=== PATIENT | female | born 1965 | race Caucasian/White ===

== ENCOUNTER 2019-09-14 16:59 | Emergency (ER) | payer OTHER, SELFPAY ==
--- NOTE | ~2019-09-14 | XR_ITS ---
EXAMINATION: XR chest 2V DATE: 09/14/2019 17:50 INDICATION: Cough, congestion and fever TECHNIQUE: PA and lateral views of the chest are obtained. COMPARISON: 03/08/2019 FINDINGS: Chronic interstitial opacities persist without significant change. No acute airspace opacit y is identified. There is no pleural effusion or pneumothorax. The cardiomediastinal silhouette is no rmal. There is moderate thoracic spondylosis. IMPRESSION: 1. Findings suggestive of chronic interstitial lung disease without acute cardiopulmonary abnormality . Reviewed, dictated and finalized at location A. TERY VAULT INSTALLER IMPRESSION: 1. Findings suggestive of chronic interstitial lung disease without acute cardi opulmonary abnormality.
[2019-09-14 17:15] VITALS: BP 99/63; PULSE 73; RESP 24; TEMP 36.3; O2SAT 100
[2019-09-14 17:21] VITALS: PULSE 73; RESP 24; O2SAT 100
--- NOTE | 2019-09-14 17:37 | ED.GENADULT ---
HPI - General Adult General Chief complaint: Upper Respiratory Infection Stated complaint: fever/cough/chills/difficulty breathing Time Seen by Provider: 09/14/19 17:37 Source: patient Mode of arrival: ambulatory Limitations: no limitations History of Present Illness HPI narrative: 54-year-old female patient presents to the [facility] with complaints of cold symptoms for the past 3 days. Patient denies getting a flu shot this year. Patient states she does have a history of asthma and COPD and is an active smoker. Patient states that she has had a cough recently, wheezing and feels very short of breath. Patient states she has been using her at home albuterol inhaler every 4-6 hours. Patient states she just overall is not feeling well continues to run fevers body aches and pains. Related Data Home Medications Medication Instructions Recorded Confirmed albuterol sulfate 09/14/19 atorvastatin 09/14/19 duloxetine mg PO 09/14/19 ibuprofen 09/14/19 insulin glargine [Basaglar KwikPen unit SUBCUT 09/14/19 U-100 Insulin] insulin lispro [Admelog SoloStar unit SUBCUT 09/14/19 U-100 Insulin] lisinopril-hydrochlorothiazide tablet 09/14/19 metoprolol tartrate 09/14/19 omeprazole 09/14/19 sitagliptin-metformin [Janumet XR] tablet PO 09/14/19 topiramate 09/14/19 Allergies Allergy/AdvReac Type Severity Reaction Status Date / Time Shrimp Allergy Mild Hives / Uncoded 09/14/19 17:11 Red Face Honey Bee Allergy Unknown ANAPHYLACTIC Uncoded 09/14/19 17:11 SHOCK Review of Systems Review of Systems: Narrative: CONSTITUTIONAL: Positive fever, chills, body aches and sweats. EYES: Denies visual changes, redness, or discharge. ENT: Denies rhinorrhea, congestion, sore throat, or otalgia. CARDIOVASCULAR: Denies chest pain, palpitations, or edema. RESPIRATORY: Positive cough with dyspnea. GASTROINTESTINAL: Denies abdominal pain, nausea, vomiting, or diarrhea. GENITOURINARY: Denies dysuria or hematuria. SKIN: Denies rash or itching. MUSCULOSKELETAL: Denies back pain, joint pain, or myalgia. NEUROLOGIC: Denies headache, numbness, or weakness. PSYCHIATRIC: Denies anxiety or depression. [facility] Past Medical History Medical History (Updated 09/14/19 @ 18:35 by SHIRA Reed) Asthma Cholecystitis COPD (chronic obstructive pulmonary disease) Diabetes GERD (gastroesophageal reflux disease) Hypercholesteremia Hypertension Pneumonia Sleep apnea Social History Social History (Updated 09/14/19 @ 18:07 by SHIRA Reed) Smoking packs per day: 1 Smoking cigarettes per day: 20.0 Comments At the time of my signature I agree with nursing past medical history, surgical, social, and family history. There is no relevant family history pertinent to the presenting complaint. Exam Narrative: Exam Narrative: GENERAL: ill-appearing, well-nourished, and in no acute distress. HEAD: Normocephalic, atraumatic. EYES: PERRLA and EOMI. ENT: Nares with erythema and edema noted bilaterally, no rhinorrhea or epistaxis. Mucous membranes moist. Posterior pharynx no erythema, tonsil enlargement, exudates or lesions present. Bilateral TMs are clear with no erythema or foreign bodies in the canal. NECK: Supple. No lymphadenopathy CHEST: Patient is very tight with inspiration and expiratory wheezing noted to bilateral upper and lower lobes. Patient is talking in broken sentences and does have some labored breathing noted. No tripoding noted. HEART: Regular rate and rhythm. No murmur heard. Normal peripheral pulses. ABDOMEN: Soft, nontender, nondistended, normal active bowel sounds. EXTREMITIES: Normal range of motion. No edema. SKIN: Warm, dry, no rash. NEURO: No focal deficits. Alert and oriented x3. Course Reevaluation(s) Reevaluation #1: Reevaluated patient after DuoNeb was completed. Patient states that she is feeling much better and feels like she is breathing a little bit easier and feels much more open. No
[2019-09-14] MEDS: ALBUTEROL SULFATE NEB 2.5 MG/3 ML INH INHALATION (17:48)
[2019-09-14] MEDS: IPRATROPIUM BR 0.02% INH SOLN 0.5 MG/2.5 ML VIAL INHALATION (17:48)
== END 2019-09-14 18:40 | disposition home or self-care (01) ==
PROVIDERS: Emergency Provider Nurse Practitioner Family
DX: J10.1 Influenza due to other identified influenza virus with other respiratory manifestations (principal); J45.41 Moderate persistent asthma with (acute) exacerbation; J44.9 Chronic obstructive pulmonary disease, unspecified; E11.9 Type 2 diabetes mellitus without complications; K21.9 Gastro-esophageal reflux disease without esophagitis; E78.00 Pure hypercholesterolemia, unspecified; I10 Essential (primary) hypertension; G47.30 Sleep apnea, unspecified; M19.90 Unspecified osteoarthritis, unspecified site; M79.7 Fibromyalgia
CPT/HCPCS: 71046; 87804; 94640; 99213; G0463

== ENCOUNTER 2020-04-12 08:22 | Outpatient (CLI) | payer OTHER, SELFPAY ==
--- NOTE | ~2020-04-12 | MM_ITS ---
EXAMINATION: MM screening santos BI w kathy HISTORY: Screening TECHNIQUE: Craniocaudal and mediolateral oblique 3-D tomosynthesis images were obtained and synthetic 2-D images were generated. CAD analysis was submitted and interpreted. COMPARISON: No prior mammogram is available for comparison at this institution. BREAST PARENCHYMAL COMPOSITION: There are scattered areas of fibroglandular density. FINDINGS: There is no evidence of suspicious mass, calcification, or architectural distortion to sugg est malignancy in either breast. There has been no suspicious interval change. IMPRESSION: 1. No mammographic evidence of malignancy. 2. Recommend routine screening mammography in one year. BI-RADS Category 1: Negative Reviewed, dictated and finalized at location A.
== END 2020-04-12 08:23 | disposition home or self-care (01) ==
DX: Z12.31 Encounter for screening mammogram for malignant neoplasm of breast (principal)
CPT/HCPCS: 77063; 77067

== ENCOUNTER 2020-06-12 07:34 | Outpatient (CLI) | payer OTHER, SELFPAY ==
--- NOTE | 2020-07-17 19:20 | WPDHOMESLEEP ---
Sleep Study - Home Unattended Date of Study: 06/12/20 Interpreting Physician: Devika Ibrahim MD Home Sleep Study Type: Apnea Link Air Height: 1.65 m Weight: 129.274 kg Body Mass Index: 47.4 Neck Circumference (inches): 16 Means: 9 Reason for Sleep Study Poor quality sleep, falling asleep in the day while talking to people Sleep History Nena Fuentes is a 55 year-old female with insomnia and excessive daytime sleepiness. She says that she gets fewer than 3 hours of sleep per night. These problems have been going on for at least 3 years. She is taking trazodone to assist with sleep onset. She has loud snoring, restless sleep, daytime fatigue, nightmares, and she says she can fall asleep any time during the day. She has fibromyalgia and multiple other medical comorbidities that make her sleep poor quality. She had an Means Sleepiness Scale score of 19 when she was in our pulmonary office for her initial visit. On her sleep questionnaire, it was 9. She reports difficulty falling asleep at night and has difficulty staying awake during the day. She constantly snores loudly. She does not awaken at night with heartburn, belching or coughing. She occasionally awakens from sleep feeling short of breath and occasionally has trouble sleeping with a cold. She occasionally wakes up gasping for breath during the night. She occasionally has breathing problems at night observed by others. She frequently sweats excessively at night. She does not notice her heart pounding or beating irregularly at night. She constantly falls asleep during the day, involuntarily, occasionally while driving. She does not fall asleep during physical effort. She rarely has loss of muscle tone with strong emotion. She does not have daytime difficulties due to excessive sleepiness. 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 She occasionally has vivid dreamlike scenes upon awakening or falling asleep. She does not feel afraid to go to sleep. she rarely has nightmares. She occasionally remembers her dreams, occasionally has racing thoughts, feelings of sadness depression and anxiety. She occasionally has muscular tension. She frequently notices parts of her body jerking. She constantly kicks at night, has crawling and aching feelings in her legs and leg pain at night. She does not have morning jaw pain. She does not grind her teeth at night. She constantly is bothered by pain during the day. She occasionally has awakened by pain at night. She frequently wakes up feeling stiff in the morning constantly has sore achy muscles in the morning and wakes up with pain in the neck and spine. She has fatigue, memory problems, bowel disturbances and headaches. normal bedtime is after midnight taking 30-40 minutes to fall asleep, typically waking 3 or 4 times at night to go to the bathroom and watch TV. She stays awake for 30 minutes to an hour when she wakes up. She wakes in the morning at 5:00 a.m.. Weekend schedule is the same. She estimates that she gets somewhere between 4 and 6 hours of sleep each night. She gets up out of bed immediately when she wakes up. She does not generally take naps. A short nap is not refreshing. She is usually drowsy in the morning for 1 hour or longer. She feels better in the afternoon compared to the morning. Habits: She smokes tobacco 1 pack per day. She does not drink caffeine, alcohol and does not use recreational drugs. [facility] Past Medical History Medical History (Updated 07/17/20 @ 19:52 by Devika Ibrahim MD) Asthma Cholecystitis COPD (chronic obstructive pulmonary disease) Cough productive of purulent sputum Depression Diabetes Fibromyalgia GERD (gastroesophageal reflux disease) Headache Hypercholesteremia Hypersomnolence Hypertension Myalgia Pneumonia Recurrent respiratory infection Shortness of Breath Sleep apnea Tobacco abuse Surgical History Surgical History History of cholecystectomy
[2020-07-17 19:23] VITALS: BMI 47.4
== END 2020-06-12 07:35 | disposition home or self-care (01) ==
LOC: ANHCSM 07:34
PROVIDERS: Visit Provider Internal Medicine Critical Care Medicine
DX: G47.10 Hypersomnia, unspecified (principal); G47.33 Obstructive sleep apnea (adult) (pediatric)
CPT/HCPCS: 95806

== ENCOUNTER 2020-06-13 13:38 | Outpatient (CLI) | payer OTHER, SELFPAY ==
--- NOTE | ~2020-06-13 | CT_ITS ---
EXAMINATION:CT lung screening DATE: 06/13/2020 15:11 INDICATION: Personal history of tobacco dependence. Current smoker with 30 pack year history. TECHNIQUE: Computed tomography (CT) of the chest was performed without intravenous contrast. Automate d exposure control and iterative reconstruction technique were employed. The dose-length product (DLP ) was 409.44 mGy-cm. COMPARISON: Chest 2 views 03/08/2019 FINDINGS: There is mild emphysema. The lungs demonstrate widespread reticular opacities with a periph eral predominance. There are widespread groundglass opacities. These findings spare the lung bases. T hese findings likely represent chronic interstitial lung disease such as chronic hypersensitivity pne umonitis. No pleural effusion. The heart size is normal. There are coronary artery calcifications. No pericardial effusion. There is diffuse hepatic steatosis. There is mild thoracic spondylosis. IMPRESSION: 1. Lung-RADS category 2: Benign appearance or behavior. Continue annual screening with noncontrast lo w-dose chest CT in 12 months. Reviewed, dictated and finalized at location B. NEL MARKETING MANAGER IMPRESSION: 1. Lung-RADS category 2: Benign appearance or behavior. Continue annual screeni ng with noncontrast low-dose chest CT in 12 months.
[2020-06-17 10:55] LABS: Immunoglobulin E 75 kU/L (<=114)
[2020-06-18 20:11] LABS: Immunoglobulin G, Serum 738 mg/dL (600-1640); Immunoglobulin G1 440 mg/dL (382-929); Immunoglobulin G2 182 mg/dL (241-700); Immunoglobulin G3 51 mg/dL (22-178); Immunoglobulin G4 25.1 mg/dL (4.0-86.0)
== END 2020-06-13 13:39 | disposition home or self-care (01) ==
LOC: ANHIMG 13:40
PROVIDERS: Visit Provider Internal Medicine Critical Care Medicine
DX: J98.8 Other specified respiratory disorders (principal); Z12.2 Encounter for screening for malignant neoplasm of respiratory organs; Z87.891 Personal history of nicotine dependence; J44.9 Chronic obstructive pulmonary disease, unspecified; R05 Cough
CPT/HCPCS: 36415; 82784; 82785; 82787; 86606; 94060; 94618; 94726; 94729; G0297

== ENCOUNTER 2020-06-13 13:43 | Outpatient (CLI) | payer OTHER, SELFPAY ==
--- NOTE | 2020-06-17 15:49 | WPDSIXMINUTE ---
Six Minute Walk Six Minute Walk: DOS: 06/13/2020 REQUESTING: Dr Ibrahim REASON FOR TESTING: shortness of breath SIX MINUTE WALK This test was conducted per ATS guidelines. Initial saturation was 95% and pulse was 83. The patient walked for 6 minutes without stopping to rest. The pulse ranged from 83 to 102. Saturation varied from 90% to 95%. Distances walked was 900 feet/274 meters. At hte end of the study, heart rate was 96, pulse was 93%. IMPRESSION: No desaturation with exertion. Distance walked is adequate for age.
--- NOTE | 2020-06-17 15:58 | WPDPFTINT ---
PFT Interpretation PFT Interpretation: DOS: 06/13/2020 REQUESTING: Dr. Ibrahim REASON FOR TESTING: shortness of breath PULMONARY FUNCTION TESTS Results are not reliable and reproducible. The patient had difficulty with full exhalation due to persistent coughing which improved after bronchodilator administration. Spirometry: FEV1 74%, normal. FVC is 68%, mildly decreased. FEV1% is 82, normal. [id number]% is mildly decreased at 63%. There is a non-statistically significant in flows after bronchodilator administration. Lung volumes: TLC 79%, mild restriction. RV is normal 97%. RV/TLC is increased 45% consistent with air trapping. Increased airway resistance 160%. Diffusion: DLCO 63% mildly decreased. Flow volume loop: Overall small dimensions consistent with restriction, and mild scooping of the expiratory limb. IMPRESSION: Mild restriction, mild obstruction evidenced by increased air trapping. Increased airway resistance. Mild decrease in diffusion. Lack of response to bronchodilator should not preclude use if clinically indicated. Devika Ibrahim MD
== END 2020-06-13 13:44 | disposition home or self-care (01) ==
LOC: ANHPFT 13:43
PROVIDERS: Visit Provider Internal Medicine Critical Care Medicine
DX: R06.02 Shortness of breath (principal)
CPT/HCPCS: 94060; 94618; 94726; 94729

== ENCOUNTER 2020-06-19 17:00 | Emergency (ER) | payer OTHER, SELFPAY ==
--- NOTE | ~2020-06-19 | XR_ITS ---
EXAMINATION: XR foot LT min 3V DATE: 06/19/2020 17:22 INDICATION: Left foot abrasion post fall TECHNIQUE: Dorsoplantar, two oblique and lateral views of the left foot were obtained. COMPARISON: None. FINDINGS: Alignment is normal. No fracture. Polyarticular osteoarthritis, moderate severity at the second and t hird tarsal metatarsal joints and mild at the remaining tarsal metatarsal and many of the metatarsoph alangeal and interphalangeal joints. There is flattening of the head of the second metatarsal consist ent with likely chronic osteonecrosis/Freiberg's infraction. Large plantar calcaneal spur. Small enth esopathic ossicles at the distal Achilles tendon. Bunion at the medial head of the first metatarsal. Soft tissue swelling overlying the lateral head of the fifth metatarsal which could represent an kt tional bunionette deformity. No radiopaque foreign bodies. IMPRESSION: 1. Scattered degenerative skeletal changes in the left foot as detailed above. No acute osseous abnor mality or radiopaque foreign bodies. 2. Chronic osteonecrosis/Freiberg's infraction with flattening of the head of the second metatarsal. Reviewed, dictated and finalized at location . THESIA TECHNICIAN IMPRESSION: 1. Scattered degenerative skeletal changes in the left foot as detailed above. No acute osseous abnormality or radiopaque foreign bodies. 2. Chronic osteonecrosis/Freiberg's infraction with flattening of the head of t he second metatarsal.
--- NOTE | ~2020-06-19 | XR_ITS ---
EXAMINATION: XR knee LT 3V, XR tibia fibula LT 2V DATE: 06/19/2020 17:22 INDICATION: Left knee and proximal lower leg pain post fall TECHNIQUE: 1. Anteroposterior, 2 oblique and crosstable lateral views of the left knee were obtained. 2. AP and lateral views of the left lower leg were obtained. COMPARISON: None. FINDINGS: Alignment is normal. No fracture. Small marginal osteophytes at the lateral and patellofemoral jayesh rtments of the left knee consistent with at least mild osteoarthritis. No left knee joint effusion/la yering lipohemarthrosis. Soft tissues are unremarkable. Left ankle joint space appears normal with no joint effusion. Soft tissue swelling with subcutaneous edema anterior to the patellar tendon and pro ximal left lower leg which given history of trauma likely represents a contusion. IMPRESSION: 1. No left knee joint effusion or acute osseous abnormality. Reviewed, dictated and finalized at [facility]. SPECIALIST IMPRESSION: 1. No left knee joint effusion or acute osseous abnormality.
[2020-06-19 17:24] VITALS: BP 115/78
[2020-06-19 17:28] VITALS: BP 111/62; BP 115/78; PULSE 64; PULSE 73; RESP 16; RESP 20; TEMP 36.2; TEMP 36.8; O2SAT 100; O2SAT 99
--- NOTE | 2020-06-19 17:30 | ED.LOWEXIN ---
HPI - Extremity Injury (Lower) General Chief Complaint: Extremity Injury, Lower Stated Complaint: L KNEE INJURY Time Seen by Provider: 06/19/20 17:20 Source: patient and RN notes reviewed Mode of arrival: ambulatory Limitations: no limitations History of Present Illness HPI Narrative: 55-year-old female who presents to [facility] care with complaints of injury to her left knee and to the dorsal aspect of her left toes from a fall while walking her dog about 2.5 hours ago. Patient states pain to her left knee anterior aspect with abrasion of skin noted to anterior aspect of her left knee. Patient is able to bend knee but states increase pain with movement and weight bearing to left leg. Patient also states some pain to the dorsal aspect of her left 2nd,3rd and 4th toes with abrasions noted. Patient also has noted swelling to the proximal lower leg below her knee with some light ecchymosis noted. Patient has adequate pulses to her left foot with foot pink and warm to touch, brisk capillary refill to toes. Patient denies any other injury, denies hitting head or any LOC. MD complaint: knee injury and other (proximal lower leg) Injury: Left: knee (And proximal lower leg) Place: street/outdoors Exacerbating factors: movement Context: fall Related Data Home Medications Medication Instructions Recorded Confirmed albuterol sulfate 09/14/19 atorvastatin 09/14/19 duloxetine mg PO 09/14/19 ibuprofen 09/14/19 insulin glargine [Basaglar KwikPen unit SUBCUT 09/14/19 U-100 Insulin] insulin lispro [Admelog SoloStar unit SUBCUT 09/14/19 U-100 Insulin] lisinopril-hydrochlorothiazide tablet 09/14/19 metoprolol tartrate 09/14/19 sitagliptin-metformin [Janumet XR] tablet PO 09/14/19 topiramate 09/14/19 Allergies Allergy/AdvReac Type Severity Reaction Status Date / Time Shrimp Allergy Mild Hives / Uncoded 04/19/20 10:08 Red Face Honey Bee Allergy Unknown ANAPHYLACTIC Uncoded 04/19/20 10:08 SHOCK Review of Systems Review of Systems: Narrative: CONSTITUTIONAL: Denies fever, chills, or sweats. EYES: Denies visual changes, redness, or discharge. ENT: Denies rhinorrhea, congestion, sore throat, or otalgia. CARDIOVASCULAR: Denies chest pain, palpitations, or edema. RESPIRATORY: Positive history of cough or dyspnea.History of asthma and tobacco abuse GASTROINTESTINAL: Denies abdominal pain, nausea, vomiting, or diarrhea. GENITOURINARY: Denies dysuria or hematuria. SKIN: Denies rash or itching.Abrasions to left knee and 2.3.4th toes left foot MUSCULOSKELETAL:Chronic back pain, joint pain, or myalgia, pain to left knee anterior region with swelling noted to area below knee with mild ecchymosis and dorsal aspect of 2,3,4, left toes NEUROLOGIC: Denies headache, numbness, or weakness. PSYCHIATRIC:Positive history of anxiety or depression. All systems reviewed & are unremarkable except as noted in HPI and below PMFSH Past Medical History Medical History (Updated 06/21/20 @ 20:44 by Donna Chapman NP) Asthma Cholecystitis COPD (chronic obstructive pulmonary disease) Cough productive of purulent sputum Diabetes GERD (gastroesophageal reflux disease) Headache Hypercholesteremia Hypersomnolence Hypertension Myalgia Pneumonia Recurrent respiratory infection Shortness of Breath Sleep apnea Tobacco abuse Surgical History Surgical History (Updated 04/18/20 @ 14:05 by Sofia Bell CMA) History of cholecystectomy History of hysterectomy History of tonsillectomy Family History Family History (Updated 04/18/20 @ 14:06 by Sofia Bell CMA) Sibling Hypertension Grandparent Hypertension Diabetes mellitus Malignant neoplasm of prostate Skin cancer Social History Social History (Updated 06/21/20 @ 20:36 by Donna Chapman NP) Smoking packs per day: 1 Smoking cigarettes per day: 20.0 Smoking status: Current every day smoker Alcohol intake: never Substance use: never [facility]
== END 2020-06-19 17:52 | disposition home or self-care (01) ==
PROVIDERS: Emergency Provider Registered Nurse
DX: S80.02XA Contusion of left knee, initial encounter (principal); W19.XXXA Unspecified fall, initial encounter; S80.212A Abrasion, left knee, initial encounter; S90.415A Abrasion, left lesser toe(s), initial encounter; M79.89 Other specified soft tissue disorders; F17.210 Nicotine dependence, cigarettes, uncomplicated; J44.9 Chronic obstructive pulmonary disease, unspecified; E11.9 Type 2 diabetes mellitus without complications; K21.9 Gastro-esophageal reflux disease without esophagitis; E78.00 Pure hypercholesterolemia, unspecified; I10 Essential (primary) hypertension; G47.30 Sleep apnea, unspecified; Z79.4 Long term (current) use of insulin
CPT/HCPCS: 73562; 73590; 73630; 99214; G0463

== ENCOUNTER 2020-11-08 16:41 | Emergency (ER) | payer OTHER, SELFPAY ==
--- NOTE | 2020-11-08 16:46 | ED.GENADULT ---
HPI - General Adult General Chief complaint: Dental/Oral Stated complaint: facial swelling Time Seen by Provider: 11/08/20 16:56 Source: patient and RN notes reviewed Mode of arrival: ambulatory Limitations: no limitations History of Present Illness HPI narrative: 55-year-old female presents with complaints of diffused dental pain for the past year. Nena reports increasing right upper dental pain and right jaw swelling over the past 24 hours. Routine medications (Gabapentin) and Tylenol (last at noon today) without relief. History of Periodontal disease and Gingivitis. Denies any drainage. No fever. No neck swelling. No limitation with speaking or swallowing. Has history of dental caries. Last seen a dentist 3 weeks ago for treatment. No dental trauma. No oral lesions. Exacerbating factors consist of chewing, eating, and drinking cold items. No relieving factors. No dentures or bridges. Tolerating liquids well. The patient reports she have not been diagnosed with COVID-19. The patient reports she is not waiting for the results of a COVID-19 lab test. The patient reports she do not have chills, weakness, or fatigue. The patient reports she do not have a new or worsening cough or shortness of breath. Denies chest pain. The patient reports she do not have any rhinorrhea, congestion, sore throat, loss of taste or smell, nausea, vomiting, abdominal pain, and diarrhea. Denies recent traveling. Denies concerns for COVID-19 or exposures been home with limited outdoor exposure except for essential household needs and return home. At this time, patient is not suspected of having COVID-19. Some parts of this dictation were generated by voice recognition software and may contain typographical and/or grammatical inaccuracies. Related Data Home Medications Medication Instructions Recorded Confirmed atorvastatin 40 mg PO DAILY 09/14/19 11/08/20 ibuprofen 800 mg PO TID 09/14/19 11/08/20 insulin lispro [Admelog SoloStar 20 unit SUBCUT KVO 09/14/19 11/08/20 U-100 Insulin] lisinopril-hydrochlorothiazide 20 tablet PO DAILY 09/14/19 11/08/20 metoprolol tartrate 25 mg PO BID 09/14/19 11/08/20 sitagliptin-metformin [Janumet XR] 100 tablet PO DAILY 09/14/19 11/08/20 topiramate 25 mg PO HS 09/14/19 11/08/20 gabapentin 300 mg capsule 300 mg PO DAILY 08/27/20 11/08/20 insulin glargine 100 unit/mL 90 unit SUBCUT DAILY ml 08/27/20 11/08/20 subcutaneous solution ipratropium 20 mcg-albuterol 100 1 puff INHALATION ONCE g 08/27/20 11/08/20 mcg/actuation mist for inhalation dulaglutide [Trulicity] 0.75 mg SUBCUT WEEKLY 11/08/20 11/08/20 duloxetine [Cymbalta] 60 mg PO BID 11/08/20 11/08/20 tiotropium bromide [Spiriva with 18 mcg INHALATION DAILY 11/08/20 11/08/20 HandiHaler] Allergies Allergy/AdvReac Type Severity Reaction Status Date / Time cephalexin [From Keflex] AdvReac Nausea Verified 11/08/20 16:53 Shrimp Allergy Mild Hives / Uncoded 11/08/20 16:52 Red Face Honey Bee Allergy Unknown ANAPHYLACTIC Uncoded 11/08/20 16:52 SHOCK Review of Systems Review of Systems: Narrative: CONSTITUTIONAL: Denies fever, chills, sweats. EYES: Denies visual changes, redness, discharge. ENT: Denies rhinorrhea, congestion, sore throat, otalgia. Complains of diffused dental pain, RT upper dental pain the worse. CARDIOVASCULAR: Denies chest pain, palpitations, edema. RESPIRATORY: Denies dyspnea, wheezing, cough. GASTROINTESTINAL: Denies abdominal pain, nausea, vomiting, diarrhea. SKIN: Denies rash or itching. MUSCULOSKELETAL: Denies acute back pain, joint pain, or myalgia. NEUROLOGIC: Denies numbness or focal weakness. PSYCHIATRIC: Denies anxiety or depression. All systems reviewed & are unremarkable except as noted in HPI and below. [facility] Past Medical History Medical History Asthma Cholecystitis COPD (chronic obstructive pulmonary disease) Cough productive of purul
[2020-11-08 16:56] VITALS: BP 129/56; PULSE 93; RESP 16; TEMP 36.6; O2SAT 97
[2020-11-08 17:12] VITALS: BP 129/56; PULSE 93; RESP 16; TEMP 36.6; O2SAT 97
== END 2020-11-08 17:19 | disposition home or self-care (01) ==
PROVIDERS: Emergency Provider Nurse Practitioner Family; PCP Family Medicine
DX: K04.7 Periapical abscess without sinus (principal); F17.210 Nicotine dependence, cigarettes, uncomplicated; J44.9 Chronic obstructive pulmonary disease, unspecified; E11.9 Type 2 diabetes mellitus without complications; M79.7 Fibromyalgia; K21.9 Gastro-esophageal reflux disease without esophagitis; E78.00 Pure hypercholesterolemia, unspecified; I10 Essential (primary) hypertension; G47.30 Sleep apnea, unspecified; F32.9 Major depressive disorder, single episode, unspecified; Z79.4 Long term (current) use of insulin
CPT/HCPCS: 99213; G0463

== ENCOUNTER 2020-11-20 11:31 | Emergency (ER) | payer OTHER, SELFPAY ==
--- NOTE | ~2020-11-20 | XR_ITS ---
EXAMINATION: XR knee LT min 4V DATE: 11/20/2020 11:48 INDICATION: Left knee pain. TECHNIQUE: 4 views of left knee were obtained. COMPARISON: Left knee radiographs 06/19/2020 FINDINGS: There is lateral subluxation of patella. No fracture. There is moderate osteoarthritis of m edial and patellofemoral compartments and mild osteoarthritis of lateral compartment. No knee joint e ffusion. IMPRESSION: 1. Moderate left knee osteoarthritis. Reviewed, dictated and finalized at location B.
[2020-11-20 11:37] VITALS: BP 130/62; PULSE 99; RESP 16; TEMP 36.5; O2SAT 99
--- NOTE | 2020-11-20 11:52 | ED.LOWEXIN ---
HPI - Extremity Injury (Lower) General Chief Complaint: Extremity Injury, Lower Stated Complaint: L KNEE PAIN Source: patient Mode of arrival: ambulatory Limitations: no limitations History of Present Illness HPI Narrative: Patient is a 55 year old female who presents complaining of left knee pain x 4-5 days. She denies known injury. Denies redness or swelling. She denies a history of knee problems or gout. Patient has a complex medical history with diagnoses including COPD, diabetes and fibromyalgia. She reports she takes ibuprofen 800 mg daily, along with Tylenol with little relief. . Related Data Home Medications Medication Instructions Recorded Confirmed atorvastatin 40 mg PO DAILY 09/14/19 11/08/20 ibuprofen 800 mg PO TID 09/14/19 11/08/20 insulin lispro [Admelog SoloStar 20 unit SUBCUT KVO 09/14/19 11/08/20 U-100 Insulin] lisinopril-hydrochlorothiazide 20 tablet PO DAILY 09/14/19 11/08/20 metoprolol tartrate 25 mg PO BID 09/14/19 11/08/20 sitagliptin-metformin [Janumet XR] 100 tablet PO DAILY 09/14/19 11/08/20 topiramate 25 mg PO HS 09/14/19 11/08/20 gabapentin 300 mg capsule 300 mg PO DAILY 08/27/20 11/08/20 insulin glargine 100 unit/mL 90 unit SUBCUT DAILY ml 08/27/20 11/08/20 subcutaneous solution ipratropium 20 mcg-albuterol 100 1 puff INHALATION ONCE g 08/27/20 11/08/20 mcg/actuation mist for inhalation dulaglutide [Trulicity] 0.75 mg SUBCUT WEEKLY 11/08/20 11/08/20 duloxetine [Cymbalta] 60 mg PO BID 11/08/20 11/08/20 tiotropium bromide [Spiriva with 18 mcg INHALATION DAILY 11/08/20 11/08/20 HandiHaler] Allergies Allergy/AdvReac Type Severity Reaction Status Date / Time cephalexin [From Keflex] AdvReac Nausea Verified 11/12/20 09:18 Shrimp Allergy Mild Hives / Uncoded 11/12/20 09:18 Red Face Honey Bee Allergy Unknown ANAPHYLACTIC Uncoded 11/12/20 09:18 SHOCK Review of Systems Review of Systems: Narrative: CONSTITUTIONAL: Denies fever, chills, or sweats. EYES: Denies visual changes, redness, or discharge. ENT: Denies rhinorrhea, congestion, sore throat, or otalgia. CARDIOVASCULAR: Denies chest pain, palpitations, or edema. RESPIRATORY: Denies cough or dyspnea. GASTROINTESTINAL: Denies abdominal pain, nausea, vomiting, or diarrhea. GENITOURINARY: Denies dysuria or hematuria. SKIN: Denies rash or itching. MUSCULOSKELETAL: Left knee pain NEUROLOGIC: Denies headache, numbness, dizziness, or weakness. PSYCHIATRIC: Denies anxiety or depression. [facility] Past Medical History Medical History Asthma Cholecystitis COPD (chronic obstructive pulmonary disease) Cough productive of purulent sputum Depression Diabetes Fibromyalgia GERD (gastroesophageal reflux disease) Headache Hypercholesteremia Hypersomnolence Hypertension Myalgia Pneumonia Recurrent respiratory infection Shortness of Breath Sleep apnea Tobacco abuse Surgical History Surgical History History of cholecystectomy History of hysterectomy History of tonsillectomy Family History Family History Sibling Hypertension Grandparent Hypertension Diabetes mellitus Malignant neoplasm of prostate Skin cancer Social History Social History Smoking packs per day: 1 Smoking cigarettes per day: 20.0 Smoking status: Current every day smoker Alcohol intake: never Substance use: never Gender identity (if verbalized by the patient): Female Comments At the time of signature, I have reviewed and agree with nursing past medical, surgical, social, and family history unless otherwise noted. Please see nursing chart for further information. There is no relevant family history pertinent to the presenting complaint. Exam Narrative: Exam Narrative: GENERAL: Well-appearing, well-nourished, and in no acute
== END 2020-11-20 12:20 | disposition home or self-care (01) ==
PROVIDERS: Emergency Provider Nurse Practitioner; PCP Family Medicine
DX: M25.562 Pain in left knee (principal); F17.210 Nicotine dependence, cigarettes, uncomplicated; J44.9 Chronic obstructive pulmonary disease, unspecified; E11.9 Type 2 diabetes mellitus without complications; M79.7 Fibromyalgia; K21.9 Gastro-esophageal reflux disease without esophagitis; E78.00 Pure hypercholesterolemia, unspecified; I10 Essential (primary) hypertension; G47.30 Sleep apnea, unspecified; F32.9 Major depressive disorder, single episode, unspecified
CPT/HCPCS: 73564; 99213; G0463

== ENCOUNTER 2021-02-09 13:11 | Observation (INO) | payer OTHER, SELFPAY ==
[2021-02-09] VITALS (11 sets, daily range): BP systolic 97–137; BP diastolic 44–73; PULSE 76–108; RESP 18–33; TEMP 36.1–36.8; O2SAT 93–100; BMI 45.8
--- NOTE | ~2021-02-09 | CT_ITS ---
EXAMINATION: CT abdomen pelvis w con DATE: 02/09/2021 17:16 INDICATION: Nausea, vomiting and generalized weakness TECHNIQUE: Computed tomography (CT) of the abdomen and pelvis was performed with 100 cc Omnipaque 350 intravenous contrast. The dose-length product was 1556.85 mGy-cm. Automated exposure control and ite rative reconstruction technique were employed. COMPARISON: No prior studies for comparison. . FINDINGS: There are patchy groundglass opacities of the lower lungs. There is dependent atelectasis. Heart size is normal. No significant pleural or pericardial effusion. Status post cholecystectomy. Fa tty infiltration of the liver. The spleen, pancreas, adrenal glands and kidneys are unremarkable. Non obstructive bowel gas pattern. No evidence for appendicitis or diverticulitis. No free air or free fl uid. Uterus is surgically absent. IMPRESSION: 1. Patchy groundglass opacities with interlobular septal thickening in the right lower lobe, which ma y relate to edema or pneumonia. 2: Hepatic steatosis. Reviewed, dictated and finalized at location A. IMPRESSION: 1. Patchy groundglass opacities with interlobular septal thickening in the righ t lower lobe, which may relate to edema or pneumonia. 2: Hepatic steatosis.
--- NOTE | ~2021-02-09 | CT_ITS ---
EXAMINATION: CT BRAIN W/O DATE: 02/09/2021 17:12 INDICATION: Nausea, vomiting. Weakness. TECHNIQUE: Computed tomography (CT) of the head was performed without intravenous contrast. The dose- length product was 605.33 mGy-cm. Automated exposure control and iterative reconstruction technique w ere employed. COMPARISON: CT dated 05/03/2006. FINDINGS: Normal brain parenchymal volume for age. Normal harris-white differentiation. No acute intrac ranial hemorrhage, infarction, mass or mass effect. No ventriculomegaly or midline shift. Midline sagittal images demonstrate a normal corpus callosum, c raniovertebral junction and sella turcica. Basilar cisterns are patent. Paranasal sinuses and mastoids are pneumatized. No depressed skull fractures. IMPRESSION: 1. No acute intracranial abnormality. Reviewed, dictated and finalized at location A.
--- NOTE | ~2021-02-09 | XR_ITS ---
XR chest 1V portable 02/09/2021 16:21 Indication: Cough, nausea, vomiting and diarrhea. COPD. Procedure: AP portable chest Comparison: 09/14/2019 Findings: Diffuse bilateral interstitial infiltrates. Cardiomegaly. No pleural effusion. Elevated rig ht diaphragm. No pneumothorax. No acute osseous abnormality. Impression: 1: Diffuse bilateral interstitial infiltrates which may represent edema or pneumonia. Reviewed, dictated and finalized at location A. Impression: 1: Diffuse bilateral interstitial infiltrates which may represent edema or pneu monia.
--- NOTE | ~2021-02-09 | XR_ITS ---
EXAMINATION: XR chest 1V portable DATE: 02/11/2021 12:06 INDICATION: Shortness of breath TECHNIQUE: frontal view of the chest was obtained. COMPARISON: Chest radiograph dated 02/09/2021 FINDINGS: Again seen is a diffuse increased interstitial pattern throughout both lungs consistent with mild pul monary edema. No pleural effusion or pneumothorax. Cardiomegaly. Calcific tendinitis of the right inf raspinatus tendon. IMPRESSION: 1. Persistent diffuse increased interstitial pattern most likely congestive heart failure related mil d pulmonary edema with differential including less likely pneumonia. 2. Cardiomegaly. Reviewed, dictated and finalized at location A. IMPRESSION: 1. Persistent diffuse increased interstitial pattern most likely congestive hea rt failure related mild pulmonary edema with differential including less likely pneumonia. 2. Cardiomegaly.
[2021-02-09 13:44] LABS: Basophils Absolute Auto 0.1 K/mm3 (0.0-0.1); Basophils Percent Auto 0.4 % (0.2-1.2); Eosinophils Percent Auto 0.1 % (0-4.4); Hematocrit 40.7 % (37.0-47.0); Hemoglobin 14.1 g/dL (12.0-15.0); Immature Granulocyte Absolute 0.17 K/mm3 (0.00-0.031); Immature Granulocyte Percent A 0.9 % (0-0.5); Lymphocytes Absolute Auto 1.55 K/mm3 (0.9-3.2); Lymphocytes Percent Auto 7.8 % (18.3-44.2); Mean Corpuscular HGB Conc 34.6 g/dl (32-36); Mean Corpuscular Volume 98.1 fl (80-100); Mean Platelet Volume 10.1 fl (7.4-10.4); Monocytes Absolute Auto 1.1 K/mm3 (0.1-0.6); Monocytes Percent Auto 5.5 % (2.6-8.5); Neutrophils Absolute Auto 16.9 K/mm3 (1.3-6.7); Neutrophils Percent Auto 85.3 % (45.5-73.1); Platelet Count Result 179 k/mm3 (150-375); Red Blood Count 4.15 M/mm3 (4.2-5.4); Red Cell Distribution Width 13.2 % (11.5-14.5); White Blood Count 19.8 K/mm3 (4.5-10.0)
[2021-02-09 13:56] LABS: Alanine Aminotransferase 24 U/L (4-35); Albumin Level 4.3 g/dL (3.5-5.1); Alkaline Phosphatase 88 U/L (38-126); Anion Gap 12 mmol/L (8-16); Aspartate Amino Transferase 29 U/L (14-36); Bilirubin,Total 2.6 mg/dL (0.2-1.3); Blood Urea Nitrogen 26 mg/dL (7-17); Calcium 9.6 mg/dL (8.4-10.2); Carbon Dioxide 23 mmol/L (22-30); Chloride 92 mmol/L (98-107); Estimated CRCL calculation 97 ml/min; Estimated Glomerular Filt Rate > 60; Glucose 434 mg/dL (65-105); Lipase 43 U/L (23-300); Potassium 4.5 mmol/L (3.4-5.0); Sodium 127 mmol/L (137-145)
[2021-02-09 13:57] LABS: Add Urine Microscopic? YES; Appearance Urine Cloudy (Clear); Bacteria Urine Trace /hpf; Bilirubin Urine Negative (Negative); Blood Urine Negative (Negative); Color Urine Yellow (Yellow); Glucose Urine UA 3+ mg/dL (Negative); Ketones Urine Negative (Negative); Leukocyte Esterase Ur 2+ LEU/UL (Negative); Mucus Urine Rare /lpf; Nitrate Urine Negative (Negative); Protein Urine Negative (Negative); RBC Urine 0-2 /hpf (0-2); Specific Grav Ur 1.023 (1.001-1.035); Squamous Epithelial Cell Urine Rare /hpf (Few); WBC Urine >75 /hpf
[2021-02-09 14:53] LABS: Glucose Point of Care 420 mg/dl (65-105)
--- NOTE | 2021-02-09 16:09 | ECG_ITS ---
Measurements Intervals [place] Rate: 96 P: 25 OH: 147 QRS: -4 QRSD: 84 T: 20 QT: 330 QTc: 418 Interpretive Statements SINUS RHYTHM DELAYED PRECORDIAL R/S TRANSITION CONSIDER INFERIOR INFARCT, AGE INDETERMINATE BASELINE ARTIFACT- I, II, III, AVL, AVF ABNORMAL ECG Electronically Signed On 02-09-2021 18:31:42 CDT by Juan Akhtar D.O.
--- NOTE | 2021-02-09 16:23 | ED.GENADULT ---
HPI - General Adult General Chief complaint: Nausea/Vomiting/Diarrhea Stated complaint: vomiting Time Seen by Provider: 02/09/21 15:28 Source: patient, family and RN notes reviewed Mode of arrival: ambulatory Limitations: no limitations History of Present Illness HPI narrative: This is a 56 year old morbidly obese female with history hypertension, DM, fibromyalgia, neuropathy who presents for evaluation of weakness, nausea, vomiting and dizziness. Patient states she started taking Meloxicam on Wednesday. She developed nausea, dizziness, vomiting on Wednesday. She denies abdominal pain but she does reports diarrhea. She describes her dizziness as vertigo. She also reports a diffuse headache. She reports cough but denies chest pain and shortness of breath. Her daughter states patient has history of UTIs and she was last diagnosed approximately 1 month ago. Related Data Home Medications Medication Instructions Recorded Confirmed atorvastatin 40 mg PO HS 09/14/19 02/09/21 insulin lispro [Admelog SoloStar 20 unit SUBCUT TIDWM 09/14/19 02/09/21 U-100 Insulin] lisinopril-hydrochlorothiazide 20 tablet PO DAILY 09/14/19 02/09/21 sitagliptin-metformin [Janumet XR] 100 tablet PO DAILY 09/14/19 02/09/21 gabapentin 300 mg capsule 600 mg PO BID 08/27/20 02/09/21 duloxetine [Cymbalta] 60 mg PO BID 11/08/20 02/09/21 tiotropium bromide [Spiriva with 18 mcg INHALATION DAILY 11/08/20 02/09/21 HandiHaler] budesonide-formoterol [Symbicort] 1 inh INHALATION BID 02/09/21 02/09/21 insulin glargine [Basaglar KwikPen 90 unit SUBCUT HS 02/09/21 02/09/21 U-100 Insulin] topiramate 25 mg PO HS 02/09/21 02/09/21 zolpidem 5 mg PO DAILY 02/09/21 02/09/21 Allergies Allergy/AdvReac Type Severity Reaction Status Date / Time bee venom protein (honey bee) Allergy Severe Anaphylactic Verified 02/09/21 15:46 Shock shellfish derived Allergy Severe Hives/RED Verified 02/09/21 15:46 FACE shrimp Allergy Severe Hives/RED Verified 02/09/21 15:46 FACE cephalexin [From Keflex] AdvReac Nausea Verified 02/09/21 15:37 Review of Systems Review of Systems: All systems reviewed & are unremarkable except as noted in HPI and below Constitutional: Constitutional: Denies chills, Reports fatigue, Denies fever(s) and Reports weakness Eyes: Eyes: Denies change in vision ENT: Denies nasal congestion and Denies sore throat Cardiovascular: Cardiovascular: Denies chest pain Respiratory: Respiratory: Reports cough and Denies dyspnea Gastrointestinal: Gastrointestinal: Denies abdominal pain, Reports diarrhea, Reports nausea and Reports vomiting Genitourinary: Genitourinary: Reports nocturia and Reports dysuria Neurologic: Reports dizziness, Reports headache(s), Denies focal weakness, Reports numbness (chronic) and Reports weakness (generalized) [facility] Past Medical History Medical History (Updated 02/10/21 @ 00:17 by Makenzie Devries MD) Anxiety Arthritis Asthma Chronic headaches Chronic obstructive pulmonary disease Depression Fibromyalgia Gastroesophageal reflux disease Hypercholesteremia Hypertension Insulin dependent type 2 diabetes mellitus Obstructive sleep apnea on CPAP Stress incontinence Tobacco abuse Surgical History Surgical History (Updated 02/09/21 @ 22:51 by Marlen Contreras PA-C) History of cholecystectomy History of hysterectomy History of tonsillectomy Status post excision of Chen's neuroma Family History Family History Sibling Hypertension Grandparent Hypertension Diabetes mellitus Malignant neoplasm of prostate Skin cancer Other Arthritis Depression Heart disease Neuropathy Social History Social History (Updated 02/09/21 @ 22:52 by Marlen Contreras PA-C) Smoking packs per day: 1 Smoking cigarettes per day: 20.0 Years smoked: 20 Smoking pack-years: 20.00 Smoking status: Former smoker Tobacco type: cigar
[2021-02-09] MEDS: ONDANSETRON INJ 4 MG/2 ML VIAL IV PUSH (16:25)
[2021-02-09] MEDS: SODIUM CHLORIDE 0.9% IV 1,000 ML 999 ML IV CONT ×3 (16:38→19:47)
[2021-02-09 16:49] LABS: Alveolar/Arterial O2 Gradient 32.5 mmHg; Base Excess ABG 0.5 mEq/l (+/-2.0); Carboxyhemoglobin 1.8 % THb (0-2.0); Device ROOM AIR; Fractional Inspired Oxygen 21 %; HCO3 ABG 23.7 mEq/l (22.0-26.0); Methemoglobin ABG 0.2 %THb (0-1.5); Oxygen Content ABG 18.9 %vol (16.0-22.0); Oxygen Saturation ABG 96.1 % (95.0-100.0); Oxyhemoglobin 93.3 % THb (90.0-100.0); PCO2 ABG 33.9 mmHg (35.0-45.0); PO2 ABG 76.6 mmHg (80.0-100.0); PO2 FiO2 Ratio Arterial Blood 3.65 %; Reduced Hemoglobin 4.7 %THb (0-5.0); Site Drawn RIGHT BRACHIAL; Total Hemoglobin 14.4 g/dL (12.0-18.0); pH ABG 7.462 (7.350-7.450)
[2021-02-09] MEDS: PANTOPRAZOLE SODIUM IV 40 MG VIAL IV PUSH (17:37)
[2021-02-09 17:54] LABS: Lactic Acid Reflex 2.2 mmol/L (0.7-2.1); Magnesium 1.5 mg/dL (1.6-2.3)
[2021-02-09 18:07] LABS: NT Pro B Type Natriuretic Pept 65 pg/mL (5-100); Troponin I < 0.012 ng/mL (0.000-0.034)
[2021-02-09 18:51] LABS: Glucose Point of Care 331 mg/dl (65-105)
[2021-02-09] MEDS: INSULIN HUMAN REGULAR (*BKC) 100 UNITS/ML 6 UNITS SUB-Q (19:13)
--- NOTE | 2021-02-09 20:12 | ADMGEN ---
This patient, Nena Fuentes, was admitted to 3 [facility] Surg Room 319-01. Patient/family oriented to hospital policies and general routines including ID bracelet, bed and alarms, visiting hours, pain management, procedures, bathroom and other care routines, personal items, smoking policy, room service/diet, and visiting hours. Information on how to activate the Rapid Response Team has been discussed. Patient/Family are encouraged to report perceived risks to care and to ask questions if they do not understand what they are told or what they should do.
[2021-02-09 20:43] LABS: Reflex Lactic Acid Yes or No Add Lactic
--- NOTE | 2021-02-09 21:15 | PM.IMHP ---
H&P: HPI History of Present Illness Date/Time: 02/09/21 21:15 Chief Complaint: Nausea, vomiting, diarrhea. Narrative: This is a 56-year-old female with insulin-dependent diabetes, hypertension, hyperlipidemia, GERD, COPD, and fibromyalgia who presented to the emergency department per today via private vehicle from home for evaluation of nausea, vomiting, and diarrhea. She has been having issues with pain in her knees due to arthritis and she was prescribed meloxicam though that seems to have been irritating her stomach. Since Wednesday she has had quite a bit of nausea and indigestion and reports 2 to 3 episodes of emesis a day. She has also had about 4 to 6 nonbloody, loose stools a day. Due to ongoing nausea she has had very poor oral intake and she has lost about 10 lb since Wednesday. Additionally she reports subjective fever, sweats, body aches, and more recently she has developed a dry cough. On arrival to the emergency department her random glucose was 434 and she admits to not taking her insulin this week due to the fact that she has not been eating. She was vaccinated for COVID earlier this year. She denies sick contacts and exposure to those positive for COVID-19. She has not had significant sinus congestion, rhinorrhea, otalgia, or odynophagia. No significant change in occasional dyspnea on exertion. No hematemesis, melena, or hematochezia. Review of Systems Review of Systems: Narrative: Twelve systems were reviewed with pertinent positives and negatives as per HPI. She has frequent headaches and that is unchanged. No blurry vision, polydipsia, or polyuria. She has been feeling quite weak and a bit dizzy with position changes but denies syncope or near-syncope. No dysuria, urgency, hesitancy, or frequency. Suffers from stress urinary incontinence, however. No history of coronary artery disease or congestive heart failure. Denies orthopnea and PND. Occasional lower extremity edema which improves by morning. Except as documented, all other systems were reviewed and are negative. [facility] Past Medical History Medical History (Updated 02/09/21 @ 22:56 by Marlen Contreras PA-C) Anxiety Arthritis Asthma Chronic headaches Chronic obstructive pulmonary disease Depression Fibromyalgia Gastroesophageal reflux disease Hypercholesteremia Hypertension Insulin dependent type 2 diabetes mellitus Obstructive sleep apnea on CPAP Stress incontinence Tobacco abuse Surgical History Surgical History (Updated 02/09/21 @ 22:51 by Marlen Contreras PA-C) History of cholecystectomy History of hysterectomy History of tonsillectomy Status post excision of Chen's neuroma Family History Family History Sibling Hypertension Grandparent Hypertension Diabetes mellitus Malignant neoplasm of prostate Skin cancer Other Arthritis Depression Heart disease Neuropathy Social History Social History (Updated 02/09/21 @ 22:52 by Marlen Contreras PA-C) Smoking packs per day: 1 Smoking cigarettes per day: 20.0 Years smoked: 20 Smoking pack-years: 20.00 Tobacco type: cigarettes Smoking end date: 09/02/20 Alcohol intake: never Substance use: never Substance use type: does not use Additional living arrangements comments: Resides in [place]. Additional occupation/education comments: Unemployed. Meds Home Medications and Allergies Home Medications Medication Instructions Recorded Confirmed Type atorvastatin 40 mg PO DAILY 09/14/19 12/03/20 History insulin lispro [Admelog SoloStar 20 unit SUBCUT KVO 09/14/19 12/03/20 History U-100 Insulin] lisinopril-hydrochlorothiazide 20 tablet PO DAILY 09/14/19 12/03/20 History sitagliptin-metformin [Janumet XR] 100 tablet PO DAILY 09/14/19 12/03/20 History albuterol sulfate 2.5 mg INHALATION Q6H PRN #180 ml 07/24/20 12/03/20 Rx gabapentin 300 mg capsule 300 mg PO DAILY 08/27/20 12/03/20 History inhalat
[2021-02-09 22:16] LABS: Lactic Acid 2.6 mmol/L (0.7-2.1)
[2021-02-09] MEDS: SODIUM CHLORIDE 0.9% IV 1,000 ML 125 ML IV CONT (23:03)
[2021-02-09] MEDS: FAMOTIDINE 20 MG/2 ML VIAL IV PUSH (23:04)
[2021-02-09 23:57] LABS: Hemoglobin A1C 8.1 % (<5.7)
[2021-02-10] VITALS (7 sets, daily range): BP systolic 95–124; BP diastolic 32–56; PULSE 72–98; RESP 16–18; TEMP 35.8–36.5; O2SAT 96–99
[2021-02-10 00:26] LABS: Thyroid Stimulating Hormone Reflex 0.421 uIU/mL (0.465-4.68)
[2021-02-10] MEDS: MAGNESIUM SULF 2 GM/WATER 50ML 2 GM/50 ML BAG IVPB (00:39)
[2021-02-10 01:50] LABS: Free T4 Free Thyroxine Reflex 1.16 ng/dL (0.78-2.19)
[2021-02-10] MEDS: GABAPENTIN 300 MG CAPSULE 600 MG PO ×2 (05:58→17:52)
[2021-02-10] MEDS: DULoxetine HCL 60 MG CAPSULE.DR PO ×2 (05:59→17:52)
[2021-02-10 06:56] LABS: Basophils Percent Auto 0.3 % (0.2-1.2); Eosinophils Percent Auto 0.1 % (0-4.4); Hematocrit 35.8 % (37.0-47.0); Hemoglobin 12.4 g/dL (12.0-15.0); Immature Granulocyte Absolute 0.15 K/mm3 (0.00-0.031); Lymphocytes Absolute Auto 1.71 K/mm3 (0.9-3.2); Lymphocytes Percent Auto 11.9 % (18.3-44.2); Mean Corpuscular HGB Conc 34.6 g/dl (32-36); Mean Corpuscular Hemoglobin 34.2 pg (26-34); Mean Corpuscular Volume 98.6 fl (80-100); Mean Platelet Volume 10.1 fl (7.4-10.4); Monocytes Absolute Auto 0.9 K/mm3 (0.1-0.6); Monocytes Percent Auto 6.5 % (2.6-8.5); Neutrophils Absolute Auto 11.6 K/mm3 (1.3-6.7); Neutrophils Percent Auto 80.2 % (45.5-73.1); Platelet Count Result 184 k/mm3 (150-375); Red Blood Count 3.63 M/mm3 (4.2-5.4); Red Cell Distribution Width 13.2 % (11.5-14.5); White Blood Count 14.4 K/mm3 (4.5-10.0)
[2021-02-10 07:01] LABS: Lactic Acid Reflex 1.4 mmol/L (0.7-2.1)
[2021-02-10 07:27] LABS: Alanine Aminotransferase 25 U/L (4-35); Albumin Level 3.8 g/dL (3.5-5.1); Alkaline Phosphatase 77 U/L (38-126); Anion Gap 13 mmol/L (8-16); Aspartate Amino Transferase 30 U/L (14-36); Bilirubin,Total 1.9 mg/dL (0.2-1.3); Blood Urea Nitrogen 16 mg/dL (7-17); Calcium 8.6 mg/dL (8.4-10.2); Carbon Dioxide 21 mmol/L (22-30); Chloride 96 mmol/L (98-107); Estimated CRCL calculation 113 ml/min; Estimated Glomerular Filt Rate > 60; Glucose 330 mg/dL (65-105); Lactate Dehydrogenase 669 U/L (313-618); Magnesium 1.9 mg/dL (1.6-2.3); Sodium 130 mmol/L (137-145)
[2021-02-10 07:38] LABS: CRP 17.5 mg/dL (<1.0)
[2021-02-10] MEDS: ENOXAPARIN 40 MG/0.4 ML SYRINGE SUB-Q (07:46)
[2021-02-10] MEDS: FAMOTIDINE 20 MG/2 ML VIAL IV PUSH ×2 (07:47→20:18)
[2021-02-10] MEDS: lisinopriL 20 MG TABLET PO (07:48)
[2021-02-10 08:15] LABS: Glucose Point of Care 340 mg/dl (65-105)
[2021-02-10] MEDS: ALBUTEROL SULFATE (*SP) AEROSOL 1 PUFF 4 PUFF INHALATION (08:47)
[2021-02-10] MEDS: INSULIN ASPART (*BKC) 100 UNITS/ML SUB-Q ×3 (09:49→18:21)
[2021-02-10] MEDS: INSULIN ASPART (*BKC) 100 UNITS/ML 20 UNITS SUB-Q ×2 (09:50→12:02)
[2021-02-10] MEDS: HYDROcodone/acetaminophen (*CRX) 5-325 MG TABLET 1 TAB PO ×2 (10:57→22:46)
[2021-02-10] MEDS: ALBUTEROL SULFATE (*SP) INHALER 4 PUFF INHALATION ×2 (10:58→20:06)
[2021-02-10] MEDS: BUDESONIDE/FORMOTEROL (*SP) 160-4.5 MCG 6 GM INH 1 PUFF INHALATION ×2 (10:59→20:06)
[2021-02-10 12:02] LABS: Glucose Point of Care 364 mg/dl (65-105)
--- NOTE | 2021-02-10 13:04 | P.PNIM_ITS ---
Progress Note: A&P Assessment and Plan (1) Sepsis: Code(s): A41.9 - Sepsis, unspecified organism Status: Acute Assessment and Plan: * tachycardia 100s, leukocytosis 19.8, and elevated lactic acid level upon adm ission * Ceftriaxone 1gm and Azithromycin 500mg IV daily * 3L of fluids * NS 125ml/hr * Trend labs and vital signs * Complaints of sweats and chills * Labs in the am * Blood and urine cultures pending * C.Diff due to the frequent antibiotic usage * Legionella pending (2) Pneumonia: Code(s): J18.9 - Pneumonia, unspecified organism Status: Acute Assessment and Plan: * CXR shows Diffuse bilateral interstitial infiltrates which may represent edema or pneumonia. * ABD/PEL CT Patchy ground glass opacities with interlobular septal thickening in the right lower lobe, which may relate to edema or pneumonia. * COVID pending * Blood cultures pending * Rocephin 1gm and azithromycin 500mg IV Daily * Deescalate antibiotics when cultures are resulted * Obtain sputum cultures. (3) Abnormal urinalysis: Code(s): R82.90 - Unspecified abnormal findings in urine Status: Acute Assessment and Plan: * UA cloudy with leukocyte esterase 2+, WBC >75, * Rocephin 1gm IV daily * Urine cultures pending (4) Hypomagnesemia: Code(s): E83.42 - Hypomagnesemia Status: Acute Assessment and Plan: * Mg 1.9 today * labs in the am * Trend labs * Replace as needed (5) Insulin dependent type 2 diabetes mellitus: Code(s): E11.9 - Type 2 diabetes mellitus without complications; Z79.4 - residential (current) use of insulin Status: Acute Assessment and Plan: * Takes Lantus 90 units, 20units aspart with meals to continue * Will increase the before meal aspart * Patient is also on Victoza 1.2mg at home * Hold Janumet for now * AC/HS * Trend glucose * Labs in the am * Glucose today is 330 (6) Hypertension: Code(s): I10 - Essential (primary) hypertension Status: Chronic Assessment and Plan: * BP 111/45 * Continue home lisinopril 20mg PO daily * Trend blood pressure * Adjust medication as needed. (7) Chronic obstructive pulmonary disease: Code(s): J44.9 - Chronic obstructive pulmonary disease, unspecified Status: Acute Assessment and Plan: * Chronic * Continue home Spiriva 1 cap inhal daily and symbicort 160-4.5 1 puff Q12hr * Albuterol 4 puff Q6hr * Monitor cough and sputum production * On azithromycin 500mg IV daily for prophylactic * Sputum culture pending (8) Obstructive sleep apnea on CPAP: Code(s): G47.33 - Obstructive sleep apnea (adult) (pediatric); Z99.89 - Dependence on other enabling machines and devices Status: Acute Assessment and Plan: * CPAP at night Time Spent With Patient Time with patient: 25 - 35 minutes Subjective Date/time seen: 02/10/21 09:00 Interval history: This is a 56-year-old female with insulin-dependent diabetes, hypertension, hyperlipidemia, GERD, COPD, and fibromyalgia who presented to the emergency department for evaluation of nausea, vomiting, and diarrhea. Patient stated that she has just feels weak and achy all over. She also denies any can urination issues. She is still nauseated and Zofran has been helping her. She does have poor intake for ab
--- NOTE | 2021-02-10 13:04 | PM.IMPN ---
Progress Note: A&P Assessment and Plan (1) Sepsis: Code(s): A41.9 - Sepsis, unspecified organism Status: Acute Assessment and Plan: tachycardia 100s, leukocytosis 19.8, and elevated lactic acid level upon admission Ceftriaxone 1gm and Azithromycin 500mg IV daily 3L of fluids NS 125ml/hr Trend labs and vital signs Complaints of sweats and chills Labs in the am Blood and urine cultures pending C.Diff due to the frequent antibiotic usage Legionella pending (2) Pneumonia: Code(s): J18.9 - Pneumonia, unspecified organism Status: Acute Assessment and Plan: CXR shows Diffuse bilateral interstitial infiltrates which may represent edema or pneumonia. ABD/PEL CT Patchy ground glass opacities with interlobular septal thickening in the right lower lobe, which may relate to edema or pneumonia. COVID pending Blood cultures pending Rocephin 1gm and azithromycin 500mg IV Daily Deescalate antibiotics when cultures are resulted Obtain sputum cultures. (3) Abnormal urinalysis: Code(s): R82.90 - Unspecified abnormal findings in urine Status: Acute Assessment and Plan: UA cloudy with leukocyte esterase 2+, WBC >75, Rocephin 1gm IV daily Urine cultures pending (4) Hypomagnesemia: Code(s): E83.42 - Hypomagnesemia Status: Acute Assessment and Plan: Mg 1.9 today labs in the am Trend labs Replace as needed (5) Insulin dependent type 2 diabetes mellitus: Code(s): E11.9 - Type 2 diabetes mellitus without complications; Z79.4 - care home (current) use of insulin Status: Acute Assessment and Plan: Takes Lantus 90 units, 20units aspart with meals to continue Will increase the before meal aspart Patient is also on Victoza 1.2mg at home Hold Janumet for now AC/HS Trend glucose Labs in the am Glucose today is 330 (6) Hypertension: Code(s): I10 - Essential (primary) hypertension Status: Chronic Assessment and Plan: BP 111/45 Continue home lisinopril 20mg PO daily Trend blood pressure Adjust medication as needed. (7) Chronic obstructive pulmonary disease: Code(s): J44.9 - Chronic obstructive pulmonary disease, unspecified Status: Acute Assessment and Plan: Chronic Continue home Spiriva 1 cap inhal daily and symbicort 160-4.5 1 puff Q12hr Albuterol 4 puff Q6hr Monitor cough and sputum production On azithromycin 500mg IV daily for prophylactic Sputum culture pending (8) Obstructive sleep apnea on CPAP: Code(s): G47.33 - Obstructive sleep apnea (adult) (pediatric); Z99.89 - Dependence on other enabling machines and devices Status: Acute Assessment and Plan: CPAP at night Time Spent With Patient Time with patient: 25 - 35 minutes Subjective Date/time seen: 02/10/21 09:00 Interval history: This is a 56-year-old female with insulin-dependent diabetes, hypertension, hyperlipidemia, GERD, COPD, and fibromyalgia who presented to the emergency department for evaluation of nausea, vomiting, and diarrhea. Patient stated that she has just feels weak and achy all over. She also denies any can urination issues. She is still nauseated and Zofran has been helping her. She does have poor intake for about 4-5 days not been eating or drinking anything. She does have diarrhea still which she said she has already had 2 episodes today she is also having sweats and chills and she said she is dizzy when she gets up however she does know she is taking so. Patient is also concerned about her blood sugars which was 340 this morning but has not taken any of her insulin since she has been sick for the past 5 days. Patient also stated that she was treated for UTI about a month ago and she gets them regularly and is treated on them so she has on and off antibiotics all the time. Review of Syst
[2021-02-10] MEDS: FUROSEMIDE INJ 40 MG/4 ML VIAL IV PUSH (14:17)
[2021-02-10] MEDS: SODIUM CHLORIDE 0.9% IV 1,000 ML 125 ML IV CONT ×2 (14:18→22:47)
[2021-02-10 16:50] LABS: SARS-CoV-2 RNA PCR Negative
[2021-02-10] MEDS: ACETAMINOPHEN 325 MG TABLET 650 MG PO (17:51)
[2021-02-10 18:08] LABS: Glucose Point of Care 329 mg/dl (65-105)
[2021-02-10] MEDS: INSULIN ASPART (*BKC) 100 UNITS/ML 25 UNITS SUB-Q (18:22)
[2021-02-10] MEDS: INSULIN GLARGINE (*BKC) 100 UNITS/ML 90 UNITS SUB-Q (20:13)
[2021-02-10] MEDS: ATORVASTATIN 40 MG TABLET PO (20:18)
[2021-02-10] MEDS: TOPIRAMATE 25 MG TABLET PO (20:19)
[2021-02-10 21:41] LABS: Glucose Point of Care 373 mg/dl (65-105)
[2021-02-11] MEDS: ALBUTEROL SULFATE (*SP) INHALER 4 PUFF INHALATION ×2 (02:12→09:15)
[2021-02-11 02:15] VITALS: PULSE 69; RESP 16
[2021-02-11 06:00] VITALS: BP 126/55; PULSE 66; RESP 18; TEMP 35.9; O2SAT 97
[2021-02-11] MEDS: SODIUM CHLORIDE 0.9% IV 1,000 ML 125 ML IV CONT (06:47)
[2021-02-11 07:08] LABS: Basophils Percent Auto 0.3 % (0.2-1.2); Eosinophils Absolute Auto 0.1 K/mm3 (0-0.3); Eosinophils Percent Auto 0.9 % (0-4.4); Hematocrit 31.3 % (37.0-47.0); Hemoglobin 10.4 g/dL (12.0-15.0); Immature Granulocyte Percent A 1.1 % (0-0.5); Lymphocytes Absolute Auto 1.94 K/mm3 (0.9-3.2); Lymphocytes Percent Auto 21.5 % (18.3-44.2); Mean Corpuscular HGB Conc 33.2 g/dl (32-36); Mean Corpuscular Hemoglobin 33.9 pg (26-34); Mean Platelet Volume 10.2 fl (7.4-10.4); Monocytes Absolute Auto 0.9 K/mm3 (0.1-0.6); Monocytes Percent Auto 9.5 % (2.6-8.5); Neutrophils Percent Auto 66.7 % (45.5-73.1); Platelet Count Result 159 k/mm3 (150-375); Red Blood Count 3.07 M/mm3 (4.2-5.4); Red Cell Distribution Width 13.4 % (11.5-14.5)
[2021-02-11 07:52] LABS: Glucose Point of Care 281 mg/dl (65-105)
[2021-02-11 08:08] LABS: Alanine Aminotransferase 42 U/L (4-35); Albumin Level 3.1 g/dL (3.5-5.1); Alkaline Phosphatase 61 U/L (38-126); Anion Gap 7 mmol/L (8-16); Aspartate Amino Transferase 42 U/L (14-36); Bilirubin,Total 1.1 mg/dL (0.2-1.3); Blood Urea Nitrogen 15 mg/dL (7-17); Calcium 8.2 mg/dL (8.4-10.2); Carbon Dioxide 25 mmol/L (22-30); Chloride 103 mmol/L (98-107); Estimated CRCL calculation 113 ml/min; Estimated Glomerular Filt Rate > 60; Glucose 281 mg/dL (65-105); Magnesium 1.8 mg/dL (1.6-2.3); Potassium 3.7 mmol/L (3.4-5.0); Sodium 135 mmol/L (137-145)
[2021-02-11] MEDS: GABAPENTIN 300 MG CAPSULE 600 MG PO (09:07)
[2021-02-11] MEDS: DULoxetine HCL 60 MG CAPSULE.DR PO (09:07)
[2021-02-11] MEDS: MELOXICAM 7.5 MG TABLET 15 MG PO (09:07)
[2021-02-11] MEDS: lisinopriL 20 MG TABLET PO (09:07)
[2021-02-11] MEDS: HYDROcodone/acetaminophen (*CRX) 5-325 MG TABLET 1 TAB PO (09:08)
[2021-02-11] MEDS: ENOXAPARIN 40 MG/0.4 ML SYRINGE SUB-Q (09:08)
[2021-02-11] MEDS: FAMOTIDINE 20 MG/2 ML VIAL IV PUSH (09:08)
[2021-02-11 09:12] VITALS: O2SAT 97
[2021-02-11] MEDS: BUDESONIDE/FORMOTEROL (*SP) 160-4.5 MCG 6 GM INH 1 PUFF INHALATION (09:15)
[2021-02-11 09:17] VITALS: PULSE 62; RESP 16
[2021-02-11] MEDS: INSULIN ASPART (*BKC) 100 UNITS/ML SUB-Q ×2 (09:17→13:04)
[2021-02-11] MEDS: INSULIN ASPART (*BKC) 100 UNITS/ML 25 UNITS SUB-Q ×2 (09:18→13:05)
--- NOTE | 2021-02-11 10:35 | P.DS_ITS ---
DS: Admitting Diagnosis Admitting Diagnosis Admitting Diagnosis: PNA and UTI DS: Discharge Diagnosis Discharge Diagnosis (1) Sepsis: Code(s): A41.9 - Sepsis, unspecified organism Status: Acute Assessment and Plan: * tachycardia 100s, leukocytosis 19.8, and elevated lactic acid level upon admission * Ceftriaxone 1gm and Azithromycin 500mg IV daily * 3L of fluids * NS 125ml/hr * Trend labs and vital signs * Complaints of sweats and chills * Labs in the am * Blood and urine cultures pending * C.Diff due to the frequent antibiotic usage * Legionella pending * Augmentin 875 b.i.d. for 5 days (2) Pneumonia: Code(s): J18.9 - Pneumonia, unspecified organism Status: Acute Assessment and Plan: * CXR shows Diffuse bilateral interstitial infiltrates which may represent edema or pneumonia. * ABD/PEL CT Patchy ground glass opacities with interlobular septal thickening in the right lower lobe, which may relate to edema or pneumonia. * COVID pending * Blood cultures pending * Rocephin 1gm and azithromycin 500mg IV Daily * Deescalate antibiotics when cultures are resulted * Obtain sputum cultures. * will send patient home on Augmentin 875 b.i.d. 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 (7) Chronic obstructive pulmonary disease: Code(s): J44.9 - Chronic obstructive pulmonary disease, unspecified Status: Acute Assessment and Plan: * Chronic * Continue home Spiriva 1 cap inhal daily and symbicort 160-4.5 1 puff Q12hr * Albuterol 4 puff Q6hr * Monitor cough and sputum production * On azithromycin 500mg IV daily for prophylactic * Sputum culture pending (8) Obstructive sleep apnea on CPAP: Code(s): G47.33 - Obstructive sleep apnea (adult) (pediatric); Z99.89 - Dependence on other enabling machines and devices Status: Acute Assessment and Plan: * CPAP at night DS: Summary Hospital Course Hospital Course: This is a 56-year-old female with insulin-dependent diabetes, hypertension, hyperlipidemia, GERD, COPD, and fibromyalgia who presented to the emergency department for evaluation of nausea, vomiting, and diarrhea. upon admission patient did have a high white blood cell count at 19.8 with a
--- NOTE | 2021-02-11 10:35 | PM.DS ---
DS: Admitting Diagnosis Admitting Diagnosis Admitting Diagnosis: PNA and UTI DS: Discharge Diagnosis Discharge Diagnosis (1) Sepsis: Code(s): A41.9 - Sepsis, unspecified organism Status: Acute Assessment and Plan: tachycardia 100s, leukocytosis 19.8, and elevated lactic acid level upon admission Ceftriaxone 1gm and Azithromycin 500mg IV daily 3L of fluids NS 125ml/hr Trend labs and vital signs Complaints of sweats and chills Labs in the am Blood and urine cultures pending C.Diff due to the frequent antibiotic usage Legionella pending Augmentin 875 b.i.d. for 5 days (2) Pneumonia: Code(s): J18.9 - Pneumonia, unspecified organism Status: Acute Assessment and Plan: CXR shows Diffuse bilateral interstitial infiltrates which may represent edema or pneumonia. ABD/PEL CT Patchy ground glass opacities with interlobular septal thickening in the right lower lobe, which may relate to edema or pneumonia. COVID pending Blood cultures pending Rocephin 1gm and azithromycin 500mg IV Daily Deescalate antibiotics when cultures are resulted Obtain sputum cultures. will send patient home on Augmentin 875 b.i.d. 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 (7) Chronic obstructive pulmonary disease: Code(s): J44.9 - Chronic obstructive pulmonary disease, unspecified Status: Acute Assessment and Plan: Chronic Continue home Spiriva 1 cap inhal daily and symbicort 160-4.5 1 puff Q12hr Albuterol 4 puff Q6hr Monitor cough and sputum production On azithromycin 500mg IV daily for prophylactic Sputum culture pending (8) Obstructive sleep apnea on CPAP: Code(s): G47.33 - Obstructive sleep apnea (adult) (pediatric); Z99.89 - Dependence on other enabling machines and devices Status: Acute Assessment and Plan: CPAP at night DS: Summary Hospital Course Hospital Course: This is a 56-year-old female with insulin-dependent diabetes, hypertension, hyperlipidemia, GERD, COPD, and fibromyalgia who presented to the emergency department for evaluation of nausea, vomiting, and diarrhea. upon admission patient did have a high white blood cell count at 19.8 with an elevated lactate and a fast heart rate. She was treated for sepsis with 3 L of fluids and continuous fluids at 125 mils an hour. Lactate is now normal. Patient does have normal vital signs as well with heart rate in the 60s and blood pressure in the 120s systolically. Patient was treated with IV ceftriaxone and IV azithromycin for UTI and pneumonia. Today patient states she feels so much better and she is ready to go home. Blood sugars have also been an issue since admission which she states that she is normally in the 300s she also stated that she has gotten to cortisone shot in her knee which al
[2021-02-11 12:42] LABS: Glucose Point of Care 316 mg/dl (65-105)
[2021-02-11 14:00] VITALS: BP 115/47; PULSE 74; RESP 16; TEMP 36.5; O2SAT 97
--- NOTE | 2021-02-11 14:46 | PC.NURSE ---
Pt has been discharged. Pt's IV was removed, and discharge paperwork was reviewed. Pt and her friend both exhibited good understanding of discharge instructions. Pt ambulated to the elevator.
[2021-02-14 00:18] LABS: Pneumococcal Antigen Urine Not Detected (Not Detected)
[2021-02-18 08:54] LABS: Legionella pneumophila Ag Ur Not Detected (Not Detected)
== END 2021-02-11 14:25 | disposition home or self-care (01) ==
LOC: ANHED 18:22 → ANH3MEDSUR 02-10 00:17
PROVIDERS: Emergency Medicine; Nurse Practitioner; Physician Assistant; Admitting Provider Family Medicine; Emergency Provider General Practice; PCP Family Medicine; Visit Provider Internal Medicine
DX: A41.9 Sepsis, unspecified organism (principal); J18.9 Pneumonia, unspecified organism; R82.90 Unspecified abnormal findings in urine; E83.42 Hypomagnesemia; R11.2 Nausea with vomiting, unspecified; R19.7 Diarrhea, unspecified; R06.09 Other forms of dyspnea; E11.65 Type 2 diabetes mellitus with hyperglycemia; E86.0 Dehydration; I10 Essential (primary) hypertension; E11.40 Type 2 diabetes mellitus with diabetic neuropathy, unspecified; M79.7 Fibromyalgia; J44.9 Chronic obstructive pulmonary disease, unspecified; E78.00 Pure hypercholesterolemia, unspecified; K21.9 Gastro-esophageal reflux disease without esophagitis; G47.33 Obstructive sleep apnea (adult) (pediatric); F41.8 Other specified anxiety disorders; Z87.891 Personal history of nicotine dependence; Z79.4 Long term (current) use of insulin; Z79.84 Long term (current) use of oral hypoglycemic drugs; E66.01 Morbid (severe) obesity due to excess calories; Z68.42 Body mass index [BMI] 45.0-49.9, adult; Z99.89 Dependence on other enabling machines and devices; Z20.822 Contact with and (suspected) exposure to COVID-19
CPT/HCPCS: 36415; 36600; 70450; 71045; 74177; 80053; 81001; 82375; 82728; 82805; 82948; 83036; 83050; 83605; 83615; 83690; 83735; 83880; 84439; 84443; 84480; 84484; 85025; 86140; 87040; 87077; 87086; 87088; 87186; 87449; 87899; 93005; 94640; 96361; 96365; 96367; 96372; 96374; 96375; 96376; 99285; A9270; C9113; C9803; G0378; G0379; J0131; J0456; J0696; J1650; J1815; J1940; J2405; J3475; J7030; J7060; Q9967; U0003; U0005

== ENCOUNTER → 2021-05-15 09:58 | Outpatient (CLI) | payer MEDICAID, SELFPAY ==
--- NOTE | ~2021-05-15 | MR_ITS ---
EXAMINATION: MR brain/brain stem wo con DATE: 05/15/2021 10:52 INDICATION: Unspecified abnormalities of gait and mobility. TECHNIQUE: Magnetic resonance imaging (MRI) of the brain and brainstem was performed without intraven ous contrast. Sequences included sagittal and axial T1-weighted FSE, axial diffusion-weighted FS EPI, axial T2*-weighted GRE, axial T2-weighted FLAIR Propeller, and axial T2-weighted Propeller. Apparent diffusion coefficient (ADC) maps were created. COMPARISON: Brain MRI 05/25/2018, head CT 02/09/2021 FINDINGS: There are scattered areas of nonspecific increased T2-weighted signal intensity in the cere bral white matter, which is within normal limits for the patient's age. There is no intracranial hemo rrhage, acute infarction, or abnormal intracranial mass lesion. The ventricles are normal in size. Th ere are small bilateral mastoid effusions. The paranasal sinuses are clear. The orbits are normal. IMPRESSION: 1. Normal aging brain. Reviewed, dictated and finalized at location A. IMPRESSION: 1. Normal aging brain.
== END ==
PROVIDERS: PCP Family Medicine; Visit Provider Family Medicine
DX: R26.9 Unspecified abnormalities of gait and mobility (principal)
CPT/HCPCS: 70551

== ENCOUNTER 2021-06-03 16:08 | Outpatient (CLI) | payer MEDICAID, SELFPAY ==
--- NOTE | ~2021-06-03 | XR_ITS ---
XR lumbar spine 2-3V DATE: 06/03/2021 16:30 INDICATION: Low back pain TECHNIQUE: AP, lateral, coned lateral lumbosacral views COMPARISON: None FINDINGS: There is slight lumbar dextroscoliosis. There is severe degenerative disc disease at L1-2. There is mild to moderate degenerative disc diseas e of the remainder of the lumbar spine. No fracture or bone destruction or spondylolisthesis. The included lower thoracic and lumbar pedicles are intact. The sacroiliac joints are normal. Extensive abdominal aortic calcification, without apparent aneurysm. Status post cholecystectomy. IMPRESSION: Slight lumbar dextroscoliosis Multilevel degenerative disc disease, most prominent at L1-2 Reviewed, dictated and finalized at location A.
== END 2021-06-03 16:09 | disposition home or self-care (01) ==
LOC: ANHIMG 16:12
PROVIDERS: PCP Family Medicine; Visit Provider Family Medicine
DX: M51.36 Other intervertebral disc degeneration, lumbar region (principal)
CPT/HCPCS: 72100

== ENCOUNTER 2021-06-04 15:30 | Emergency (ER) | payer MEDICAID, SELFPAY ==
[2021-06-04 15:46] VITALS: BP 94/46; PULSE 92; RESP 16; TEMP 36.3; O2SAT 100
--- NOTE | 2021-06-04 16:21 | ED.BACK ---
HPI - Back Pain/Injury General Chief Complaint: Back Pain/Injury Stated Complaint: back pain Time Seen by Provider: 06/04/21 16:14 Source: patient and RN notes reviewed Mode of arrival: ambulatory Limitations: no limitations History of Present Illness HPI Narrative: Patient presents today complaining of a 3-week history of low back pain, right greater than left. In this time she has been to see her PCP twice, and has been put on prednisone, Toradol, tramadol, and Flexeril. She has finished the steroids, which she states did not help in any way. She is currently still taking the Flexeril and tramadol, which she states is not currently helping. She had an x-ray yesterday. Reports her symptoms are worsening and that her doctor is out of the office today. She is complaining currently of urinary symptoms since yesterday to include frequency, dark-colored urine, difficulty initiating urine stream. Denies hematuria. She currently rates her pain 10/10. [facility] to [facility] requesting stronger pain medication. MD elicited complaint: back pain Related Data Home Medications Medication Instructions Recorded Confirmed Janumet XR 100 tablet PO DAILY 09/14/19 04/14/21 atorvastatin 40 mg PO HS 09/14/19 04/14/21 insulin lispro [Admelog SoloStar 20 unit SUBCUT TIDWM 09/14/19 04/14/21 U-100 Insulin] lisinopril-hydrochlorothiazide 20 tablet PO DAILY 09/14/19 04/14/21 gabapentin 300 mg capsule 600 mg PO BID 08/27/20 04/14/21 Spiriva with HandiHaler 18 mcg INHALATION DAILY 11/08/20 04/14/21 duloxetine [Cymbalta] 60 mg PO BID 11/08/20 04/14/21 Basaglar KwikPen U-100 Insulin 90 unit SUBCUT HS 02/09/21 04/14/21 budesonide-formoterol [Symbicort] 1 inh INHALATION BID 02/09/21 04/14/21 topiramate 25 mg PO HS 02/09/21 04/14/21 zolpidem 5 mg PO DAILY 02/09/21 04/14/21 ibuprofen 06/04/21 prednisone 06/04/21 tramadol mg 06/04/21 Allergies Allergy/AdvReac Type Severity Reaction Status Date / Time bee venom protein (honey bee) Allergy Severe Anaphylactic Verified 04/28/21 14:44 Shock shellfish derived Allergy Severe Hives/RED Verified 04/28/21 14:44 FACE shrimp Allergy Severe Hives/RED Verified 04/28/21 14:44 FACE cephalexin [From Keflex] AdvReac Nausea Verified 04/28/21 14:44 Review of Systems Review of Systems: CONSTITUTIONAL: Denies body aches, fever, chills, or sweats. EYES: Denies visual changes, redness, or discharge. ENT: Denies rhinorrhea, congestion, sore throat, or otalgia. CARDIOVASCULAR: Denies chest pain, palpitations, or edema. RESPIRATORY: Denies cough or dyspnea. GASTROINTESTINAL: Denies abdominal pain, nausea, vomiting, or diarrhea. GENITOURINARY: + Urinary frequency, dark-colored urine, difficulty initiating urine stream SKIN: Denies rash, itching, or wounds. MUSCULOSKELETAL: Denies joint pain, or myalgia.+ Back pain NEUROLOGIC: Denies headache, numbness, tingling, or weakness. PSYCH: Denies depression or anxiety. [facility] Past Medical History Medical History Anxiety Arthritis Asthma Chronic headaches Chronic obstructive pulmonary disease Depression Fibromyalgia Gastroesophageal reflux disease Hypercholesteremia Hypertension Insulin dependent type 2 diabetes mellitus Obstructive sleep apnea on CPAP Stress incontinence Tobacco abuse Surgical History Surgical History History of cholecystectomy History of hysterectomy History of tonsillectomy Status post excision of Chen's neuroma Family History Family History Sibling Hypertension Grandparent Hypertension Diabetes mellitus Malignant neoplasm of prostate Skin cancer Other Arthritis Depression Heart disease Neuropathy Social History Social History Smoking packs per day: 1 Smokin
== END 2021-06-04 16:58 | disposition home or self-care (01) ==
PROVIDERS: Emergency Provider Nurse Practitioner; PCP Family Medicine
DX: N10 Acute pyelonephritis (principal); F17.219 Nicotine dependence, cigarettes, with unspecified nicotine-induced disorders; M19.90 Unspecified osteoarthritis, unspecified site; J44.9 Chronic obstructive pulmonary disease, unspecified; M79.7 Fibromyalgia; K21.9 Gastro-esophageal reflux disease without esophagitis; E78.00 Pure hypercholesterolemia, unspecified; I10 Essential (primary) hypertension; E11.9 Type 2 diabetes mellitus without complications; G47.33 Obstructive sleep apnea (adult) (pediatric)
CPT/HCPCS: 81003; 87077; 87086; 87088; 87186; 99213; G0463

== ENCOUNTER → 2021-06-12 17:54 | Outpatient (CLI) | payer MEDICAID, SELFPAY ==
--- NOTE | ~2021-06-12 | MM_ITS ---
EXAMINATION: MM screening santos BI w kathy HISTORY: Screening mammogram TECHNIQUE: Craniocaudal and mediolateral oblique 3-D tomosynthesis images were obtained and synthetic 2-D images were generated. Bilateral rotated lateral cc views. ..CAD analysis was submitted and inte rpreted. COMPARISON: No prior mammogram is available for comparison at this institution. BREAST PARENCHYMAL COMPOSITION: The breasts are almost entirely fatty. FINDINGS: There are scattered bilateral benign calcifications. There is no evidence of suspicious mas s, calcification, or architectural distortion to suggest malignancy in either breast. There has been no suspicious interval change. IMPRESSION: 1. No mammographic evidence of malignancy. 2. Recommend routine screening mammography in one year. BI-RADS Category 1: Negative Reviewed, dictated and finalized at location A. ER MACHINE
== END ==
PROVIDERS: PCP Family Medicine; Visit Provider Family Medicine
DX: Z12.31 Encounter for screening mammogram for malignant neoplasm of breast (principal)
CPT/HCPCS: 77063; 77067

== ENCOUNTER 2021-06-27 19:19 | Inpatient (IN) | payer MEDICARE, MEDICAID, SELFPAY ==
[2021-06-27] VITALS (20 sets, daily range): BP systolic 95–149; BP diastolic 52–73; PULSE 99–119; RESP 17–36; TEMP 36.3; O2SAT 81–99
--- NOTE | ~2021-06-27 | XR_ITS ---
EXAMINATION: XR abdomen NG/feed tube insert INDICATION: Nasogastric tube placement TECHNIQUE: Portable AP KUB-NG at 1441 hours COMPARISON: None available FINDINGS: The nasogastric tube is in the stomach. There are airspace opacities of the visualized lung bases. IMPRESSION: 1. The nasogastric tube in the stomach. Reviewed, dictated and finalized at location A. ENT GRINDER
--- NOTE | ~2021-06-27 | XR_ITS ---
EXAMINATION: XR chest 1V portable DATE: 07/11/2021 06:11 INDICATION: Respiratory failure. TECHNIQUE: A single frontal view of the chest was obtained. COMPARISON: Chest single view 07/10/2021 FINDINGS: The lung volumes are small. There are interstitial and airspace opacities throughout the jagdish ngs bilaterally. No pleural effusion or pneumothorax. The heart size is normal. A tracheostomy tube i s noted. There is right hilar lymphadenopathy. A right upper extremity peripherally inserted central venous catheter (PICC) is seen with tip in the proximal right atrium. IMPRESSION: 1. Stable diffuse lung disease, consistent with pulmonary edema versus pneumonia versus acute respira tory distress syndrome (ARDS). 2. Right hilar lymphadenopathy, consistent with metastatic disease. Reviewed, dictated and finalized at location A. R GUILLOTINE OPERATOR IMPRESSION: 1. Stable diffuse lung disease, consistent with pulmonary edema versus pneumoni a versus acute respiratory distress syndrome (ARDS). 2. Right hilar lymphadenopathy, consistent with metastatic disease.
--- NOTE | ~2021-06-27 | XR_ITS ---
EXAMINATION: XR chest 1V portable INDICATION: Respiratory failure TECHNIQUE: Portable AP chest at zero 512 COMPARISON: 07/11/2021 FINDINGS: A tracheostomy is in expected position. The nasogastric tube is followed as far as the stom ach. Its tip is beyond the inferior margin of the radiograph. A right upper extremity PICC ends with its tip in the proximal right atrium. Diffuse interstitial and airspace opacities persist without sig nificant change. There is no pleural effusion or pneumothorax. The heart size is normal. Right hilar lymphadenopathy is unchanged. IMPRESSION: 1. Stable diffuse lung disease, consistent with pneumonia and/or pulmonary edema and/or acute respira tory distress syndrome (ARDS). 2. Right hilar lymphadenopathy, consistent with metastatic disease. Reviewed, dictated and finalized at location A. ERPRINT CLERK IMPRESSION: 1. Stable diffuse lung disease, consistent with pneumonia and/or pulmonary valerie a and/or acute respiratory distress syndrome (ARDS). 2. Right hilar lymphadenopathy, consistent with metastatic disease.
--- NOTE | ~2021-06-27 | XR_ITS ---
EXAMINATION: XR chest 1V portable DATE: 07/09/2021 05:45 INDICATION: Respiratory failure. TECHNIQUE: A single frontal view of the chest was obtained. COMPARISON: Chest single view 07/08/2021, chest CT 07/05/2021 FINDINGS: There are airspace and interstitial opacities throughout the lungs bilaterally. No pleural effusion or pneumothorax. The heart size is normal. There is right hilar lymphadenopathy. The endotra cheal tube tip is 3.0 cm above the say. The nasogastric tube tip is beyond the inferior margin of the radiograph, but at least to the stomach. A right upper extremity peripherally inserted central ve nous catheter (PICC) is seen with tip in the right atrium. IMPRESSION: 1. Stable diffuse lung disease, consistent with pulmonary edema versus pneumonia versus acute respira tory distress syndrome (ARDS). 2. Right hilar lymphadenopathy, consistent with metastatic disease. Reviewed, dictated and finalized at location A. MULE WORKER IMPRESSION: 1. Stable diffuse lung disease, consistent with pulmonary edema versus pneumoni a versus acute respiratory distress syndrome (ARDS). 2. Right hilar lymphadenopathy, consistent with metastatic disease.
--- NOTE | ~2021-06-27 | CT_ITS ---
EXAMINATION: CT abdomen pelvis wo con DATE: 07/17/2021 14:48 INDICATION: Fever. Cirrhosis of the liver. TECHNIQUE: Computed tomography (CT) of the abdomen and pelvis was performed without intravenous contr ast. Automated exposure control and iterative reconstruction technique were employed. The dose-length product was 1642.48 mGy-cm. COMPARISON: CT abdomen and pelvis 07/14/2021 FINDINGS: The visualized portions of the lung bases demonstrate widespread airspace and groundglass o pacities and septal thickening. There is peripheral honeycombing in lingula. There is a 3.2 x 2.7 cm mass in right lung lower lobe. There is right hilar and mediastinal lymphadenopathy. There are trace pleural effusions. Cardiomegaly is noted. There are coronary artery calcifications. No pericardial ef fusion. There is chronic surface nodularity of the liver, consistent with cirrhosis. Sensitivity for metastatic disease in the liver is decreased by lack of intravenous contrast. There is splenomegaly m easuring 16.2 cm. There are changes of cholecystectomy. The pancreas and adrenal glands are normal. T here is a 3 mm stone in right kidney. There is a 4 mm stone in left kidney. There is a gastrostomy tu be in expected position. A suitable distends the rectum. The appendix is not visualized. There is mil d periportal lymphadenopathy. There is no free intraperitoneal fluid. Again seen are widespread lytic lesions of bone, consistent with metastatic disease. Again seen is a pathologic fracture of right 10 th rib. IMPRESSION: 1. Mass in right lung lower lobe, right hilar and mediastinal lymphadenopathy, and lytic lesions of b one, consistent with primary bronchogenic carcinoma and metastatic disease. Biopsy results are pendin g. 2. Severe diffuse lung disease with worsening from 07/14/2021, consistent with pneumonia versus pulmo nary edema superimposed on emphysema and chronic interstitial lung disease. 3. Cirrhosis of the liver with portal venous hypertension. 4. Mild periportal lymphadenopathy, which may be reactive or less likely metastatic disease. Reviewed, dictated and finalized at location A. ER AND CASHIER IMPRESSION: 1. Mass in right lung lower lobe, right hilar and mediastinal lymphadenopathy, and lytic lesions of bone, consistent with primary bronchogenic carcinoma and m etastatic disease. Biopsy results are pending. 2. Severe diffuse lung disease with worsening from 07/14/2021, consistent with pneumonia versus pulmonary edema superimposed on emphysema and chronic intersti tial lung disease. 3. Cirrhosis of the liver with portal venous hypertension. 4. Mild periportal lymphadenopathy, which may be reactive or less likely metast atic disease.
--- NOTE | ~2021-06-27 | XR_ITS ---
EXAMINATION: XR chest 1V portable DATE: 07/07/2021 05:32 INDICATION: Respiratory failure. TECHNIQUE: A single frontal view of the chest was obtained. COMPARISON: Chest single view 07/06/2021, chest CT 07/05/2021 FINDINGS: There are airspace and interstitial opacities throughout the lungs bilaterally. No pleural effusion or pneumothorax. The heart size is normal. There is right hilar lymphadenopathy. The endotra cheal tube tip is 3.7 cm above the say. The nasogastric tube tip is beyond the inferior margin of the radiograph, but at least to the stomach. A right upper extremity peripherally inserted central ve nous catheter (PICC) is seen with tip in the right atrium. IMPRESSION: 1. Stable diffuse lung disease, consistent with pulmonary edema versus pneumonia superimposed on emph ysema and chronic interstitial lung disease. 2. Right hilar lymphadenopathy, consistent with metastatic disease. Reviewed, dictated and finalized at location A. NE ADVERTISING ANALYST IMPRESSION: 1. Stable diffuse lung disease, consistent with pulmonary edema versus pneumoni a superimposed on emphysema and chronic interstitial lung disease. 2. Right hilar lymphadenopathy, consistent with metastatic disease.
--- NOTE | ~2021-06-27 | XR_ITS ---
EXAMINATION: XR chest 1V portable DATE: 06/30/2021 05:43 INDICATION: PICC line placement TECHNIQUE: frontal view of the chest was obtained. COMPARISON: Chest radiograph dated 06/21/2021 FINDINGS: Endotracheal tube tip 4.3 cm above the say. Nasogastric tube extends below the left hemidiaphragm with distal tip collimated off the study. Right upper extremity peripherally inserted central venous catheter (PICC) tip at the caudal superior vena cava. There is been interval decrease in the diffuse bilateral interstitial and airspace opacities consiste nt with improving pulmonary edema and/or pneumonia. No pleural effusion or pneumothorax. The cardiome diastinal silhouette is within normal and symmetric on it for slight rightward rotation of the patien t. IMPRESSION: 1. Interval decrease in diffuse bilateral lung disease consistent with improving pulmonary edema and/ or pneumonia. Reviewed, dictated and finalized at location A. ICIST SOLID STATE IMPRESSION: 1. Interval decrease in diffuse bilateral lung disease consistent with improvin g pulmonary edema and/or pneumonia.
--- NOTE | ~2021-06-27 | XR_ITS ---
EXAMINATION: XR chest 1V portable DATE: 07/02/2021 06:23 INDICATION: Bilateral pulmonary infiltrates. Acute respiratory failure. TECHNIQUE: frontal view of the chest was obtained. COMPARISON: Chest radiograph dated 07/01/2021 FINDINGS: Endotracheal tube tip 4.0 cm above the say. Nasogastric tube extends below the left hemidiaphragm with distal tip collimated off the study. Right upper extremity peripherally inserted central venous catheter (PICC) tip at the high right atrium. No significant change in bilateral diffuse indistinct interstitial opacities and scattered mild groun dglass opacities throughout both lungs. No pleural effusion or pneumothorax. The cardiomediastinal si lhouette is normal. IMPRESSION: 1. No significant change in diffuse bilateral lung disease consistent with pulmonary edema and/or pne umonia. Reviewed, dictated and finalized at location A. ICAL DIETICIAN IMPRESSION: 1. No significant change in diffuse bilateral lung disease consistent with pulm onary edema and/or pneumonia.
--- NOTE | ~2021-06-27 | CT_ITS ---
EXAMINATION: CTA chest PE protocol DATE: 06/27/2021 20:56 COMPARATIVE SOCIOLOGY PROFESSOR INDICATION: Shortness of breath. Elevated d-dimer. TECHNIQUE: Computed tomographic angiography (CTA) of the chest was performed with 100 mL Omnipaque-35 0 intravenous contrast. The dose-length product was 811.45 mGy-cm. Maximum intensity projection 3D-re constructions of the aorta and other arteries were constructed by the technologist on a separate work station. COMPARISON: CT dated 06/13/2020. FINDINGS: There is extensive bilateral airspace consolidation, consistent with pneumonia. There is a right lower lobe mass measuring 3.4 x 2.1 cm, image 42. There is mediastinal and right hilar lymphade nopathy. No large central pulmonary embolism. Evaluation of peripheral pulmonary arteries limited due to extensive airspace disease and motion artifact. No significant pleural or pericardial effusion. N o pneumothorax. The upper abdomen is unremarkable. IMPRESSION: 1. No large central pulmonary embolism. Evaluation of peripheral pulmonary arteries limited due to ex tensive airspace disease and motion artifact. 2: Extensive bilateral airspace disease, consistent with pneumonia. 3: 3.4 cm right lower lobe pleural-based mass with air bronchograms. This may represent focal massli ke airspace consolidation secondary to underlying pneumonia, although malignancy is not excluded. 4: Prominent mediastinal and right hilar lymphadenopathy which may be reactive, although metastatic d isease and lymphoma are not excluded. Reviewed, dictated and finalized at location A. ARATIVE SOCIOLOGY PROFESSOR IMPRESSION: 1. No large central pulmonary embolism. Evaluation of peripheral pulmonary edie ervin limited due to extensive airspace disease and motion artifact. 2: Extensive bilateral airspace disease, consistent with pneumonia. 3: 3.4 cm right lower lobe pleural-based mass with air bronchograms. This may represent focal masslike airspace consolidation secondary to underlying pneumon ia, although malignancy is not excluded. 4: Prominent mediastinal and right hilar lymphadenopathy which may be reactive, although metastatic disease and lymphoma are not excluded.
--- NOTE | ~2021-06-27 | US_ITS ---
EXAMINATION: US venous doppler LE EXAM DATE: 07/14/2021 08:45 INDICATION: Fevers. TECHNIQUE: Multiple grayscale, color flow and Doppler images of the lower extremity deep venous syste ms bilaterally were obtained and reviewed. Comparison is made to prior examination from 07/05/2021. FINDINGS: Right side: The right common femoral, femoral and profunda veins demonstrate normal color flow, respi ratory variation, augmentation and compressibility. Compressibility, color flow confirmed within the right popliteal, posterior tibial, peroneal, and greater saphenous veins. Left side: The left common femoral, femoral and profunda veins demonstrate normal color flow, respira tory variation, augmentation and compressibility. Compressibility, color flow confirmed within the l eft popliteal, posterior tibial, peroneal, and greater saphenous veins. IMPRESSION: 1. No lower extremity deep venous thrombosis bilaterally. Reviewed, dictated and finalized at location B. FORCE ADVISOR
--- NOTE | ~2021-06-27 | XR_ITS ---
EXAMINATION: XR chest 1V portable DATE: 07/03/2021 05:55 INDICATION: Acute respiratory failure. Bilateral pulmonary infiltrates. TECHNIQUE: frontal view of the chest was obtained. COMPARISON: Chest radiograph dated 07/02/[address] dated 06/27/2021 FINDINGS: Endotracheal tube tip 3.8 cm above the say. Nasogastric tube extends below the left hemidiaphragm with distal tip collimated off the study. Bilateral diffuse increased interstitial pattern with scattered groundglass opacities without signifi cant interval change attending for differences in patient positioning. No pleural effusion or pneumot horax. Heart size is normal. Right hilar lymphadenopathy. IMPRESSION: 1. No significant change in diffuse bilateral lung disease consistent with pulmonary edema and/or pne umonia. 2. Right hilar lymphadenopathy which could be reactive or metastatic. Reviewed, dictated and finalized at location A. UREMENT TECHNICIAN IMPRESSION: 1. No significant change in diffuse bilateral lung disease consistent with pulm onary edema and/or pneumonia. 2. Right hilar lymphadenopathy which could be reactive or metastatic.
--- NOTE | ~2021-06-27 | CT_ITS ---
EXAMINATION: CT chest abdomen pelvis wo con DATE: 07/05/2021 12:32 INDICATION: Fever. TECHNIQUE: Computed tomography (CT) of the chest, abdomen, and pelvis was performed without intraveno us contrast. Automated exposure control and iterative reconstruction technique were employed. The dos e-length product was 1946.75 mGy-cm. COMPARISON: Chest CT 06/27/2021, 06/13/2020 FINDINGS: CHEST CT: There is mild emphysema. There are airspace opacities, groundglass opacities, and septal thickening t hroughout the lungs bilaterally. There is a 3.2 x 1.8 cm mass in superior segment right lower lobe. N o pleural effusion. The endotracheal tube tip is 4.0 cm above the say. The nasogastric tube tip is in the stomach. There is right hilar and mediastinal lymphadenopathy. For example, a right paratrach eal node measures 2.6 x 1.8 cm. The heart size is normal. There are coronary artery calcifications. N o pericardial effusion. There are lytic lesions in the right T2 posterior elements, T5 and T9 vertebr al bodies, and right T12 posterior elements. ABDOMEN/PELVIS CT: The liver demonstrates surface nodularity, consistent with cirrhosis. There are changes of cholecyste ctomy. There is mild splenomegaly. The pancreas, adrenal glands, and kidneys are normal. A stool ball distends the rectum. The appendix is normal. The small bowel is normal in caliber. There is mild per iportal lymphadenopathy. There is no free intraperitoneal fluid. There are lytic lesions in L1, L2, L 3, L4, and S1 vertebral bodies. IMPRESSION: 1. Diffuse lung disease, consistent with pulmonary edema versus pneumonia superimposed on emphysema a nd chronic interstitial lung disease. 2. Right lung mass, right hilar and mediastinal lymphadenopathy, and lytic lesions of bone, consisten t with primary bronchogenic carcinoma and metastatic disease. 3. Cirrhosis of liver with portal venous hypertension. 4. Mild periportal lymphadenopathy, which may be reactive or less likely metastatic disease. Reviewed, dictated and finalized at location A. CASHIER FOOD PREP IMPRESSION: 1. Diffuse lung disease, consistent with pulmonary edema versus pneumonia super imposed on emphysema and chronic interstitial lung disease. 2. Right lung mass, right hilar and mediastinal lymphadenopathy, and lytic lesi ons of bone, consistent with primary bronchogenic carcinoma and metastatic dise ase. 3. Cirrhosis of liver with portal venous hypertension. 4. Mild periportal lymphadenopathy, which may be reactive or less likely metast atic disease.
--- NOTE | ~2021-06-27 | XR_ITS ---
EXAMINATION: XR chest PICC line INDICATION: PICC insertion TECHNIQUE: Portable AP chest at 0938 hours COMPARISON: 0522 hours FINDINGS: A right upper extremity PICC ends with its tip in the proximal right atrium. Diffuse inters titial and airspace opacities persist without significant change. The heart size is normal. There is no pleural effusion or pneumothorax. Right hilar mediastinal lymphadenopathy is noted. A tracheostomy is in expected position. IMPRESSION: 1. Right upper extremity PICC in the proximal right atrium. 2. Diffuse lung disease, consistent with pneumonia versus acute respiratory distress syndrome. 3. Right hilar lymphadenopathy, consistent with metastatic disease. Reviewed, dictated and finalized at location A. RANCE LICENSING SUPERVISOR IMPRESSION: 1. Right upper extremity PICC in the proximal right atrium. 2. Diffuse lung disease, consistent with pneumonia versus acute respiratory dis tress syndrome. 3. Right hilar lymphadenopathy, consistent with metastatic disease.
--- NOTE | ~2021-06-27 | XR_ITS ---
EXAMINATION: XR chest 1V portable DATE: 07/05/2021 07:27 INDICATION: Respiratory failure TECHNIQUE: frontal view of the chest was obtained. COMPARISON: Chest radiograph dated 07/04/[address] dated 06/27/2021 FINDINGS: Endotracheal tube tip 3.0 cm above the say. Right upper extremity peripherally inserted central ve nous catheter (PICC) tip at the caudal superior vena cava. No significant interval change in bilateral diffuse increased initial pattern with scattered groundgl ass opacities. No pleural effusion or pneumothorax. Heart size is normal. Right hilar lymphadenopathy . IMPRESSION: 1. No significant change in diffuse bilateral lung disease consistent with pulmonary edema and/or pne umonia. 2. Right hilar lymphadenopathy which could be reactive, metastatic or lymphoma. Reviewed, dictated and finalized at location A. RATORY SAMPLE CARRIER IMPRESSION: 1. No significant change in diffuse bilateral lung disease consistent with pulm onary edema and/or pneumonia. 2. Right hilar lymphadenopathy which could be reactive, metastatic or lymphoma.
--- NOTE | ~2021-06-27 | XR_ITS ---
EXAMINATION: XR chest 1V portable DATE: 07/08/2021 06:03 INDICATION: Respiratory failure. TECHNIQUE: A single frontal view of the chest was obtained. COMPARISON: Chest single view 07/07/2021, chest CT 07/05/2021 FINDINGS: There are airspace and interstitial opacities throughout the lungs bilaterally. No pleural effusion or pneumothorax. The heart size is normal. There is right hilar lymphadenopathy. The endotra cheal tube tip is 5.0 cm above the say. A right upper extremity peripherally inserted central veno us catheter (PICC) is seen with tip at the superior cavoatrial junction. The nasogastric tube tip is in the stomach. IMPRESSION: 1. Stable diffuse lung disease, consistent with pulmonary edema versus pneumonia versus acute respira tory distress syndrome (ARDS). 2. Right hilar lymphadenopathy, consistent with metastatic disease. Reviewed, dictated and finalized at location A. RESS ENGINEER IMPRESSION: 1. Stable diffuse lung disease, consistent with pulmonary edema versus pneumoni a versus acute respiratory distress syndrome (ARDS). 2. Right hilar lymphadenopathy, consistent with metastatic disease.
--- NOTE | ~2021-06-27 | XR_ITS ---
EXAMINATION: XR chest 1V portable INDICATION: Respiratory failure TECHNIQUE: Portable AP chest at 0514 hours COMPARISON: 07/12/2021 FINDINGS: A tracheostomy is in expected position. The nasogastric tube is followed as far as the stom ach. Its tip is beyond the inferior margin of the radiograph. A right upper extremity PICC ends with its tip in the superior vena cava. There are diffuse interstitial and airspace opacities throughout a ll lung zones with slight worsening in the right lung base. Right hilar lymphadenopathy is unchanged. The heart size is normal. IMPRESSION: 1. Diffuse lung disease with interval worsening in the right lower lung zone, consistent with pneumon ia and/or pulmonary edema. 2. Stable right hilar lymphadenopathy, consistent with metastatic disease. Reviewed, dictated and finalized at location A. DRILLING SUPERVISOR IMPRESSION: 1. Diffuse lung disease with interval worsening in the right lower lung zone, c onsistent with pneumonia and/or pulmonary edema. 2. Stable right hilar lymphadenopathy, consistent with metastatic disease.
--- NOTE | ~2021-06-27 | CT_ITS ---
EXAMINATION: CT BRAIN W/O DATE: 06/29/2021 19:42 INDICATION: And a subchorionic TECHNIQUE: Computed tomography (CT) of the head was performed without intravenous contrast. The dose- length product was 681.00 mGy-cm. Automated exposure control and iterative reconstruction technique w ere employed. COMPARISON: MRI dated 05/15/2021 FINDINGS: Normal brain parenchymal volume for age. Normal harris-white differentiation. No acute intrac ranial hemorrhage, infarction, mass or mass effect. No ventriculomegaly or midline shift. Midline sagittal images demonstrate a normal corpus callosum, c raniovertebral junction and sella turcica. Basilar cisterns are patent. There is mild mucosal thickening of the ethmoid sinuses. Small mastoid effusions. No depressed skull fractures. There is intracranial atherosclerosis. IMPRESSION: 1. No acute intracranial abnormality. Reviewed, dictated and finalized at location A. ERIZER TENDER
--- NOTE | ~2021-06-27 | XR_ITS ---
EXAMINATION: XR chest 1V portable DATE: 07/04/2021 06:24 INDICATION: Respiratory failure TECHNIQUE: frontal view of the chest was obtained. COMPARISON: Chest radiograph dated 07/03/2021 FINDINGS: Endotracheal tube tip 3.4 cm above the say. Nasogastric tube extends below the left hemidiaphragm with distal tip collimated off the study. Right upper extremity peripherally inserted central venous catheter (PICC) tip at the superior cavoatrial junction. Bilateral diffuse increased interstitial pattern with scattered groundglass opacities without signifi cant interval change attending for differences in patient positioning. No pleural effusion or pneumot horax. Heart size is normal. Right hilar lymphadenopathy. IMPRESSION: 1. No significant change in diffuse bilateral lung disease consistent with pulmonary edema and/or pne umonia. 2. Right hilar lymphadenopathy which could be reactive or metastatic. Reviewed, dictated and finalized at location A. SPORTATION MAINTENANCE OPERATOR IMPRESSION: 1. No significant change in diffuse bilateral lung disease consistent with pulm onary edema and/or pneumonia. 2. Right hilar lymphadenopathy which could be reactive or metastatic.
--- NOTE | ~2021-06-27 | US_ITS ---
EXAMINATION: US venous doppler [facility] DATE: 07/05/2021 16:15 INDICATION: Lower limb edema. TECHNIQUE: Grayscale ultrasound images without and with compression and Doppler ultrasound images of the bilateral lower extremity veins were obtained. COMPARISON: Ultrasound 03/26/2009 FINDINGS: The visualized portions of right common femoral vein, profunda (deep) femoral vein, femoral vein, pop liteal vein, peroneal veins, posterior tibial veins, and greater saphenous vein outflow are patent. The visualized portions of left common femoral vein, profunda femoral vein, femoral vein, popliteal v ein, peroneal veins, posterior tibial veins, and greater saphenous vein outflow are patent. IMPRESSION: 1. No deep venous thrombosis. Reviewed, dictated and finalized at location A. ING ENGINEER
--- NOTE | ~2021-06-27 | XR_ITS ---
EXAMINATION: XR chest 1V portable INDICATION: Increasing oxygen requirements TECHNIQUE: Portable AP chest at 0826 hours COMPARISON: 06/27/2021 FINDINGS: Diffuse opacities persist throughout all lung zones without significant change. There is no pleural effusion or pneumothorax. The cardiomediastinal silhouette is normal. IMPRESSION: 1. Diffuse lung disease, consistent with pneumonia and/or pulmonary edema. Reviewed, dictated and finalized at location A. TIVE LEAD
--- NOTE | ~2021-06-27 | XR_ITS ---
EXAMINATION: XR chest 1V portable DATE: 07/20/2021 06:02 INDICATION: Respiratory failure. TECHNIQUE: A single frontal view of the chest was obtained. COMPARISON: Chest single view at 07/18/2021 FINDINGS: There are airspace opacities and coarse interstitial opacities throughout the lungs bilater ally. No pleural effusion or pneumothorax. The heart size is normal. Right hilar lymphadenopathy is n oted. There is a tracheostomy tube in expected position. A right upper extremity peripherally inserte d central venous catheter (PICC) is seen with tip in the superior vena cava. IMPRESSION: 1. Stable diffuse lung disease, consistent with pulmonary edema versus pneumonia versus acute respira tory distress syndrome (ARDS). 2. Right hilar lymphadenopathy, consistent with metastatic disease. Reviewed, dictated and finalized at location A. OR MAID IMPRESSION: 1. Stable diffuse lung disease, consistent with pulmonary edema versus pneumoni a versus acute respiratory distress syndrome (ARDS). 2. Right hilar lymphadenopathy, consistent with metastatic disease.
--- NOTE | ~2021-06-27 | XR_ITS ---
EXAMINATION: XR chest 1V portable INDICATION: Acute respiratory failure TECHNIQUE: Portable AP chest at 0509 hours COMPARISON: 06/28/2021 FINDINGS: Diffuse opacities persist throughout all lung zones without significant change. There is no pleural effusion or pneumothorax. The cardiomediastinal silhouette is normal. IMPRESSION: 1. Stable diffuse lung disease, consistent with pneumonia and/or pulmonary edema. Reviewed, dictated and finalized at location A. TYING OPERATOR IMPRESSION: 1. Stable diffuse lung disease, consistent with pneumonia and/or pulmonary valerie a.
--- NOTE | ~2021-06-27 | XR_ITS ---
EXAMINATION: XR chest 1V portable DATE: 07/15/2021 06:51 INDICATION: Respiratory failure TECHNIQUE: Tracheostomy tube at the thoracic inlet. COMPARISON: Chest radiograph dated 07/14/2021 FINDINGS: Tracheostomy tube remains in expected position at the thoracic inlet. Right upper extremity periphera lly inserted central venous catheter (PICC) tip at the caudal superior vena cava. Small lung volumes. Diffuse interstitial and airspace opacities throughout both lungs. No pleural eff usion or pneumothorax. Cardiomegaly. Masslike opacity right hilum corresponding to hilar lymphadenopa thy on prior CT. IMPRESSION: 1. No significant change in diffuse bilateral lung disease which could represent pneumonia, pulmonary edema or combination of the 2. 2. Masslike opacity at the right hilum corresponding to lymphadenopathy on prior CT which is suspicio us for metastatic disease. Reviewed, dictated and finalized at location A. ECTIONAL COUNSELOR/CASE MANAGER IMPRESSION: 1. No significant change in diffuse bilateral lung disease which could represen t pneumonia, pulmonary edema or combination of the 2. 2. Masslike opacity at the right hilum corresponding to lymphadenopathy on prio r CT which is suspicious for metastatic disease.
--- NOTE | ~2021-06-27 | XR_ITS ---
EXAMINATION: XR chest 1V portable INDICATION: PICC insertion TECHNIQUE: Portable AP chest at 1240 hours COMPARISON: 0912 hours FINDINGS: The endotracheal tube ends approximately 4.1 cm above the say. The nasogastric tube is f ollowed as far as the stomach. Its tip is beyond the inferior margin of the radiograph. A right upper extremity PICC has been inserted which ends with its at least 2 cm in the right atrium. The diffuse airspace opacities persist without significant change. There is no pleural effusion or pneumothorax. The cardiomediastinal silhouette is stable. IMPRESSION: 1. Right upper extremity PICC ending with its tip at least 2 cm in the right atrium. Otherwise no sig nificant change. Reviewed, dictated and finalized at location A. MOTIVE GLASS SPECIALIST IMPRESSION: 1. Right upper extremity PICC ending with its tip at least 2 cm in the right at rium. Otherwise no significant change.
--- NOTE | ~2021-06-27 | XR_ITS ---
EXAMINATION: XR chest 1V portable DATE: 07/23/2021 06:30 INDICATION: Respiratory failure. TECHNIQUE: A single frontal view of the chest was obtained. COMPARISON: Chest single view 07/22/2021 FINDINGS: The patient is rotated to her right. There are airspace and interstitial opacities througho ut the lungs bilaterally. No pleural effusion or pneumothorax. The heart size is normal. There is a t racheostomy tube in expected position. Right hilar lymphadenopathy is noted. IMPRESSION: 1. Diffuse lung disease with worsening on the right, consistent with pneumonia versus pulmonary edema versus acute respiratory distress syndrome (ARDS). 2. Right hilar lymphadenopathy, consistent with metastatic disease. Reviewed, dictated and finalized at location A. OR DATA QUALITY ANALYST
--- NOTE | ~2021-06-27 | CT_ITS ---
EXAMINATION: CT chest abdomen pelvis wo con EXAM DATE: 07/14/2021 09:49 INDICATION: fevers, r/o infection, abscess, pneumonia. TECHNIQUE: Spiral CT of the chest, abdomen and pelvis was performed without contrast. Axial, larsen l and sagittal images chest, abdomen and pelvis were reviewed. Coronal maximum intensity pixel image s of chest reviewed. The dose-length product (DLP) for this examination was 1858.24 mGy-cm. The exp osure was tailored according to patient size (auto mA exposure control), and iterative reconstruction (ASIR) was used as additional dose reduction technique. Comparison is made to prior examination from 07/05/2021. FINDINGS: Scattered osteolytic disease unchanged. CHEST: Tracheostomy, nasogastric tubes in position. There is diffuse irregular septal thickening and regions of groundglass airspace disease. The groundglass component has demonstrated some improvemen t. Nonspecific Interstitial Pneumonitis (NSIP) pattern interstitial lung disease with many possible underlying etiologies including subacute COVID pneumonia, collagen vascular disease, medications/drug s, hypersensitivity pneumonitis, idiopathic etiologies. Some component of edema also possible given t he cardiomegaly. Masslike right lower lobe superior segmental pleural-based density measuring up to a bout 4 cm. There is precarinal lymphadenopathy with a lymph node measuring 2.6 x 1.9 cm. There may al so be right hilar lymphadenopathy. Tracheobronchial tree is patent. ABDOMEN PELVIS: Lobular liver contour with regions of heterogeneity, consistent with cirrhosis, with regenerating nodules. Difficult to exclude liver metastases. Mild periportal lymphadenopathy. There are cholecystectomy clips. There is no nephrolithiasis or hydronephrosis. The uterus is not identi fied and has likely been surgically resected. The bladder is unremarkable. There is no retroperiton eal or pelvic lymphadenopathy. There is moderate scattered arteriosclerotic disease. There are no findings to suggest appendicitis. The stomach and small bowel are unremarkable. There is colonic fluid, correlate for diarrhea. No free intraperitoneal gas. IMPRESSION: 1. Right lower lobe masslike density, mediastinal and probably right hilar lymphadenopathy. 2. Emphysema and diffuse groundglass opacities, intralobular septal thickening. Nonspecific but coul d be subacute COVID pneumonia. Some other considerations above. 3. Cirrhosis. Mild periportal lymphadenopathy. 4. Colonic fluid. No abdominal abscess. 5. Scattered osteolytic disease. Reviewed, dictated and finalized at location B. CH OPERATORS SUPERVISOR IMPRESSION: 1. Right lower lobe masslike density, mediastinal and probably right hilar lym phadenopathy. 2. Emphysema and diffuse groundglass opacities, intralobular septal thickening . Nonspecific but could be subacute COVID pneumonia. Some other considerations above. 3. Cirrhosis. Mild periportal lymphadenopathy. 4. Colonic fluid. No abdominal abscess. 5. Scattered osteolytic disease.
--- NOTE | ~2021-06-27 | XR_ITS ---
EXAMINATION: XR chest 1V portable INDICATION: Respiratory failure TECHNIQUE: Portable AP chest at 0521 hours COMPARISON: 07/15/2021 FINDINGS: A tracheostomy is in expected position. A right upper extremity PICC ends with its tip at t he superior cavoatrial junction. Patchy diffuse interstitial and airspace opacities persist without s ignificant change. There is no pleural effusion or pneumothorax. Cardiomegaly is noted. There is unch anged right hilar lymphadenopathy. IMPRESSION: 1. Stable diffuse lung disease, consistent with pneumonia and/or pulmonary edema Reviewed, dictated and finalized at location A. UTIVE PASTRY CHEF IMPRESSION: 1. Stable diffuse lung disease, consistent with pneumonia and/or pulmonary valerie a
--- NOTE | ~2021-06-27 | XR_ITS ---
EXAMINATION: XR chest 1V portable INDICATION: Respiratory failure TECHNIQUE: Portable AP chest at 0522 hours COMPARISON: 07/17/2021 FINDINGS: A tracheostomy is in expected position. A right upper extremity PICC ends with its tip at t he superior cavoatrial junction. Diffuse interstitial and airspace opacities persist throughout all l esperanza zones with slight worsening. There is no pleural effusion or pneumothorax. Cardiomegaly is noted. Right hilar lymphadenopathy is unchanged. IMPRESSION: 1. Diffuse lung disease with interval worsening, consistent with pneumonia and/or pulmonary pulmonary edema. Reviewed, dictated and finalized at location A. EL MED SURG RN IMPRESSION: 1. Diffuse lung disease with interval worsening, consistent with pneumonia and/ or pulmonary pulmonary edema.
--- NOTE | ~2021-06-27 | XR_ITS ---
XR chest 1V portable 06/27/2021 19:50 Indication: Shortness of breath. Hypertension. Procedure: AP portable chest Comparison: Comparison to multiple prior studies sequentially, with oldest reviewed study dated 01/2019. Findings: Extensive bilateral airspace disease. Cardiomegaly. No pleural effusion or pneumothorax. Impression: 1: Extensive bilateral airspace disease which may represent pneumonia and/or edema. Reviewed, dictated and finalized at location A. UREMENT AGENT Impression: 1: Extensive bilateral airspace disease which may represent pneumonia and/or ed franco.
--- NOTE | ~2021-06-27 | XR_ITS ---
EXAMINATION: XR chest 1V portable DATE: 07/01/2021 05:37 INDICATION: Acute respiratory failure with bilateral pulmonary infiltrates. TECHNIQUE: frontal view of the chest was obtained. COMPARISON: Chest radiograph dated 06/30/2021 FINDINGS: Endotracheal tube tip 5.3 cm above the say. Nasogastric tube extends to the stomach with distal ti p extending beyond the inferior margin of the [id number]. Right upper extremity peripherally inser nidia central venous catheter (PICC) tip near the superior cavoatrial junction. Diffuse indistinct interstitial opacities and scattered mild groundglass opacities about both lungs. No pleural effusion or pneumothorax. The cardiomediastinal silhouette is normal. IMPRESSION: 1. No significant change in diffuse bilateral lung disease consistent with pulmonary edema and/or pne umonia. Reviewed, dictated and finalized at location A. R SAW MECHANIC IMPRESSION: 1. No significant change in diffuse bilateral lung disease consistent with pulm onary edema and/or pneumonia.
--- NOTE | ~2021-06-27 | XR_ITS ---
EXAMINATION: XR chest 1V portable INDICATION: Respiratory failure TECHNIQUE: Portable AP chest at 0519 hours COMPARISON: 07/16/2021 FINDINGS: A right upper extremity PICC ends with its tip at the superior cavoatrial junction. A trach eostomy is unchanged in position. Diffuse opacities persist throughout all lung zones with slight wor sening in the right lung base. Cardiomegaly is noted. There is no pleural effusion or pneumothorax. R ight hilar lymphadenopathy is unchanged. IMPRESSION: 1. Diffuse lung disease with slight worsening in the right lung base, consistent with pneumonia/or pu lmonary edema. Reviewed, dictated and finalized at location A. LITIES OFFICER IMPRESSION: 1. Diffuse lung disease with slight worsening in the right lung base, consisten t with pneumonia/or pulmonary edema.
--- NOTE | ~2021-06-27 | XR_ITS ---
EXAMINATION: XR chest 1V portable DATE: 07/10/2021 06:03 INDICATION: Respiratory failure. TECHNIQUE: A single frontal view of the chest was obtained. COMPARISON: Chest single view 07/09/2021 FINDINGS: The patient is rotated to her right. There are coarse interstitial opacities and airspace o pacities throughout the lungs bilaterally. No pleural effusion or pneumothorax. The heart size is nor mal. There is right hilar lymphadenopathy. The endotracheal tube tip is 3.6 cm above the say. The nasogastric tube tip is beyond the inferior margin of the radiograph, but at least to the stomach. IMPRESSION: 1. Stable diffuse lung disease, consistent with pulmonary edema versus pneumonia versus acute respira tory distress syndrome (ARDS). 2. Right hilar lymphadenopathy, consistent with metastatic disease. Reviewed, dictated and finalized at location A. LE MOLDER HAND IMPRESSION: 1. Stable diffuse lung disease, consistent with pulmonary edema versus pneumoni a versus acute respiratory distress syndrome (ARDS). 2. Right hilar lymphadenopathy, consistent with metastatic disease.
--- NOTE | ~2021-06-27 | XR_ITS ---
EXAMINATION: XR chest 1V portable DATE: 07/21/2021 06:03 INDICATION: Respiratory failure. TECHNIQUE: A single frontal view of the chest was obtained. COMPARISON: Chest single view 07/20/2021 FINDINGS: There are airspace and interstitial opacities throughout the lungs bilaterally. No pleural effusion or pneumothorax. The heart size is normal. There is right hilar lymphadenopathy. There is a tracheostomy tube in expected position. A right upper extremity peripherally inserted central venous catheter (PICC) is seen with tip at the superior cavoatrial junction. IMPRESSION: 1. Stable diffuse lung disease, consistent with pneumonia versus pulmonary edema versus acute respira tory distress syndrome (ARDS). 2. Right hilar lymphadenopathy, consistent with metastatic disease. Reviewed, dictated and finalized at location A. ELLA REPAIRER IMPRESSION: 1. Stable diffuse lung disease, consistent with pneumonia versus pulmonary valerie a versus acute respiratory distress syndrome (ARDS). 2. Right hilar lymphadenopathy, consistent with metastatic disease.
--- NOTE | ~2021-06-27 | XR_ITS ---
EXAMINATION: XR chest 1V portable DATE: 07/24/2021 05:29 INDICATION: Respiratory failure. TECHNIQUE: A single frontal view of the chest was obtained. COMPARISON: Chest single view 07/23/2021 FINDINGS: There are airspace and interstitial opacities throughout the lungs bilaterally. No pleural effusion or pneumothorax. The heart size is normal. There is right hilar lymphadenopathy. Pneumomedia stinum is noted. There is a tracheostomy tube in expected position. There is soft tissue gas in the n emir and right chest wall. IMPRESSION: 1. Pneumomediastinum. 2. Stable diffuse lung disease, consistent with pneumonia versus pulmonary edema versus acute respira tory distress syndrome (ARDS). 3. Right hilar lymphadenopathy, consistent with metastatic disease. Reviewed, dictated and finalized at location A. Y AND CAULKING SUPERVISOR IMPRESSION: 1. Pneumomediastinum. 2. Stable diffuse lung disease, consistent with pneumonia versus pulmonary valerie a versus acute respiratory distress syndrome (ARDS). 3. Right hilar lymphadenopathy, consistent with metastatic disease.
--- NOTE | ~2021-06-27 | XR_ITS ---
EXAMINATION: XR chest 1V portable DATE: 07/22/2021 05:58 INDICATION: Respiratory failure. TECHNIQUE: A single frontal view of the chest was obtained. COMPARISON: Chest single view 07/21/2021 FINDINGS: There are airspace and interstitial opacities throughout the lungs bilaterally. No pleural effusion or pneumothorax. The heart size is normal. There is right hilar lymphadenopathy. There is a tracheostomy tube in expected position. IMPRESSION: 1. Diffuse lung disease with mild improvement, consistent with pneumonia versus pulmonary edema versu s acute respiratory distress syndrome (ARDS). 2. Right hilar lymphadenopathy, consistent with metastatic disease. Reviewed, dictated and finalized at location A. EY PARTY CHIEF IMPRESSION: 1. Diffuse lung disease with mild improvement, consistent with pneumonia versus pulmonary edema versus acute respiratory distress syndrome (ARDS). 2. Right hilar lymphadenopathy, consistent with metastatic disease.
--- NOTE | ~2021-06-27 | XR_ITS ---
EXAMINATION: XR chest 1V portable DATE: 07/14/2021 06:35 INDICATION: Respiratory failure TECHNIQUE: frontal view of the chest was obtained. COMPARISON: Chest radiograph dated 07/13/2021 FINDINGS: Tracheostomy tube at the thoracic inlet. Nasogastric tube extends below the left hemidiaphragm with distal tip collimated off the study. Right upper extremity peripherally inserted central venous cat heter (PICC) tip at the superior cavoatrial junction. Diffuse indistinct interstitial pattern throughout both lungs with relatively improvement in more pat irma airspace opacities in the bilateral lower lung zones. No pleural effusion or pneumothorax. Heart size is within normal limits for AP technique. Masslike opacity at the right hilum which corresponds to lymphadenopathy suspicious for metastatic disease on prior CT. IMPRESSION: 1. Diffuse bilateral lung disease with improvement at the lower lung zones which could represent pulm onary edema, pneumonia or combination of the two. Reviewed, dictated and finalized at location A. L CUT OFF SAW OPERATOR IMPRESSION: 1. Diffuse bilateral lung disease with improvement at the lower lung zones whic h could represent pulmonary edema, pneumonia or combination of the two.
--- NOTE | ~2021-06-27 | XR_ITS ---
EXAMINATION: XR chest 1V portable DATE: 07/06/2021 06:11 INDICATION: Respiratory failure. Mechanical ventilation. TECHNIQUE: frontal view of the chest was obtained. COMPARISON: Chest radiograph and CT dated 07/05/2021 FINDINGS: Persistent diffuse bilateral groundglass and reticular opacities which could represent pulmonary valerie a or pneumonia. No pleural effusion or pneumothorax. Heart size is normal accounting for AP technique . Again seen is enlargement of the right hilum which is superimposed over the previous noted right jagdish ng mass suspicious for lung cancer and metastatic right hilar lymphadenopathy. IMPRESSION: 1. No significant change in diffuse bilateral lung disease consistent with pulmonary edema versus pne umonia. 2. Emphysema better appreciated on prior CT. 3. Right lower lobe mass superimposed over right hilar lymphadenopathy concerning for primary broncho genic carcinoma with hilar metastatic lymphadenopathy. Reviewed, dictated and finalized at location A. ER SIFTER MACHINE IMPRESSION: 1. No significant change in diffuse bilateral lung disease consistent with pulm onary edema versus pneumonia. 2. Emphysema better appreciated on prior CT. 3. Right lower lobe mass superimposed over right hilar lymphadenopathy concerni ng for primary bronchogenic carcinoma with hilar metastatic lymphadenopathy.
--- NOTE | ~2021-06-27 | CT_ITS ---
EXAMINATION: CT biopsy bone superficial DATE: 07/15/2021 13:10 INDICATION: Mass of right ilium. TECHNIQUE: The skin overlying the right ilium was prepped and draped in usual sterile fashion. Anest hetic was administered with 1% lidocaine subcutaneously. A 16 gauge outer needle was advanced under CT guidance to the lytic lesion in right ilium. An 18 gauge core biopsy needle was then used to obtai n multiple core biopsy specimens. The mA was adjusted according to patient size. Iterative reconstruc tion technique was employed. The dose-length product was 200.55 mGy-cm. The needle was removed and th e entry site was cleaned and dressed. There were no immediate complications. FINDINGS: CT images demonstrate the needle in a 2 cm lytic lesion in right ilium. IMPRESSION: 1. CT-guided core needle biopsy of a lytic lesion in right ilium. Reviewed, dictated and finalized at location A. NAE SECRETARY
--- NOTE | ~2021-06-27 | XR_ITS ---
EXAMINATION: XR chest 1V portable INDICATION: Respiratory failure TECHNIQUE: Portable AP chest at 0912 hours COMPARISON: 0509 hours FINDINGS: An endotracheal tube has been inserted which ends 4.5 cm above the say. A nasogastric tu be has been inserted which is followed as far as the stomach. Its tip is beyond the inferior margin o f the radiograph. Diffuse opacities persist throughout all lung zones without significant change. The re is no pleural effusion or pneumothorax. The cardiomediastinal silhouette is stable. IMPRESSION: 1. Endotracheal and nasogastric tubes inserted in adequate position. 2. Stable diffuse lung disease, consistent with pneumonia and/or pulmonary edema. Reviewed, dictated and finalized at location A. ING RESIDENT IMPRESSION: 1. Endotracheal and nasogastric tubes inserted in adequate position. 2. Stable diffuse lung disease, consistent with pneumonia and/or pulmonary valerie a.
--- NOTE | 2021-06-27 19:38 | ECG_ITS ---
Measurements Intervals [place] Rate: 105 P: 18 DC: 176 QRS: 8 QRSD: 80 T: 127 QT: 282 QTc: 373 Interpretive Statements SINUS TACHYCARDIA LOW QRS VOLTAGE IN PRECORDIAL LEADS CANNOT RULE OUT SEPTAL INFARCT, AGE INDETERMINATE INFERIOR ST ELEVATION MYOCARDIAL INFARCT- ACUTE BASELINE ARTIFACT- I, II, III, AVR, AVL, V1-V2 ABNORMAL ECG Electronically Signed On 06-28-2021 7:13:46 PAPER RECLAIMING MACHINE OPERATOR by Juan Akhtar D.O.
--- NOTE | 2021-06-27 19:42 | ED.SOB ---
HPI - SOB/Dyspnea General Chief Complaint: Shortness of Breath/Dyspnea Stated Complaint: diff breathing x 24 hours Time Seen by Provider: 06/27/21 19:29 Source: patient Mode of arrival: ambulatory Limitations: no limitations History of Present Illness HPI Narrative: This is a 56 year old female with history of fibromylgia, COPD, asthma and hypertension who presents via EMS for evaluation of shortness of breath. She has been having shortness of breath for 2 days but it worsened yesterday. She is having worsening productive cough with clear to yellow phlegm. She has been using her albuterol inhaler at home with some improvement, but she states she forgot to try her nebulizer. She called 911 because she was having difficulty walking to bathroom due to her chronic pain and shortness of breath. She reports dizziness, shortness of breath and chest pain describe as feeling like I couldn't breath. She denies chest pain currently. She denies fever, chills, sore throat, runny nose, nausea, vomiting, diarrhea or leg swelling. EMS gave patient solumedrul IV and neb treatment. She reports she feels better. NURsing reports patient was 78% on room air. Related Data Home Medications Medication Instructions Recorded Confirmed Janumet XR 1 tablet PO DAILY 09/14/19 06/28/21 atorvastatin 40 mg PO HS 09/14/19 06/28/21 lisinopril-hydrochlorothiazide 1 tablet PO DAILY 09/14/19 06/28/21 gabapentin 300 mg capsule 600 mg PO TID 08/27/20 06/28/21 duloxetine [Cymbalta] 60 mg PO BID 11/08/20 06/28/21 Basaglar KwikPen U-100 Insulin 90 unit SUBCUT HS 02/09/21 06/28/21 budesonide-formoterol [Symbicort] 1 inh INHALATION BID 02/09/21 06/28/21 topiramate 25 mg PO HS 02/09/21 06/28/21 ibuprofen 800 mg PO Q8H 06/04/21 06/28/21 tramadol 50 mg PO Q8H PRN 06/04/21 06/28/21 insulin aspart U-100 [Novolog 20 unit SUBCUT TID 06/28/21 06/28/21 U-100 Insulin aspart] Allergies Allergy/AdvReac Type Severity Reaction Status Date / Time bee venom protein (honey bee) Allergy Severe Anaphylactic Verified 04/28/21 14:44 Shock shellfish derived Allergy Severe Hives/RED Verified 04/28/21 14:44 FACE shrimp Allergy Severe Hives/RED Verified 04/28/21 14:44 FACE cephalexin [From Keflex] AdvReac Nausea Verified 06/27/21 19:33 Review of Systems Review of Systems: All systems reviewed & are unremarkable except as noted in HPI and below PMFSH Past Medical History Medical History Anxiety Arthritis Asthma Chronic headaches Chronic obstructive pulmonary disease Depression Fibromyalgia Gastroesophageal reflux disease Hypercholesteremia Hypertension Insulin dependent type 2 diabetes mellitus Obstructive sleep apnea on CPAP Stress incontinence Tobacco abuse Surgical History Surgical History History of cholecystectomy History of hysterectomy History of tonsillectomy Status post excision of Chen's neuroma Family History Family History Sibling Hypertension Grandparent Hypertension Diabetes mellitus Malignant neoplasm of prostate Skin cancer Other Arthritis Depression Heart disease Neuropathy Social History Social History Smoking packs per day: 2.5 Smoking cigarettes per day: 50.0 Years smoked: 20 Smoking pack-years: 50.00 Smoking status: Former smoker Tobacco type: cigarettes Smoking end date: 09/03/20 Alcohol intake: current Drinks per week: 1 Substance use: never Substance use type: does not use Additional living arrangements comments: Resides in [place]. Additional occupation/education comments: Unemployed. Gender identity (if verbalized by the patient): Female Spiritual
[2021-06-27] MEDS: ALBUTEROL SULFATE NEB 2.5 MG/0.5 ML INH 5 MG INHALATION (19:50)
[2021-06-27] MEDS: IPRATROPIUM BR 0.02% INH SOLN 0.5 MG/2.5 ML VIAL INHALATION (19:50)
[2021-06-27 20:03] LABS: Basophils Percent Auto 0.4 % (0.2-1.2); Eosinophils Absolute Auto 0.1 K/mm3 (0-0.3); Eosinophils Percent Auto 1.1 % (0-4.4); Hematocrit 29.9 % (37.0-47.0); Hemoglobin 9.6 g/dL (12.0-15.0); Immature Granulocyte Absolute 0.08 K/mm3 (0.00-0.031); Immature Granulocyte Percent A 0.7 % (0-0.5); Lymphocytes Absolute Auto 1.39 K/mm3 (0.9-3.2); Lymphocytes Percent Auto 12.3 % (18.3-44.2); Mean Corpuscular HGB Conc 32.1 g/dl (32-36); Mean Corpuscular Hemoglobin 33.9 pg (26-34); Mean Corpuscular Volume 105.7 fl (80-100); Mean Platelet Volume 9.3 fl (7.4-10.4); Monocytes Absolute Auto 0.7 K/mm3 (0.1-0.6); Monocytes Percent Auto 5.8 % (2.6-8.5); Neutrophils Percent Auto 79.7 % (45.5-73.1); Nucleated Red Blood Cells Perc 0.3 % (0.0-0.2); Platelet Count Result 200 k/mm3 (150-375); Red Blood Count 2.83 M/mm3 (4.2-5.4); Red Cell Distribution Width 16.2 % (11.5-14.5); White Blood Count 11.3 K/mm3 (4.5-10.0)
[2021-06-27 20:09] LABS: Alveolar/Arterial O2 Gradient 153.9 mmHg; Base Excess ABG -2.5 mEq/l (+/-2.0); Fractional Inspired Oxygen 36 %; Oxygen Content ABG 12.9 %vol (16.0-22.0); Oxygen Saturation ABG 91.1 % (95.0-100.0); PCO2 ABG 36.8 mmHg (35.0-45.0); PO2 ABG 60.1 mmHg (80.0-100.0); PO2 FiO2 Ratio Arterial Blood 1.67 %; Total Hemoglobin 10.5 g/dL (12.0-18.0); pH ABG 7.394 (7.350-7.450)
[2021-06-27 20:13] LABS: Alanine Aminotransferase 13 U/L (4-35); Albumin Level 3.4 g/dL (3.5-5.1); Alkaline Phosphatase 109 U/L (38-126); Anion Gap 9 mmol/L (8-16); Aspartate Amino Transferase 54 U/L (14-36); Bilirubin,Total 1.9 mg/dL (0.2-1.3); Blood Urea Nitrogen 19 mg/dL (7-17); Calcium 10.1 mg/dL (8.4-10.2); Carbon Dioxide 24 mmol/L (22-30); Chloride 102 mmol/L (98-107); Estimated CRCL calculation 80 ml/min; Estimated Glomerular Filt Rate > 60; Glucose 123 mg/dL (65-110); INR 1.3; Magnesium 1.5 mg/dL (1.6-2.3); Partial Thromboplastin Time 34.9 SECONDS (22.3-36.8); Potassium 3.6 mmol/L (3.4-5.0); Prothrombin Time 15.8 Seconds (11.1-14.7); Sodium 135 mmol/L (137-145)
[2021-06-27 20:16] LABS: D Dimer 2.69 ug/mL (<0.48)
[2021-06-27 20:28] LABS: NT Pro B Type Natriuretic Pept 1270 pg/mL (5-100)
--- NOTE | 2021-06-27 21:12 | ECG_ITS ---
Measurements Intervals [place] Rate: 116 P: 5 NM: 175 QRS: 9 QRSD: 93 T: 139 QT: 247 QTc: 343 Interpretive Statements SINUS TACHYCARDIA INFERIOR ST ELEVATION MYOCARDIAL INFARCT- ACUTE BASELINE ARTIFACT- I, II, III, AVR, AVL, AVF, V1-V2 ABNORMAL ECG Electronically Signed On 06-28-2021 7:08:42 MARKETING DEVELOPMENT SPECIALIST by Juan Akhtar D.O.
[2021-06-27 21:43] LABS: Modified Allen's Test Pass; Oxyhemoglobin 87.2 % THb (90.0-100.0); Site Drawn RIGHT RADIAL
[2021-06-27 21:44] LABS: Device NASAL CANNULA
--- NOTE | 2021-06-27 22:04 | PM.CNCAR ---
Assessment and Plan Additional Plan INF wall ID, bilateral pneumonia concerning for COVID but Hx of COVID Vaccine. Plan LHC, Heparin, ASA, Statin, TTE History of Present Illness History of Present Illness Consult date/time: 06/27/21 22:04 Consult reason: shortness of breath Reason For Visit: diff breathing x 24 hours Narrative: Patient presented with acute onset SOB for 3 days and has been getting worse today, SOB is present at rest and worse with mild activity. SOB is associated with cough but no fevers. No chest pain. She had no exposure to COVID cases or recent travels. Review of Systems Review of Systems: All systems reviewed & are unremarkable except as noted in HPI and below PMFSH Past Medical History Medical History Anxiety Arthritis Asthma Chronic headaches Chronic obstructive pulmonary disease Depression Fibromyalgia Gastroesophageal reflux disease Hypercholesteremia Hypertension Insulin dependent type 2 diabetes mellitus Obstructive sleep apnea on CPAP Stress incontinence Tobacco abuse Surgical History Surgical History History of cholecystectomy History of hysterectomy History of tonsillectomy Status post excision of Chen's neuroma Family History Family History Sibling Hypertension Grandparent Hypertension Diabetes mellitus Malignant neoplasm of prostate Skin cancer Other Arthritis Depression Heart disease Neuropathy Social History Social History Smoking packs per day: 1 Smoking cigarettes per day: 20.0 Years smoked: 20 Smoking pack-years: 20.00 Tobacco type: cigarettes Smoking end date: 09/10/20 Alcohol intake: never Substance use: never Substance use type: does not use Additional living arrangements comments: Resides in [place]. Additional occupation/education comments: Unemployed. Gender identity (if verbalized by the patient): Female Spiritual care concerns: No Meds Home Medications and Allergies Home Medications Medication Instructions Recorded Confirmed Type Janumet XR 100 tablet PO DAILY 09/14/19 04/14/21 History atorvastatin 40 mg PO HS 09/14/19 04/14/21 History insulin lispro [Admelog SoloStar 20 unit SUBCUT TIDWM 09/14/19 04/14/21 History U-100 Insulin] lisinopril-hydrochlorothiazide 20 tablet PO DAILY 09/14/19 04/14/21 History albuterol sulfate 2.5 mg INHALATION Q6H PRN #180 ml 07/24/20 04/14/21 Rx gabapentin 300 mg capsule 600 mg PO BID 08/27/20 04/14/21 History inhalational spacing device #1 ea 09/06/20 04/14/21 Rx duloxetine [Cymbalta] 60 mg PO BID 11/08/20 04/14/21 History Basaglar SriramPen U-100 Insulin 90 unit SUBCUT HS 02/09/21 04/14/21 History budesonide-formoterol [Symbicort] 1 inh INHALATION BID 02/09/21 04/14/21 History topiramate 25 mg PO HS 02/09/21 04/14/21 History albuterol sulfate 90 mcg/actuation 1 - 2 inh INHALATION Q4-6H PRN 03/20/21 04/14/21 Rx aerosol inhaler #8.5 g ibuprofen 800 mg PO TID 06/04/21 History tramadol 50 mg PO Q8-12H PRN 06/04/21 History tiotropium bromide 18 mcg capsule See Rx Instructions .ROUTE 06/17/21 Rx with inhalation device .COMPLEX #30 capsule Allergies Allergy/AdvReac Type Severity Reaction Status Date / Time bee venom protein (honey bee) Allergy Severe Anaphylactic Verified 04/28/21 14:44 Shock shellfish derived Allergy Severe Hives/RED Verified 04/28/21 14:44 FACE shrimp Allergy Severe Hives/RED Verified 04/28/21 14:44 FACE cephalexin [From Keflex] AdvReac Nausea Verified 06/27/21 19:33 Vital Signs Vital Signs - 24 hr 06/27/21 19:25 06/27/21 19:26 06/27/21 19:30 Temperature 36.3 C L Pulse Rate 104 H 99 99 Respiratory Rate 22 H 28 H 26 H Blood Pressure 149/73 H Pulse Oximetry 86 L 95 94 06/27/21 19:45
[2021-06-27 22:07] LABS: EDCOVIDSCREEN Negative (Negative)
--- NOTE | 2021-06-27 22:08 | WPDCARDPROC ---
Cardiac Cath Procedure Note Date of procedure:: 06/27/21 Performing physician:: Lamont Moreno MD Assessment and Plan Additional Plan PROCEDURE: 1. LHC and Coronary angiogram 2. PCi to proximal RCA with one DESIRE Orsiro 3.5 * 13 and mid RCA with one DESIRE Orsiro 3.5 * 15 (culprit lesion of STEMI) 3. Coronary IVUS INDICATION: INF wall STEMI HISTORY: 56 Yrs old female presented with acute SOB and EKG showed new ST elevation inf wall SEDATION: Moderate sedation with Fentanyl 50 mcg ACCESS SITE: Consent obtained and time out done Rt Radial access obtained with Seildinger technique HEMODYNAMICS: Aortic pressure: 100/70 No gradient across AV CORONARY ANGIOGRAM: Left main: no obstructive disease and gives LAD and LCX LAD: tortuous calcified vessel gives small and intermediate size diagonals with no obstructive disease LCX: continues as OM branch and calcfied vessel with no obstructive disease RCA: Dominant proximal RCA 70% calcified lesion, mid RCA 99% occlusion likely culprit lesion of STEMI with CARLOS 1 flow distally PCI Lesion # 1: proximal RCA 70% calcified lesion, CARLOS 3 flow, class C, not previously treated Guide catheter: AL 0.75 guide and guideliner used for support Guide wire: Runthrough, OPTICAL ADVISOR 150, OPTICAL ADVISOR 200, Whisper wire crossed to distal RCA (crossing was very difficult) Anticoagulation: heparin for target ACT > 250 sec Antiplatelet therapy: ASA and Ticagrelor Crossing lesion was very difficult, and crossing distal tortuous RCA was more difficult. Vessels were calcified. Balloon angioplasty was done 1.5, then 2.0 then 3.0 then 3.5 NC balloon then stent was done with Orsiro 3.5 * 13 mm DESIRE, Post dilated with 3.5 NC balloon at 24 RADHA Post intervention: 0% residual lesion and CARLOS 3 flow IVUS done and revealed full stent expansion and apposition Lesion # 2: mid RCA 99% lesion culprit for STEMI, not previously treated, CARLOS 1 flow, class C Guide catheter: AL 0.75 guide and guideliner used for support Guide wire: Runthrough, OPTICAL ADVISOR 150, OPTICAL ADVISOR 200, Whisper wire crossed to distal RCA (crossing was very difficult) IVUS confirmed wire position Anticoagulation: heparin for target ACT > 250 sec Antiplatelet therapy: ASA and Ticagrelor Crossing lesion was very difficult, and crossing distal tortuous RCA was more difficult. Vessels were calcified. Balloon angioplasty was done 1.5, then 2.0 then 3.0 then 3.5 NC balloon then stent was done with Orsiro 3.5 * 15 mm DESIRE, Post dilated with 3.5 NC balloon at 24 RADHA Post intervention: 0% residual lesion and CARLOS 3 flow COMPLICATION: None Sheath removed and TR band applied CONCLUSION: Successful PCI to proximal and mid RCA with DESIRE Orsrio 3.5 * 13 (proximal) and 3.5 * 15 mid RCA RECOMMENDATION: DAPT Admit to ICU for management of resp failure
[2021-06-27 22:41] LABS: Activated Clotting Time 191 SEC (74-137)
[2021-06-27 22:58] LABS: Activated Clotting Time 213 SEC (74-137)
[2021-06-27 23:57] LABS: Activated Clotting Time 213 SEC (74-137)
[2021-06-28] VITALS (39 sets, daily range): BP systolic 79–132; BP diastolic 50–75; PULSE 29–103; RESP 21–99; TEMP 36.2–37.3; O2SAT 87–99; BMI 46.3
--- NOTE | 2021-06-28 | ECHO_ITS ---
Patient Info Name: Nnea Fuentes Age: 56 years : 1965 Gender: Female Ht: 64 in Wt: 234 lbs BSA: 2.24 m2 HR: 94 bpm BP: 101 / 75 mmHg Technical Quality: Poor, Other Exam Date: 06/28/2021 7:19 AM Exam Location: [facility] Patient Status: Inpatient Admit Date: 06/27/2021 Staff Ordering Physician: Lamont Moreno MD Medication Administration Professional: GABE Attending Provider: Lamont Moreno MD Exam Type: CA echo dop color flow w con Study Info Indications - stem Complete two-dimensional, color flow and Doppler transthoracic echocardiogram is performed with contrast to opacify the left ventricle and to improve the deliniation of the left ventricle endocardial borders. Contrast/Agitated Saline Contrast/Ag. Saline: Definity Amount: 4.00 ml Reason for Poor Study: patient body habitus Summary 1. Left ventricular systolic function is normal, estimated at 65-70%. 2. There is no increased left ventricular wall thickness. 3. Left ventricular septal wall motion is normal. 4. The left ventricular diastolic function is normal. 5. Right ventricular chamber dimension is normal. 6. Right ventricular systolic function is normal. Left Ventricle Left ventricular chamber dimension is normal. Left ventricular systolic function is normal, estimated at 65-70%. There is no increased left ventricular wall thickness. Left ventricular septal wall motion is normal. The left ventricular diastolic function is normal. Right Ventricle Right ventricular chamber dimension is normal. Right ventricular systolic function is normal. Left Atria Left atrial chamber dimension is normal. Right Atria Right atrial chamber dimension is normal. Aortic Valve The aortic valve is trileaflet. There is no aortic valve sclerosis. There is no aortic valve stenosis. There is no aortic valve regurgitation. Pulmonic Valve Pulmonary valve is not well visualized. There is no pulmonic valve stenosis. There is no pulmonic regurgitation. Mitral Valve The mitral valve has normal leaflets. There is no mitral valve stenosis. There is no mitral valve regurgitation. Tricuspid Valve The tricuspid valve leaflets are normal. There is no significant tricuspid valve stenosis. There is mild tricuspid valve regurgitation. Pericardium/Pleural The pericardium appears normal. There is no pericardial effusion. Inferior Vena Cava Inferior vena cava is not well visualized. Left Ventricular Outflow Tract Name Value Normal LVOT 2D LVOT Diameter 2.26 cm LVOT Doppler LVOT Peak Gradient 6 mmHg LVOT Mean Gradient 3 mmHg LVOT VTI 20.94 cm LVOT VTI/AV VTI Ratio 0.58 LVOT Stroke Volume 83.68 ml LVOT CO 6.23 l/min LVOT CI 2.78 L/min/m2 Pulmonic Valve Name Value Normal ---------
--- NOTE | 2021-06-28 00:25 | ADMGEN ---
This patient, Nena Fuentes, was admitted to Intensive Care Unit-7. Patient/family oriented to hospital policies and general routines including ID bracelet, bed and alarms, visiting hours, pain management, procedures, bathroom and other care routines, personal items, smoking policy, room service/diet, and visiting hours. Information on how to activate the Rapid Response Team has been discussed. Patient/Family are encouraged to report perceived risks to care and to ask questions if they do not understand what they are told or what they should do.
--- NOTE | 2021-06-28 00:33 | ECG_ITS ---
Measurements Intervals [place] Rate: 101 P: 38 CA: 170 QRS: 9 QRSD: 85 T: 128 QT: 296 QTc: 384 Interpretive Statements SINUS TACHYCARDIA DELAYED PRECORDIAL R/S TRANSITION INFERIOR ST ELEVATION MYOCARDIAL INFARCT- PROBABLY RECENT WITH RECIPROCAL ST-T WAVE ABNORMALITY IN HIGH LATERAL LEADS ABNORMAL ECG Electronically Signed On 07-01-2021 12:21:51 [employer] ENGINEER by Juan Akhtar D.O.
[2021-06-28] MEDS: SODIUM CHLORIDE 0.9% IV 1,000 ML 125 ML IV CONT (03:09)
[2021-06-28] MEDS: ACETAMINOPHEN 500 MG TABLET PO ×2 (06:14→20:21)
--- NOTE | 2021-06-28 06:26 | PC.NURSE ---
pt switched to airvo due to intolerance of any type of mask. Currently 50L 66% with O2 sat 93%.
[2021-06-28 07:28] LABS: Glucose Point of Care 235 mg/dl (65-105)
--- NOTE | 2021-06-28 08:27 | PC.NURSE ---
Dr Moralez aware of elevated troponins post cath.
[2021-06-28 08:52] LABS: Basophils Percent Auto 0.1 % (0.2-1.2); Hematocrit 25.2 % (37.0-47.0); Hemoglobin 8.2 g/dL (12.0-15.0); Immature Granulocyte Absolute 0.06 K/mm3 (0.00-0.031); Immature Granulocyte Percent A 0.7 % (0-0.5); Lymphocytes Absolute Auto 0.82 K/mm3 (0.9-3.2); Lymphocytes Percent Auto 9.3 % (18.3-44.2); Mean Corpuscular HGB Conc 32.5 g/dl (32-36); Mean Corpuscular Hemoglobin 34.2 pg (26-34); Mean Platelet Volume 9.7 fl (7.4-10.4); Monocytes Absolute Auto 0.3 K/mm3 (0.1-0.6); Monocytes Percent Auto 2.8 % (2.6-8.5); Neutrophils Absolute Auto 7.6 K/mm3 (1.3-6.7); Neutrophils Percent Auto 87.1 % (45.5-73.1); Nucleated Red Blood Cells Perc 0.2 % (0.0-0.2); Platelet Count Result 171 k/mm3 (150-375); White Blood Count 8.8 K/mm3 (4.5-10.0)
[2021-06-28 09:02] LABS: Lactate Dehydrogenase 1924 U/L (313-618); Magnesium 1.5 mg/dL (1.6-2.3)
[2021-06-28 09:04] LABS: D Dimer 2.63 ug/mL (<0.48)
[2021-06-28 09:21] LABS: Alanine Aminotransferase 12 U/L (4-35); Albumin Level 2.9 g/dL (3.5-5.1); Alkaline Phosphatase 90 U/L (38-126); Anion Gap 10 mmol/L (8-16); Aspartate Amino Transferase 53 U/L (14-36); Bilirubin,Total 1.4 mg/dL (0.2-1.3); Blood Urea Nitrogen 18 mg/dL (7-17); CRP 17.2 mg/dL (<1.0); Carbon Dioxide 21 mmol/L (22-30); Chloride 105 mmol/L (98-107); Estimated CRCL calculation 131 ml/min; Estimated Glomerular Filt Rate > 60; Glucose 240 mg/dL (65-110); Hemoglobin A1C 5.5 % (<5.7); Potassium 3.3 mmol/L (3.4-5.0); Sodium 136 mmol/L (137-145)
[2021-06-28] MEDS: IPRATROPIUM BR 0.02% INH SOLN 0.5 MG/2.5 ML VIAL INHALATION ×3 (09:54→20:28)
[2021-06-28] MEDS: FLUTICASONE/SALMETEROL 115-21 MCG INHALER 1 PUFF 2 PUFF INHALATION ×2 (09:54→20:28)
[2021-06-28 10:09] LABS: Alveolar/Arterial O2 Gradient 363.5 mmHg; Base Excess ABG -3.7 mEq/l (+/-2.0); Device HIGH FLOW THERAPY; Fractional Inspired Oxygen 65 %; HCO3 ABG 19.4 mEq/l (22.0-26.0); Modified Allen's Test Pass; Oxygen Content ABG 13.7 %vol (16.0-22.0); Oxygen Saturation ABG 94.7 % (95.0-100.0); Oxyhemoglobin 91.5 % THb (90.0-100.0); PCO2 ABG 28.8 mmHg (35.0-45.0); PO2 ABG 68.6 mmHg (80.0-100.0); PO2 FiO2 Ratio Arterial Blood 1.06 %; Site Drawn LEFT RADIAL; Total Hemoglobin 10.6 g/dL (12.0-18.0); pH ABG 7.447 (7.350-7.450)
[2021-06-28] MEDS: GABAPENTIN 300 MG CAPSULE 600 MG PO ×3 (10:09→18:11)
[2021-06-28] MEDS: ENOXAPARIN 40 MG/0.4 ML SYRINGE SUB-Q (10:09)
[2021-06-28] MEDS: DULoxetine HCL 60 MG CAPSULE.DR PO ×2 (10:10→18:12)
[2021-06-28] MEDS: INSULIN GLARGINE (*BKC) 100 UNITS/ML 30 UNITS SUB-Q (10:17)
[2021-06-28] MEDS: INSULIN ASPART (*BKC) 100 UNITS/ML SUB-Q ×2 (10:21→13:20)
[2021-06-28] MEDS: ASPIRIN 81 MG ENTERIC TABLET PO (11:13)
[2021-06-28] MEDS: ATORVASTATIN 40 MG TABLET 80 MG PO (11:14)
[2021-06-28] MEDS: TICAGRELOR 90 MG TABLET PO ×2 (11:14→20:22)
[2021-06-28] MEDS: POTASSIUM CHLORIDE 20 MEQ TABLET 40 MEQ PO (11:14)
--- NOTE | 2021-06-28 11:30 | WPDCNINT ---
Assessment and Plan Assessment and plan (1) ST elevation (STEMI) myocardial infarction: Code(s): I21.3 - ST elevation (STEMI) myocardial infarction of unspecified site Status: Acute Assessment and Plan: Patient presented the ED with shortness of breath along with chest pain, EKG showed acute inferior ST-elevation [place] status post PTCA/PCI with DESIRE x1 to proximal RCA and DESIRE x1 to mid RCA (likely culprit lesion of STEMI) -cardiology following the patient closely, continue aspirin, Brilinta, atorvastatin, (2) Acute respiratory failure with hypoxia: Code(s): J96.01 - Acute respiratory failure with hypoxia Status: Acute Assessment and Plan: Patient with acute respiratory failure likely related to pneumonia, possible COVID-19 05/27: Chest x-ray in the ER showed extensive bilateral airspace disease which may represent pneumonia and/or edema. 05/27: CTA chest PE protocol did not show any large central pulmonary embolism evaluation of peripheral pulmonary arteries is limited due to extensive airspace disease and motion artifact. Extensive bilateral airspace disease consistent with pneumonia. 3.4 cm right lower lobe pleural-based mass with air bronchograms. This may represent focal masslike airspace consolidation secondary to underlying pneumonia, although malignancy is not excluded. Prominent mediastinal and right hilar lymphadenopathy which may be reactive, although metastatic disease and lymphoma are not excluded -patient currently on high-flow therapy, 66% FiO2 and 50 L flow rate with adequate O2 sats -SARs CoV 2 rapid antigen was negative -SARS-CoV-2 PCR has been obtained and pending -started on vancomycin and Levaquin on 06/28/2021 (3) Suspected 2019 novel coronavirus infection: Code(s): Z20.822 - Contact with and (suspected) exposure to COVID-19 Status: Acute Assessment and Plan: Given worsening of shortness of breadth 3 days, CT a and chest x-ray reviewed as above. Patient has been vaccinated with Pfizer x2 doses -LDH, D-dimer and ferritin all elevated -CRP 17.6 -SARS-CoV-2 PCR swab has been obtained and pending -if COVID positive will start dexamethasone, Remdesivir and baricitinib or tocilizumab -continue droplet, airborne, contact isolation/precautions (4) Pneumonia: Code(s): J18.9 - Pneumonia, unspecified organism Status: Acute Assessment and Plan: As above (5) UTI (urinary tract infection): Code(s): N39.0 - Urinary tract infection, site not specified Status: Acute Assessment and Plan: Urine infection reveals possible UTI, will obtain urine culture will continue Levaquin (6) Hypertension: Code(s): I10 - Essential (primary) hypertension Status: Chronic Assessment and Plan: Cardiology following the patient (7) Obstructive sleep apnea on CPAP: Code(s): G47.33 - Obstructive sleep apnea (adult) (pediatric); Z99.89 - Dependence on other enabling machines and devices Status: Acute Assessment and Plan: Patient is refusing to wear the BiPAP as she gets very anxious (8) Insulin dependent type 2 diabetes mellitus: Code(s): E11.9 - Type 2 diabetes mellitus without complications; Z79.4 - detention (current) use of insulin Status: Acute Assessment and Plan: Started patient on sliding scale insulin Accu-Cheks, -will add Lantus as she takes Basaglar at home -hemoglobin A1c is 5.5 this admission on 06/28 (9) COPD (chronic obstructive pulmonary disease): Code(s): J44.9 - Chronic obstructive pulmonary disease, unspecified Status: Acute Assessment and Plan: Started patient on bronchodilators (10) Tobacco abuse: Code(s): Z72.0 - Tobacco use Status: Acute Assessment and Plan: Patient she stated she quit smoking September,. (11) DVT prophylaxis: Code(s): Z29.9 - Encounter for prophylactic measures, unspecified Status: Acute Assessment and
[2021-06-28 11:59] LABS: Add Urine Microscopic? YES; Appearance Urine Cloudy (Clear); Bacteria Urine Trace /hpf; Bilirubin Urine Negative (Negative); Color Urine Amber (Yellow); Glucose Urine UA Negative (Negative); Ketones Urine 1+ mg/dL (Negative); Leukocyte Esterase Ur 3+ LEU/UL (Negative); Mucus Urine Few /lpf; Nitrate Urine Positive (Negative); Protein Urine 1+ mg/dL (Negative); RBC Urine 51-75 /hpf (0-2); Squamous Epithelial Cell Urine Many /hpf (Few); WBC Clumps Urine Present /HPF; WBC Urine >75 /hpf
[2021-06-28 12:01] LABS: Blood Urine Negative (Negative)
[2021-06-28 12:02] LABS: Glucose Point of Care 235 mg/dl (65-105)
--- NOTE | 2021-06-28 12:46 | PM.PNCARD ---
Progress Note: A&P Additional Plan STEMI inf wall, s.p PCI to proximal and mid RCA with 2 DESIRE, Acute resp failure likely COVID pneumonia, Plan Cont DAPT, statin, TTE Subjective Date/time seen: 06/28/21 12:46 Interval history: no acute events Cont to feel SOB and O2 mask Review of Systems Review of Systems: All systems reviewed & are unremarkable except as noted in HPI and below Exam Const: General: comfortable and no acute distress Other: Able to lie flat HENMT: General nose exam: Normal nares present and no epistaxis Mouth: Yes moist mucous membranes Eyes: Sclera: sclerae normal Pupils: Equal, round and reactive pupils present Neck: Neck: supple and no JVD Carotids: no bruits Resp: Auscultation: crackles and lung sounds not diminished Other: No chest wall tenderness Cardio: Rate: regular rate Rhythm: regular rhythm Heart sounds: no gallops, no murmurs and no rubs GI: GI Palp: Yes Soft to palpation and No Tenderness to palpation present (GI) Auscultation: normal bowel sounds Skin: General skin exam: normal color, rashes and/or lesions noted and no erythema Other: Warm Neuro: Cranial nerves: Yes Equal, round and reactive pupils present Speech: normal speech Other: No obvious focal deficit or facial asymmetry Extrem: General: no edema Other: Normal capillary refills Intact distal pulses. Objective Data Vital Signs Vital Signs: Vital Signs - 24 hr 06/27/21 19:25 06/27/21 19:26 06/27/21 19:30 Temperature 36.3 C L Pulse Rate 104 H 99 99 Respiratory Rate 22 H 28 H 26 H Blood Pressure 149/73 H Pulse Oximetry 86 L 95 94 06/27/21 19:45 06/27/21 20:00 06/27/21 20:15 Temperature Pulse Rate 101 H 101 H 101 H Respiratory Rate 22 H 28 H 30 H Blood Pressure Pulse Oximetry 94 06/27/21 20:27 06/27/21 20:30 06/27/21 20:31 Temperature Pulse Rate 104 H 103 H 105 H Respiratory Rate 21 H 31 H 17 Blood Pressure 95/54 L 104/52 L Pulse Oximetry 95 95 95 06/27/21 20:32 06/27/21 20:53 06/27/21 21:00 Temperature Pulse Rate 104 H 119 H 112 H Respiratory Rate 20 25 H 31 H Blood Pressure Pulse Oximetry 96 81 L 93 06/27/21 21:15 06/27/21 21:19 06/27/21 21:20 Temperature Pulse Rate 105 H 105 H 105 H Respiratory Rate 33 H 22 H 29 H Blood Pressure 114/60 114/60 Pulse Oximetry 93 99 95 06/27/21 21:30 06/27/21 21:37 06/27/21 21:45 Temperature Pulse Rate 109 H 108 H 107 H Respiratory Rate 26 H 30 H 21 H Blood Pressure 110/57 L Pulse Oximetry 93 95 06/27/21 21:46 06/27/21 21:47 06/28/21 00:32 Temperature Pulse Rate 107 H 105 H 101 H Respiratory Rate 36 H 24 H 27 H Blood Pressure 110/54 L 107/53 L Pulse Oximetry 96 95 93 06/28/21 00:47 06/28/21 01:02 06/28/21 01:20 Temperature Pulse Rate 102 H 102 H 103 H Respiratory Rate 23 H 23 H 28 H Blood Pressure 129/74 112/58 L Pulse Oximetry 94 94 94 06/28/21 01:30 06/28/21 01:44 06/28/21 01:50 Temperature Pulse Rate 100 100 100 Respiratory Rate 29 H 29 H 25 H Blood Pressure 108/57 L 112/55 L 112/55 L Pulse Oximetry 95 94 94 06/28/21 01:54 06/28/21 02:00 06/28/21 02:04 Temperature Pulse Rate 99 99 29 L Respiratory Rate 99 H 25 H 95 H Blood Pressure 113/65 113/65 Pulse Oximetry 94 95 95 06/28/21 02:17 06/28/21 02:20 06/28/21 02:30 Temperature Pulse Rate 99 99 97 Respiratory Rate 29 H 30 H 28 H Blood Pressure 109/53 L 109/53 L 110/50 L Pulse Oximetry 95 95 95 06/28/21 02:45 06/28/21 03:10 06/28/21 03:15 Temperature Pulse Rate 97 97 97 Respiratory Rate 27 H 27 H 31 H Blood Pressure 111/52 L 107/56 L Pulse Oximetry 95 99 98 06/28/21 03:20 06/28/21 03:30 06/28/21 03:45 Temperature Pulse Rate 98 94 Respiratory Rate 29 H 32 H Blood Pressure 107/56 L 97/75 L Pulse Oximetry 98 94 94 06/28/21 04:00 06/28/21 04:45 06/28/21 05:00 Temperature 36.2 C L Pulse Rate 95 94 94 Respiratory Rate 28 H 35 H Blood Pressure 101/75 Pulse Oximetry 95
[2021-06-28] MEDS: MAGNESIUM SULF 2 GM/WATER 50ML 2 GM/50 ML BAG IVPB (13:24)
[2021-06-28 13:46] LABS: Glucose Point of Care 244 mg/dl (65-105)
--- NOTE | 2021-06-28 15:56 | PCRCNOTE ---
Window of time for administration has passed. See next scheduled administration.
[2021-06-28 18:23] LABS: Glucose Point of Care 91 mg/dl (65-105)
[2021-06-28 19:57] LABS: SARS-CoV-2 RNA PCR Negative
[2021-06-28] MEDS: TOPIRAMATE 25 MG TABLET PO (20:22)
[2021-06-29] VITALS (23 sets, daily range): BP systolic 78–132; BP diastolic 49–106; PULSE 85–119; RESP 22–40; TEMP 36.2–37.5; O2SAT 90–100
[2021-06-29 00:19] LABS: Glucose Point of Care 143 mg/dl (65-105)
[2021-06-29] MEDS: IPRATROPIUM BR 0.02% INH SOLN 0.5 MG/2.5 ML VIAL INHALATION ×2 (02:51→21:00)
[2021-06-29] MEDS: LORazepam INJ (*CRX) 2 MG/ML VIAL 0.5 MG IV PUSH ×2 (06:50→09:27)
[2021-06-29] MEDS: FENTANYL 2,500MCG/NS250ML(*CRX 2,500 MCG/250 ML BAG 10 MCG IV CONT (08:35)
[2021-06-29] MEDS: MIDAZOLAM 100MG/NS 100ML(*CRX) 100 MG/100 ML BAG IV CONT (08:35)
[2021-06-29] MEDS: FUROSEMIDE INJ 40 MG/4 ML VIAL 60 MG IV PUSH (09:26)
[2021-06-29 09:35] LABS: Hematocrit 34.1 % (37.0-47.0); Mean Corpuscular HGB Conc 32.3 g/dl (32-36); Mean Corpuscular Hemoglobin 34.8 pg (26-34); Mean Corpuscular Volume 107.9 fl (80-100); Mean Platelet Volume 9.4 fl (7.4-10.4); Platelet Count Result 267 k/mm3 (150-375); Red Blood Count 3.16 M/mm3 (4.2-5.4); Red Cell Distribution Width 16.9 % (11.5-14.5); White Blood Count 19.8 K/mm3 (4.5-10.0)
[2021-06-29 10:40] LABS: Alanine Aminotransferase 18 U/L (4-35); Albumin Level 3.8 g/dL (3.5-5.1); Alkaline Phosphatase 167 U/L (38-126); Anion Gap 6 mmol/L (8-16); Aspartate Amino Transferase 75 U/L (14-36); Bilirubin,Total 1.5 mg/dL (0.2-1.3); Blood Urea Nitrogen 17 mg/dL (7-17); Calcium 10.2 mg/dL (8.4-10.2); Carbon Dioxide 33 mmol/L (22-30); Chloride 102 mmol/L (98-107); Estimated CRCL calculation 109 ml/min; Estimated Glomerular Filt Rate > 60; Glucose 252 mg/dL (65-110); Lipase 155 U/L (23-300); Magnesium 1.5 mg/dL (1.6-2.3); Phosphorus 4.3 mg/dL (2.5-4.5); Potassium 4.3 mmol/L (3.4-5.0); Sodium 141 mmol/L (137-145)
[2021-06-29 11:14] LABS: Glucose Point of Care 149 mg/dl (65-105)
--- NOTE | 2021-06-29 11:26 | PM.PNCARD ---
Progress Note: A&P Additional Plan STEMI inf wall, s.p PCI to proximal and mid RCA with 2 DESIRE, Acute resp failure likely COVID pneumonia, Plan Cont DAPT, statin, TTE Subjective Date/time seen: 06/29/21 11:26 Interval history: acute resp failure and intubated yesterday Tele: SR Review of Systems Review of Systems: ROS unobtainable: Yes unobtainable due to endotracheal tube Exam Const: General: comfortable and no acute distress Other: Able to lie flat HENMT: General nose exam: Normal nares present and no epistaxis Mouth: Yes moist mucous membranes Eyes: Sclera: sclerae normal Pupils: Equal, round and reactive pupils present Neck: Neck: supple and no JVD Carotids: no bruits Resp: Auscultation: crackles and lung sounds not diminished Other: No chest wall tenderness Cardio: Rate: regular rate Rhythm: regular rhythm Heart sounds: no gallops, no murmurs and no rubs GI: Auscultation: normal bowel sounds Skin: General skin exam: normal color, rashes and/or lesions noted and no erythema Other: Warm Neuro: Cranial nerves: Yes Equal, round and reactive pupils present Speech: normal speech Other: No obvious focal deficit or facial asymmetry Extrem: General: no edema Other: Normal capillary refills Intact distal pulses. Objective Data Vital Signs Vital Signs: Vital Signs - 24 hr 06/28/21 12:00 06/28/21 14:00 06/28/21 16:00 Temperature 36.8 C 37.1 C 36.9 C Pulse Rate 94 82 79 Respiratory Rate 32 H 25 H 28 H Blood Pressure 130/66 119/54 L 115/62 Pulse Oximetry 93 91 91 06/28/21 18:00 06/28/21 20:00 06/28/21 20:29 Temperature 37.1 C 37.3 C Pulse Rate 82 82 82 Respiratory Rate 26 H 28 H 22 H Blood Pressure 119/58 L 124/67 Pulse Oximetry 91 93 06/28/21 20:33 06/28/21 20:38 06/28/21 22:00 Temperature 37.3 C Pulse Rate 80 80 85 Respiratory Rate 21 H 30 H Blood Pressure 126/65 Pulse Oximetry 93 93 06/29/21 00:00 06/29/21 02:00 06/29/21 02:51 Temperature 37.3 C 37.2 C Pulse Rate 88 89 89 Respiratory Rate 32 H 34 H 30 H Blood Pressure 124/63 128/63 Pulse Oximetry 93 90 06/29/21 02:54 06/29/21 02:56 06/29/21 04:00 Temperature 37.2 C Pulse Rate 89 89 91 Respiratory Rate 30 H 33 H Blood Pressure 124/60 Pulse Oximetry 92 92 06/29/21 06:00 06/29/21 09:00 06/29/21 11:13 Temperature 37.4 C Pulse Rate 93 107 H 112 H Respiratory Rate 29 H Blood Pressure 119/65 Pulse Oximetry 93 99 98 Intake/Output Intake/Output: Intake & Output 06/26/21 06/27/21 06/28/21 06/29/21 23:59 23:59 23:59 23:59 Intake Total 1290 500 Output Total 1800 850 Balance -510 -350 Meds/Results Medications: Active Medications Generic Name Dose Route Start Last Admin Trade Name Freq PRN Reason Stop Dose Admin Acetaminophen 500 mg 06/28/21 05:43 06/28/21 20:21 Acetaminophen 500 Mg Tablet PO 500 mg Q6H PRN Administration Pain Aspirin 81 mg 06/28/21 09:00 06/28/21 11:13 Aspirin 81 Mg Enteric Tablet PO 81 mg QAM LYNDON Administration Atorvastatin Calcium 80 mg 06/28/21 09:00 06/28/21 11:14 Atorvastatin 40 Mg Tablet PO 80 mg DAILY LYNDON Administration Dextrose 12.5 gm 06/28/21 08:12 Dextrose 50% 25 Gm/50 Ml Syringe IV PUSH PRN PRN Hypoglycemia Protocol Duloxetine HCl 60 mg 06/28/21 09:00 06/28/21 18:12 Duloxetine Hcl 60 Mg Capsule.Dr PO 60 mg BID LYNDON Administration Enoxaparin Sodium 40 mg 06/28/21 09:00 06/28/21 10:09 Enoxaparin 40 Mg/0.4 Ml Syringe SUB-Q 40 mg DAILY LYNDON Administration Gabapentin 600 mg 06/28/21 09:00 06/28/21 18:11 Gabapentin 300 Mg Capsule PO 600 mg TID LYNDON Administration Glucagon 1 mg 06/28/21 08:12 Glucagon For Inj 1 Mg Vial IM PRN PRN Hypoglycemia Protocol Glucose 15 gm 06/28/21 08:12 Glucose Oral Gel 15 Gm Of Glucse In 37.5 Gm Tube PO PRN PRN Hypoglycemia Protocol Levofloxacin/Dextrose 750 mg in 150 mls @ 100
[2021-06-29 11:33] LABS: Alveolar/Arterial O2 Gradient 484.2 mmHg; Base Excess ABG -4.4 mEq/l (+/-2.0); HCO3 ABG 27.6 mEq/l (22.0-26.0); Oxygen Content ABG 17.5 %vol (16.0-22.0); Oxygen Saturation ABG 97.3 % (95.0-100.0); PCO2 ABG 94.7 mmHg (35.0-45.0); PO2 ABG 134.1 mmHg (80.0-100.0); PO2 FiO2 Ratio Arterial Blood 1.34 %; Total Hemoglobin 12.8 g/dL (12.0-18.0); pH ABG 7.083 (7.350-7.450)
[2021-06-29 11:34] LABS: Arterial Blood Gas PEEP 10 cmH2O; Arterial Blood Gas Tidal Volume 330 ml; Arterial Blood Gas Vent Mode CMV; Arterial Blood Gas Ventilator rate 26 /MIN; Device VENTILATOR; Modified Allen's Test Pass; Site Drawn LEFT RADIAL
--- NOTE | 2021-06-29 11:49 | WPDINTPN ---
Progress Note: A&P Assessment and Plan (1) ST elevation (STEMI) myocardial infarction: Code(s): I21.3 - ST elevation (STEMI) myocardial infarction of unspecified site Status: Acute Assessment and Plan: Patient presented the ED with shortness of breath along with chest pain, EKG showed acute inferior ST-elevation [place] status post PTCA/PCI with DESIRE x1 to proximal RCA and DESIRE x1 to mid RCA (likely culprit lesion of STEMI) -cardiology following the patient closely, continue aspirin, Brilinta, atorvastatin, (2) Acute respiratory failure with hypoxia: Code(s): J96.01 - Acute respiratory failure with hypoxia Status: Acute Assessment and Plan: Patient with acute respiratory failure likely related to pneumonia, possible COVID-19, EVALI (pt vapes) also could be related to interstitial lung 05/27: Chest x-ray in the ER showed extensive bilateral airspace disease which may represent pneumonia and/or edema. 05/27: CTA chest PE protocol did not show any large central pulmonary embolism evaluation of peripheral pulmonary arteries is limited due to extensive airspace disease and motion artifact. Extensive bilateral airspace disease consistent with pneumonia. 3.4 cm right lower lobe pleural-based mass with air bronchograms. This may represent focal masslike airspace consolidation secondary to underlying pneumonia, although malignancy is not excluded. Prominent mediastinal and right hilar lymphadenopathy which may be reactive, although metastatic disease and lymphoma are not excluded -patient currently on high-flow therapy, 66% FiO2 and 50 L flow rate with adequate O2 sats -SARs CoV 2 rapid antigen was negative -06/28 SARS-CoV-2 PCR negative -started on vancomycin and Levaquin on 06/28/2021 -Flagyl added 1128 per pulmonology recommendations -will give a dose of Solu-Medrol 125 mg IV x1 06/29: Patient was using accessory muscles of respiration, was confused, pulling at home mask and high-flow nasal cannula. Discussed with sister and decided to intubate the patient as she was in severe respiratory distress and tachypnic -patient was intubated on 06/29/2021, intubation was uneventful -currently on CMV mode of ventilation, peep of 10, 70% FiO2 -chest x-ray and ABGs reviewed, ventilator adjusted -appreciate pulmonary evaluation recommendation Sedated with fentanyl and Versed infusion (3) Suspected 2019 novel coronavirus infection: Code(s): Z20.822 - Contact with and (suspected) exposure to COVID-19 Status: Acute Assessment and Plan: Given worsening of shortness of breadth 3 days, CT a and chest x-ray reviewed as above. Patient has been vaccinated with Pfizer x2 doses -LDH, D-dimer and ferritin all elevated -CRP 17.6 -06/28; SARS-CoV-2 PCR swab is negative, patient has been re-swabbed -if COVID positive will start dexamethasone, Remdesivir and baricitinib or tocilizumab -continue droplet, airborne, contact isolation/precautions (4) Pneumonia: Code(s): J18.9 - Pneumonia, unspecified organism Status: Acute Assessment and Plan: As above (5) UTI (urinary tract infection): Code(s): N39.0 - Urinary tract infection, site not specified Status: Acute Assessment and Plan: Urine infection reveals possible UTI, urine cultures pending, continue Levaquin (6) Hypertension: Code(s): I10 - Essential (primary) hypertension Status: Chronic Assessment and Plan: Hold all antihypertensive (7) Obstructive sleep apnea on CPAP: Code(s): G47.33 - Obstructive sleep apnea (adult) (pediatric); Z99.89 - Dependence on other enabling machines and devices Status: Acute Assessment and Plan: Patient is refusing to wear the BiPAP as she gets very anxious (8) Insulin dependent type 2 diabetes mellitus: Code(s): E11.9 - Type 2 diabetes mellitus without complications; Z79.4 - information technology coordinator (current) use of insulin Status: Acute Assessment and Plan: St
--- NOTE | 2021-06-29 12:15 | PM.CNPUL ---
Assessment and Plan Assessment and plan (1) Acute respiratory failure with hypoxia: Code(s): J96.01 - Acute respiratory failure with hypoxia Status: Acute Assessment and Plan: 56-year-old morbidly obese female with evidence of mild interstitial lung disease on chest imaging studies over the last year, history of vaping, hematuria, chronic back pain on analgetics and muscle relaxants, with acute hypoxemic respiratory failure related to bilateral lung infiltrates, and negative tests for COVID 19 and other lung infections. The differential diagnosis is broad and includes- in addition to possible community-acquired pneumonia related to viruses or other atypical organisms- EVALI, exacerbation of underlying interstitial lung disease. Less likely is hypersensitivity pneumonitis as patient has no history of exposure to organic agents. plan is as follows. Patient has received Solu-Medrol 125 mg x 1. She has been on antibiotics for broad coverage. Workup for infectious causes and possible underlying autoimmune disease is pending. We will screen for HIV. We will consider bronchoscopy with BAL in am. Case was discussed with the Lap Welder, Dr. De La Torre. (2) Pneumonia: Qualifiers: Laterality: bilateral Lung location: unspecified part of lung Pneumonia type: due to unspecified organism Qualified Code(s): J18.9 - Pneumonia, unspecified organism Code(s): J18.9 - Pneumonia, unspecified organism Status: Acute (3) Abnormal urinalysis: Code(s): R82.90 - Unspecified abnormal findings in urine Status: Acute Assessment and Plan: patient has hematuria. Will repeat the urinalysis (4) Interstitial lung disease: Code(s): J84.9 - Interstitial pulmonary disease, unspecified Status: Acute Assessment and Plan: Review previous chest imaging studies including chest CT done a year ago and also abdominal CT done within the last year showed some subpleural reticulation and mild ground-glass opacities specially in the lower lobes. History of Present Illness History of Present Illness Consult date: 06/29/21 Chief complaint: STEMI Narrative: This 56-year-old female presented with a few day history of cough, progressively increasing shortness of breath of few days duration, and chronic low back pain. This report is based on information obtained from patient's medical records, and after talking to her sister. Patient has had history of low back pain for several weeks for which she was seen in the emergency room approximately 3 weeks ago and was prescribed antibiotic for possible urinary tract infection. For the last 3-4 weeks, she has been on analgesics and muscle relaxants for back pain. Her respiratory medical history is significant for possible COPD/asthma. Review of her previous chest imaging studies over the last year have shown reticular opacities predominantly subpleurally and widespread ground-glass opacities noted on a chest CT done in June of 2020. Two days ago the patient started to have cough productive of clear to yellow phlegm and shortness of breath; she had no fever chills hemoptysis or chest pain. The shortness of breath progressively increased and the patient presented to the emergency room where she was found to have hypoxemia, bilateral lung infiltrates diffusely and EKG changes consistent with STEMI. The patient underwent PCI to proximal and mid RCA with 2 DESIRE. Because of increasing hypoxemia and shortness of breath, the patient was transferred to the intensive care unit where she is currently intubated, fully sedated on mechanical ventilation. Patient is receiving antibiotics for possible community-acquired pneumonia. COVID PCR testing negative. Echocardiogram showed normal EF and no evidence of LVH. Review of Systems Review of Systems: ROS unobtainable: Yes unobtainable due to endotracheal tube, unobtainable due to medical condition, unobtainable due to mental status
[2021-06-29] MEDS: ENOXAPARIN 40 MG/0.4 ML SYRINGE SUB-Q (12:33)
[2021-06-29] MEDS: MAGNESIUM SULF 2 GM/WATER 50ML 2 GM/50 ML BAG IVPB (12:35)
[2021-06-29] MEDS: ATORVASTATIN 40 MG TABLET 80 MG PO (12:55)
[2021-06-29] MEDS: ASPIRIN 81 MG ENTERIC TABLET PO (12:55)
[2021-06-29] MEDS: MINERAL OIL/WHITE PETROLATUM OINTMENT 1 APPLIC EACH EYE ×2 (12:56→21:08)
[2021-06-29] MEDS: TICAGRELOR 90 MG TABLET PO ×2 (12:56→20:44)
[2021-06-29] MEDS: metroNIDAZOLE 500 MG/ISO 100ML 500 MG/100 ML BAG 100 MG IVPB ×3 (13:37→23:03)
--- NOTE | 2021-06-29 13:49 | WPDPROCEDUR ---
Procedures Intubation Intubation Date: 06/29/21 Intubation Time: 08:55 A pre-procedural Time-Out was completed immediately before starting the procedure and confirmed: Patient Identification, Site, Procedure, Patient Position and the Availability of Requisite Equipment: Yes Sedative: etomidate Paralytic: rocuronium Laryngoscope: fiber optic video scope Assist device used: fiber optic device ET tube size: 7.5 Tube secured depth (cm): 24 Tube secured location: lips Tube placement confirmation: visualized tube passing through cords, equal breath sounds bilaterally, no breath sounds over epigastrium and confirmation by capnometry Patient tolerated procedure: well Intubation complications: none
[2021-06-29] MEDS: INSULIN ASPART (*BKC) 100 UNITS/ML SUB-Q ×2 (14:25→18:00)
[2021-06-29] MEDS: CENTRAL LINE FLUSH 10 ML IV PUSH ×2 (17:15→21:09)
[2021-06-29] MEDS: methylPREDNISolone SOD SUCC 125 MG VIAL IV PUSH (17:59)
[2021-06-29 18:17] LABS: Add Urine Microscopic? YES; Appearance Urine Cloudy (Clear); Bacteria Urine Trace /hpf; Bilirubin Urine Negative (Negative); Blood Urine Negative (Negative); Color Urine Yellow (Yellow); Glucose Urine UA 1+ mg/dL (Negative); Ketones Urine Negative (Negative); Leukocyte Esterase Ur Negative LEU/UL (NEGATIVE); Mucus Urine Rare /lpf; Nitrate Urine Negative (Negative); Protein Urine Negative (Negative); RBC Urine 0-2 /hpf (0-2); Specific Grav Ur 1.015 (1.001-1.035); Squamous Epithelial Cell Urine Rare /hpf (Few); WBC Urine 0-3 /hpf (0-3)
[2021-06-29 18:22] LABS: Influenza Control Positive
[2021-06-29] MEDS: SODIUM CHLORIDE 0.9% IV 1,000 ML 999 ML IV CONT (18:49)
[2021-06-29] MEDS: ROCURONIUM BROMIDE 50 MG/5 ML VIAL (18:52)
[2021-06-29 19:33] LABS: Glucose Point of Care 266 mg/dl (65-105)
[2021-06-29 19:33] LABS: Glucose Point of Care 278 mg/dl (65-105)
[2021-06-29] MEDS: NOREPINEPHRINE 8 MG/D5W 250 ML 8 MG/250 ML BAG 9.38 MG IV CONT (20:00)
[2021-06-29 21:00] LABS: Alveolar/Arterial O2 Gradient 348.6 mmHg; Base Excess ABG -1.7 mEq/l (+/-2.0); Fractional Inspired Oxygen 70 %; HCO3 ABG 25.6 mEq/l (22.0-26.0); Methemoglobin ABG 0.4 %THb (0-1.5); Oxygen Content ABG 15.4 %vol (16.0-22.0); Oxygen Saturation ABG 95.9 % (95.0-100.0); Oxyhemoglobin 95.1 % THb (90.0-100.0); PCO2 ABG 55.3 mmHg (35.0-45.0); PO2 ABG 91.1 mmHg (80.0-100.0); Reduced Hemoglobin 4.5 %THb (0-5.0); Total Hemoglobin 11.4 g/dL (12.0-18.0); pH ABG 7.283 (7.350-7.450)
[2021-06-29] MEDS: CISATRACURIUM BESYLATE 200 MG in DEXTROSE 5% 80 ML 10.34 ML IV CONT (21:00)
[2021-06-29] MEDS: LEVALBUTEROL NEB 1.25 MG/3 ML 0.63 MG INHALATION (21:00)
[2021-06-29 21:01] LABS: Arterial Blood Gas PEEP 10 cmH2O; Arterial Blood Gas Tidal Volume 380 ml; Arterial Blood Gas Vent Mode CMV; Arterial Blood Gas Ventilator rate 28 /MIN; Device VENTILATOR; Modified Allen's Test Pass; Site Drawn LEFT RADIAL
[2021-06-29 23:59] LABS: Vancomycin Trough 16.8 ug/mL (10.0-20.0)
[2021-06-30] VITALS (39 sets, daily range): BP systolic 102–163; BP diastolic 42–79; PULSE 76–102; RESP 16–30; TEMP 36.9–37.5; O2SAT 91–100; BMI 44.1
[2021-06-30 01:46] LABS: Glucose Point of Care 252 mg/dl (65-105)
[2021-06-30] MEDS: FENTANYL 2,500MCG/NS250ML(*CRX 2,500 MCG/250 ML BAG 20 MCG IV CONT ×2 (02:48→11:12)
[2021-06-30] MEDS: LEVALBUTEROL NEB 1.25 MG/3 ML 0.63 MG INHALATION ×4 (03:25→22:04)
[2021-06-30] MEDS: IPRATROPIUM BR 0.02% INH SOLN 0.5 MG/2.5 ML VIAL INHALATION ×4 (03:25→22:05)
[2021-06-30 04:47] LABS: Alveolar/Arterial O2 Gradient 213.6 mmHg; Base Excess ABG -3.6 mEq/l (+/-2.0); Carboxyhemoglobin 0.1 % THb (0-2.0); Fractional Inspired Oxygen 50 %; HCO3 ABG 23.4 mEq/l (22.0-26.0); Methemoglobin ABG 0.4 %THb (0-1.5); Oxygen Content ABG 15.9 %vol (16.0-22.0); Oxygen Saturation ABG 95.2 % (95.0-100.0); Oxyhemoglobin 94.8 % THb (90.0-100.0); PO2 ABG 85.5 mmHg (80.0-100.0); PO2 FiO2 Ratio Arterial Blood 1.71 %; Reduced Hemoglobin 4.7 %THb (0-5.0); Total Hemoglobin 11.9 g/dL (12.0-18.0)
[2021-06-30 04:48] LABS: Device VENTILATOR; Modified Allen's Test Unable to perform; Site Drawn RIGHT RADIAL
[2021-06-30 04:49] LABS: Arterial Blood Gas PEEP 10 cmH2O; Arterial Blood Gas Tidal Volume 380 ml; Arterial Blood Gas Vent Mode CMV; Arterial Blood Gas Ventilator rate 28 /MIN
[2021-06-30] MEDS: metroNIDAZOLE 500 MG/ISO 100ML 500 MG/100 ML BAG 100 MG IVPB ×4 (05:01→23:46)
[2021-06-30] MEDS: CENTRAL LINE FLUSH 10 ML IV PUSH ×3 (05:02→21:54)
[2021-06-30 05:15] LABS: Hematocrit 30.8 % (37.0-47.0); Hemoglobin 9.7 g/dL (12.0-15.0); Mean Corpuscular HGB Conc 31.5 g/dl (32-36); Mean Corpuscular Hemoglobin 34.2 pg (26-34); Mean Corpuscular Volume 108.5 fl (80-100); Mean Platelet Volume 9.4 fl (7.4-10.4); Platelet Count Result 285 k/mm3 (150-375); Red Blood Count 2.84 M/mm3 (4.2-5.4); Red Cell Distribution Width 16.7 % (11.5-14.5); White Blood Count 15.9 K/mm3 (4.5-10.0)
[2021-06-30 05:23] LABS: Alanine Aminotransferase 17 U/L (4-35); Albumin Level 3.4 g/dL (3.5-5.1); Alkaline Phosphatase 126 U/L (38-126); Anion Gap 9 mmol/L (8-16); Aspartate Amino Transferase 46 U/L (14-36); Bilirubin,Total 1.5 mg/dL (0.2-1.3); Blood Urea Nitrogen 24 mg/dL (7-17); Calcium 9.5 mg/dL (8.4-10.2); Carbon Dioxide 25 mmol/L (22-30); Chloride 98 mmol/L (98-107); Estimated CRCL calculation 130 ml/min; Estimated Glomerular Filt Rate > 60; Glucose 378 mg/dL (65-110); Lipase 70 U/L (23-300); Magnesium 1.9 mg/dL (1.6-2.3); Phosphorus 3.4 mg/dL (2.5-4.5); Potassium 4.8 mmol/L (3.4-5.0); Sodium 132 mmol/L (137-145)
[2021-06-30] MEDS: MINERAL OIL/WHITE PETROLATUM OINTMENT 1 APPLIC EACH EYE ×2 (08:45→21:54)
[2021-06-30] MEDS: MIDAZOLAM 100MG/NS 100ML(*CRX) 100 MG/100 ML BAG IV CONT (08:45)
[2021-06-30 09:22] LABS: Alveolar/Arterial O2 Gradient 211.5 mmHg; Base Excess ABG -2.2 mEq/l (+/-2.0); HCO3 ABG 22.8 mEq/l (22.0-26.0); Oxygen Content ABG 14.2 %vol (16.0-22.0); Oxygen Saturation ABG 97.4 % (95.0-100.0); PCO2 ABG 39.9 mmHg (35.0-45.0); PO2 ABG 100.1 mmHg (80.0-100.0); Total Hemoglobin 10.4 g/dL (12.0-18.0); pH ABG 7.374 (7.350-7.450)
[2021-06-30 09:23] LABS: Device VENTILATOR; Modified Allen's Test Pass; Oxyhemoglobin 96.4 % THb (90.0-100.0); Site Drawn LEFT RADIAL
[2021-06-30] MEDS: SODIUM CHLORIDE 0.9% IV 500 ML BAG 60 ML IRRIGATION (09:58)
--- NOTE | 2021-06-30 10:02 | PM.PNPUL ---
Progress Note: A&P Assessment and Plan (1) Acute respiratory failure with hypoxia: Code(s): J96.01 - Acute respiratory failure with hypoxia Status: Acute Assessment and Plan: respiratory status essentially unchanged over the last 24 hours. The patient remains on sedatives muscle relaxants and on mechanical ventilation. Hemodynamically stable. No significant respiratory secretions. Bronchoscopy done earlier today showed essentially normal bronchial tree with no evidence of erythematous changes, diffuse mucosal edema, or increased amount of bronchial secretions. A small submucosal nodular lesion was found right at the RML orifice, causing mild narrowing of the RML bronchus. The superior segment of the right lower lobe appeared edematous with thickened bronchial mucosa also causing narrowing of the segment. No biopsies were taken from the right middle lobe nodular lesion or the superior segment of the right lower lobe thickened mucosa. Lavage was obtained from the right middle lobe using 50 mL of normal saline. lavage was sent for cell count, respiratory cultures, PCP smear, cytology and other viral tests. Patient was given an additional dose of Solu-Medrol 125 mg earlier today. Chest x-ray showed slight clearing of the bilateral infiltrates especially in the right lower lobe. No worsening of respiratory status noted over the last 24 hours. The normal appearance of the bronchial tree with lack of erythematous changes or increased bronchial bronchial secretions may suggest that the respiratory failure is related to vaping, or viral infection and less likely to a bacterial infection. plan is as follows: continue with current antibiotic regimen. if respiratory cultures are negative we will consider continuing with IV Solu-Medrol 60 mg daily for possible vaping-induced lung disease. Regarding the right lower lobe nodular density seen on initial CT and in conjunction with the bronchoscopic findings of a nodular lesion in the right mid lobe and also the right hilar mediastinal lymphadenopathy, the patient will need repeat bronchoscopy with biopsies of the right mid lobe nodular lesion to exclude lung cancer. Potential lung cancer with mets to bones may explain the chronic back pain for which she has been on analgesics and muscle relaxant. (2) Interstitial lung disease: Code(s): J84.9 - Interstitial pulmonary disease, unspecified Status: Acute Assessment and Plan: Patient will need follow-up also for interstitial lung disease detected by chest imaging studies over the last year. (3) Pneumonia: Qualifiers: Laterality: bilateral Lung location: unspecified part of lung Pneumonia type: due to unspecified organism Qualified Code(s): J18.9 - Pneumonia, unspecified organism Code(s): J18.9 - Pneumonia, unspecified organism Status: Acute (4) Chronic obstructive pulmonary disease: Qualifiers: COPD type: unspecified COPD Qualified Code(s): J44.9 - Chronic obstructive pulmonary disease, unspecified Code(s): J44.9 - Chronic obstructive pulmonary disease, unspecified Status: Acute Assessment and Plan: Patient carries a diagnosis of COPD. She will need follow-up on outpatient basis with pulmonary function testing. (5) History of tobacco abuse: Code(s): Z87.891 - Personal history of nicotine dependence Status: Acute (6) Lung nodule: Code(s): R91.1 - Solitary pulmonary nodule Status: Acute (7) Hilar lymphadenopathy: Code(s): R59.0 - Localized enlarged lymph nodes Status: Acute (8) Current every day vaping: Code(s): Z72.89 - Other problems related to lifestyle Status: Acute Assessment and Plan: Per patient's sister the patient has been vaping at least once per hour over the last few weeks. substances used for vaping not known. Subjective Date/time seen: 06/30/21 10:02 Patient remains sedated,
[2021-06-30 10:23] LABS: Arterial Blood Gas PEEP 10 cmH2O; Arterial Blood Gas Tidal Volume 380 ml; Arterial Blood Gas Vent Mode CMV; Arterial Blood Gas Ventilator rate 30 /MIN
[2021-06-30] MEDS: INSULIN GLARGINE (*BKC) 100 UNITS/ML 35 UNITS SUB-Q (11:04)
[2021-06-30] MEDS: methylPREDNISolone SOD SUCC 125 MG VIAL IV PUSH (11:05)
[2021-06-30] MEDS: DULoxetine HCL 60 MG CAPSULE.DR PO ×2 (11:06→17:48)
[2021-06-30] MEDS: GABAPENTIN 300 MG CAPSULE 600 MG PO ×2 (11:06→17:57)
[2021-06-30] MEDS: ASPIRIN 81 MG ENTERIC TABLET PO (11:06)
[2021-06-30] MEDS: ATORVASTATIN 40 MG TABLET 80 MG PO (11:07)
[2021-06-30] MEDS: ENOXAPARIN 40 MG/0.4 ML SYRINGE SUB-Q (11:07)
[2021-06-30] MEDS: TICAGRELOR 90 MG TABLET PO ×2 (11:08→21:54)
[2021-06-30] MEDS: INSULIN ASPART (*BKC) 100 UNITS/ML SUB-Q ×3 (11:12→23:47)
[2021-06-30 12:27] LABS: Appearance Bronchial Fluid Cloudy; Color Bronchial Fluid Colorless; Eosinophils Bronchial Fluid 0 %; Lymphocytes Bronchial Fluid 6 %; Macrophages Bronchial Fluid 3; Monocytes Bronchial Fluid 3 %; Neutrophils Bronchial Fluid 89 %; Other Cells Bronchial Fluid 0 %; Source Bronchial Fluid Bronchial Lavage
[2021-06-30 12:31] LABS: Glucose Point of Care 367 mg/dl (65-105)
[2021-06-30 12:31] LABS: Glucose Point of Care 352 mg/dl (65-105)
--- NOTE | 2021-06-30 13:01 | PC.NURSE ---
0845: Pt on Nimbex gtt and in restraints upon arrival into room. Restraints removed d/t patient on paralytic with no twitches noted on TOF at this time. RN will keep pt on drip for bronchoscopy. 11:00: Nimbex gtt placed on hold d/t no twitches on TOF. Pt placed back in restraints, and new order obtained.
--- NOTE | 2021-06-30 13:30 | PM.PNCARD ---
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 From that respect she seems to be doing quite well. Unfortunately she is also now ventilator dependent because of what is suspected to be vaping lung injury. COVID was a concern but COVID appears to be negative. She is receiving her dual anti-platelet therapy as well as her statin from her NG tube. We will follow her with you at this point there are no additional cardiac recommendations/suggestions Adam Weiss MD [facility] Subjective Date/time seen: Date of service: 06/30/21 13:30 Interval history: Follow-up visit in this 56-year-old lady with: Acute inferior ST segment elevation TN status post successful but difficult and challenging PCI of the right coronary artery because of diffuse disease, calcification and tortuosity in the target vessel. Ultimately good angiographic results with 2 drug-eluting stents. Postprocedure troponin levels only showed a modest troponin rise and echocardiogram demonstrates good left ventricular systolic function. Unfortunately she also appears to have likely vaping related lung injury and is now intubated on mechanical ventilator support. Appears to be COVID negative Exam Const: Other: Obese white female intubated sedated on mechanical ventilator support HENMT: Mouth: Yes moist mucous membranes Eyes: Sclera: sclerae normal Neck: Neck: supple Other: Unable to assess for JVD given her body habitus Resp: Other: Breath sounds remarkably clear Cardio: Rate: regular rate Rhythm: regular rhythm Other: PMI not palpable no murmur no gallop GI: GI Palp: Yes Soft to palpation Auscultation: normal bowel sounds Skin: General skin exam: normal color Neuro: Cognition (Neuro): normal cognition Extrem: General: normal to inspection Objective Data Vital Signs Vital Signs: Vital Signs - 24 hr 06/29/21 13:49 06/29/21 14:00 06/29/21 14:43 Temperature 37.1 C Pulse Rate 119 H 112 H 109 H Respiratory Rate 30 H 22 H Blood Pressure 107/57 L Pulse Oximetry 99 100 06/29/21 16:00 06/29/21 18:00 06/29/21 20:00 Temperature 36.2 C L 36.6 C 36.8 C Pulse Rate 103 H 103 H 96 Respiratory Rate 28 H 28 H 24 H Blood Pressure 101/55 L 78/54 L 111/55 L Pulse Oximetry 95 92 96 06/29/21 21:00 06/29/21 21:10 06/29/21 22:00 Temperature 37.1 C Pulse Rate 96 101 H 100 Respiratory Rate 28 H 28 H 28 H Blood Pressure 110/56 L 109/49 L Pulse Oximetry 99 99 06/29/21 23:30 06/30/21 00:00 06/30/21 02:00 Temperature 37.0 C 37.0 C Pulse Rate 95 89 91 Respiratory Rate 28 H 28 H Blood Pressure 102/42 L 120/47 L Pulse Oximetry 99 98 99 06/30/21 02:48 06/30/21 03:26 06/30/21 03:28 Temperature Pulse Rate 91 92 92 Respiratory Rate 28 H 28 H Blood Pressure Pulse Oximetry 98 06/30/21 03:35 06/30/21 04:00 06/30/21 04:22 Temperature 37.1 C Pulse Rate 91 94 95 Respiratory Rate 28 H 28 H Blood Pressure 118/50 L Pulse Oximetry 96 97 06/30/21 06:00 06/30/21 06:23 06/30/21 08:00 Temperature 37.1 C 37.1 C Pulse Rate 94 88 Respiratory Rate 28 H 28 H Blood Pressure 125/56 L 127/57 L 144/66 H Pulse Oximetry 97 98 06/30/21 08:40 06/30/21 08:45 06/30/21 09:29 Temperature 37.1 C Pulse Rate 86 84 88 Respiratory Rate 30 H 30 H 22 H Blood Pressure 128/59 L 127/65 Pulse Oximetry 97 100 06/30/21 09:34 06/30/21 09:39 06/30/21 09:44 Temperature Pulse Rate 91 101 H 102 H Respiratory Rate 27 H 30 H 22 H Blood Pressure 163/79 H 163/70 H 136/62 Pulse Oximetry 99 100 99 06/30/21 09:49 06/30/21 10:00 06/30/21 11:03 Temperature 37.1 C Pulse Rate 91 94 86 Respiratory Rate 30 H 30 H 30 H Blood Pressure 123/60 122/62 129/65 Pulse Oximetry 98 99 06/30/21 11:12 06/30/21 11:15 06/30/21 11:40 Temperature Pulse Rate 83 83 84 Re
[2021-06-30 13:38] LABS: Fractional Inspired Oxygen 50 %
--- NOTE | 2021-06-30 13:39 | WPDINTPN ---
Progress Note: A&P Assessment and Plan (1) ST elevation (STEMI) myocardial infarction: Code(s): I21.3 - ST elevation (STEMI) myocardial infarction of unspecified site Status: Acute Assessment and Plan: Patient presented the ED with shortness of breath along with chest pain, EKG showed acute inferior ST-elevation SD status post PTCA/PCI with DESIRE x1 to proximal RCA and DESIRE x1 to mid RCA (likely culprit lesion of STEMI) -cardiology following the patient closely, continue aspirin, Brilinta, atorvastatin, (2) Acute respiratory failure with hypoxia: Code(s): J96.01 - Acute respiratory failure with hypoxia Status: Acute Assessment and Plan: Patient with acute respiratory failure likely related to pneumonia, possible COVID-19, EVALI (pt vapes) also could be related to interstitial lung -patient was on high-flow therapy, using accessory muscles of respiration, was finally intubated on 06/29/2021 -SARs CoV 2 rapid antigen was negative -06/28 SARS-CoV-2 PCR negative -started on vancomycin and Levaquin on 06/28/2021 -Flagyl added 06/29 per pulmonology recommendations -patient was given a dose of Solu-Medrol 125 mg IV x1 on 06/29 and 06/30. Will start Solu-Medrol 60 mg daily starting 07/01 per pulmonary recommendations for possible EVALI or ILD exacerbation. 06/29: Patient was using accessory muscles of respiration, was confused, pulling at home mask and high-flow nasal cannula. Discussed with sister and decided to intubate the patient as she was in severe respiratory distress and tachypnic -patient was intubated on 06/29/2021, intubation was uneventful -currently on CMV mode of ventilation, peep of 10, 50% FiO2 -chest x-ray and ABGs reviewed, ventilator adjusted -appreciate pulmonary evaluation recommendation Sedated with fentanyl and Versed infusion 05/27: CTA chest PE protocol did not show any large central pulmonary embolism evaluation of peripheral pulmonary arteries is limited due to extensive airspace disease and motion artifact. Extensive bilateral airspace disease consistent with pneumonia. 3.4 cm right lower lobe pleural-based mass with air bronchograms. This may represent focal masslike airspace consolidation secondary to underlying pneumonia, although malignancy is not excluded. Prominent mediastinal and right hilar lymphadenopathy which may be reactive, although metastatic disease and lymphoma are not excluded (3) Suspected 2019 novel coronavirus infection: Code(s): Z20.822 - Contact with and (suspected) exposure to COVID-19 Status: Acute Assessment and Plan: Given worsening of shortness of breadth 3 days, CT a and chest x-ray reviewed as above. Patient has been vaccinated with Pfizer x2 doses -LDH, D-dimer and ferritin all elevated -CRP 17.6 -06/28; SARS-CoV-2 PCR swab is negative, 06/29 patient has been re-swabbed which is pending -if COVID positive will start dexamethasone, Remdesivir and baricitinib or tocilizumab -continue droplet, airborne, contact isolation/precautions (4) Pneumonia: Qualifiers: Laterality: bilateral Lung location: unspecified part of lung Pneumonia type: due to unspecified organism Qualified Code(s): J18.9 - Pneumonia, unspecified organism Code(s): J18.9 - Pneumonia, unspecified organism Status: Acute Assessment and Plan: Patient had a bronchoscopy earlier today which showed essentially normal bronchial tree with no evidence of erythematous changes, diffuse mucosal edema, or increased amount of bronchial secretions. A small submucosal nodular lesion was found right at the RML orifice, causing mild narrowing of the RML bronchus. The superior segment of the right lower lobe appeared edematous with thickened bronchial mucosa also causing narrowing of the segment. -pulmonary is following -continue antibiotics as above (5) UTI (urinary tract infection): Code(s): N39.0 - Urinary tract infection, site not specified Statu
[2021-06-30 13:41] LABS: Fractional Inspired Oxygen 100 %
[2021-06-30 18:14] LABS: Glucose Point of Care 278 mg/dl (65-105)
[2021-06-30 20:04] LABS: SARS-CoV-2 RNA PCR Negative
[2021-06-30] MEDS: TOPIRAMATE 25 MG TABLET PO (21:54)
[2021-06-30 23:46] LABS: Glucose Point of Care 312 mg/dl (65-105)
[2021-07-01] VITALS (33 sets, daily range): BP systolic 98–120; BP diastolic 51–63; PULSE 71–99; RESP 15–32; TEMP 36.9–37.4; O2SAT 92–100
[2021-07-01] MEDS: FENTANYL 2,500MCG/NS250ML(*CRX 2,500 MCG/250 ML BAG 17.5 MCG IV CONT (00:08)
[2021-07-01] MEDS: LEVALBUTEROL NEB 1.25 MG/3 ML 0.63 MG INHALATION ×4 (02:33→22:44)
[2021-07-01] MEDS: IPRATROPIUM BR 0.02% INH SOLN 0.5 MG/2.5 ML VIAL INHALATION ×4 (02:34→21:44)
[2021-07-01 05:09] LABS: Hematocrit 26.3 % (37.0-47.0); Hemoglobin 8.5 g/dL (12.0-15.0); Mean Corpuscular HGB Conc 32.3 g/dl (32-36); Mean Corpuscular Hemoglobin 34.3 pg (26-34); Mean Platelet Volume 9.4 fl (7.4-10.4); Platelet Count Result 226 k/mm3 (150-375); Red Blood Count 2.48 M/mm3 (4.2-5.4); Red Cell Distribution Width 15.9 % (11.5-14.5); White Blood Count 12.2 K/mm3 (4.5-10.0)
[2021-07-01 05:17] LABS: Alveolar/Arterial O2 Gradient 220.2 mmHg; Base Excess ABG 1.7 mEq/l (+/-2.0); Carboxyhemoglobin 0.2 % THb (0-2.0); Fractional Inspired Oxygen 50 %; HCO3 ABG 26.5 mEq/l (22.0-26.0); Methemoglobin ABG 0.3 %THb (0-1.5); Modified Allen's Test Pass; Oxygen Content ABG 12.9 %vol (16.0-22.0); Oxygen Saturation ABG 96.8 % (95.0-100.0); Oxyhemoglobin 95.3 % THb (90.0-100.0); PCO2 ABG 42.4 mmHg (35.0-45.0); PO2 ABG 88.6 mmHg (80.0-100.0); PO2 FiO2 Ratio Arterial Blood 1.77 %; Reduced Hemoglobin 4.2 %THb (0-5.0); Site Drawn LEFT RADIAL; Total Hemoglobin 9.5 g/dL (12.0-18.0); pH ABG 7.413 (7.350-7.450)
[2021-07-01 05:18] LABS: Device VENTILATOR
[2021-07-01 05:19] LABS: Arterial Blood Gas PEEP 10 cmH2O; Arterial Blood Gas Tidal Volume 380 ml; Arterial Blood Gas Vent Mode CMV; Arterial Blood Gas Ventilator rate 30 /MIN
[2021-07-01 05:20] LABS: Alanine Aminotransferase 15 U/L (4-35); Albumin Level 3.1 g/dL (3.5-5.1); Alkaline Phosphatase 110 U/L (38-126); Anion Gap 6 mmol/L (8-16); Aspartate Amino Transferase 34 U/L (14-36); Bilirubin,Total 0.7 mg/dL (0.2-1.3); Blood Urea Nitrogen 33 mg/dL (7-17); Calcium 9.8 mg/dL (8.4-10.2); Carbon Dioxide 28 mmol/L (22-30); Chloride 101 mmol/L (98-107); Estimated CRCL calculation 110 ml/min; Estimated Glomerular Filt Rate > 60; Glucose 335 mg/dL (65-110); Lipase 124 U/L (23-300); Magnesium 2.2 mg/dL (1.6-2.3); Potassium 4.2 mmol/L (3.4-5.0); Sodium 135 mmol/L (137-145)
[2021-07-01] MEDS: metroNIDAZOLE 500 MG/ISO 100ML 500 MG/100 ML BAG 100 MG IVPB ×3 (06:02→17:00)
[2021-07-01] MEDS: CENTRAL LINE FLUSH 10 ML IV PUSH ×3 (06:03→20:59)
[2021-07-01] MEDS: INSULIN ASPART (*BKC) 100 UNITS/ML SUB-Q ×5 (06:06→20:54)
[2021-07-01] MEDS: ATORVASTATIN 40 MG TABLET 80 MG PO (09:38)
[2021-07-01] MEDS: ASPIRIN 81 MG ENTERIC TABLET PO (09:38)
[2021-07-01] MEDS: TICAGRELOR 90 MG TABLET PO ×2 (09:38→20:53)
[2021-07-01] MEDS: DULoxetine HCL 60 MG CAPSULE.DR PO (09:38)
[2021-07-01] MEDS: MINERAL OIL/WHITE PETROLATUM OINTMENT 1 APPLIC EACH EYE ×2 (09:39→20:54)
[2021-07-01] MEDS: methylPREDNISolone SOD SUCC 125 MG VIAL 60 MG IV PUSH (09:39)
[2021-07-01] MEDS: ENOXAPARIN 40 MG/0.4 ML SYRINGE SUB-Q (09:39)
--- NOTE | 2021-07-01 09:39 | PM.PNPUL ---
Progress Note: A&P Assessment and Plan (1) Acute respiratory failure with hypoxia: Code(s): J96.01 - Acute respiratory failure with hypoxia Status: Acute Assessment and Plan: respiratory status essentially unchanged over the last 24 hours. The patient remains on sedatives muscle relaxants and on mechanical ventilation. Hemodynamically stable. No significant respiratory secretions. Bronchoscopy done earlier today showed essentially normal bronchial tree with no evidence of erythematous changes, diffuse mucosal edema, or increased amount of bronchial secretions. A small submucosal nodular lesion was found right at the RML orifice, causing mild narrowing of the RML bronchus. The superior segment of the right lower lobe appeared edematous with thickened bronchial mucosa also causing narrowing of the segment. No biopsies were taken from the right middle lobe nodular lesion or the superior segment of the right lower lobe thickened mucosa. BAL Gram stain showed no organisms. BAL cell type mostly neutrophilic around 90%, very low number of lymphocytes and absent eosinophils. although not specific, BAL cell type is compatible with EVALI. Plan: I would discontinue vancomycin at this point, continue with levofloxacin and Flagyl. continue with Solu-Medrol 60 mg IV daily. Consider diuretic for positive I/Os. (2) Interstitial lung disease: Code(s): J84.9 - Interstitial pulmonary disease, unspecified Status: Acute Assessment and Plan: Patient will need follow-up also for interstitial lung disease detected by chest imaging studies over the last year. (3) Pneumonia: Qualifiers: Laterality: bilateral Lung location: unspecified part of lung Pneumonia type: due to unspecified organism Qualified Code(s): J18.9 - Pneumonia, unspecified organism Code(s): J18.9 - Pneumonia, unspecified organism Status: Acute (4) Chronic obstructive pulmonary disease: Qualifiers: COPD type: unspecified COPD Qualified Code(s): J44.9 - Chronic obstructive pulmonary disease, unspecified Code(s): J44.9 - Chronic obstructive pulmonary disease, unspecified Status: Acute Assessment and Plan: Patient carries a diagnosis of COPD. She will need follow-up on outpatient basis with pulmonary function testing. (5) History of tobacco abuse: Code(s): Z87.891 - Personal history of nicotine dependence Status: Acute (6) Lung nodule: Code(s): R91.1 - Solitary pulmonary nodule Status: Acute Assessment and Plan: Following improvement of respiratory failure, the patient will need repeat bronchoscopy to biopsy the right middle lobe nodular lesion and also the superior segment of the right lower lobe thickened mucosa. (7) Hilar lymphadenopathy: Code(s): R59.0 - Localized enlarged lymph nodes Status: Acute (8) Current every day vaping: Code(s): Z72.89 - Other problems related to lifestyle Status: Acute Assessment and Plan: Per patient's sister the patient has been vaping at least once per hour over the last few weeks. substances used for vaping not known. Subjective Date/time seen: 07/01/21 09:39 respiratory status stable over the last 24 hours. The patient remaining on FiO2 of 50%, hemodynamically stable and afebrile while on 3 antibiotics. BAL Gram stain no organisms seen. BAL cell type mostly neutrophilic. Review of Systems Review of Systems: ROS unobtainable: Yes unobtainable due to endotracheal tube, unobtainable due to medical condition, unobtainable due to mental status and other ( Review of systems is unobtainable as patient is intubated sedated on MV) Exam Narrative: GENERAL APPEARANCE: Well developed, well nourished, Morbidly obese, female intubated sedated on mechanical ventilation. SKIN: Inspection of the skin reveals no rashes, ulcerations or petechiae. HEENT: Sclerae anicteric and conjuncti
[2021-07-01] MEDS: INSULIN GLARGINE (*BKC) 100 UNITS/ML 50 UNITS SUB-Q (09:44)
[2021-07-01] MEDS: MIDAZOLAM HCL (*CRX) 2 MG/2 ML VIAL 4 MG IV PUSH (09:44)
[2021-07-01] MEDS: SODIUM PHOSPHATE 20 MM in DEXTROSE 5% IN WATER 250 ML 50 MM IVPB (09:52)
[2021-07-01] MEDS: FUROSEMIDE INJ 40 MG/4 ML VIAL IV PUSH (09:55)
[2021-07-01 10:04] LABS: Glucose Point of Care 241 mg/dl (65-105)
[2021-07-01] MEDS: MIDAZOLAM 100MG/NS 100ML(*CRX) 100 MG/100 ML BAG IV CONT (10:53)
[2021-07-01 12:03] LABS: Glucose Point of Care 265 mg/dl (65-105)
--- NOTE | 2021-07-01 12:06 | PCNFU ---
Nutrition Follow-Up Complete: Inadequate Oral Intake as related to mechanical ventilation as evidenced by NPO. goal: Meet estimated nutritional needs Patient is progressing towards goal. We will continue current goal. Pt current nutrition is Glucerna 1.2 at 40 ml/hr, goal rate at 60 ml/hr over 22 hours. Last recorded weight is 116.7 kg, no new weight to report. Bowel Motility:No BM reported. Labs Reviewed:PO4 2.0, BUN 33, Cr 0.6,Glu 335, Alb 3.1,hgb 8.5,Hct 26.3 Meds Noted: Levaquin, Levophed, Vancomycin, Fentanyl, Versed, Solu Medrol, Atrovent, Lantus, NovoLog, Lovenox, Lipitor. Skin: WNL Additional Notes: Patient remains on mechanical vent. Tolerating tube feedings of Glucerna 1.2 at 40 ml/hr, goal rate 60 ml/hr which will provide 1584 kcals/79 gm protein/1063 ml fluid. Free water flush 30 ml q 4 hours. Agree with diet orders. Will monitor daily in ICU rounds, reassessing every Wednesday and Wednesday.
--- NOTE | 2021-07-01 12:09 | WPDINTPN ---
Progress Note: A&P Assessment and Plan (1) Acute respiratory failure with hypoxia: Code(s): J96.01 - Acute respiratory failure with hypoxia Status: Acute Assessment and Plan: Patient with acute respiratory failure likely related to pneumonia, possible COVID-19, EVALI (pt vapes) also could be related to interstitial lung -patient was on high-flow therapy, using accessory muscles of respiration, was finally intubated on 06/29/2021 -06/28 SARS-CoV-2 PCR negative -started on vancomycin and Levaquin on 06/28/2021. Will hold vancomycin as cultures have been negative. Continue -Flagyl added 06/29 per pulmonology recommendations -patient was given a dose of Solu-Medrol 125 mg IV x1 on 06/29 and 06/30. Will start Solu-Medrol 60 mg daily starting 07/01 per pulmonary recommendations for possible EVALI or ILD exacerbation. -currently on CMV mode of ventilation, peep of 10, 50% FiO2. Decrease PEEP to 8 -chest x-ray reviewed -advance ET tube by 2 cm - ABGs reviewed -decrease PEEP to 8 -appreciate pulmonary evaluation recommendation - Sedated with fentanyl and Versed infusion -Lasix 40 mg IV today 05/27: CTA chest PE protocol did not show any large central pulmonary embolism evaluation of peripheral pulmonary arteries is limited due to extensive airspace disease and motion artifact. Extensive bilateral airspace disease consistent with pneumonia. 3.4 cm right lower lobe pleural-based mass with air bronchograms. This may represent focal masslike airspace consolidation secondary to underlying pneumonia, although malignancy is not excluded. Prominent mediastinal and right hilar lymphadenopathy which may be reactive, although metastatic disease and lymphoma are not excluded (2) Pneumonia: Qualifiers: Laterality: bilateral Lung location: unspecified part of lung Pneumonia type: due to unspecified organism Qualified Code(s): J18.9 - Pneumonia, unspecified organism Code(s): J18.9 - Pneumonia, unspecified organism Status: Acute Assessment and Plan: Patient had a bronchoscopy earlier today which showed essentially normal bronchial tree with no evidence of erythematous changes, diffuse mucosal edema, or increased amount of bronchial secretions. A small submucosal nodular lesion was found right at the RML orifice, causing mild narrowing of the RML bronchus. The superior segment of the right lower lobe appeared edematous with thickened bronchial mucosa also causing narrowing of the segment. -pulmonary is following -continue antibiotics as above (3) ST elevation (STEMI) myocardial infarction: Code(s): I21.3 - ST elevation (STEMI) myocardial infarction of unspecified site Status: Acute Assessment and Plan: Patient presented the ED with shortness of breath along with chest pain, EKG showed acute inferior ST-elevation [place] status post PTCA/PCI with DESIRE x1 to proximal RCA and DESIRE x1 to mid RCA (likely culprit lesion of STEMI) -cardiology following the patient closely, continue aspirin, Brilinta, atorvastatin, (4) Suspected 2019 novel coronavirus infection: Code(s): Z20.822 - Contact with and (suspected) exposure to COVID-19 Status: Acute Assessment and Plan: Given worsening of shortness of breadth 3 days, CT a and chest x-ray reviewed as above. Patient has been vaccinated with Pfizer x2 doses -LDH, D-dimer and ferritin all elevated -CRP 17.6 -06/28 SARS-CoV-2 PCR swab is negative, 06/29 repeat PCR also negative (5) UTI (urinary tract infection): Code(s): N39.0 - Urinary tract infection, site not specified Status: Acute Assessment and Plan: Urine infection reveals possible UTI, urine cultures negative Patient on Levaquin (6) Hypertension: Code(s): I10 - Essential (primary) hypertension Status: Chronic Assessment and Plan: Hold all antihypertensive (7) Obstructive sleep apnea on CPAP: Code(s): G47.33 - Obstructive sleep apnea (adult)
[2021-07-01 16:03] LABS: Glucose Point of Care 304 mg/dl (65-105)
--- NOTE | 2021-07-01 19:52 | PM.PNCARD ---
Progress Note: A&P Assessment and Plan (1) ST elevation (STEMI) myocardial infarction: Code(s): I21.3 - ST elevation (STEMI) myocardial infarction of unspecified site Status: Acute Assessment and Plan: Acute inferior STEMI on June 27 treated with 2 RCA stents, good LV function. Hemodynamically stable. Continue guideline directed therapy with aspirin, Brilinta, atorvastatin. When blood pressure is last soft, add beta-loyd and JHON-inhibitor. 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 Trial of 1 dose diuretic. Subjective Date/time seen: 07/01/21 19:52 Interval history: Acute inferior ST segment elevation [place] 06/27/2021 status post successful but difficult and challenging PCI of the right coronary artery because of diffuse disease, calcification and tortuosity in the target vessel. Ultimately good angiographic results with 2 drug-eluting stents. Postprocedure troponin levels only showed a modest troponin rise and echocardiogram demonstrates good left ventricular systolic function. Unfortunately she also appears to have likely vaping related lung injury and is now intubated on mechanical ventilator support. Appears to be COVID negative. Date of service 07/01/2021: Bronchoscopy was fairly unremarkable today. Appears to have some underlying interstitial lung disease as well as COPD. Still on 50% FiO2 and intubated. Telemetry shows NSR, occasional APC. Review of Systems Review of Systems: Review of systems obtained from chart ROS unobtainable: Yes unobtainable due to endotracheal tube, unobtainable due to medical condition and unobtainable due to mental status Constitutional: Constitutional: Reports no additional constitutional complaints Respiratory: Comments: Intubated Gastrointestinal: Gastrointestinal: Denies melena and Denies hematochezia Genitourinary: Genitourinary: Denies hematuria Integumentary/Breasts: Skin/Breast: Denies wounds Neurologic: Reports confusion (Sedated) Exam Narrative: Obese female, sedated and intubated, no distress. As 1 a low-grade fever of 99? today. Const: General: comfortable and no acute distress HENMT: Mouth: Yes moist mucous membranes Eyes: General: appearance normal, both eyes and all related structures Neck: Neck: supple Resp: Effort & Inspection: normal respiratory effort Auscultation: clear to auscultation bilaterally and diminished lung sounds Cardio: Rate: regular rate Rhythm: regular rhythm Heart sounds: no murmurs GI: GI Palp: Yes Soft to palpation and No Tenderness to palpation present (GI) Urinary Catheter: Urinary Catheter: patent and draining and urine clear Skin: General skin exam: normal color and no rashes or lesions noted Neuro: Cognition (Neuro): abnormal cognition Other: Sedated Extrem: General: edema and pedal edema Other: Mild lower extremity edema Psych: Mental Status: mental status grossly abnormal Objective Data Vital Signs Vital Signs: Vital Signs - 24 hr 06/30/21 20:00 06/30/21 22:00 06/30/21 22:05 Temperature 99.5 F Pulse Rate 93 98 97 Respiratory Rate 16 16 30 H Blood Pressure 114/66 114/66 Pulse Oximetry 91 100 06/30/21 22:08 06/30/21 22:13 06/30/21 23:34 Temperature Pulse Rate 98 99 99 Respiratory Rate 30 H 30 H Blood Pressure Pulse Oximetry 93 07/01/21 00:00 07/01/21 00:08 07/01/21 02:00 Temperature 99.3 F Pulse Rate 99 99 76 Respiratory Rate 30 H 30 H 30 H Blood Pressure 103/52 L 98/54 L Pulse Oximetry 97 99 07/01/21 02:34 07/01/21 02:35 07/01/21 04:00 Temperature 98.4 F Pulse Rate 73 74 78 Respiratory Rate 30 H 30 H Blood Pressure 106/54 L Pulse Oximetry 99 100
[2021-07-01 20:38] LABS: Glucose Point of Care 309 mg/dl (65-105)
[2021-07-01] MEDS: TOPIRAMATE 25 MG TABLET PO (20:53)
[2021-07-02] VITALS (31 sets, daily range): BP systolic 107–175; BP diastolic 49–86; PULSE 69–136; RESP 18–30; TEMP 37.2–37.8; O2SAT 91–100
[2021-07-02] MEDS: metroNIDAZOLE 500 MG/ISO 100ML 500 MG/100 ML BAG 100 MG IVPB ×2 (00:13→06:37)
[2021-07-02] MEDS: FENTANYL 2,500MCG/NS250ML(*CRX 2,500 MCG/250 ML BAG 10 MCG IV CONT (00:39)
[2021-07-02 01:15] LABS: Glucose Point of Care 235 mg/dl (65-105)
[2021-07-02] MEDS: INSULIN ASPART (*BKC) 100 UNITS/ML SUB-Q ×5 (02:10→20:44)
[2021-07-02] MEDS: IPRATROPIUM BR 0.02% INH SOLN 0.5 MG/2.5 ML VIAL INHALATION ×2 (03:09→20:56)
[2021-07-02] MEDS: LEVALBUTEROL NEB 1.25 MG/3 ML 0.63 MG INHALATION ×2 (03:09→20:57)
--- NOTE | 2021-07-02 04:33 | PC.NURSE ---
pt's heart rate was in 130's, oxygen sats was 87%, pt trying to climb out of bed, unable to redirect, sedation meds increased
[2021-07-02 05:00] LABS: Alveolar/Arterial O2 Gradient 240.9 mmHg; Base Excess ABG 3.6 mEq/l (+/-2.0); Carboxyhemoglobin 0.3 % THb (0-2.0); Fractional Inspired Oxygen 50 %; HCO3 ABG 28.1 mEq/l (22.0-26.0); Methemoglobin ABG 0.3 %THb (0-1.5); Oxygen Content ABG 14.1 %vol (16.0-22.0); Oxygen Saturation ABG 94.2 % (95.0-100.0); Oxyhemoglobin 91.9 % THb (90.0-100.0); PCO2 ABG 42.3 mmHg (35.0-45.0); PO2 FiO2 Ratio Arterial Blood 1.36 %; Reduced Hemoglobin 7.5 %THb (0-5.0); Total Hemoglobin 10.9 g/dL (12.0-18.0)
[2021-07-02 05:01] LABS: Arterial Blood Gas PEEP 8 cmH2O; Arterial Blood Gas Tidal Volume 380 ml; Arterial Blood Gas Vent Mode CMV; Arterial Blood Gas Ventilator rate 30 /MIN; Device VENTILATOR; Site Drawn RIGHT RADIAL
[2021-07-02 05:33] LABS: Hematocrit 31.3 % (37.0-47.0); Hemoglobin 9.8 g/dL (12.0-15.0); Mean Corpuscular HGB Conc 31.3 g/dl (32-36); Mean Corpuscular Hemoglobin 33.4 pg (26-34); Mean Corpuscular Volume 106.8 fl (80-100); Mean Platelet Volume 9.5 fl (7.4-10.4); Platelet Count Result 250 k/mm3 (150-375); Red Blood Count 2.93 M/mm3 (4.2-5.4); Red Cell Distribution Width 16.3 % (11.5-14.5); White Blood Count 18.2 K/mm3 (4.5-10.0)
[2021-07-02 05:43] LABS: Alanine Aminotransferase 16 U/L (4-35); Albumin Level 3.5 g/dL (3.5-5.1); Alkaline Phosphatase 131 U/L (38-126); Anion Gap 8 mmol/L (8-16); Aspartate Amino Transferase 38 U/L (14-36); Bilirubin,Total 0.7 mg/dL (0.2-1.3); Blood Urea Nitrogen 34 mg/dL (7-17); Calcium 10.1 mg/dL (8.4-10.2); Carbon Dioxide 30 mmol/L (22-30); Chloride 100 mmol/L (98-107); Estimated CRCL calculation 110 ml/min; Estimated Glomerular Filt Rate > 60; Glucose 235 mg/dL (65-110); Lipase 222 U/L (23-300); Magnesium 2.1 mg/dL (1.6-2.3); Phosphorus 2.5 mg/dL (2.5-4.5); Potassium 3.6 mmol/L (3.4-5.0); Sodium 138 mmol/L (137-145)
[2021-07-02] MEDS: CENTRAL LINE FLUSH 10 ML IV PUSH ×2 (06:38→14:32)
[2021-07-02] MEDS: POTASSIUM CHLORIDE 20 MEQ PACKET (FOR LIQUID) 40 MEQ FEED TUBE (08:17)
[2021-07-02] MEDS: ENOXAPARIN 40 MG/0.4 ML SYRINGE SUB-Q (08:18)
[2021-07-02] MEDS: ATORVASTATIN 40 MG TABLET 80 MG PO (08:18)
[2021-07-02] MEDS: ASPIRIN 81 MG ENTERIC TABLET PO (08:18)
[2021-07-02] MEDS: DULoxetine HCL 60 MG CAPSULE.DR PO ×2 (08:18→17:41)
[2021-07-02] MEDS: INSULIN GLARGINE (*BKC) 100 UNITS/ML 60 UNITS SUB-Q (08:19)
[2021-07-02] MEDS: methylPREDNISolone SOD SUCC 125 MG VIAL 60 MG IV PUSH (08:19)
[2021-07-02] MEDS: MINERAL OIL/WHITE PETROLATUM OINTMENT 1 APPLIC EACH EYE ×2 (08:21→20:45)
[2021-07-02] MEDS: TICAGRELOR 90 MG TABLET PO ×2 (08:21→20:44)
[2021-07-02] MEDS: FUROSEMIDE INJ 40 MG/4 ML VIAL (08:23)
[2021-07-02] MEDS: FUROSEMIDE INJ 40 MG/4 ML VIAL IV PUSH ×2 (08:23→17:41)
[2021-07-02 08:36] LABS: Glucose Point of Care 189 mg/dl (65-105)
[2021-07-02 08:37] LABS: ANA Cascade Screen Negative (Negative)
--- NOTE | 2021-07-02 09:36 | WPDINTPN ---
Progress Note: A&P Assessment and Plan (1) Acute respiratory failure with hypoxia: Code(s): J96.01 - Acute respiratory failure with hypoxia Status: Acute Assessment and Plan: Patient with acute respiratory failure likely related to pneumonia, possible COVID-19, EVALI (pt vapes) also could be related to interstitial lung -patient was on high-flow therapy, using accessory muscles of respiration, was finally intubated on 06/29/2021 -06/28 SARS-CoV-2 PCR negative -started on vancomycin and Levaquin on 06/28/2021. Will hold vancomycin as cultures have been negative. DC Flagyl -continue Levaquin -patient was given a dose of Solu-Medrol 125 mg IV x1 on 06/29 and 06/30. Continue Solu-Medrol 60 mg daily starting 07/01 per pulmonary recommendations for possible EVALI or ILD exacerbation. -currently on CMV mode of ventilation, peep of 8, 50% FiO2. -chest x-ray reviewed -advance ET tube by1 cm - ABGs reviewed -appreciate pulmonary evaluation recommendation - Sedated with fentanyl and Versed infusion. Will perform sedation holiday -continue Lasix 05/27: CTA chest PE protocol did not show any large central pulmonary embolism evaluation of peripheral pulmonary arteries is limited due to extensive airspace disease and motion artifact. Extensive bilateral airspace disease consistent with pneumonia. 3.4 cm right lower lobe pleural-based mass with air bronchograms. This may represent focal masslike airspace consolidation secondary to underlying pneumonia, although malignancy is not excluded. Prominent mediastinal and right hilar lymphadenopathy which may be reactive, although metastatic disease and lymphoma are not excluded (2) Pneumonia: Qualifiers: Laterality: bilateral Lung location: unspecified part of lung Pneumonia type: due to unspecified organism Qualified Code(s): J18.9 - Pneumonia, unspecified organism Code(s): J18.9 - Pneumonia, unspecified organism Status: Acute Assessment and Plan: Patient had a bronchoscopy earlier today which showed essentially normal bronchial tree with no evidence of erythematous changes, diffuse mucosal edema, or increased amount of bronchial secretions. A small submucosal nodular lesion was found right at the RML orifice, causing mild narrowing of the RML bronchus. The superior segment of the right lower lobe appeared edematous with thickened bronchial mucosa also causing narrowing of the segment. -pulmonary is following -continue antibiotics as above (3) ST elevation (STEMI) myocardial infarction: Code(s): I21.3 - ST elevation (STEMI) myocardial infarction of unspecified site Status: Acute Assessment and Plan: Patient presented the ED with shortness of breath along with chest pain, EKG showed acute inferior ST-elevation [place] status post PTCA/PCI with DESIRE x1 to proximal RCA and DESIRE x1 to mid RCA (likely culprit lesion of STEMI) -cardiology following the patient closely, continue aspirin, Brilinta, atorvastatin, (4) Suspected 2019 novel coronavirus infection: Code(s): Z20.822 - Contact with and (suspected) exposure to COVID-19 Status: Acute Assessment and Plan: Given worsening of shortness of breadth 3 days, CT a and chest x-ray reviewed as above. Patient has been vaccinated with Pfizer x2 doses -LDH, D-dimer and ferritin all elevated -CRP 17.6 -06/28 SARS-CoV-2 PCR swab is negative, 06/29 repeat PCR also negative (5) UTI (urinary tract infection): Code(s): N39.0 - Urinary tract infection, site not specified Status: Acute Assessment and Plan: Urine infection reveals possible UTI, urine cultures negative Patient on Levaquin (6) Hypertension: Code(s): I10 - Essential (primary) hypertension Status: Chronic Assessment and Plan: Hold all p.o. antihypertensive P.r.n. IV low B Gautam (7) Obstructive sleep apnea on CPAP: Code(s): G47.33 - Obstructive sleep apnea (adult) (pediatric); Z99.89
--- NOTE | 2021-07-02 09:52 | PM.PNPUL ---
Progress Note: A&P Assessment and Plan (1) Acute respiratory failure with hypoxia: Code(s): J96.01 - Acute respiratory failure with hypoxia Status: Acute Assessment and Plan: respiratory status essentially unchanged over the last 24 hours. The patient remains on sedatives muscle and on mechanical ventilation. Hemodynamically stable. No significant respiratory secretions. AFB smear negative on BAL. Gram stain showed no organisms. BAL cell type mostly neutrophilic around 90%, very low number of lymphocytes and absent eosinophils. although not specific, BAL cell type is compatible with EVALI. Plan: okay to discontinue Flagyl at this point, continue with levofloxacin. continue with Solu-Medrol 60 mg IV daily. Consider diuretic for positive I/Os. (2) Interstitial lung disease: Code(s): J84.9 - Interstitial pulmonary disease, unspecified Status: Acute Assessment and Plan: Patient will need follow-up also for interstitial lung disease detected by chest imaging studies over the last year. (3) Pneumonia: Qualifiers: Pneumonia type: due to unspecified organism Laterality: bilateral Lung location: unspecified part of lung Qualified Code(s): J18.9 - Pneumonia, unspecified organism Code(s): J18.9 - Pneumonia, unspecified organism Status: Acute (4) Chronic obstructive pulmonary disease: Qualifiers: COPD type: unspecified COPD Qualified Code(s): J44.9 - Chronic obstructive pulmonary disease, unspecified Code(s): J44.9 - Chronic obstructive pulmonary disease, unspecified Status: Acute Assessment and Plan: Patient carries a diagnosis of COPD. She will need follow-up on outpatient basis with pulmonary function testing. (5) History of tobacco abuse: Code(s): Z87.891 - Personal history of nicotine dependence Status: Acute (6) Lung nodule: Code(s): R91.1 - Solitary pulmonary nodule Status: Acute Assessment and Plan: Following improvement of respiratory failure, the patient will need repeat bronchoscopy to biopsy the right middle lobe nodular lesion and also the superior segment of the right lower lobe thickened mucosa. (7) Hilar lymphadenopathy: Code(s): R59.0 - Localized enlarged lymph nodes Status: Acute (8) Current every day vaping: Code(s): Z72.89 - Other problems related to lifestyle Status: Acute Assessment and Plan: Per patient's sister the patient has been vaping at least once per hour over the last few weeks. substances used for vaping not known. Subjective Date/time seen: 07/02/21 09:52 patient remaining sedated on mechanical ventilation, hemodynamically stable. No bronchial secretions. Essentially afebrile, on levofloxacin and Flagyl. Review of Systems Review of Systems: ROS unobtainable: Yes unobtainable due to endotracheal tube, unobtainable due to medical condition, unobtainable due to mental status and other ( Review of systems is unobtainable as patient is intubated sedated on MV) Exam Narrative: GENERAL APPEARANCE: Well developed, well nourished, morbidly obese female, intubated sedated on mechanical ventilation. SKIN: Inspection of the skin reveals no rashes, ulcerations or petechiae. HEENT: Sclerae anicteric and conjunctivae pink and moist. NECK: Supple. There was no thyroid enlargement, or masses were felt. CHEST: Normal AP diameter and normal contour without any kyphoscoliosis. LUNGS: crackles at bases posteriorly. Few rhonchi. CARDIAC: There was a regular rate and rhythm without any murmurs, gallops, rubs. ABDOMEN: Obese, soft; there was no organomegaly. LYMPH NODES: No lymphadenopathy was appreciated in the neck EXTREMITIES: No cyanosis, or edema. Objective Data Vital Signs Vital Signs: Vital Signs - 24 hr 07/01/21 09:56 07/01/21 09:57 07/01/21 10:00 Temperature 37.2 C Pulse Rate 87 85 78 Respiratory Rate 30 H 30 H
[2021-07-02] MEDS: LORazepam INJ (*CRX) 2 MG/ML VIAL 0.5 MG IV PUSH (10:19)
--- NOTE | 2021-07-02 10:58 | PM.PNCARD ---
Progress Note: A&P Additional Plan 56-year-old lady with: Acute inferior wall myocardial infarction that was treated promptly with emergency right coronary PCI. The procedure was challenging and difficult but successful as detailed in the procedure note. Left ventricular systolic function is normal following the emergency. She remains on the ventilator and appears to unfortunately have vaping related lung injury. Continue dual anti-platelet therapy from her NG tube. Adam Weiss MD [facility] Subjective Date/time seen: Date of service: 07/02/21 10:58 Interval history: Acute inferior ST segment elevation [place] 06/27/2021 status post successful but difficult and challenging PCI of the right coronary artery because of diffuse disease, calcification and tortuosity in the target vessel. Ultimately good angiographic results with 2 drug-eluting stents. Postprocedure troponin levels only showed a modest troponin rise and echocardiogram demonstrates good left ventricular systolic function. Unfortunately she also appears to have likely vaping related lung injury and is now intubated on mechanical ventilator support. Appears to be COVID negative. Date of service 07/01/2021: Bronchoscopy was fairly unremarkable today. Appears to have some underlying interstitial lung disease as well as COPD. Still on 50% FiO2 and intubated. Telemetry shows NSR, occasional APC. Date of service 07/02/2021: Clinically unchanged still intubated on mechanical ventilation. O2 requirements slightly lower. Exam Narrative: Obese female, sedated and intubated, no distress. As 1 a low-grade fever of 99? today. Const: General: comfortable, no acute distress and confusion (Sedated) Orientation/consciousness: confusion (Sedated) Other: Obese white female intubated sedated on mechanical ventilator support HENMT: General nose exam: Normal nares present and no epistaxis Mouth: Yes moist mucous membranes Eyes: General: appearance normal, both eyes and all related structures Sclera: sclerae normal Pupils: Equal, round and reactive pupils present Neck: Neck: supple and no JVD Carotids: no bruits Other: Unable to assess for JVD given her body habitus Resp: Effort & Inspection: normal respiratory effort Auscultation: clear to auscultation bilaterally, crackles and diminished lung sounds Other: Breath sounds remarkably clear Cardio: Rate: regular rate Rhythm: regular rhythm Heart sounds: no gallops, no murmurs and no rubs Other: PMI not palpable no murmur no gallop GI: Auscultation: normal bowel sounds Urinary Catheter: Urinary Catheter: patent and draining and urine clear Skin: General skin exam: normal color, no rashes or lesions noted and no erythema Other: Warm Neuro: General: confusion (Sedated) Cranial nerves: Yes Equal, round and reactive pupils present Cognition (Neuro): normal cognition and abnormal cognition Speech: normal speech Other: Sedated Extrem: General: normal to inspection, edema and pedal edema Other: Mild lower extremity edema Psych: Mental Status: mental status grossly abnormal Objective Data Vital Signs Vital Signs: Vital Signs - 24 hr 07/01/21 11:06 07/01/21 11:45 07/01/21 12:00 Temperature 37.2 C Pulse Rate 85 84 85 Respiratory Rate 15 17 Blood Pressure 114/58 L Pulse Oximetry 92 92 92 07/01/21 14:00 07/01/21 14:22 07/01/21 14:54 Temperature Pulse Rate 80 79 76 Respiratory Rate 20 30 H 16 Blood Pressure 112/63 Pulse Oximetry 94 07/01/21 14:57 07/01/21 15:26 07/01/21 15:58 Temperature Pulse Rate 77 89 84 Respiratory Rate 16 30 H Blood Pressure Pulse Oximetry 93 93 07/01/21 16:00 07/01/21 17:47 07/01/21 17:53 Temperature 37.4 C Pulse Rate 82 77 79 Respiratory Rate 30 H 18 Blood Pressure 109/57 L Pulse Oximetry 95 07/01/21 18:00 07/01/21 18:04 07/01/21 20:00 Temperature 37.3 C Pulse Rate 80 84 77 Respiratory Rate 30 H 26 H Blood Pressure 107/55 L 120/58 L
[2021-07-02 11:46] LABS: Pneumococcal Antigen Urine Detected (Not Detected)
[2021-07-02] MEDS: METOCLOPRAMIDE HCL 10 MG/10 ML SOLN UDC PO ×2 (12:13→17:41)
[2021-07-02 12:18] LABS: Glucose Point of Care 292 mg/dl (65-105)
[2021-07-02 12:22] LABS: Anti Cyclic Citrullinated Pept <16 Units (<20)
--- NOTE | 2021-07-02 12:37 | PCFNICU ---
ICU Rounding Note: Pt current nutrition is Glucerna 1.2 at 40 ml/hr over 22 hours. Last recorded weight is 116.7 kg. Bowel Motility:No BM reported. Labs Reviewed:Glu 235,BUN 34, Cr 0.6, Hct 31.3,Hgb 9.8 Meds Noted:Levaquin, Vancomycin, Lipitor, Lovenox, Lantus, Novolog, Versed, Fentanyl, Atrovent. Skin: WNL Additional Notes: Patient remains on mechanical vent. Tube feedings of Glucerna 1.2 at 40 ml/hr. Residuals 200s reported. Reglan started. Tube feeding goal remains at 60 ml/hr over 22 hours with free water flush of 30 ml q 4 hours. Following daily in ICU rounds. Assessing/reassessing every Wednesday and Wednesday.
[2021-07-02 13:39] LABS: ANCA Screen Negative (Negative)
[2021-07-02] MEDS: MIDAZOLAM 100MG/NS 100ML(*CRX) 100 MG/100 ML BAG 6 MG IV CONT (14:27)
[2021-07-02] MEDS: FENTANYL 2,500MCG/NS250ML(*CRX 2,500 MCG/250 ML BAG 20 MCG IV CONT (14:41)
[2021-07-02 15:34] LABS: Mycoplasma IgM Antibody Titer 51 U/mL (<770)
[2021-07-02 17:04] LABS: Legionella pneumophila Ag Ur Not Detected (Not Detected)
[2021-07-02 17:56] LABS: Glucose Point of Care 354 mg/dl (65-105)
[2021-07-02] MEDS: polyethylene glycoL 3350 17 GM POWD.PACK PO (18:03)
[2021-07-02 20:44] LABS: Glucose Point of Care 317 mg/dl (65-105)
[2021-07-02] MEDS: TOPIRAMATE 25 MG TABLET PO (20:44)
[2021-07-03] VITALS (36 sets, daily range): BP systolic 83–139; BP diastolic 50–84; PULSE 6–129; RESP 16–32; TEMP 37.4–38.3; O2SAT 89–96
[2021-07-03 00:24] LABS: Glucose Point of Care 253 mg/dl (65-105)
[2021-07-03] MEDS: INSULIN ASPART (*BKC) 100 UNITS/ML SUB-Q ×3 (00:32→21:19)
[2021-07-03] MEDS: CENTRAL LINE FLUSH 10 ML IV PUSH ×4 (00:33→21:21)
[2021-07-03] MEDS: METOCLOPRAMIDE HCL 10 MG/10 ML SOLN UDC PO ×4 (00:33→17:30)
[2021-07-03] MEDS: IPRATROPIUM BR 0.02% INH SOLN 0.5 MG/2.5 ML VIAL INHALATION ×4 (02:00→22:48)
[2021-07-03] MEDS: LEVALBUTEROL NEB 1.25 MG/3 ML 0.63 MG INHALATION ×4 (02:00→22:47)
[2021-07-03] MEDS: FENTANYL 2,500MCG/NS250ML(*CRX 2,500 MCG/250 ML BAG 20 MCG IV CONT (03:54)
[2021-07-03 05:09] LABS: Alveolar/Arterial O2 Gradient 166.9 mmHg; Base Excess ABG 2.3 mEq/l (+/-2.0); Carboxyhemoglobin 0.3 % THb (0-2.0); Fractional Inspired Oxygen 40 %; HCO3 ABG 26.9 mEq/l (22.0-26.0); Methemoglobin ABG 0.3 %THb (0-1.5); Oxygen Content ABG 14.3 %vol (16.0-22.0); Oxygen Saturation ABG 94.5 % (95.0-100.0); Oxyhemoglobin 92.2 % THb (90.0-100.0); PCO2 ABG 41.7 mmHg (35.0-45.0); PO2 ABG 70.3 mmHg (80.0-100.0); PO2 FiO2 Ratio Arterial Blood 1.76 %; Reduced Hemoglobin 7.2 %THb (0-5.0); pH ABG 7.427 (7.350-7.450)
[2021-07-03 05:10] LABS: Arterial Blood Gas Vent Mode CMV; Arterial Blood Gas Ventilator rate 30 /MIN; Device VENTILATOR; Modified Allen's Test Pass; Site Drawn LEFT RADIAL
[2021-07-03 05:11] LABS: Arterial Blood Gas PEEP 8 cmH2O; Arterial Blood Gas Tidal Volume 380 ml
[2021-07-03 05:20] LABS: Glucose Point of Care 165 mg/dl (65-105)
[2021-07-03 05:54] LABS: Hemoglobin 9.3 g/dL (12.0-15.0); Mean Corpuscular Hemoglobin 34.3 pg (26-34); Mean Corpuscular Volume 110.7 fl (80-100); Mean Platelet Volume 9.7 fl (7.4-10.4); Platelet Count Result 234 k/mm3 (150-375); Red Blood Count 2.71 M/mm3 (4.2-5.4); Red Cell Distribution Width 16.8 % (11.5-14.5); White Blood Count 14.9 K/mm3 (4.5-10.0)
[2021-07-03 06:05] LABS: Alanine Aminotransferase 13 U/L (4-35); Albumin Level 3.2 g/dL (3.5-5.1); Alkaline Phosphatase 95 U/L (38-126); Anion Gap 5 mmol/L (8-16); Aspartate Amino Transferase 32 U/L (14-36); Bilirubin,Total 0.6 mg/dL (0.2-1.3); Blood Urea Nitrogen 31 mg/dL (7-17); Calcium 9.2 mg/dL (8.4-10.2); Carbon Dioxide 32 mmol/L (22-30); Chloride 103 mmol/L (98-107); Estimated CRCL calculation 110 ml/min; Estimated Glomerular Filt Rate > 60; Glucose 157 mg/dL (65-110); Lipase 299 U/L (23-300); Magnesium 2.1 mg/dL (1.6-2.3); Phosphorus 2.5 mg/dL (2.5-4.5); Potassium 3.7 mmol/L (3.4-5.0); Sodium 140 mmol/L (137-145)
[2021-07-03] MEDS: MIDAZOLAM 100MG/NS 100ML(*CRX) 100 MG/100 ML BAG 6 MG IV CONT (07:46)
[2021-07-03] MEDS: ENOXAPARIN 40 MG/0.4 ML SYRINGE SUB-Q (07:51)
[2021-07-03] MEDS: ASPIRIN 81 MG ENTERIC TABLET PO (07:51)
[2021-07-03] MEDS: DULoxetine HCL 60 MG CAPSULE.DR PO ×2 (07:51→17:31)
[2021-07-03] MEDS: ATORVASTATIN 40 MG TABLET 80 MG PO (07:51)
[2021-07-03] MEDS: INSULIN GLARGINE (*BKC) 100 UNITS/ML 60 UNITS SUB-Q (07:52)
[2021-07-03] MEDS: methylPREDNISolone SOD SUCC 125 MG VIAL 60 MG IV PUSH (07:54)
[2021-07-03] MEDS: MINERAL OIL/WHITE PETROLATUM OINTMENT 1 APPLIC EACH EYE ×2 (07:55→21:20)
[2021-07-03] MEDS: TICAGRELOR 90 MG TABLET PO ×2 (07:55→21:21)
[2021-07-03 08:00] LABS: Glucose Point of Care 185 mg/dl (65-105)
[2021-07-03] MEDS: FUROSEMIDE INJ 40 MG/4 ML VIAL IV PUSH ×2 (08:50→17:30)
[2021-07-03] MEDS: PROPOFOL IV EMULSION 100 ML 14 MG IV CONT ×2 (08:51→14:25)
--- NOTE | 2021-07-03 09:18 | PM.PNPUL ---
Progress Note: A&P Assessment and Plan (1) Acute respiratory failure with hypoxia: Code(s): J96.01 - Acute respiratory failure with hypoxia Status: Acute Assessment and Plan: respiratory status stable over the last 24 hours. Patient was able to tolerate lower FiO2 of 40% earlier today. A chest x-ray done earlier today showed definite partial clearing of infiltrates compared to the x-ray taken on June 27. There is persistent right hilar lymphadenopathy which could be due to metastatic disease related to the bronchial lesions seen on bronchoscopy. Pneumococcal antigen detected in urine. Clinical significance of positive pneumococcal antigen unclear at this point. She has been on antibiotics for possible lower respiratory tract infection covering Strep pneumonia. Serology testing negative for underlying autoimmune disease. Negative Pneumocystis and influenza tests. will continue with levofloxacin, Solu-Medrol 60 mg IV daily. will get sputum culture. I informed patient's sister about the findings of bronchoscopy, including possible lung malignancy and the need to repeat the procedure with bronchial biopsies following extubation. (2) Interstitial lung disease: Code(s): J84.9 - Interstitial pulmonary disease, unspecified Status: Acute Assessment and Plan: Patient will need follow-up also for interstitial lung disease detected by chest imaging studies over the last year. (3) Pneumonia: Qualifiers: Pneumonia type: due to unspecified organism Laterality: bilateral Lung location: unspecified part of lung Qualified Code(s): J18.9 - Pneumonia, unspecified organism Code(s): J18.9 - Pneumonia, unspecified organism Status: Acute (4) Chronic obstructive pulmonary disease: Qualifiers: COPD type: unspecified COPD Qualified Code(s): J44.9 - Chronic obstructive pulmonary disease, unspecified Code(s): J44.9 - Chronic obstructive pulmonary disease, unspecified Status: Acute Assessment and Plan: Patient carries a diagnosis of COPD. She will need follow-up on outpatient basis with pulmonary function testing. (5) History of tobacco abuse: Code(s): Z87.891 - Personal history of nicotine dependence Status: Acute (6) Lung nodule: Code(s): R91.1 - Solitary pulmonary nodule Status: Acute Assessment and Plan: Following improvement of respiratory failure, the patient will need repeat bronchoscopy to biopsy the right middle lobe nodular lesion and also the superior segment of the right lower lobe thickened mucosa. (7) Hilar lymphadenopathy: Code(s): R59.0 - Localized enlarged lymph nodes Status: Acute (8) Current every day vaping: Code(s): Z72.89 - Other problems related to lifestyle Status: Acute Assessment and Plan: Per patient's sister the patient has been vaping at least once per hour over the last few weeks. substances used for vaping not known. Subjective Date/time seen: 07/03/21 09:18 Patient is hemodynamically stable, sedated on mechanical ventilation. She has low-grade temperature. she has no increased bronchial secretions. Review of Systems Review of Systems: ROS unobtainable: Yes unobtainable due to endotracheal tube, unobtainable due to medical condition, unobtainable due to mental status and other ( Review of systems is unobtainable as patient is intubated sedated on MV) Exam Narrative: GENERAL APPEARANCE: Well developed, well nourished, morbidly obese female, intubated sedated on mechanical ventilation. SKIN: Inspection of the skin reveals no rashes, ulcerations or petechiae. HEENT: Sclerae anicteric and conjunctivae pink and moist. NECK: Supple. There was no thyroid enlargement, or masses were felt. CHEST: Normal AP diameter and normal contour without any kyphoscoliosis. LUNGS: crackles at bases posteriorly. Few rhonchi. CARDIAC: There was a regular rate
[2021-07-03] MEDS: ALBUMIN HUMAN 25% 25 GM/100 ML 100 ML IVPB (09:56)
[2021-07-03] MEDS: ACETAMINOPHEN 500 MG TABLET PO (11:39)
--- NOTE | 2021-07-03 11:52 | PCFNICU ---
ICU Rounding Note: Pt current nutrition is Glucerna 1.2 at 50 ml/hr over 22 hours. Last recorded weight is 116.7 kg, 116.7 on admit. Bowel Motility:NO BM reported. Miralax started. Labs Reviewed:BUN 31, Cr 0.6, Alb 3.2, Hct 30.0, Hgb 9.3 Meds Noted:Miralax, Reglan, Propofol 3.501 ml/hr=85 kcals, Cymbalta, Levaquin, Lantus, Lipitor, Solu Medrol. Skin: WNL Additional Notes: Patient remains on mechanical vent. Tube feedings of Glucerna 1.2 at 50 ml/hr with plans to increase to goal rate of 60 ml/hr today. Free water flush 30 ml q 4 hours. Following daily in ICU rounds. Assessing/reassessing every Wednesday and Wednesday.
[2021-07-03 12:39] LABS: Glucose Point of Care 362 mg/dl (65-105)
--- NOTE | 2021-07-03 13:10 | WPDINTPN ---
Progress Note: A&P Assessment and Plan (1) Acute respiratory failure with hypoxia: Code(s): J96.01 - Acute respiratory failure with hypoxia Status: Acute Assessment and Plan: Patient with acute respiratory failure likely related to pneumonia, possible COVID-19, EVALI (pt vapes) also could be related to interstitial lung and pneumococcal pneumonia -patient was on high-flow therapy, using accessory muscles of respiration, was finally intubated on 06/29/2021 -06/28 SARS-CoV-2 PCR negative -urine pneumococcal antigen was positive -patient was initially started on vancomycin and Levaquin on 06/28/2021. Later Flagyl was added by Pulmonary -currently off of vancomycin and Flagyl and will continue Levaquin for pneumococcal coverage as patient is allergic to cephalosporins -patient was given a dose of Solu-Medrol 125 mg IV x1 on 06/29 and 06/30. Continue Solu-Medrol 60 mg daily starting 07/01 per pulmonary recommendations for possible EVALI or ILD exacerbation. -currently on CMV mode of ventilation, peep of 8, 50% FiO2. -chest x-ray reviewed shows no significant change - ABGs reviewed -appreciate pulmonary evaluation recommendation - Sedated with fentanyl and Versed infusion. I performed a sedation holiday but patient quickly became tachypneic in asynchronous with the vent per I will switch sedation to propofol to allow better and quicker sedation vacation -continue Lasix today 05/27: CTA chest PE protocol did not show any large central pulmonary embolism evaluation of peripheral pulmonary arteries is limited due to extensive airspace disease and motion artifact. Extensive bilateral airspace disease consistent with pneumonia. 3.4 cm right lower lobe pleural-based mass with air bronchograms. This may represent focal masslike airspace consolidation secondary to underlying pneumonia, although malignancy is not excluded. Prominent mediastinal and right hilar lymphadenopathy which may be reactive, although metastatic disease and lymphoma are not excluded (2) Pneumonia: Qualifiers: Laterality: bilateral Lung location: unspecified part of lung Pneumonia type: due to unspecified organism Qualified Code(s): J18.9 - Pneumonia, unspecified organism Code(s): J18.9 - Pneumonia, unspecified organism Status: Acute Assessment and Plan: Patient had a bronchoscopy earlier today which showed essentially normal bronchial tree with no evidence of erythematous changes, diffuse mucosal edema, or increased amount of bronchial secretions. A small submucosal nodular lesion was found right at the RML orifice, causing mild narrowing of the RML bronchus. The superior segment of the right lower lobe appeared edematous with thickened bronchial mucosa also causing narrowing of the segment. -urine pneumococcal antigen was positive -pulmonary is following -continue antibiotics as above (3) ST elevation (STEMI) myocardial infarction: Code(s): I21.3 - ST elevation (STEMI) myocardial infarction of unspecified site Status: Acute Assessment and Plan: Patient presented the ED with shortness of breath along with chest pain, EKG showed acute inferior ST-elevation [place] status post PTCA/PCI with DESIRE x1 to proximal RCA and DESIRE x1 to mid RCA (likely culprit lesion of STEMI) -cardiology following the patient closely, continue aspirin, Brilinta, atorvastatin, (4) Suspected 2019 novel coronavirus infection: Code(s): Z20.822 - Contact with and (suspected) exposure to COVID-19 Status: Acute Assessment and Plan: Given worsening of shortness of breadth 3 days, CT a and chest x-ray reviewed as above. Patient has been vaccinated with Pfizer x2 doses -LDH, D-dimer and ferritin all elevated -CRP 17.6 -06/28 SARS-CoV-2 PCR swab is negative, 06/29 repeat PCR also negative (5) UTI (urinary tract infection): Code(s): N39.0 - Urinary tract infection, site not specified Status: Acute Assessment and Plan:
--- NOTE | 2021-07-03 16:59 | PM.PNCARD ---
Progress Note: A&P Assessment and Plan (1) ST elevation (STEMI) myocardial infarction: Code(s): I21.3 - ST elevation (STEMI) myocardial infarction of unspecified site Status: Acute Assessment and Plan: Acute inferior STEMI on June 27 treated with 2 RCA stents, good LV function. Hemodynamically stable. Continue guideline directed therapy with aspirin, Brilinta, atorvastatin. When blood pressure is less soft, add beta-loyd and JHON-inhibitor. (2) Acute respiratory failure with hypoxia: Code(s): J96.01 - Acute respiratory failure with hypoxia Status: Acute Assessment and Plan: Acute respiratory failure, chronic lung disease, managed by public health aides teacher. Subjective Date/time seen: 07/03/21 16:59 Interval history: Acute inferior ST segment elevation [place] 06/27/2021 status post successful but difficult and challenging PCI of the right coronary artery because of diffuse disease, calcification and tortuosity in the target vessel. Ultimately good angiographic results with 2 drug-eluting stents. Postprocedure troponin levels only showed a modest troponin rise and echocardiogram demonstrates good left ventricular systolic function. Unfortunately she also appears to have likely vaping related lung injury and is now intubated on mechanical ventilator support. Appears to be COVID negative. Date of service 07/01/2021: Bronchoscopy was fairly unremarkable today. Appears to have some underlying interstitial lung disease as well as COPD. Still on 50% FiO2 and intubated. Telemetry shows NSR, occasional APC. Date of service 07/02/2021: Clinically unchanged still intubated on mechanical ventilation. O2 requirements slightly lower. Date of service 07/03/2021: No significant clinical changes. Ventilator requirements essentially the same, still on 50% FiO2. Unable to tolerate sedation holiday due to tachypnea. Review of Systems Review of Systems: All systems reviewed & are unremarkable except as noted in HPI and below ROS unobtainable: Yes unobtainable due to endotracheal tube, unobtainable due to medical condition and unobtainable due to mental status Exam Narrative: Obese female, sedated and intubated, no distress. Const: General: comfortable, no acute distress and confusion (Sedated) Orientation/consciousness: confusion (Sedated) Other: Obese white female intubated sedated on mechanical ventilator support HENMT: General nose exam: Normal nares present and no epistaxis Mouth: Yes moist mucous membranes Eyes: General: appearance normal, both eyes and all related structures Sclera: sclerae normal Pupils: Equal, round and reactive pupils present Neck: Neck: supple Carotids: no bruits Other: Unable to assess for JVD given her body habitus Resp: Effort & Inspection: normal respiratory effort Auscultation: clear to auscultation bilaterally, rhonchi and diminished lung sounds Other: Breath sounds remarkably clear Cardio: Rate: regular rate Rhythm: regular rhythm Heart sounds: no gallops, no murmurs and no rubs Peripheral pulses: Peripheral pulses 2+ throughout GI: GI Palp: Yes Soft to palpation Auscultation: normal bowel sounds Urinary Catheter: Urinary Catheter: patent and draining and urine clear Skin: General skin exam: normal color, no rashes or lesions noted and no erythema Other: Warm Neuro: General: No patient oriented x3 (sedated) Cranial nerves: Yes Equal, round and reactive pupils present Cognition (Neuro): abnormal cognition and abnormal cognition Other: Sedated Extrem: General: normal to inspection, edema and no pedal edema Other: Mild lower extremity edema Psych: Mental Status: mental status grossly abnormal Objective Data Vital Signs Vital Signs: Vital Signs - 24 hr 07/02/21 18:00 07/02/21 18:11 07/02/21 20:00 Temperature 37.6 C 37.7 C H Pulse Rate 70 69 72 Respi
[2021-07-03 17:58] LABS: Glucose Point of Care 421 mg/dl (65-105)
[2021-07-03] MEDS: INSULIN HUMAN REGULAR (*BKC) 100 UNITS/ML 10 UNITS IV PUSH (18:21)
[2021-07-03] MEDS: PROPOFOL IV EMULSION 100 ML 17.51 MG IV CONT (20:44)
[2021-07-03] MEDS: INSULIN GLARGINE (*BKC) 100 UNITS/ML 30 UNITS SUB-Q (21:20)
[2021-07-03] MEDS: TOPIRAMATE 25 MG TABLET PO (21:21)
[2021-07-03 21:55] LABS: Glucose Point of Care 397 mg/dl (65-105)
[2021-07-04] VITALS (43 sets, daily range): BP systolic 101–171; BP diastolic 51–108; PULSE 49–129; RESP 20–38; TEMP 37.2–38.2; O2SAT 91–99
[2021-07-04 00:05] LABS: Glucose Point of Care 364 mg/dl (65-105)
[2021-07-04] MEDS: INSULIN ASPART (*BKC) 100 UNITS/ML SUB-Q ×5 (00:49→21:31)
[2021-07-04] MEDS: METOCLOPRAMIDE HCL 10 MG/10 ML SOLN UDC PO ×4 (00:54→16:30)
[2021-07-04] MEDS: PROPOFOL IV EMULSION 100 ML 21.01 MG IV CONT ×3 (01:34→13:34)
[2021-07-04] MEDS: IPRATROPIUM BR 0.02% INH SOLN 0.5 MG/2.5 ML VIAL INHALATION ×4 (02:00→22:06)
[2021-07-04] MEDS: LEVALBUTEROL NEB 1.25 MG/3 ML 0.63 MG INHALATION ×4 (02:00→22:06)
[2021-07-04 05:33] LABS: Glucose Point of Care 177 mg/dl (65-105)
[2021-07-04 05:42] LABS: Hematocrit 30.1 % (37.0-47.0); Hemoglobin 9.5 g/dL (12.0-15.0); Mean Corpuscular HGB Conc 31.6 g/dl (32-36); Mean Corpuscular Hemoglobin 33.6 pg (26-34); Mean Corpuscular Volume 106.4 fl (80-100); Platelet Count Result 227 k/mm3 (150-375); Red Blood Count 2.83 M/mm3 (4.2-5.4); Red Cell Distribution Width 16.7 % (11.5-14.5); White Blood Count 13.1 K/mm3 (4.5-10.0)
[2021-07-04] MEDS: CENTRAL LINE FLUSH 10 ML IV PUSH ×3 (05:44→20:10)
[2021-07-04 06:05] LABS: Alanine Aminotransferase 15 U/L (4-35); Albumin Level 3.7 g/dL (3.5-5.1); Alkaline Phosphatase 101 U/L (38-126); Anion Gap 6 mmol/L (8-16); Aspartate Amino Transferase 43 U/L (14-36); Bilirubin,Total 0.8 mg/dL (0.2-1.3); Blood Urea Nitrogen 35 mg/dL (7-17); Calcium 9.8 mg/dL (8.4-10.2); Carbon Dioxide 36 mmol/L (22-30); Chloride 98 mmol/L (98-107); Estimated CRCL calculation 110 ml/min; Estimated Glomerular Filt Rate > 60; Glucose 183 mg/dL (65-110); Magnesium 2.3 mg/dL (1.6-2.3); Potassium 3.5 mmol/L (3.4-5.0); Sodium 140 mmol/L (137-145)
[2021-07-04 07:02] LABS: Base Excess ABG 5.5 mEq/l (+/-2.0); Carboxyhemoglobin 0.1 % THb (0-2.0); Fractional Inspired Oxygen 40 %; HCO3 ABG 29.9 mEq/l (22.0-26.0); Methemoglobin ABG 0.3 %THb (0-1.5); Oxygen Content ABG 17.1 %vol (16.0-22.0); Oxygen Saturation ABG 96.5 % (95.0-100.0); Oxyhemoglobin 94.6 % THb (90.0-100.0); PCO2 ABG 42.8 mmHg (35.0-45.0); PO2 FiO2 Ratio Arterial Blood 2.03 %; Total Hemoglobin 12.8 g/dL (12.0-18.0); pH ABG 7.462 (7.350-7.450)
[2021-07-04 07:04] LABS: Device VENTILATOR; Modified Allen's Test Pass; Site Drawn RIGHT RADIAL
[2021-07-04 07:05] LABS: Arterial Blood Gas PEEP 8 cmH2O; Arterial Blood Gas Tidal Volume 380 ml; Arterial Blood Gas Vent Mode CMV; Arterial Blood Gas Ventilator rate 30 /MIN
[2021-07-04] MEDS: dexmedeTOMIDine 400 MCG/100 ML 400 MCG/100 ML BAG 14.54 MCG IV CONT (09:01)
[2021-07-04] MEDS: FUROSEMIDE INJ 40 MG/4 ML VIAL IV PUSH (09:02)
[2021-07-04] MEDS: POTASSIUM CHLORIDE 20 MEQ PACKET (FOR LIQUID) 40 MEQ FEED TUBE (09:03)
[2021-07-04] MEDS: DULoxetine HCL 60 MG CAPSULE.DR PO ×2 (09:06→16:30)
[2021-07-04] MEDS: ATORVASTATIN 40 MG TABLET 80 MG PO (09:06)
[2021-07-04] MEDS: ASPIRIN 81 MG ENTERIC TABLET PO (09:06)
[2021-07-04] MEDS: ENOXAPARIN 40 MG/0.4 ML SYRINGE SUB-Q (09:07)
[2021-07-04] MEDS: TICAGRELOR 90 MG TABLET PO ×2 (09:10→20:09)
[2021-07-04] MEDS: methylPREDNISolone SOD SUCC 125 MG VIAL 60 MG IV PUSH (09:13)
[2021-07-04] MEDS: INSULIN GLARGINE (*BKC) 100 UNITS/ML 60 UNITS SUB-Q (09:25)
[2021-07-04] MEDS: MINERAL OIL/WHITE PETROLATUM OINTMENT 1 APPLIC EACH EYE ×2 (09:26→20:10)
[2021-07-04] MEDS: NICOTINE (*PBKC) 14 MG PATCH 1 PATCH TRANSDERM (09:36)
[2021-07-04] MEDS: PROPOFOL IV EMULSION 100 ML 28.01 MG IV CONT (10:04)
--- NOTE | 2021-07-04 10:13 | PM.PNPUL ---
Progress Note: A&P Assessment and Plan (1) Acute respiratory failure with hypoxia: Code(s): J96.01 - Acute respiratory failure with hypoxia Status: Acute Assessment and Plan: respiratory status stable over the last 24 hours. Patient now on FiO2 of 40%. A chest x-ray done earlier today showed definite partial clearing of infiltrates compared to the x-ray taken on June 27, but no appreciable change since yesterday.. There is persistent right hilar lymphadenopathy which could be due to metastatic disease related to the bronchial lesions seen on bronchoscopy. Pneumococcal antigen detected in urine. Clinical significance of positive pneumococcal antigen unclear at this point. She has been on antibiotics for possible lower respiratory tract infection covering Strep pneumonia. Serology testing negative for underlying autoimmune disease. Negative Pneumocystis and influenza tests. Negative Mycoplasma serology for recent infection. Will continue with levofloxacin, Solu-Medrol 60 mg IV daily. Sputum culture pending. flaccid extremities, and tachypnea may be due to critical illness polyneuropathy. Nicotine patch added to her regimen. (2) Interstitial lung disease: Code(s): J84.9 - Interstitial pulmonary disease, unspecified Status: Acute Assessment and Plan: Patient will need follow-up also for interstitial lung disease detected by chest imaging studies over the last year. (3) Pneumonia: Qualifiers: Laterality: bilateral Lung location: unspecified part of lung Pneumonia type: due to unspecified organism Qualified Code(s): J18.9 - Pneumonia, unspecified organism Code(s): J18.9 - Pneumonia, unspecified organism Status: Acute (4) Chronic obstructive pulmonary disease: Qualifiers: COPD type: unspecified COPD Qualified Code(s): J44.9 - Chronic obstructive pulmonary disease, unspecified Code(s): J44.9 - Chronic obstructive pulmonary disease, unspecified Status: Acute Assessment and Plan: Patient carries a diagnosis of COPD. She will need follow-up on outpatient basis with pulmonary function testing. (5) History of tobacco abuse: Code(s): Z87.891 - Personal history of nicotine dependence Status: Acute (6) Lung nodule: Code(s): R91.1 - Solitary pulmonary nodule Status: Acute Assessment and Plan: Following improvement of respiratory failure, the patient will need repeat bronchoscopy to biopsy the right middle lobe nodular lesion and also the superior segment of the right lower lobe thickened mucosa. (7) Hilar lymphadenopathy: Code(s): R59.0 - Localized enlarged lymph nodes Status: Acute (8) Current every day vaping: Code(s): Z72.89 - Other problems related to lifestyle Status: Acute Assessment and Plan: Per patient's sister the patient has been vaping at least once per hour over the last few weeks. substances used for vaping not known. Subjective Date/time seen: 07/04/21 10:13 Respiratory status unchanged over the last 24 hours. Remaining on mechanical ventilation, IV sedatives were switched to propofol and Precedex this, FiO2 down to 40%. Tachypneic tachycardic, but hemodynamically stable. Review of Systems Review of Systems: ROS unobtainable: Yes unobtainable due to endotracheal tube, unobtainable due to medical condition, unobtainable due to mental status and other ( Review of systems is unobtainable as patient is intubated sedated on MV) Exam Narrative: GENERAL APPEARANCE: Well developed, well nourished, morbidly obese female, intubated sedated on mechanical ventilation. SKIN: Inspection of the skin reveals no rashes, ulcerations or petechiae. HEENT: Sclerae anicteric and conjunctivae pink and moist. NECK: Supple. There was no thyroid enlargement, or masses were felt. CHEST: Normal AP diameter and normal contour without any kyphoscoliosis. LUNGS: crackl
[2021-07-04 10:18] LABS: Glucose Point of Care 212 mg/dl (65-105)
--- NOTE | 2021-07-04 12:15 | PCNFU ---
Nutrition Follow-Up Complete: Inadequate Oral Intake as related to mechanical ventilation as evidenced by NPO. Goal: Meet estimated nutritional needs Patient is progressing towards goal. We will continue current goal. Pt current nutrition is Glucerna 1.2 at 60 ml/hr over 22 hours. Last recorded weight is 116.3 kg, no new weight to report. Bowel Motility:+BM reported 07/04 Labs Reviewed:Cr 0.3,BUN 35, Hct 30.1,Hgb 9.5 Meds Noted:Cymbalta, Levaquin, Propofol 24.507 ml/kx=295 kcals, Lipitor, Precedex, Lovenox, Lantus, Novolog, Reglan, Solu Medrol. Skin: WNL Additional Notes: Patient remains on mechanical vent with tube feedings of Glucerna 1.2 at 60 ml/hr and tolerating per nursing. Current tube feedings are providing 1584 kcals/79 gm protein/1063 ml water + 647 kcals from Propofol= 2231 kcals/79 gms protein/1063 ml fluid. Nursing states trying to wean Propofol. Recommend decreasing tube feedings to 50 ml/hr. Will continue to monitor propofol changes. Monitoring: Will monitor in ICU rounds, and reassess every Wednesday and Wednesday.
--- NOTE | 2021-07-04 12:16 | PM.PNCARD ---
Progress Note: A&P Additional Plan 56-year-old lady with: Acute inferior ST-elevation [place] on presentation treated emergently with challenging but successful RCA PCI. Patient unfortunately also has significant interstitial lung disease of unclear etiology. Initially the expression was vaping related lung injury. She seems to be improving very slowly with treatment and steroids. Unfortunately still require ventilator support. We will continue to follow regarding her cardiovascular status but at this time no specific cardiac issue/recommendations. Adam Weiss MD [facility] Subjective Date/time seen: Date of service: 07/04/21 12:16 Interval history: Acute inferior ST segment elevation [place] 06/27/2021 status post successful but difficult and challenging PCI of the right coronary artery because of diffuse disease, calcification and tortuosity in the target vessel. Ultimately good angiographic results with 2 drug-eluting stents. Postprocedure troponin levels only showed a modest troponin rise and echocardiogram demonstrates good left ventricular systolic function. Unfortunately she also appears to have likely vaping related lung injury and is now intubated on mechanical ventilator support. Appears to be COVID negative. Date of service 07/01/2021: Bronchoscopy was fairly unremarkable today. Appears to have some underlying interstitial lung disease as well as COPD. Still on 50% FiO2 and intubated. Telemetry shows NSR, occasional APC. Date of service 07/02/2021: Clinically unchanged still intubated on mechanical ventilation. O2 requirements slightly lower. Date of service 07/03/2021: No significant clinical changes. Ventilator requirements essentially the same, still on 50% FiO2. Unable to tolerate sedation holiday due to tachypnea. Date of service 07/04/2021: No new cardiovascular issues in the last several days. Patient remains sedated on mechanical ventilator support. Oxygenation requirements are slightly better but still requiring ventilator support. Exam Narrative: Obese female, sedated and intubated, no distress. Const: General: comfortable and no acute distress Orientation/consciousness: No patient oriented x3 (sedated) Other: Obese white female intubated sedated on mechanical ventilator support HENMT: General nose exam: Normal nares present and no epistaxis Mouth: Yes moist mucous membranes Eyes: General: appearance normal, both eyes and all related structures Sclera: sclerae normal Pupils: Equal, round and reactive pupils present Neck: Neck: supple Carotids: no bruits Other: Unable to assess for JVD given her body habitus Resp: Effort & Inspection: normal respiratory effort Auscultation: clear to auscultation bilaterally, rhonchi and diminished lung sounds Other: Breath sounds remarkably clear Cardio: Rate: regular rate Rhythm: regular rhythm Heart sounds: no gallops, no murmurs and no rubs Peripheral pulses: Peripheral pulses 2+ throughout Other: PMI not palpable no murmur no gallop GI: Auscultation: normal bowel sounds Urinary Catheter: Urinary Catheter: patent and draining and urine clear Skin: General skin exam: normal color, no rashes or lesions noted and no erythema Other: Warm Neuro: General: No patient oriented x3 (sedated) Cranial nerves: Yes Equal, round and reactive pupils present Cognition (Neuro): abnormal cognition and abnormal cognition Speech: normal speech Other: Sedated Extrem: General: normal to inspection, edema and no pedal edema Other: Mild lower extremity edema Psych: Mental Status: mental status grossly abnormal Objective Data Vital Signs Vital Signs: Vital Signs - 24 hr 07/03/21 12:39 07/03/21 14:00 07/03/21 14:19 Temperature 38.2 C H 38.1 C H Pulse Rate 100 113 H Respiratory Rate 30 H 30 H Blood Pressure 139/64 Pulse Oximetry 92 07/03/21 14:23 07/03/21 14:25 07/03/21 14:26 Temperature Pulse Rate 107 H 121 H 118 H Respiratory Rate 30 H 32 H Blood
[2021-07-04 13:28] LABS: Glucose Point of Care 300 mg/dl (65-105)
[2021-07-04] MEDS: dexmedeTOMIDine 400 MCG/100 ML 400 MCG/100 ML BAG 20.35 MCG IV CONT (13:35)
[2021-07-04] MEDS: ACETAMINOPHEN 500 MG TABLET PO (13:38)
--- NOTE | 2021-07-04 14:50 | WPDINTPN ---
Progress Note: A&P Assessment and Plan (1) Acute respiratory failure with hypoxia: Code(s): J96.01 - Acute respiratory failure with hypoxia Status: Acute Assessment and Plan: Patient with acute respiratory failure likely related to pneumonia, possible COVID-19, EVALI (pt vapes) also could be related to interstitial lung and pneumococcal pneumonia -patient was on high-flow therapy, using accessory muscles of respiration, was finally intubated on 06/29/2021 -06/28 SARS-CoV-2 PCR negative -urine pneumococcal antigen was positive -patient was initially started on vancomycin and Levaquin on 06/28/2021. Later Flagyl was added by Pulmonary -currently off of vancomycin and Flagyl and will continue Levaquin for pneumococcal coverage as patient is allergic to cephalosporins -patient was given a dose of Solu-Medrol 125 mg IV x1 on 06/29 and 06/30. Continue Solu-Medrol per pulmonary recommendations for possible EVALI or ILD exacerbation. -currently on CMV mode of ventilation, peep of 8, 40% FiO2. -chest x-ray reviewed shows n improvement in infiltrate - ABGs reviewed -appreciate pulmonary evaluation recommendation - Sedated with propofol infusion. I performed a sedation holiday but patient quickly became tachypneic in asynchronous with the vent and respiratory rate was in high 30s preventing any weaning trial at this time. After discussion with Pulmonary Nicoderm patch was placed as patient is a smoker and may help. will also add Precedex infusion to rule out any anxiety component -continue Lasix today 05/27: CTA chest PE protocol did not show any large central pulmonary embolism evaluation of peripheral pulmonary arteries is limited due to extensive airspace disease and motion artifact. Extensive bilateral airspace disease consistent with pneumonia. 3.4 cm right lower lobe pleural-based mass with air bronchograms. This may represent focal masslike airspace consolidation secondary to underlying pneumonia, although malignancy is not excluded. Prominent mediastinal and right hilar lymphadenopathy which may be reactive, although metastatic disease and lymphoma are not excluded (2) Pneumonia: Qualifiers: Laterality: bilateral Lung location: unspecified part of lung Pneumonia type: due to unspecified organism Qualified Code(s): J18.9 - Pneumonia, unspecified organism Code(s): J18.9 - Pneumonia, unspecified organism Status: Acute Assessment and Plan: Patient had a bronchoscopy earlier today which showed essentially normal bronchial tree with no evidence of erythematous changes, diffuse mucosal edema, or increased amount of bronchial secretions. A small submucosal nodular lesion was found right at the RML orifice, causing mild narrowing of the RML bronchus. The superior segment of the right lower lobe appeared edematous with thickened bronchial mucosa also causing narrowing of the segment. -urine pneumococcal antigen was positive -pulmonary is following -continue antibiotics as above (3) ST elevation (STEMI) myocardial infarction: Code(s): I21.3 - ST elevation (STEMI) myocardial infarction of unspecified site Status: Acute Assessment and Plan: Patient presented the ED with shortness of breath along with chest pain, EKG showed acute inferior ST-elevation [place] status post PTCA/PCI with DESIRE x1 to proximal RCA and DESIRE x1 to mid RCA (likely culprit lesion of STEMI) -cardiology following the patient closely, continue aspirin, Brilinta, atorvastatin, (4) Suspected 2019 novel coronavirus infection: Code(s): Z20.822 - Contact with and (suspected) exposure to COVID-19 Status: Acute Assessment and Plan: Given worsening of shortness of breadth 3 days, CT a and chest x-ray reviewed as above. Patient has been vaccinated with Pfizer x2 doses -LDH, D-dimer and ferritin all elevated -CRP 17.6 -06/28 SARS-CoV-2 PCR swab is negative, 06/29 repeat PCR also negative (5) UTI (urinary tract infe
[2021-07-04] MEDS: dexmedeTOMIDine 400 MCG/100 ML 400 MCG/100 ML BAG 43.61 MCG IV CONT ×4 (16:25→22:32)
[2021-07-04 17:42] LABS: Glucose Point of Care 324 mg/dl (65-105)
[2021-07-04] MEDS: PROPOFOL IV EMULSION 100 ML 10.5 MG IV CONT (18:32)
[2021-07-04] MEDS: TOPIRAMATE 25 MG TABLET PO (20:10)
[2021-07-04] MEDS: INSULIN GLARGINE (*BKC) 100 UNITS/ML 30 UNITS SUB-Q (21:30)
[2021-07-04 21:36] LABS: Glucose Point of Care 249 mg/dl (65-105)
[2021-07-04 23:43] LABS: Glucose Point of Care 281 mg/dl (65-105)
[2021-07-05] VITALS (48 sets, daily range): BP systolic 104–160; BP diastolic 36–67; PULSE 49–82; RESP 27–40; TEMP 37.1–38.4; O2SAT 90–100
[2021-07-05] MEDS: METOCLOPRAMIDE HCL 10 MG/10 ML SOLN UDC PO ×5 (00:06→21:32)
[2021-07-05] MEDS: INSULIN ASPART (*BKC) 100 UNITS/ML SUB-Q ×6 (00:25→21:21)
[2021-07-05] MEDS: dexmedeTOMIDine 400 MCG/100 ML 400 MCG/100 ML BAG 43.61 MCG IV CONT ×6 (01:05→13:41)
[2021-07-05] MEDS: LEVALBUTEROL NEB 1.25 MG/3 ML 0.63 MG INHALATION ×4 (02:15→21:48)
[2021-07-05] MEDS: PROPOFOL IV EMULSION 100 ML 10.5 MG IV CONT ×2 (03:18→10:01)
[2021-07-05 04:51] LABS: Hemoglobin 9.4 g/dL (12.0-15.0); Mean Corpuscular HGB Conc 31.3 g/dl (32-36); Mean Corpuscular Hemoglobin 33.9 pg (26-34); Mean Corpuscular Volume 108.3 fl (80-100); Mean Platelet Volume 9.9 fl (7.4-10.4); Platelet Count Result 177 k/mm3 (150-375); Red Blood Count 2.77 M/mm3 (4.2-5.4); Red Cell Distribution Width 16.3 % (11.5-14.5); White Blood Count 12.7 K/mm3 (4.5-10.0)
[2021-07-05] MEDS: CENTRAL LINE FLUSH 10 ML IV PUSH ×3 (04:53→21:31)
[2021-07-05 05:22] LABS: Alveolar/Arterial O2 Gradient 162.2 mmHg; Base Excess ABG 3.2 mEq/l (+/-2.0); Carboxyhemoglobin 0.5 % THb (0-2.0); Fractional Inspired Oxygen 40 %; HCO3 ABG 26.2 mEq/l (22.0-26.0); Methemoglobin ABG 0.5 %THb (0-1.5); Oxygen Content ABG 18.5 %vol (16.0-22.0); Oxyhemoglobin 94.9 % THb (90.0-100.0); PCO2 ABG 34.9 mmHg (35.0-45.0); PO2 ABG 82.9 mmHg (80.0-100.0); PO2 FiO2 Ratio Arterial Blood 2.07 %; Reduced Hemoglobin 4.1 %THb (0-5.0); Total Hemoglobin 13.8 g/dL (12.0-18.0); pH ABG 7.493 (7.350-7.450)
[2021-07-05 05:23] LABS: Arterial Blood Gas PEEP 8 cmH2O; Arterial Blood Gas Tidal Volume 380 ml; Arterial Blood Gas Vent Mode CMV; Arterial Blood Gas Ventilator rate 30 /MIN; Device VENTILATOR; Modified Allen's Test Pass; Site Drawn LEFT RADIAL
[2021-07-05 05:26] LABS: Alanine Aminotransferase 15 U/L (4-35); Albumin Level 3.4 g/dL (3.5-5.1); Alkaline Phosphatase 93 U/L (38-126); Anion Gap 6 mmol/L (8-16); Aspartate Amino Transferase 38 U/L (14-36); Bilirubin,Total 0.5 mg/dL (0.2-1.3); Blood Urea Nitrogen 30 mg/dL (7-17); Calcium 9.4 mg/dL (8.4-10.2); Carbon Dioxide 33 mmol/L (22-30); Chloride 99 mmol/L (98-107); Estimated CRCL calculation 114 ml/min; Estimated Glomerular Filt Rate > 60; Glucose 220 mg/dL (65-110); Magnesium 2.4 mg/dL (1.6-2.3); Potassium 3.8 mmol/L (3.4-5.0); Sodium 138 mmol/L (137-145)
[2021-07-05 05:27] LABS: Glucose Point of Care 232 mg/dl (65-105)
--- NOTE | 2021-07-05 08:53 | PM.PNCARD ---
Progress Note: A&P Assessment and Plan (1) ST elevation (STEMI) myocardial infarction: Code(s): I21.3 - ST elevation (STEMI) myocardial infarction of unspecified site Status: Acute Assessment and Plan: Acute inferior STEMI on June 27 treated with 2 RCA stents, good LV function. Hemodynamically stable. Continue guideline directed therapy with aspirin, Brilinta, atorvastatin. Unable to add beta-loyd due to bradycardia. BP relatively stable. Hold off on JHON-inhibitor today. No new cardiovascular issues at this time. 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 Appreciate pulmonology involvement and recommendations as well. CT scan today. Patient remains critically ill predominantly due to respiratory failure requiring mechanical ventilatory support. Continue to attempt to wean ventilatory support as tolerated. (3) Fever: Code(s): R50.9 - Fever, unspecified Status: Acute Assessment and Plan: Blood culture today. Negative to date. (4) Anemia: Code(s): D64.9 - Anemia, unspecified Status: Acute Assessment and Plan: Hemoglobin stable. No evidence of active bleed. Continue to follow H& H. Continue dual antiplatelet therapy. (5) Interstitial lung disease: Code(s): J84.9 - Interstitial pulmonary disease, unspecified Status: Acute Assessment and Plan: As above. Appreciate Critical Care and pulmonology recommendations. (6) Diabetes: Code(s): E11.9 - Type 2 diabetes mellitus without complications Status: Acute Assessment and Plan: Continue present management. Subjective Date/time seen: Follow-up for acute inferior ST-elevation CT 07/05/21 08:53 Interval history: Acute inferior ST segment elevation CT 06/27/2021 status post successful but difficult and challenging PCI of the right coronary artery because of diffuse disease, calcification and tortuosity in the target vessel. Ultimately good angiographic results with 2 drug-eluting stents. Postprocedure troponin levels only showed a modest troponin rise and echocardiogram demonstrates good left ventricular systolic function. Unfortunately she also appears to have likely vaping related lung injury and is now intubated on mechanical ventilator support. Appears to be COVID negative. 07/01/2021: Bronchoscopy was fairly unremarkable today. Appears to have some underlying interstitial lung disease as well as COPD. Still on 50% FiO2 and intubated. Telemetry shows NSR, occasional APC. 07/02/2021: Clinically unchanged still intubated on mechanical ventilation. O2 requirements slightly lower. 07/03/2021: No significant clinical changes. Ventilator requirements essentially the same, still on 50% FiO2. Unable to tolerate sedation holiday due to tachypnea. 07/04/2021: No new cardiovascular issues in the last several days. Patient remains sedated on mechanical ventilator support. Oxygenation requirements are slightly better but still requiring ventilator support. Date of service 07/05/2021: Remains intubated. Low-grade fever this morning. CT scan scheduled. Remains intubated, sedated. Unable provide history. Sinus rhythm/bradycardia on telemetry. Hemodynamically stable. Review of Systems Review of Systems: All systems reviewed & are unremarkable except as noted in HPI and below ROS unobtainable: Yes unobtainable due to endotracheal tube, unobtainable due to medical condition and unobtainable due to mental status Constitutional: Constitutional: Reports no additional constitutional complaints Gastrointestinal: Gastrointestinal: Denies melena and Denies hematochezia Genitourinary: Genitourinary: Denies
[2021-07-05] MEDS: IPRATROPIUM BR 0.02% INH SOLN 0.5 MG/2.5 ML VIAL INHALATION ×3 (09:26→21:33)
[2021-07-05] MEDS: ATORVASTATIN 40 MG TABLET 80 MG PO (09:27)
[2021-07-05] MEDS: ASPIRIN 81 MG ENTERIC TABLET PO (09:27)
[2021-07-05] MEDS: ENOXAPARIN 40 MG/0.4 ML SYRINGE SUB-Q (09:28)
[2021-07-05] MEDS: DULoxetine HCL 60 MG CAPSULE.DR PO ×2 (09:28→16:55)
[2021-07-05] MEDS: methylPREDNISolone SOD SUCC 40 MG VIAL IV PUSH (09:29)
[2021-07-05] MEDS: TICAGRELOR 90 MG TABLET PO ×2 (09:30→21:31)
[2021-07-05] MEDS: MINERAL OIL/WHITE PETROLATUM OINTMENT 1 APPLIC EACH EYE ×2 (09:32→21:31)
[2021-07-05] MEDS: NICOTINE (*PBKC) 14 MG PATCH 1 PATCH TRANSDERM (09:58)
[2021-07-05] MEDS: INSULIN GLARGINE (*BKC) 100 UNITS/ML 60 UNITS SUB-Q (10:22)
[2021-07-05 10:30] LABS: Glucose Point of Care 234 mg/dl (65-105)
--- NOTE | 2021-07-05 13:16 | WPDINTPN ---
Progress Note: A&P Assessment and Plan (1) Acute respiratory failure with hypoxia: Code(s): J96.01 - Acute respiratory failure with hypoxia Status: Acute Assessment and Plan: Patient with acute respiratory failure likely related to pneumonia, possible COVID-19, EVALI (pt vapes) also could be related to interstitial lung and pneumococcal pneumonia -patient was on high-flow therapy, using accessory muscles of respiration, was finally intubated on 06/29/2021 -06/28 SARS-CoV-2 PCR negative -urine pneumococcal antigen was positive -patient was initially started on vancomycin and Levaquin on 06/28/2021. Later Flagyl was added by Pulmonary -currently off of vancomycin and Flagyl and will continue Levaquin for pneumococcal coverage as patient is allergic to cephalosporins -patient was given a dose of Solu-Medrol 125 mg IV x1 on 06/29 and 06/30. Continue Solu-Medrol per pulmonary recommendations for possible EVALI or ILD exacerbation. -currently on CMV mode of ventilation, peep of 8, 40% FiO2. -chest x-ray reviewed shows improvement in infiltrate - ABGs reviewed -appreciate pulmonary evaluation recommendation - Sedated with propofol infusion. I performed a sedation holiday but patient quickly became tachypneic in asynchronous with the vent and respiratory rate was in high 30s preventing any weaning trial at this time. Patient is also on Precedex infusion -continue Lasix today 05/27: CTA chest PE protocol did not show any large central pulmonary embolism evaluation of peripheral pulmonary arteries is limited due to extensive airspace disease and motion artifact. Extensive bilateral airspace disease consistent with pneumonia. 3.4 cm right lower lobe pleural-based mass with air bronchograms. This may represent focal masslike airspace consolidation secondary to underlying pneumonia, although malignancy is not excluded. Prominent mediastinal and right hilar lymphadenopathy which may be reactive, although metastatic disease and lymphoma are not excluded (2) Pneumonia: Qualifiers: Laterality: bilateral Lung location: unspecified part of lung Pneumonia type: due to unspecified organism Qualified Code(s): J18.9 - Pneumonia, unspecified organism Code(s): J18.9 - Pneumonia, unspecified organism Status: Acute Assessment and Plan: Patient had a bronchoscopy earlier today which showed essentially normal bronchial tree with no evidence of erythematous changes, diffuse mucosal edema, or increased amount of bronchial secretions. A small submucosal nodular lesion was found right at the RML orifice, causing mild narrowing of the RML bronchus. The superior segment of the right lower lobe appeared edematous with thickened bronchial mucosa also causing narrowing of the segment. -urine pneumococcal antigen was positive -pulmonary is following -continue antibiotics as above (3) ST elevation (STEMI) myocardial infarction: Code(s): I21.3 - ST elevation (STEMI) myocardial infarction of unspecified site Status: Acute Assessment and Plan: Patient presented the ED with shortness of breath along with chest pain, EKG showed acute inferior ST-elevation [place] status post PTCA/PCI with DESIRE x1 to proximal RCA and DESIRE x1 to mid RCA (likely culprit lesion of STEMI) -cardiology following the patient closely, continue aspirin, Brilinta, atorvastatin, (4) Suspected 2019 novel coronavirus infection: Code(s): Z20.822 - Contact with and (suspected) exposure to COVID-19 Status: Acute Assessment and Plan: Given worsening of shortness of breadth 3 days, CT a and chest x-ray reviewed as above. Patient has been vaccinated with Pfizer x2 doses -LDH, D-dimer and ferritin all elevated -CRP 17.6 -06/28 SARS-CoV-2 PCR swab is negative, 06/29 repeat PCR also negative (5) UTI (urinary tract infection): Code(s): N39.0 - Urinary tract infection, site not specified Status: Acute Assessment and Plan:
[2021-07-05 13:48] LABS: Glucose Point of Care 307 mg/dl (65-105)
--- NOTE | 2021-07-05 14:44 | PM.PNPUL ---
Progress Note: A&P Assessment and Plan (1) Acute respiratory failure with hypoxia: Code(s): J96.01 - Acute respiratory failure with hypoxia Status: Acute Assessment and Plan: Rrespiratory status stable over the last 24 hours. Patient now on FiO2 of 40%. A chest x-ray done earlier today showed definite partial clearing of infiltrates compared to the x-ray taken on June 27, but no appreciable change since yesterday.. There is persistent right hilar lymphadenopathy which could be due to metastatic disease related to the bronchial lesions seen on bronchoscopy. Pneumococcal antigen detected in urine. Clinical significance of positive pneumococcal antigen unclear at this point. She has been on antibiotics for possible lower respiratory tract infection covering Strep pneumonia. Serology testing negative for underlying autoimmune disease. Negative Pneumocystis and influenza tests. Negative Mycoplasma serology for recent infection. Will continue with levofloxacin, Solu-Medrol 60 mg IV daily. Sputum culture pending. Flaccid extremities, and tachypnea may be due to critical illness polyneuropathy. Nicotine patch added to her regimen. (2) Interstitial lung disease: Code(s): J84.9 - Interstitial pulmonary disease, unspecified Status: Acute Assessment and Plan: Patient will need follow-up also for interstitial lung disease detected by chest imaging studies over the last year. (3) Pneumonia: Qualifiers: Laterality: bilateral Lung location: unspecified part of lung Pneumonia type: due to unspecified organism Qualified Code(s): J18.9 - Pneumonia, unspecified organism Code(s): J18.9 - Pneumonia, unspecified organism Status: Acute Assessment and Plan: Stable oxygenation and infiltrates (4) Chronic obstructive pulmonary disease: Qualifiers: COPD type: unspecified COPD Qualified Code(s): J44.9 - Chronic obstructive pulmonary disease, unspecified Code(s): J44.9 - Chronic obstructive pulmonary disease, unspecified Status: Acute Assessment and Plan: Patient carries a diagnosis of COPD. She will need follow-up on outpatient basis with pulmonary function testing. (5) History of tobacco abuse: Code(s): Z87.891 - Personal history of nicotine dependence Status: Acute (6) Lung nodule: Code(s): R91.1 - Solitary pulmonary nodule Status: Acute Assessment and Plan: Following improvement of respiratory failure, the patient will need repeat bronchoscopy to biopsy the right middle lobe nodular lesion and also the superior segment of the right lower lobe thickened mucosa. (7) Hilar lymphadenopathy: Code(s): R59.0 - Localized enlarged lymph nodes Status: Acute Assessment and Plan: (8) Current every day vaping: Code(s): Z72.89 - Other problems related to lifestyle Status: Acute Assessment and Plan: Per patient's sister the patient has been vaping at least once per hour over the last few weeks. substances used for vaping not known. Subjective Date/time seen: 07/05/21 14:44 This 56 year old female ia seen in follow up for acute respiratory failure, intubated, sedated with propofol 20 mcg and precedex 1.5; she becomes bradycardic. Sedation is being decreased as tolerated however she gets agitated easily and has required fair amounts of sedatives to tolerate ETT. Low grade fever. Review of Systems Review of System
[2021-07-05] MEDS: dexmedeTOMIDine 400 MCG/100 ML 400 MCG/100 ML BAG 34.89 MCG IV CONT ×3 (15:08→23:22)
[2021-07-05] MEDS: PROPOFOL IV EMULSION 100 ML 35.01 MG IV CONT (15:39)
[2021-07-05] MEDS: fentaNYL CITRATE INJ (*CRX) 100 MCG/2 ML VIAL 50 MCG IV PUSH ×2 (15:47→18:55)
[2021-07-05 16:49] LABS: Glucose Point of Care 369 mg/dl (65-105)
[2021-07-05] MEDS: PROPOFOL IV EMULSION 100 ML 31.51 MG IV CONT (18:38)
[2021-07-05] MEDS: dexmedeTOMIDine 400 MCG/100 ML 400 MCG/100 ML BAG 37.8 MCG IV CONT (21:22)
[2021-07-05] MEDS: INSULIN GLARGINE (*BKC) 100 UNITS/ML 30 UNITS SUB-Q (21:27)
[2021-07-05] MEDS: TOPIRAMATE 25 MG TABLET PO (21:31)
[2021-07-05 21:50] LABS: Glucose Point of Care 341 mg/dl (65-105)
[2021-07-05] MEDS: PROPOFOL IV EMULSION 100 ML 28.01 MG IV CONT (22:06)
[2021-07-06] VITALS (55 sets, daily range): BP systolic 90–123; BP diastolic 38–55; PULSE 54–71; RESP 30–39; TEMP 37.4–37.8; O2SAT 93–100
[2021-07-06] MEDS: fentaNYL CITRATE INJ (*CRX) 100 MCG/2 ML VIAL 50 MCG IV PUSH ×2 (00:05→18:10)
[2021-07-06] MEDS: INSULIN ASPART (*BKC) 100 UNITS/ML SUB-Q ×4 (00:39→20:44)
[2021-07-06 00:57] LABS: Glucose Point of Care 251 mg/dl (65-105)
[2021-07-06] MEDS: PROPOFOL IV EMULSION 100 ML 28.01 MG IV CONT ×4 (01:17→15:29)
[2021-07-06] MEDS: dexmedeTOMIDine 400 MCG/100 ML 400 MCG/100 ML BAG 40.71 MCG IV CONT (02:17)
[2021-07-06] MEDS: LEVALBUTEROL NEB 1.25 MG/3 ML 0.63 MG INHALATION ×4 (02:38→20:17)
[2021-07-06] MEDS: IPRATROPIUM BR 0.02% INH SOLN 0.5 MG/2.5 ML VIAL INHALATION ×4 (02:39→20:17)
[2021-07-06] MEDS: dexmedeTOMIDine 400 MCG/100 ML 400 MCG/100 ML BAG 43.61 MCG IV CONT ×2 (04:33→06:39)
[2021-07-06] MEDS: METOCLOPRAMIDE HCL 10 MG/10 ML SOLN UDC PO ×4 (04:52→22:27)
[2021-07-06] MEDS: CENTRAL LINE FLUSH 10 ML IV PUSH ×3 (04:52→20:46)
[2021-07-06 04:58] LABS: Glucose Point of Care 186 mg/dl (65-105)
[2021-07-06 05:23] LABS: Hematocrit 24.7 % (37.0-47.0); Hemoglobin 8.5 g/dL (12.0-15.0); Mean Corpuscular HGB Conc 34.4 g/dl (32-36); Mean Corpuscular Volume 107.4 fl (80-100); Mean Platelet Volume 10.6 fl (7.4-10.4); Platelet Count Result 141 k/mm3 (150-375)
[2021-07-06 05:27] LABS: Alveolar/Arterial O2 Gradient 145.9 mmHg; Base Excess ABG 4.7 mEq/l (+/-2.0); Carboxyhemoglobin 0.3 % THb (0-2.0); Fractional Inspired Oxygen 40 %; HCO3 ABG 29.6 mEq/l (22.0-26.0); Methemoglobin ABG 0.3 %THb (0-1.5); Modified Allen's Test Unable to perform; Oxygen Content ABG 16.4 %vol (16.0-22.0); Oxygen Saturation ABG 96.8 % (95.0-100.0); Oxyhemoglobin 94.8 % THb (90.0-100.0); PCO2 ABG 45.1 mmHg (35.0-45.0); PO2 ABG 87.4 mmHg (80.0-100.0); PO2 FiO2 Ratio Arterial Blood 2.18 %; Reduced Hemoglobin 4.6 %THb (0-5.0); Site Drawn LEFT RADIAL; Total Hemoglobin 12.2 g/dL (12.0-18.0); pH ABG 7.435 (7.350-7.450)
[2021-07-06 05:28] LABS: Device VENTILATOR
[2021-07-06 05:29] LABS: Arterial Blood Gas PEEP 8 cmH2O; Arterial Blood Gas Tidal Volume 380 ml; Arterial Blood Gas Vent Mode CMV; Arterial Blood Gas Ventilator rate 30 /MIN
[2021-07-06 05:39] LABS: Alanine Aminotransferase 14 U/L (4-35); Albumin Level 2.7 g/dL (3.5-5.1); Alkaline Phosphatase 72 U/L (38-126); Anion Gap 6 mmol/L (8-16); Aspartate Amino Transferase 39 U/L (14-36); Bilirubin,Total 0.3 mg/dL (0.2-1.3); Blood Urea Nitrogen 22 mg/dL (7-17); Calcium 8.1 mg/dL (8.4-10.2); Carbon Dioxide 26 mmol/L (22-30); Chloride 99 mmol/L (98-107); Estimated CRCL calculation 155 ml/min; Estimated Glomerular Filt Rate > 60; Glucose 184 mg/dL (65-110); Potassium 3.6 mmol/L (3.4-5.0); Sodium 131 mmol/L (137-145)
[2021-07-06] MEDS: SODIUM CHLORIDE 0.9% IV 500 ML 999 ML IV CONT (06:34)
[2021-07-06 08:20] LABS: Glucose Point of Care 177 mg/dl (65-105)
[2021-07-06] MEDS: TICAGRELOR 90 MG TABLET PO ×2 (08:28→20:45)
[2021-07-06] MEDS: NICOTINE (*PBKC) 14 MG PATCH 1 PATCH TRANSDERM (08:28)
[2021-07-06] MEDS: INSULIN GLARGINE (*BKC) 100 UNITS/ML 60 UNITS SUB-Q (08:29)
[2021-07-06] MEDS: DULoxetine HCL 60 MG CAPSULE.DR PO ×2 (08:31→16:21)
[2021-07-06] MEDS: ENOXAPARIN 40 MG/0.4 ML SYRINGE SUB-Q (08:31)
[2021-07-06] MEDS: FUROSEMIDE INJ 40 MG/4 ML VIAL IV PUSH (08:31)
[2021-07-06] MEDS: ATORVASTATIN 40 MG TABLET 80 MG PO (08:31)
[2021-07-06] MEDS: ASPIRIN 81 MG ENTERIC TABLET PO (08:32)
[2021-07-06] MEDS: dexmedeTOMIDine 400 MCG/100 ML 400 MCG/100 ML BAG 34.89 MCG IV CONT ×5 (09:31→21:25)
[2021-07-06] MEDS: MINERAL OIL/WHITE PETROLATUM OINTMENT 1 APPLIC EACH EYE ×2 (09:32→20:45)
[2021-07-06] MEDS: methylPREDNISolone SOD SUCC 40 MG VIAL IV PUSH (09:32)
[2021-07-06 10:11] LABS: Triglycerides 2436 mg/dL (<150)
[2021-07-06] MEDS: PROPOFOL IV EMULSION 100 ML 24.51 MG IV CONT (11:36)
[2021-07-06 11:52] LABS: Triglycerides 332 mg/dL (<150)
[2021-07-06 12:07] LABS: Glucose Point of Care 273 mg/dl (65-105)
--- NOTE | 2021-07-06 13:12 | WPDINTPN ---
Progress Note: A&P Assessment and Plan (1) Acute respiratory failure with hypoxia: Code(s): J96.01 - Acute respiratory failure with hypoxia Status: Acute Assessment and Plan: Patient with acute respiratory failure likely related to pneumonia, possible COVID-19, EVALI (pt vapes) also could be related to interstitial lung and pneumococcal pneumonia -patient was on high-flow therapy, using accessory muscles of respiration, was finally intubated on 06/29/2021 -06/28 SARS-CoV-2 PCR negative -urine pneumococcal antigen was positive -patient was initially started on vancomycin and Levaquin on 06/28/2021. Later Flagyl was added by Pulmonary -currently off of vancomycin and Flagyl and will continue Levaquin for pneumococcal coverage as patient is allergic to cephalosporins -patient was given a dose of Solu-Medrol 125 mg IV x1 on 06/29 and 06/30. Continue Solu-Medrol per pulmonary recommendations for possible EVALI or ILD exacerbation. 05/27: CTA chest PE protocol did not show any large central pulmonary embolism evaluation of peripheral pulmonary arteries is limited due to extensive airspace disease and motion artifact. Extensive bilateral airspace disease consistent with pneumonia. 3.4 cm right lower lobe pleural-based mass with air bronchograms. This may represent focal masslike airspace consolidation secondary to underlying pneumonia, although malignancy is not excluded. Prominent mediastinal and right hilar lymphadenopathy which may be reactive, although metastatic disease and lymphoma are not excluded 07/[address] due to fever 1. Diffuse lung disease, consistent with pulmonary edema versus pneumonia superimposed on emphysema and chronic interstitial lung disease. 2. Right lung mass, right hilar and mediastinal lymphadenopathy, and lytic lesions of bone, consistent with primary bronchogenic carcinoma and metastatic disease. -currently on CMV mode of ventilation, peep of 8, 40% FiO2. not a candidate for weaning trial due to tachypnea -chest x-ray reviewed shows improvement in infiltrate - ABGs reviewed -appreciate pulmonary evaluation recommendation.Will discuss regarding transfer to a tertiary facility for possible lung biopsy - Sedated with propofol and fentanyl infusion infusion. I performed a sedation holiday but patient quickly became tachypneic in asynchronous with the vent and respiratory rate was in high 30s preventing any weaning trial at this time. Patient is also on Precedex infusion. I will add fentanyl infusion - monitor triglyceride levels (2) Fever: Code(s): R50.9 - Fever, unspecified Status: Acute Assessment and Plan: Patient continues to have fever although they a low-grade. repeat Cultures have been sent on 07/03 and 07/05 and have been negative till now WBC also has decrease in normalized CT chest abdomen pelvis reviewed Negative lower extremity Dopplers for DVT I will continue Levaquin to cover for pneumococcus and hold further escalation in antibiotic therapy at this time (3) Pneumonia: Qualifiers: Laterality: bilateral Lung location: unspecified part of lung Pneumonia type: due to unspecified organism Qualified Code(s): J18.9 - Pneumonia, unspecified organism Code(s): J18.9 - Pneumonia, unspecified organism Status: Acute Assessment and Plan: Patient had a bronchoscopy earlier today which showed essentially normal bronchial tree with no evidence of erythematous changes, diffuse mucosal edema, or increased amount of bronchial secretions. A small submucosal nodular lesion was found right at the RML orifice, causing mild narrowing of the RML bronchus. The superior segment of the right lower lobe appeared edematous with thickened bronchial mucosa also causing narrowing of the segment. -urine pneumococcal antigen was positive -pulmonary is following -continue antibiotics as above (4) ST elevation (STEMI) myocardial infarction: Code(s): I2
--- NOTE | 2021-07-06 14:31 | PM.PNPUL ---
Progress Note: A&P Assessment and Plan (1) Acute respiratory failure with hypoxia: Code(s): J96.01 - Acute respiratory failure with hypoxia Status: Acute Assessment and Plan: Rrespiratory status stable over the last 24 hours. Patient now on FiO2 of 40%. A chest x-ray done earlier today showed definite partial clearing of infiltrates compared to the x-ray taken on June 27, but no appreciable change since yesterday.. There is persistent right hilar lymphadenopathy which could be due to metastatic disease related to the bronchial lesions seen on bronchoscopy. Pneumococcal antigen detected in urine. Clinical significance of positive pneumococcal antigen unclear at this point. She has been on antibiotics for possible lower respiratory tract infection covering Strep pneumonia. Serology testing negative for underlying autoimmune disease. Negative Pneumocystis and influenza tests. Negative Mycoplasma serology for recent infection. Will continue with levofloxacin, Solu-Medrol 60 mg IV daily. Sputum culture pending. Flaccid extremities, and tachypnea may be due to critical illness polyneuropathy. Nicotine patch added to her regimen. (2) Interstitial lung disease: Code(s): J84.9 - Interstitial pulmonary disease, unspecified Status: Acute Assessment and Plan: Patient will need follow-up also for interstitial lung disease detected by chest imaging studies over the last year. (3) Pneumonia: Qualifiers: Laterality: bilateral Lung location: unspecified part of lung Pneumonia type: due to unspecified organism Qualified Code(s): J18.9 - Pneumonia, unspecified organism Code(s): J18.9 - Pneumonia, unspecified organism Status: Acute Assessment and Plan: Stable oxygenation and infiltrates (4) Chronic obstructive pulmonary disease: Qualifiers: COPD type: unspecified COPD Qualified Code(s): J44.9 - Chronic obstructive pulmonary disease, unspecified Code(s): J44.9 - Chronic obstructive pulmonary disease, unspecified Status: Acute Assessment and Plan: Patient carries a diagnosis of COPD. She will need follow-up on outpatient basis with pulmonary function testing. (5) History of tobacco abuse: Code(s): Z87.891 - Personal history of nicotine dependence Status: Acute (6) Lung nodule: Code(s): R91.1 - Solitary pulmonary nodule Status: Acute Assessment and Plan: Following improvement of respiratory failure, the patient will need repeat bronchoscopy to biopsy the right middle lobe nodular lesion and also the superior segment of the right lower lobe thickened mucosa, or possibly the mediastinal lymph node. Because she is on significant vent support, she may not be easy to extubate. She is on a set rate of 30, FiO2 0.4 and PEEP 8. Will let Dr Snow discuss with Dr Gaytan possibility of bronchoscopy while she is on the vent for mediastinal lymph node biopsy for diagnosis of cancer. There is no lesion in the abdomen for biopsy. (7) Hilar lymphadenopathy: Code(s): R59.0 - Localized enlarged lymph nodes Status: Acute Assessment and Plan: (8) Current every day vaping: Code(s): Z72.89 - Other problems related to lifestyle Status: Acute Assessment and Plan: Per patient's sister the patient has been vaping at least once per hour over the last few weeks. substances used for vaping not known. Subjective Date/time seen: 07/06
--- NOTE | 2021-07-06 14:44 | PM.PNCARD ---
Progress Note: A&P Assessment and Plan (1) ST elevation (STEMI) myocardial infarction: Code(s): I21.3 - ST elevation (STEMI) myocardial infarction of unspecified site Status: Acute Assessment and Plan: Acute inferior STEMI on June 27 treated with 2 RCA stents, good LV function. Hemodynamically stable. Continue guideline directed therapy with aspirin, Brilinta, atorvastatin. Unable to add beta-loyd due to bradycardia. BP relatively stable. Hold off on JHON-inhibitor No new cardiovascular issues at this time. Continue aspirin, Brilinta, atorvastatin. Patient remains critically ill. Prognosis guarded. 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 Greatly appreciate critical care and pulmonology involvement and recommendations as well. CT scan today. Patient remains critically ill predominantly due to respiratory failure requiring mechanical ventilatory support. Continue to attempt to wean ventilatory support as tolerated. On levofloxacin. Solu-Medrol. Possible ILD. Negative for PE on CT angiogram although limited due to motion artifact bilateral airspace disease pneumonia pleural-based mass 3.4 cm can not exclude malignancy with prominent mediastinal and right hilar lymphadenopathy possible metastatic disease. Diuresing well albeit with relative hypotension. May need to hold off on subsequent diuresis. (3) Fever: Code(s): R50.9 - Fever, unspecified Status: Acute Assessment and Plan: She continues with low-grade fevers, blood cultures Negative to date. (4) Anemia: Code(s): D64.9 - Anemia, unspecified Status: Acute Assessment and Plan: She remains anemic, Hemoglobin relatively stable. No evidence of active bleed. Continue to follow H& H. Continue dual antiplatelet therapy. Platelet count declining continue to monitor closely. (5) Interstitial lung disease: Code(s): J84.9 - Interstitial pulmonary disease, unspecified Status: Acute Assessment and Plan: As above. Appreciate Critical Care and pulmonology recommendations. (6) Diabetes: Code(s): E11.9 - Type 2 diabetes mellitus without complications Status: Acute Assessment and Plan: Continue present management. Initial triglycerides draw lab error [id number] repeat 332. Subjective Date/time seen: Date of service: 07/06/21 14:44 Interval history: Acute inferior ST segment elevation [place] 06/27/2021 status post successful but difficult and challenging PCI of the right coronary artery because of diffuse disease, calcification and tortuosity in the target vessel. Ultimately good angiographic results with 2 drug-eluting stents. Postprocedure troponin levels only showed a modest troponin rise and echocardiogram demonstrates good left ventricular systolic function. Unfortunately she also appears to have likely vaping related lung injury and is now intubated on mechanical ventilator support. Appears to be COVID negative. 07/01/2021: Bronchoscopy was fairly unremarkable today. Appears to have some underlying interstitial lung disease as well as COPD. Still on 50% FiO2 and intubated. Telemetry shows NSR, occasional APC. 07/02/2021: Clinically unchanged still intubated on mechanical ventilation. O2 requirements slightly lower. 07/03/2021: No significant clinical changes. Ventilator requirements essentially the same, still on 50% FiO2. Unable to tolerate sedation holiday due to tachypnea. 07/04/2021: No new cardiovascular issues in the last several days. Patient remains sedated on mechanical ventilator support. Oxygenation requirements are slightly better but still requiring ventilator support. 07/05/2021: Remains
[2021-07-06 16:07] LABS: Glucose Point of Care 353 mg/dl (65-105)
[2021-07-06] MEDS: PROPOFOL IV EMULSION 100 ML 31.51 MG IV CONT ×2 (18:53→22:20)
[2021-07-06] MEDS: INSULIN GLARGINE (*BKC) 100 UNITS/ML 30 UNITS SUB-Q (20:44)
[2021-07-06] MEDS: TOPIRAMATE 25 MG TABLET PO (20:45)
[2021-07-06 21:00] LABS: Glucose Point of Care 298 mg/dl (65-105)
[2021-07-07] VITALS (52 sets, daily range): BP systolic 96–120; BP diastolic 47–59; PULSE 50–81; RESP 24–95; TEMP 37.3–37.7; O2SAT 9–100
[2021-07-07] MEDS: dexmedeTOMIDine 400 MCG/100 ML 400 MCG/100 ML BAG 34.89 MCG IV CONT ×5 (00:13→16:51)
[2021-07-07] MEDS: PROPOFOL IV EMULSION 100 ML 31.51 MG IV CONT ×2 (01:12→03:51)
[2021-07-07] MEDS: INSULIN ASPART (*BKC) 100 UNITS/ML SUB-Q ×4 (01:14→20:27)
[2021-07-07 01:59] LABS: Glucose Point of Care 272 mg/dl (65-105)
[2021-07-07] MEDS: LEVALBUTEROL NEB 1.25 MG/3 ML 0.63 MG INHALATION ×4 (02:22→19:56)
[2021-07-07] MEDS: IPRATROPIUM BR 0.02% INH SOLN 0.5 MG/2.5 ML VIAL INHALATION ×4 (02:22→19:56)
[2021-07-07] MEDS: CENTRAL LINE FLUSH 10 ML IV PUSH ×3 (05:12→20:10)
[2021-07-07] MEDS: METOCLOPRAMIDE HCL 10 MG/10 ML SOLN UDC PO ×4 (05:12→23:07)
[2021-07-07 05:21] LABS: Alveolar/Arterial O2 Gradient 164.6 mmHg; Base Excess ABG 2.3 mEq/l (+/-2.0); Carboxyhemoglobin 0.3 % THb (0-2.0); Fractional Inspired Oxygen 40 %; HCO3 ABG 26.6 mEq/l (22.0-26.0); Methemoglobin ABG 0.3 %THb (0-1.5); Oxygen Saturation ABG 95.3 % (95.0-100.0); Oxyhemoglobin 92.8 % THb (90.0-100.0); PCO2 ABG 40.4 mmHg (35.0-45.0); PO2 ABG 74.1 mmHg (80.0-100.0); PO2 FiO2 Ratio Arterial Blood 1.85 %; Reduced Hemoglobin 6.6 %THb (0-5.0); Total Hemoglobin 9.9 g/dL (12.0-18.0); pH ABG 7.437 (7.350-7.450)
[2021-07-07 05:23] LABS: Device VENTILATOR; Modified Allen's Test Unable to perform; Site Drawn LEFT RADIAL
[2021-07-07 05:24] LABS: Arterial Blood Gas PEEP 8 cmH2O; Arterial Blood Gas Tidal Volume 380 ml; Arterial Blood Gas Vent Mode CMV; Arterial Blood Gas Ventilator rate 30 /MIN
[2021-07-07 05:46] LABS: Glucose Point of Care 172 mg/dl (65-105)
[2021-07-07 05:53] LABS: Hematocrit 29.3 % (37.0-47.0); Hemoglobin 9.3 g/dL (12.0-15.0); Mean Corpuscular HGB Conc 31.7 g/dl (32-36); Mean Corpuscular Hemoglobin 34.6 pg (26-34); Mean Corpuscular Volume 108.9 fl (80-100); Mean Platelet Volume 10.5 fl (7.4-10.4); Platelet Count Result 169 k/mm3 (150-375); Red Blood Count 2.69 M/mm3 (4.2-5.4); Red Cell Distribution Width 15.9 % (11.5-14.5); White Blood Count 13.1 K/mm3 (4.5-10.0)
[2021-07-07 06:07] LABS: Alanine Aminotransferase 17 U/L (4-35); Alkaline Phosphatase 84 U/L (38-126); Anion Gap 7 mmol/L (8-16); Aspartate Amino Transferase 45 U/L (14-36); Bilirubin,Total 0.5 mg/dL (0.2-1.3); Blood Urea Nitrogen 21 mg/dL (7-17); Calcium 9.1 mg/dL (8.4-10.2); Carbon Dioxide 31 mmol/L (22-30); Chloride 101 mmol/L (98-107); Estimated CRCL calculation 128 ml/min; Estimated Glomerular Filt Rate > 60; Glucose 187 mg/dL (65-110); Magnesium 2.3 mg/dL (1.6-2.3); Potassium 3.7 mmol/L (3.4-5.0); Sodium 139 mmol/L (137-145)
[2021-07-07] MEDS: PROPOFOL IV EMULSION 100 ML 35.01 MG IV CONT ×2 (06:57→10:44)
[2021-07-07] MEDS: ATORVASTATIN 40 MG TABLET 80 MG PO (09:01)
[2021-07-07] MEDS: ASPIRIN 81 MG ENTERIC TABLET PO (09:01)
[2021-07-07] MEDS: ENOXAPARIN 40 MG/0.4 ML SYRINGE SUB-Q (09:01)
[2021-07-07] MEDS: DULoxetine HCL 60 MG CAPSULE.DR PO ×2 (09:01→16:09)
[2021-07-07] MEDS: NICOTINE (*PBKC) 14 MG PATCH 1 PATCH TRANSDERM (09:02)
[2021-07-07] MEDS: TICAGRELOR 90 MG TABLET PO ×2 (09:02→20:09)
[2021-07-07] MEDS: methylPREDNISolone SOD SUCC 40 MG VIAL IV PUSH (09:02)
[2021-07-07] MEDS: MINERAL OIL/WHITE PETROLATUM OINTMENT 1 APPLIC EACH EYE ×2 (09:02→20:09)
[2021-07-07] MEDS: INSULIN GLARGINE (*BKC) 100 UNITS/ML 60 UNITS SUB-Q (09:07)
[2021-07-07] MEDS: FUROSEMIDE INJ 40 MG/4 ML VIAL IV PUSH (09:07)
[2021-07-07 09:12] LABS: Glucose Point of Care 183 mg/dl (65-105)
--- NOTE | 2021-07-07 10:55 | PM.PNCARD ---
Progress Note: A&P Assessment and Plan (1) ST elevation (STEMI) myocardial infarction: Code(s): I21.3 - ST elevation (STEMI) myocardial infarction of unspecified site Status: Acute Assessment and Plan: Acute inferior STEMI on June 27 treated with 2 RCA stents, good LV function. Hemodynamically stable. Continue guideline directed therapy with aspirin, Brilinta, atorvastatin. Unable to add beta-loyd due to bradycardia. BP relatively stable. Hold off on JHON-inhibitor No new cardiovascular issues at this time. Continue aspirin, Brilinta, atorvastatin. Patient remains critically ill. Prognosis guarded. (2) Acute respiratory failure with hypoxia: Code(s): J96.01 - Acute respiratory failure with hypoxia Status: Acute Assessment and Plan: Acute respiratory failure, chronic lung disease, managed by content manager. Greatly appreciate critical care and pulmonology involvement and recommendations as well. CT scan today. Patient remains critically ill predominantly due to respiratory failure requiring mechanical ventilatory support. Continue to attempt to wean ventilatory support as tolerated. On levofloxacin. Solu-Medrol. Possible ILD. Negative for PE on CT angiogram although limited due to motion artifact bilateral airspace disease pneumonia pleural-based mass 3.4 cm can not exclude malignancy with prominent mediastinal and right hilar lymphadenopathy possible metastatic disease. Will reduce her furosemide to 20 mg IV daily I did discuss with Dr. Sinclair the complexities of biopsy and stopping her dual anti-platelet therapy. She does have a lytic bone lesion and this could be biopsied without stopping her dual anti-platelet therapy. This would seem to be a more reasonable and appropriate option rather than stopping her DAPT for 5-7 days for lung biopsy. (3) Fever: Code(s): R50.9 - Fever, unspecified Status: Acute Assessment and Plan: She continues with low-grade fevers, blood cultures Negative to date. (4) Anemia: Code(s): D64.9 - Anemia, unspecified Status: Acute Assessment and Plan: She remains anemic, Hemoglobin relatively stable. No evidence of active bleed. Continue to follow H& H. Continue dual antiplatelet therapy. Platelet count declining continue to monitor closely. (5) Interstitial lung disease: Code(s): J84.9 - Interstitial pulmonary disease, unspecified Status: Acute Assessment and Plan: As above. Appreciate Critical Care and pulmonology recommendations. (6) Diabetes: Code(s): E11.9 - Type 2 diabetes mellitus without complications Status: Acute Assessment and Plan: Continue present management. Initial triglycerides draw lab error 2436 repeat 332. Subjective Date/time seen: 07/07/21 10:55 Interval history: Acute inferior ST segment elevation [place] 06/27/2021 status post successful but difficult and challenging PCI of the right coronary artery because of diffuse disease, calcification and tortuosity in the target vessel. Ultimately good angiographic results with 2 drug-eluting stents. Postprocedure troponin levels only showed a modest troponin rise and echocardiogram demonstrates good left ventricular systolic function. Unfortunately she also appears to have likely vaping related lung injury and is now intubated on mechanical ventilator support. Appears to be COVID negative. 07/01/2021: Bronchoscopy was fairly unremarkable today. Appears to have some underlying interstitial lung disease as well as COPD. Still on 50% FiO2 and intubated. Telemetry shows NSR, occasional APC. 07/02/2021: Clinically unchanged still intubated on mechanical ventilation. O2 requirements slightly lower. 07/03/2021: No significant clinical changes. Ventilator requirements essentially the same, still on 50% FiO2. Unable to tolerate
--- NOTE | 2021-07-07 11:07 | WPDINTPN ---
Progress Note: A&P Assessment and Plan (1) Acute respiratory failure with hypoxia: Code(s): J96.01 - Acute respiratory failure with hypoxia Status: Acute Assessment and Plan: Patient with acute respiratory failure likely related to pneumonia, possible COVID-19, EVALI (pt vapes) also could be related to interstitial lung and pneumococcal pneumonia -patient was on high-flow therapy, using accessory muscles of respiration, was finally intubated on 06/29/2021 -06/28 SARS-CoV-2 PCR negative -urine pneumococcal antigen was positive -patient was initially started on vancomycin and Levaquin on 06/28/2021. Later Flagyl was added by Pulmonary -currently off of vancomycin and Flagyl and will continue Levaquin for pneumococcal coverage as patient is allergic to cephalosporins -patient was given a dose of Solu-Medrol 125 mg IV x1 on 06/29 and 06/30. Continue Solu-Medrol per pulmonary recommendations for possible EVALI or ILD exacerbation. 05/27: CTA chest PE protocol did not show any large central pulmonary embolism evaluation of peripheral pulmonary arteries is limited due to extensive airspace disease and motion artifact. Extensive bilateral airspace disease consistent with pneumonia. 3.4 cm right lower lobe pleural-based mass with air bronchograms. This may represent focal masslike airspace consolidation secondary to underlying pneumonia, although malignancy is not excluded. Prominent mediastinal and right hilar lymphadenopathy which may be reactive, although metastatic disease and lymphoma are not excluded 07/[address] due to fever 1. Diffuse lung disease, consistent with pulmonary edema versus pneumonia superimposed on emphysema and chronic interstitial lung disease. 2. Right lung mass, right hilar and mediastinal lymphadenopathy, and lytic lesions of bone, consistent with primary bronchogenic carcinoma and metastatic disease. -currently on CMV mode of ventilation, peep of 8, 40% FiO2. - failed a weaning trial this morning due to high RSBI -chest x-ray reviewed shows stable on disease diffuse - ABGs reviewed - continue sedation with propofol and Precedex - monitor triglyceride levels. last level 332. 1st level was bed sampling as sample was collected from line with propofol (2) Fever: Code(s): R50.9 - Fever, unspecified Status: Acute Assessment and Plan: Patient continues to have fever although they a low-grade. repeat Cultures have been sent on 07/03 and 07/05 and have been negative till now WBC also has decrease in normalized CT chest abdomen pelvis reviewed Negative lower extremity Dopplers for DVT I will continue Levaquin to cover for pneumococcus and hold further escalation in antibiotic therapy at this time (3) Lung cancer: Code(s): C34.90 - Malignant neoplasm of unspecified part of unspecified bronchus or lung Status: Acute Assessment and Plan: CT chest shows Right lung mass, right hilar and mediastinal lymphadenopathy, and lytic lesions of bone, consistent with primary bronchogenic carcinoma and metastatic disease Patient currently on dual antiplatelet therapy which was started after STEMI which precludes lung biopsy at this time. Dr. Sinclair discussed with Radiology and they can a bone biopsy once patient is extubated (4) Pneumonia: Qualifiers: Laterality: bilateral Lung location: unspecified part of lung Pneumonia type: due to unspecified organism Qualified Code(s): J18.9 - Pneumonia, unspecified organism Code(s): J18.9 - Pneumonia, unspecified organism Status: Acute Assessment and Plan: Patient had a bronchoscopy earlier today which showed essentially normal bronchial tree with no evidence of erythematous changes, diffuse mucosal edema, or increased amount of bronchial secretions. A small submucosal nodular lesion was found right at the RML orifice, causing mild narrowing of the RML bronchus. The superior segment of the right lower
--- NOTE | 2021-07-07 11:36 | PCFNICU ---
ICU Rounding Note: Pt current nutrition is Glucerna 1.2 at 60 ml/hr over 22 hours. Last recorded weight is 118.4 kg, up from 116.7 kg on admit. Bowel Motility:+BM reported 07/07 Labs Reviewed:TG 332,Alb 3.0,BUN 21, Glu 187,Cr 0.5, Hgb 9.3,Hct 29.3 Meds Noted:Solu Medrol, Lasix, Reglan, Proposal, Brilinta,Xopenex, Lovenox, Cymbalta. Skin:WNL Additional Notes: Patient currently has tube feedings on hold for breathing trial. If tube feedings resume would recommend decreasing Glucerna 1.2 to 40 ml/hr 2/2 to Propofol providing an additional 924 kcals. Following daily in ICU rounds. Will monitor every Wednesday and Wednesday.
[2021-07-07 12:32] LABS: Glucose Point of Care 313 mg/dl (65-105)
[2021-07-07] MEDS: PROPOFOL IV EMULSION 100 ML 28.01 MG IV CONT ×4 (13:37→23:07)
[2021-07-07] MEDS: dexmedeTOMIDine 400 MCG/100 ML 400 MCG/100 ML BAG IV CONT (14:30)
--- NOTE | 2021-07-07 15:16 | PM.PNPUL ---
Progress Note: A&P Assessment and Plan (1) Acute respiratory failure with hypoxia: Code(s): J96.01 - Acute respiratory failure with hypoxia Status: Acute Assessment and Plan: 07/06/21 Respiratory status stable over the last 24 hours. Patient now on FiO2 of 40%. A chest x-ray done earlier today showed definite partial clearing of infiltrates compared to the x-ray taken on June 27, but no appreciable change since yesterday.. There is persistent right hilar lymphadenopathy which could be due to metastatic disease related to the bronchial lesions seen on bronchoscopy. Pneumococcal antigen detected in urine. Clinical significance of positive pneumococcal antigen unclear at this point. She has been on antibiotics for possible lower respiratory tract infection covering Strep pneumonia. Serology testing negative for underlying autoimmune disease. Negative Pneumocystis and influenza tests. Negative Mycoplasma serology for recent infection. Will continue with levofloxacin, Solu-Medrol 60 mg IV daily. Sputum culture pending. Flaccid extremities, and tachypnea may be due to critical illness polyneuropathy. Nicotine patch added to her regimen. 07/07 the etiology of her hypoxic respiratory failure includes E cigarette-vaping induced acute lung injury, COPD seen on CT scan, interstitial lung disease, lung cancer, and pneumonia. Currently her oxygenation has improved with levofloxacin and Solu-Medrol 60 mg IV a day and I will continue these. She failed her breathing trial today. Vent management per the ICU team. (2) Chronic obstructive pulmonary disease: Qualifiers: COPD type: unspecified COPD Qualified Code(s): J44.9 - Chronic obstructive pulmonary disease, unspecified Code(s): J44.9 - Chronic obstructive pulmonary disease, unspecified Status: Acute Assessment and Plan: 07/06 Patient carries a diagnosis of COPD. She will need follow-up on outpatient basis with pulmonary function testing. 07/07 continue leave albuterol 0.63 mg nebs q.6 hours, ipratropium 0.5 mg nebs q.6 hours and Advair HFA 115-212 puffs q.12 hours. She is also on Solu-Medrol 40 mg IV q.day for her lung injury. There is no wheezing today. (3) Lung nodule: Code(s): R91.1 - Solitary pulmonary nodule Status: Acute Assessment and Plan: 07/07 Patient with a 3.2 x 1.8 cm mass in the superior segment of the right lower lobe abutting the pleural space, right hilar and mediastinal lymphadenopathy and lytic lesions in the T2, T5, T9, T12 vertebral bodies and a lytic lesion in the L1, L2, L3, L4 and S1 vertebral bodies and I reviewed the images with the radiologist to said there is a right iliac crest lytic lesion. Patient has had an acute ST elevation [place] requiring 2 stents to the RCA and currently is on dual platelet therapy with aspirin and Brilinta which should be continued at this time to prevent stent failure. After speaking with Radiology, I spoke with Cardiology and at this time the best approach to diagnosis the patient is likely metastatic lung cancer is to perform a right iliac crest biopsy as this biopsy can be performed while the patient is on both aspirin and Brilinta. this biopsy of the right iliac crest could be performed by Radiology once the patient is extubated and clinically stable. I spoke with the wood products manufacturer as well as the patient's sister, Abram, [phone]. Subjective Date/time seen: 07/07/21 15:16 Interval history: 07/06/21 14:31 This 56 year old female ia seen in follow up for acute respiratory failure, intubated, sedated with propofol 35 mcg and precedex 1.2; patient had a bronchoscopy on 06/30 demonstrating narrowing of the superior segment of the right lower lobe and endobronchial thicke
[2021-07-07 16:09] LABS: Glucose Point of Care 368 mg/dl (65-105)
[2021-07-07] MEDS: dexmedeTOMIDine 400 MCG/100 ML 400 MCG/100 ML BAG 31.98 MCG IV CONT ×2 (20:06→23:08)
[2021-07-07] MEDS: TOPIRAMATE 25 MG TABLET PO (20:10)
[2021-07-07] MEDS: INSULIN GLARGINE (*BKC) 100 UNITS/ML 30 UNITS SUB-Q (20:27)
[2021-07-07 20:31] LABS: Glucose Point of Care 288 mg/dl (65-105)
[2021-07-08] VITALS (39 sets, daily range): BP systolic 88–116; BP diastolic 45–58; PULSE 51–79; RESP 19–39; TEMP 36.8–37.7; O2SAT 92–100
[2021-07-08 01:09] LABS: Glucose Point of Care 189 mg/dl (65-105)
[2021-07-08] MEDS: IPRATROPIUM BR 0.02% INH SOLN 0.5 MG/2.5 ML VIAL INHALATION ×4 (02:04→20:15)
[2021-07-08] MEDS: LEVALBUTEROL NEB 1.25 MG/3 ML 0.63 MG INHALATION ×4 (02:04→20:15)
[2021-07-08] MEDS: dexmedeTOMIDine 400 MCG/100 ML 400 MCG/100 ML BAG 31.98 MCG IV CONT ×3 (02:12→09:05)
[2021-07-08] MEDS: PROPOFOL IV EMULSION 100 ML 28.01 MG IV CONT ×5 (02:13→18:47)
[2021-07-08 04:56] LABS: Alveolar/Arterial O2 Gradient 154.3 mmHg; Base Excess ABG 3.7 mEq/l (+/-2.0); Carboxyhemoglobin 0.3 % THb (0-2.0); Fractional Inspired Oxygen 40 %; HCO3 ABG 27.9 mEq/l (22.0-26.0); Methemoglobin ABG 0.2 %THb (0-1.5); Oxygen Content ABG 12.8 %vol (16.0-22.0); Oxygen Saturation ABG 96.7 % (95.0-100.0); Oxyhemoglobin 94.7 % THb (90.0-100.0); PCO2 ABG 40.8 mmHg (35.0-45.0); Reduced Hemoglobin 4.8 %THb (0-5.0); Total Hemoglobin 9.5 g/dL (12.0-18.0); pH ABG 7.453 (7.350-7.450)
[2021-07-08 05:09] LABS: Device VENTILATOR; Modified Allen's Test Unable to perform; Site Drawn LEFT RADIAL
[2021-07-08 05:10] LABS: Arterial Blood Gas PEEP 5 cmH2O; Arterial Blood Gas Tidal Volume 300 ml; Arterial Blood Gas Vent Mode CMV; Arterial Blood Gas Ventilator rate 30 /MIN
[2021-07-08 05:14] LABS: Hematocrit 29.1 % (37.0-47.0); Hemoglobin 9.2 g/dL (12.0-15.0); Mean Corpuscular HGB Conc 31.6 g/dl (32-36); Mean Corpuscular Hemoglobin 33.8 pg (26-34); Mean Platelet Volume 10.8 fl (7.4-10.4); Platelet Count Result 173 k/mm3 (150-375); Red Blood Count 2.72 M/mm3 (4.2-5.4); Red Cell Distribution Width 16.1 % (11.5-14.5); White Blood Count 12.9 K/mm3 (4.5-10.0)
[2021-07-08 05:19] LABS: Alanine Aminotransferase 19 U/L (4-35); Albumin Level 3.1 g/dL (3.5-5.1); Alkaline Phosphatase 91 U/L (38-126); Anion Gap 4 mmol/L (8-16); Aspartate Amino Transferase 42 U/L (14-36); Bilirubin,Total 0.5 mg/dL (0.2-1.3); Blood Urea Nitrogen 20 mg/dL (7-17); Calcium 9.3 mg/dL (8.4-10.2); Carbon Dioxide 33 mmol/L (22-30); Chloride 99 mmol/L (98-107); Estimated CRCL calculation 111 ml/min; Estimated Glomerular Filt Rate > 60; Glucose 187 mg/dL (65-110); Magnesium 2.2 mg/dL (1.6-2.3); Potassium 3.3 mmol/L (3.4-5.0); Sodium 136 mmol/L (137-145); Triglycerides 245 mg/dL (<150)
[2021-07-08] MEDS: METOCLOPRAMIDE HCL 10 MG/10 ML SOLN UDC PO ×3 (06:00→16:55)
[2021-07-08] MEDS: CENTRAL LINE FLUSH 10 ML IV PUSH ×3 (06:00→23:03)
[2021-07-08 08:13] LABS: Glucose Point of Care 214 mg/dl (65-105)
[2021-07-08] MEDS: FUROSEMIDE INJ 40 MG/4 ML VIAL 20 MG IV PUSH (08:50)
[2021-07-08] MEDS: MINERAL OIL/WHITE PETROLATUM OINTMENT 1 APPLIC EACH EYE ×2 (08:51→22:44)
[2021-07-08] MEDS: INSULIN GLARGINE (*BKC) 100 UNITS/ML 60 UNITS SUB-Q ×2 (08:51→22:45)
[2021-07-08] MEDS: NICOTINE (*PBKC) 14 MG PATCH 1 PATCH TRANSDERM (08:51)
[2021-07-08] MEDS: INSULIN ASPART (*BKC) 100 UNITS/ML SUB-Q ×3 (08:51→18:12)
[2021-07-08] MEDS: methylPREDNISolone SOD SUCC 40 MG VIAL IV PUSH (08:52)
[2021-07-08] MEDS: ENOXAPARIN 40 MG/0.4 ML SYRINGE SUB-Q (08:52)
[2021-07-08] MEDS: TICAGRELOR 90 MG TABLET PO ×2 (08:52→22:44)
[2021-07-08] MEDS: ASPIRIN 81 MG ENTERIC TABLET PO (08:52)
[2021-07-08] MEDS: ATORVASTATIN 40 MG TABLET 80 MG PO (08:52)
[2021-07-08] MEDS: DULoxetine HCL 60 MG CAPSULE.DR PO (08:53)
[2021-07-08] MEDS: KCL 40 MEQ/WATER 100 ML 100 ML 25 ML IVPB (11:04)
[2021-07-08 11:18] LABS: Glucose Point of Care 213 mg/dl (65-105)
--- NOTE | 2021-07-08 11:19 | PM.PNPUL ---
Progress Note: A&P Assessment and Plan (1) Acute respiratory failure with hypoxia: Code(s): J96.01 - Acute respiratory failure with hypoxia Status: Acute Assessment and Plan: 07/06/21 Respiratory status stable over the last 24 hours. Patient now on FiO2 of 40%. A chest x-ray done earlier today showed definite partial clearing of infiltrates compared to the x-ray taken on June 27, but no appreciable change since yesterday.. There is persistent right hilar lymphadenopathy which could be due to metastatic disease related to the bronchial lesions seen on bronchoscopy. Pneumococcal antigen detected in urine. Clinical significance of positive pneumococcal antigen unclear at this point. She has been on antibiotics for possible lower respiratory tract infection covering Strep pneumonia. Serology testing negative for underlying autoimmune disease. Negative Pneumocystis and influenza tests. Negative Mycoplasma serology for recent infection. Will continue with levofloxacin, Solu-Medrol 60 mg IV daily. Sputum culture pending. Flaccid extremities, and tachypnea may be due to critical illness polyneuropathy. Nicotine patch added to her regimen. 07/07 the etiology of her hypoxic respiratory failure includes E- cigarette or vaping product use associated acute lung injury (EVALI), COPD seen on CT scan, interstitial lung disease, lung cancer, and pneumonia. Currently her oxygenation has improved with levofloxacin and Solu-Medrol 40 mg IV a day and I will continue these. She failed her breathing trial today. Vent management per the ICU team. 07/08 vent management per ICU team. Patient with a PaO2 of 84 and will consider decreasing FiO2 to 35%. Daily weaning trials in an attempt for extubation. Patient is on day 10 of Solu-Medrol and if her oxygenation remains stable will begin 30 mg IV q.day on 07/09 (2) Chronic obstructive pulmonary disease: Qualifiers: COPD type: unspecified COPD Qualified Code(s): J44.9 - Chronic obstructive pulmonary disease, unspecified Code(s): J44.9 - Chronic obstructive pulmonary disease, unspecified Status: Acute Assessment and Plan: 07/06 Patient carries a diagnosis of COPD. She will need follow-up on outpatient basis with pulmonary function testing. 07/07 continue lev albuterol 0.63 mg nebs q.6 hours, ipratropium 0.5 mg nebs q.6 hours and Advair HFA 115-212 puffs q.12 hours. She is also on Solu-Medrol 40 mg IV q.day for her lung injury. There is no wheezing today. 07/07 continue lev albuterol 0.63 mg nebs q.6 hours, ipratropium 0.5 mg nebs q.6 hours and DC Advair HFA today She is also on Solu-Medrol 40 mg IV q.day for her lung injury. There is no wheezing today. (3) Lung nodule: Code(s): R91.1 - Solitary pulmonary nodule Status: Acute Assessment and Plan: 07/07 Patient with a 3.2 x 1.8 cm mass in the superior segment of the right lower lobe abutting the pleural space, right hilar and mediastinal lymphadenopathy and lytic lesions in the T2, T5, T9, T12 vertebral bodies and a lytic lesion in the L1, L2, L3, L4 and S1 vertebral bodies and I reviewed the images with the radiologist to said there is a right iliac crest lytic lesion. Patient has had an acute ST elevation [place] requiring 2 stents to the RCA and currently is on dual platelet therapy with aspirin and Brilinta which should be continued at this time to prevent stent failure. After speaking with Radiology, I spoke with Cardiology and at this time the best approach to diagnosis the patient is likely metastatic lung cancer is to perform a right iliac crest biopsy as this biopsy can be performed while the patient is on both aspirin and Brilinta. this biopsy of the right iliac crest could be performed by Radiology once the patient is extubated and clinically stable.
--- NOTE | 2021-07-08 11:54 | PCNFU ---
Nutrition Follow-Up Complete: Inadequate Oral Intake as related to mechanical ventilation as evidenced by NPO. Goal: Meet estimated nutritional needs Patient is progressing towards goal. We will continue current goal. Pt current nutrition is Glucerna 1.2 at 60 ml/hr over 22 hours. Last recorded weight is 118.6 kg, up from 116.7 on admit. Bowel Motility:+BM reported 07/08 Labs Reviewed:TG 245,Cr 0.6,GFR 20, Glu 187, BUN 20, K 3.3,Alb 3.1,Na 136,Hgb 9.2,Hct 29.1 Meds Noted:Propofol 28.01 ml/xe=067 kcals, Precedex, Lipitor, Atrovent, Solu Medrol, K rider, Reglan, Brilinta. Skin:WNL Additional Notes: Nutrition follow up. Patient remains on mechanical vent. Reporting possible lung mass with mets. Tube feedings continue of Glucerna 1.2 at 60ml/hr over 22 hours providing 1584 kcals/79 gms protein/1063 ml fluid. TG remain high. Nursing has attempted decreasing propofol needs as tolerated per patient. Monitoring daily in ICU rounds. Will reassess every Wednesday and Wednesday.
--- NOTE | 2021-07-08 11:59 | WPDINTPN ---
Progress Note: A&P Assessment and Plan (1) Acute respiratory failure with hypoxia: Code(s): J96.01 - Acute respiratory failure with hypoxia Status: Acute Assessment and Plan: Patient with acute respiratory failure likely related to pneumonia, possible COVID-19, EVALI (pt vapes) also could be related to interstitial lung and pneumococcal pneumonia -patient was on high-flow therapy, using accessory muscles of respiration, was finally intubated on 06/29/2021 -06/28 & 06/29 SARS-CoV-2 PCR negative -urine pneumococcal antigen was positive -patient was initially started on vancomycin and Levaquin on 06/28/2021. Later Flagyl was added by Pulmonary -currently off vancomycin and Flagyl and will continue Levaquin for pneumococcal coverage as patient is allergic to cephalosporins for a total of 14 days -patient was given a dose of Solu-Medrol 125 mg IV x1 on 06/29 and 06/30. Continue Solu-Medrol per pulmonary recommendations for possible EVALI or ILD exacerbation. 05/27: CTA chest PE protocol did not show any large central pulmonary embolism evaluation of peripheral pulmonary arteries is limited due to extensive airspace disease and motion artifact. Extensive bilateral airspace disease consistent with pneumonia. 3.4 cm right lower lobe pleural-based mass with air bronchograms. This may represent focal masslike airspace consolidation secondary to underlying pneumonia, although malignancy is not excluded. Prominent mediastinal and right hilar lymphadenopathy which may be reactive, although metastatic disease and lymphoma are not excluded 07/[address] due to fever 1. Diffuse lung disease, consistent with pulmonary edema versus pneumonia superimposed on emphysema and chronic interstitial lung disease. 2. Right lung mass, right hilar and mediastinal lymphadenopathy, and lytic lesions of bone, consistent with primary bronchogenic carcinoma and metastatic disease. -currently on CMV mode of ventilation, peep of 8, 40% FiO2. - failed a weaning trial this morning due to high RSBI -chest x-ray reviewed shows stable diffuse disease - ABGs reviewed - continue sedation with propofol and Precedex -triglycerides trending down will continue to monitor this patient is on propofol (2) Fever: Code(s): R50.9 - Fever, unspecified Status: Acute Assessment and Plan: Patient continues to have fever although they a low-grade. repeat Cultures have been sent on 07/03 and 07/05 and have been negative till now WBC also has decrease in normalized CT chest abdomen pelvis reviewed Negative lower extremity Dopplers for DVT Continue Levaquin to cover for pneumococcus pneumonia for a total of 14 days (3) Lung cancer: Code(s): C34.90 - Malignant neoplasm of unspecified part of unspecified bronchus or lung Status: Acute Assessment and Plan: CT chest shows Right lung mass, right hilar and mediastinal lymphadenopathy, and lytic lesions of bone, consistent with primary bronchogenic carcinoma and metastatic disease Patient currently on dual antiplatelet therapy which was started after STEMI which precludes lung biopsy at this time. Dr. Sinclair discussed with Radiology and they can do a bone biopsy once patient is extubated (4) Pneumonia: Qualifiers: Laterality: bilateral Lung location: unspecified part of lung Pneumonia type: due to unspecified organism Qualified Code(s): J18.9 - Pneumonia, unspecified organism Code(s): J18.9 - Pneumonia, unspecified organism Status: Acute Assessment and Plan: Patient had a bronchoscopy earlier today which showed essentially normal bronchial tree with no evidence of erythematous changes, diffuse mucosal edema, or increased amount of bronchial secretions. A small submucosal nodular lesion was found right at the RML orifice, causing mild narrowing of the RML bronchus. The superior segment of the right lower lobe appeared edematous with thickened bronchial mu
[2021-07-08] MEDS: dexmedeTOMIDine 400 MCG/100 ML 400 MCG/100 ML BAG 29.08 MCG IV CONT ×4 (12:02→22:32)
--- NOTE | 2021-07-08 15:29 | PM.PNCARD ---
Progress Note: A&P Assessment and Plan (1) ST elevation (STEMI) myocardial infarction: Code(s): I21.3 - ST elevation (STEMI) myocardial infarction of unspecified site Status: Acute Assessment and Plan: Acute inferior STEMI on June 27 treated with 2 RCA stents, good LV function. Hemodynamically stable. Continue guideline directed therapy with aspirin, Brilinta, atorvastatin. Unable to add beta-loyd due to bradycardia. BP relatively stable. Hold off on JHON-inhibitor No new cardiovascular issues at this time. Continue aspirin, Brilinta, atorvastatin. Patient remains critically ill. Prognosis guarded. (2) Acute respiratory failure with hypoxia: Code(s): J96.01 - Acute respiratory failure with hypoxia Status: Acute Assessment and Plan: Acute respiratory failure, chronic lung disease, managed by dealership manager. Greatly appreciate critical care and pulmonology involvement and recommendations as well. CT scan today. Patient remains critically ill predominantly due to respiratory failure requiring mechanical ventilatory support. Continue to attempt to wean ventilatory support as tolerated. On levofloxacin. Solu-Medrol. Possible ILD. Negative for PE on CT angiogram although limited due to motion artifact bilateral airspace disease pneumonia pleural-based mass 3.4 cm can not exclude malignancy with prominent mediastinal and right hilar lymphadenopathy possible metastatic disease. I did discuss with Dr. Sinclair the complexities of biopsy and stopping her dual anti-platelet therapy. She does have a lytic bone lesion and this could be biopsied without stopping her dual anti-platelet therapy. This would seem to be a more reasonable and appropriate option rather than stopping her DAPT for 5-7 days for lung biopsy. (3) Fever: Code(s): R50.9 - Fever, unspecified Status: Acute Assessment and Plan: She continues with low-grade fevers, blood cultures Negative to date. (4) Anemia: Code(s): D64.9 - Anemia, unspecified Status: Acute Assessment and Plan: She remains anemic, Hemoglobin relatively stable. No evidence of active bleed. Continue to follow H& H. Continue dual antiplatelet therapy. Platelet count declining continue to monitor closely. (5) Interstitial lung disease: Code(s): J84.9 - Interstitial pulmonary disease, unspecified Status: Acute Assessment and Plan: As above. Appreciate Critical Care and pulmonology recommendations. (6) Diabetes: Code(s): E11.9 - Type 2 diabetes mellitus without complications Status: Acute Assessment and Plan: Continue present management. Initial triglycerides draw lab error 2436 repeat 332. Subjective Date/time seen: 07/08/21 15:29 Interval history: Acute inferior ST segment elevation [place] 06/27/2021 status post successful but difficult and challenging PCI of the right coronary artery because of diffuse disease, calcification and tortuosity in the target vessel. Ultimately good angiographic results with 2 drug-eluting stents. Postprocedure troponin levels only showed a modest troponin rise and echocardiogram demonstrates good left ventricular systolic function. Unfortunately she also appears to have likely vaping related lung injury and is now intubated on mechanical ventilator support. Appears to be COVID negative. 07/01/2021: Bronchoscopy was fairly unremarkable today. Appears to have some underlying interstitial lung disease as well as COPD. Still on 50% FiO2 and intubated. Telemetry shows NSR, occasional APC. 07/02/2021: Clinically unchanged still intubated on mechanical ventilation. O2 requirements slightly lower. 07/03/2021: No significant clinical changes. Ventilator requirements essentially the same, still on 50% FiO2. Unable to tolerate sedation holiday due to tachypnea.
[2021-07-08 17:21] LABS: Glucose Point of Care 242 mg/dl (65-105)
[2021-07-08] MEDS: PROPOFOL IV EMULSION 100 ML 21.01 MG IV CONT (22:33)
[2021-07-08 22:39] LABS: Glucose Point of Care 155 mg/dl (65-105)
[2021-07-08] MEDS: INSULIN GLARGINE (*BKC) 100 UNITS/ML 40 UNITS SUB-Q (22:57)
[2021-07-08] MEDS: TOPIRAMATE 25 MG TABLET PO (22:58)
[2021-07-09] VITALS (43 sets, daily range): BP systolic 93–136; BP diastolic 50–62; PULSE 7–93; RESP 28–39; TEMP 36.8–38.2; O2SAT 92–97
[2021-07-09] MEDS: METOCLOPRAMIDE HCL 10 MG/10 ML SOLN UDC PO ×5 (00:47→23:54)
[2021-07-09] MEDS: IPRATROPIUM BR 0.02% INH SOLN 0.5 MG/2.5 ML VIAL INHALATION ×3 (02:00→14:27)
[2021-07-09] MEDS: LEVALBUTEROL NEB 1.25 MG/3 ML 0.63 MG INHALATION ×4 (02:00→20:20)
[2021-07-09] MEDS: PROPOFOL IV EMULSION 100 ML 21.01 MG IV CONT ×2 (02:51→07:17)
[2021-07-09] MEDS: dexmedeTOMIDine 400 MCG/100 ML 400 MCG/100 ML BAG 20.35 MCG IV CONT ×4 (02:52→16:09)
[2021-07-09 02:56] LABS: Glucose Point of Care 79 mg/dl (65-105)
[2021-07-09 04:47] LABS: Basophils Percent Auto 0.2 % (0.2-1.2); Eosinophils Absolute Auto 0.2 K/mm3 (0-0.3); Hematocrit 29.6 % (37.0-47.0); Hemoglobin 9.3 g/dL (12.0-15.0); Immature Granulocyte Absolute 0.11 K/mm3 (0.00-0.031); Immature Granulocyte Percent A 0.9 % (0-0.5); Lymphocytes Absolute Auto 1.67 K/mm3 (0.9-3.2); Lymphocytes Percent Auto 14.2 % (18.3-44.2); Mean Corpuscular HGB Conc 31.4 g/dl (32-36); Mean Corpuscular Hemoglobin 33.7 pg (26-34); Mean Corpuscular Volume 107.2 fl (80-100); Mean Platelet Volume 10.5 fl (7.4-10.4); Monocytes Absolute Auto 0.6 K/mm3 (0.1-0.6); Neutrophils Absolute Auto 9.2 K/mm3 (1.3-6.7); Neutrophils Percent Auto 77.7 % (45.5-73.1); Platelet Count Result 153 k/mm3 (150-375); Red Blood Count 2.76 M/mm3 (4.2-5.4); Red Cell Distribution Width 16.3 % (11.5-14.5); White Blood Count 11.8 K/mm3 (4.5-10.0)
[2021-07-09 05:01] LABS: Magnesium 2.2 mg/dL (1.6-2.3); Phosphorus 3.3 mg/dL (2.5-4.5)
[2021-07-09 05:19] LABS: Alveolar/Arterial O2 Gradient 147.6 mmHg; Base Excess ABG 3.3 mEq/l (+/-2.0); Carboxyhemoglobin 0.3 % THb (0-2.0); Fractional Inspired Oxygen 35 %; HCO3 ABG 26.5 mEq/l (22.0-26.0); Methemoglobin ABG 0.1 %THb (0-1.5); Oxygen Saturation ABG 93.6 % (95.0-100.0); Oxyhemoglobin 90.1 % THb (90.0-100.0); PCO2 ABG 34.7 mmHg (35.0-45.0); PO2 ABG 61.6 mmHg (80.0-100.0); PO2 FiO2 Ratio Arterial Blood 1.76 %; Reduced Hemoglobin 9.5 %THb (0-5.0); Total Hemoglobin 10.2 g/dL (12.0-18.0)
[2021-07-09 05:20] LABS: Device VENTILATOR; Site Drawn LEFT RADIAL
[2021-07-09 05:21] LABS: Arterial Blood Gas PEEP 5 cmH2O; Arterial Blood Gas Tidal Volume 380 ml; Arterial Blood Gas Vent Mode CMV; Arterial Blood Gas Ventilator rate 30 /MIN
[2021-07-09 05:39] LABS: Glucose Point of Care 72 mg/dl (65-105)
[2021-07-09] MEDS: CENTRAL LINE FLUSH 10 ML IV PUSH ×3 (05:47→20:42)
[2021-07-09 07:20] LABS: Glucose Point of Care 72 mg/dl (65-105)
[2021-07-09 08:10] LABS: Alanine Aminotransferase 20 U/L (4-35); Albumin Level 3.1 g/dL (3.5-5.1); Alkaline Phosphatase 92 U/L (38-126); Anion Gap 6 mmol/L (8-16); Aspartate Amino Transferase 61 U/L (14-36); Bilirubin,Total 0.5 mg/dL (0.2-1.3); Blood Urea Nitrogen 19 mg/dL (7-17); Calcium 9.7 mg/dL (8.4-10.2); Carbon Dioxide 28 mmol/L (22-30); Chloride 103 mmol/L (98-107); Estimated CRCL calculation 111 ml/min; Estimated Glomerular Filt Rate > 60; Glucose 94 mg/dL (65-110); Potassium 3.2 mmol/L (3.4-5.0); Sodium 137 mmol/L (137-145)
[2021-07-09] MEDS: ENOXAPARIN 40 MG/0.4 ML SYRINGE SUB-Q (09:10)
[2021-07-09] MEDS: NICOTINE (*PBKC) 14 MG PATCH 1 PATCH TRANSDERM (09:10)
[2021-07-09] MEDS: FUROSEMIDE INJ 40 MG/4 ML VIAL 20 MG IV PUSH (09:10)
[2021-07-09] MEDS: MINERAL OIL/WHITE PETROLATUM OINTMENT 1 APPLIC EACH EYE ×2 (09:10→20:41)
[2021-07-09] MEDS: TICAGRELOR 90 MG TABLET PO ×2 (09:11→20:38)
[2021-07-09] MEDS: ATORVASTATIN 40 MG TABLET 80 MG PO (09:11)
[2021-07-09] MEDS: ASPIRIN 81 MG ENTERIC TABLET PO (09:11)
[2021-07-09] MEDS: DULoxetine HCL 60 MG CAPSULE.DR PO ×2 (09:11→16:10)
[2021-07-09] MEDS: methylPREDNISolone SOD SUCC 40 MG VIAL 30 MG IV PUSH (09:12)
--- NOTE | 2021-07-09 10:13 | PM.PNCARD ---
Progress Note: A&P Additional Plan 56-year-old woman who unfortunately presented with acute ST-elevation inferior [place] underwent successful but challenging PCI of the right coronary artery. Remains intubated on ventilator support since admission. Unfortunately she now appears to probably have a significant malignancy. The tissue diagnosis still has not not been established. Continue dual anti-platelet therapy and supportive care but prognosis is obviously much more limited Adam Weiss MD [facility] Subjective Date/time seen: 07/09/21 10:13 Interval history: Acute inferior ST segment elevation [place] 06/27/2021 status post successful but difficult and challenging PCI of the right coronary artery because of diffuse disease, calcification and tortuosity in the target vessel. Ultimately good angiographic results with 2 drug-eluting stents. Postprocedure troponin levels only showed a modest troponin rise and echocardiogram demonstrates good left ventricular systolic function. Unfortunately she also appears to have likely vaping related lung injury and is now intubated on mechanical ventilator support. Appears to be COVID negative. 07/01/2021: Bronchoscopy was fairly unremarkable today. Appears to have some underlying interstitial lung disease as well as COPD. Still on 50% FiO2 and intubated. Telemetry shows NSR, occasional APC. 07/02/2021: Clinically unchanged still intubated on mechanical ventilation. O2 requirements slightly lower. 07/03/2021: No significant clinical changes. Ventilator requirements essentially the same, still on 50% FiO2. Unable to tolerate sedation holiday due to tachypnea. 07/04/2021: No new cardiovascular issues in the last several days. Patient remains sedated on mechanical ventilator support. Oxygenation requirements are slightly better but still requiring ventilator support. 07/05/2021: Remains intubated. Low-grade fever this morning. CT scan scheduled. Remains intubated, sedated. Unable provide history. Sinus rhythm/bradycardia on telemetry. Hemodynamically stable. Date of service 07/06/2021: Patient continues to have low-grade fevers. Blood cultures negative. Given IV Lasix with good response although relatively hypotensive this morning. She remains on Precedex and propofol. Patient remains tachypneic but not following commands on ventilatory support FiO2 40%. Patient not able to provide any history due to sedation and mechanical ventilatory support. Date of service 07/07/2021: Remains in sinus rhythm. Still intubated. No significant changes. Date of service 07/08/2021: Still sinus rhythm. No significant change. Date of service 07/09/2021: Clinically unchanged patient is still intubated on mechanical ventilator support. Unfortunately diagnosis now is suspected lung cancer. There apparently is a endobronchial mass and evidence of metastatic disease on imaging. No tissue diagnosis yet apparently some discussion of a lytic bone lesion biopsy. Obviously the patient's prognosis will change significantly once she has biopsy-proven metastatic disease. For now no cardiac changes continue dual anti-platelet therapy Exam Narrative: Obese female, sedated and intubated, no distress but tachypneic, not following commands. Const: General: comfortable and no acute distress Orientation/consciousness: No patient oriented x3 (sedated) Other: Obese white female intubated sedated on mechanical ventilator support HENMT: General nose exam: Normal nares present and no epistaxis Mouth: Yes moist mucous membranes Eyes: General: appearance normal, both eyes and all related structures Sclera: sclerae normal Pupils: Equal, round and reactive pupils present Neck: Neck: supple Carotids: no bruits Other: Unable to assess for JVD given her body habitus Resp: Effort & Inspection: normal respiratory effort Auscultation: rhonchi and diminished lung sounds Other: Faint crackles bilaterally Cardio: Rate: regular rate Rhy
--- NOTE | 2021-07-09 10:35 | PM.PNPUL ---
Progress Note: A&P Assessment and Plan (1) Acute respiratory failure with hypoxia: Code(s): J96.01 - Acute respiratory failure with hypoxia Status: Acute Assessment and Plan: 07/06/21 Respiratory status stable over the last 24 hours. Patient now on FiO2 of 40%. A chest x-ray done earlier today showed definite partial clearing of infiltrates compared to the x-ray taken on June 27, but no appreciable change since yesterday.. There is persistent right hilar lymphadenopathy which could be due to metastatic disease related to the bronchial lesions seen on bronchoscopy. Pneumococcal antigen detected in urine. Clinical significance of positive pneumococcal antigen unclear at this point. She has been on antibiotics for possible lower respiratory tract infection covering Strep pneumonia. Serology testing negative for underlying autoimmune disease. Negative Pneumocystis and influenza tests. Negative Mycoplasma serology for recent infection. Will continue with levofloxacin, Solu-Medrol 60 mg IV daily. Sputum culture pending. Flaccid extremities, and tachypnea may be due to critical illness polyneuropathy. Nicotine patch added to her regimen. 07/07 the etiology of her hypoxic respiratory failure includes E- cigarette or vaping product use associated acute lung injury (EVALI), COPD seen on CT scan, interstitial lung disease, lung cancer, and pneumonia. Currently her oxygenation has improved with levofloxacin and Solu-Medrol 40 mg IV a day and I will continue these. She failed her breathing trial today. Vent management per the ICU team. 07/08 vent management per ICU team. Patient with a PaO2 of 84 and will consider decreasing FiO2 to 35%. Daily weaning trials in an attempt for extubation. Patient is on day 10 of Solu-Medrol and if her oxygenation remains stable will begin 30 mg IV q.day on 07/09. 07/09 07/08 vent management per ICU team. Patient on 35%. Daily weaning trials in an attempt for extubation. Patient is on total day 11 of Solu-Medrol. agree with continued slow taper Solu-Medrol 30 mg IV q.day x3 days, then Solu-Medrol 20 mg IV q.day x3 days, then Solu-Medrol 10 mg IV q.day x3 days then off. If her oxygenation worsens during this taper please re-consult us. Patient could also be converted to p.o. prednisone at equivalent doses as above. (2) Chronic obstructive pulmonary disease: Qualifiers: COPD type: unspecified COPD Qualified Code(s): J44.9 - Chronic obstructive pulmonary disease, unspecified Code(s): J44.9 - Chronic obstructive pulmonary disease, unspecified Status: Acute Assessment and Plan: 07/06 Patient carries a diagnosis of COPD. She will need follow-up on outpatient basis with pulmonary function testing. 07/07 continue lev albuterol 0.63 mg nebs q.6 hours, ipratropium 0.5 mg nebs q.6 hours and Advair HFA 115-212 puffs q.12 hours. She is also on Solu-Medrol 40 mg IV q.day for her lung injury. There is no wheezing today. 07/08 continue lev albuterol 0.63 mg nebs q.6 hours, ipratropium 0.5 mg nebs q.6 hours and DC Advair HFA today She is also on Solu-Medrol 40 mg IV q.day for her lung injury. There is no wheezing today. 07/09 continue lev albuterol 0.63 mg nebs q.6 hours, ipratropium 0.5 mg nebs q.6 hours. She is also on Solu-Medrol as above for her lung injury. There is no wheezing today. (3) Lung nodule: Code(s): R91.1 - Solitary pulmonary nodule Status: Acute Assessment and Plan: 07/07 Patient with a 3.2 x 1.8 cm mass in the superior segment of the right lower lobe abutting the pleural space, right hilar and mediastinal lymphadenopathy and lytic lesions in the T2, T5, T9, T12 vertebral bodies and a lytic lesion in the L1, L2, L3, L4 and S1 vertebral bodies and I reviewed the images with the radiologist to said there is a right iliac crest lytic lesion. Patient has had an acute ST elevation [place] requiring 2 stents to the RCA and currently is on
[2021-07-09] MEDS: PROPOFOL IV EMULSION 100 ML 24.51 MG IV CONT ×2 (11:40→16:08)
--- NOTE | 2021-07-09 11:45 | PCFNICU ---
ICU Rounding Note: Pt current nutrition is Glucerna 1.2 at 50 ml/hr over 22 hours. Last recorded weight is 118.6 kg, up from 116.7 kg on admit. Bowel Motility:+BM reported 07/08 Labs Reviewed:Cr 0.6,K 3.1,Alb 3.2, Hct 29.6,Hgb 9.3 Meds Noted:Propofol 24.5 ml/un=160 kcals, Precedex, Levaquin, Reglan, Solu Medrol, Lantus, NovoLog, Lovenox,Cymbalta. Skin:WNL Additional Notes: Patient remains on mechanical vent with tube feedings of Glucerna 1.2 at 50 ml/hr. Decreased rate today due to increase in Propofol. PEG/Trach possible. Agree with diet orders. Following daily in ICU rounds. Will monitor every Wednesday and Wednesday.
--- NOTE | 2021-07-09 12:01 | WPDCN ---
Assessment and Plan Additional Plan planned tracheotomy HPI Data of Consult Date/Time: 07/09/21 12:01 Requesting Physician: Lamont Moreno MD Primary Care Provider: Lui Almeida, Consult Narrative Narrative: Nena Fuentes is a 56 year old female prolonged intubation for tracheotomy Review of Systems Review of Systems: All systems reviewed & are unremarkable except as noted in HPI and below PMFSH Past Medical History Medical History Anxiety Arthritis Asthma Chronic headaches Chronic obstructive pulmonary disease Depression Fibromyalgia Gastroesophageal reflux disease Hypercholesteremia Hypertension Insulin dependent type 2 diabetes mellitus Obstructive sleep apnea on CPAP Stress incontinence Tobacco abuse Surgical History Surgical History History of cholecystectomy History of hysterectomy History of tonsillectomy Status post excision of Chen's neuroma Family History Family History Sibling Hypertension Grandparent Hypertension Diabetes mellitus Malignant neoplasm of prostate Skin cancer Other Arthritis Depression Heart disease Neuropathy Social History Social History Smoking packs per day: 2.5 Smoking cigarettes per day: 50.0 Years smoked: 20 Smoking pack-years: 50.00 Smoking status: Former smoker Tobacco type: cigarettes Smoking end date: 09/03/20 Alcohol intake: current Drinks per week: 1 Substance use: never Substance use type: does not use Additional living arrangements comments: Resides in [place]. Additional occupation/education comments: Unemployed. Gender identity (if verbalized by the patient): Female Spiritual care concerns: No Meds Home Medications and Allergies Home Medications Medication Instructions Recorded Confirmed Type Janumet XR 1 tablet PO DAILY 09/14/19 06/28/21 History atorvastatin 40 mg PO HS 09/14/19 06/28/21 History lisinopril-hydrochlorothiazide 1 tablet PO DAILY 09/14/19 06/28/21 History albuterol sulfate 2.5 mg INHALATION Q6H PRN #180 ml 07/24/20 06/28/21 Rx gabapentin 300 mg capsule 600 mg PO TID 08/27/20 06/28/21 History inhalational spacing device #1 ea 09/06/20 06/28/21 Rx duloxetine [Cymbalta] 60 mg PO BID 11/08/20 06/28/21 History Basaglvibha BhatiaPen U-100 Insulin 90 unit SUBCUT HS 02/09/21 06/28/21 History budesonide-formoterol [Symbicort] 1 inh INHALATION BID 02/09/21 06/28/21 History topiramate 25 mg PO HS 02/09/21 06/28/21 History albuterol sulfate 90 mcg/actuation 1 - 2 inh INHALATION Q4-6H PRN 03/20/21 06/28/21 Rx aerosol inhaler #8.5 g ibuprofen 800 mg PO Q8H 06/04/21 06/28/21 History tramadol 50 mg PO Q8H PRN 06/04/21 06/28/21 History tiotropium bromide 18 mcg capsule See Rx Instructions .ROUTE 06/17/21 06/28/21 Rx with inhalation device .COMPLEX #30 capsule insulin aspart U-100 [Novolog 20 unit SUBCUT TID 06/28/21 06/28/21 History U-100 Insulin aspart] pantoprazole 40 mg PO BID 06/29/21 06/29/21 History Allergies Allergy/AdvReac Type Severity Reaction Status Date / Time bee venom protein (honey bee) Allergy Severe Anaphylactic Verified 04/28/21 14:44 Shock shellfish derived Allergy Severe Hives/RED Verified 04/28/21 14:44 FACE shrimp Allergy Severe Hives/RED Verified 04/28/21 14:44 FACE cephalexin [From Keflex] AdvReac Nausea Verified 06/27/21 19:33 Vital Signs Vital Signs - 24 hr 07/08/21 12:02 07/08/21 12:04 07/08/21 14:00 Temperature Pulse Rate 64 65 58 L Respiratory Rate 32 H 32 H 27 H Blood Pressure 98/58 L Pulse Oximetry 98 07/08/21 14:13 07/08/21 14:21 07/08/21 15:05 Temperature Pulse Rate 66 59 L 59 L Respiratory Rate 32 H 33 H Blood Pressure Pulse Oximetry 96 07/08/21
--- NOTE | 2021-07-09 12:29 | PDONCCN ---
HPI - Date of Consult Date/Time: 07/09/21 12:29 Requesting Physician: Lamont Moreno MD Primary Care Provider: Lui Almeida, - Consult Narrative Reason for consult: Metastatic cancer Narrative: Nena Fuentes is a 56 year old female with history of COPD, asthma, hypertension and fibromyalgia was brought into the ER with shortness of breath for 2 days duration. She was having some productive cough. She was found to be hypoxemic. CT chest showed no PE but 3.4 cm right lower lobe pleural both mom mass and prominent mediastinal and right hilar lymphadenopathy. CT abdomen and pelvis showed liver cirrhosis and mild periportal lymphadenopathy lytic bone lesions. EKG showed inferior wall AK. patient is currently intubated and sedated. Bronchial lavage fluid cytology came back negative for malignancy. Review of Systems - Review of Systems All systems reviewed & are unremarkable except as noted in HPI and bel - Neurologic Reports behavioral changes, Reports confusion (Sedated) PMFSH Medical History: Medical History (Last Reviewed 07/09/21 @ 12:01 by Giovanni Pereira MD) Anxiety Arthritis Asthma Chronic headaches Chronic obstructive pulmonary disease Depression Fibromyalgia Gastroesophageal reflux disease Hypercholesteremia Hypertension Insulin dependent type 2 diabetes mellitus Obstructive sleep apnea on CPAP Stress incontinence Tobacco abuse Surgical History: Surgical History (Last Reviewed 07/09/21 @ 12:01 by Giovanni Pereira MD) History of cholecystectomy History of hysterectomy History of tonsillectomy Status post excision of Chen's neuroma Family History: Family History (Last Reviewed 07/09/21 @ 12:01 by Giovanni Pereira MD) Sibling Hypertension Grandparent Hypertension Diabetes mellitus Malignant neoplasm of prostate Skin cancer Other Arthritis Depression Heart disease Neuropathy - Social History Social History: Social History (Last Reviewed 07/09/21 @ 12:01 by Giovanni Pereira MD) Gender Identity: Gender identity (if verbalized by the patient): Female Alcohol Use: Alcohol intake: current Drinks per week: 1 Substance Use: Substance use: never Substance use type: does not use Others: Spiritual care concerns: No Smoking Status: Smoking status: Former smoker Tobacco type: cigarettes Smoking end date: 09/03/20 Smoking Pack-years: Smoking packs per day: 2.5 Smoking cigarettes per day: 50.0 Years smoked: 20 Smoking pack-years: 20.00 Meds Home Medications Medication Instructions Recorded Confirmed Type Janumet XR 1 tablet PO DAILY 09/14/19 06/28/21 History atorvastatin 40 mg PO HS 09/14/19 06/28/21 History lisinopril-hydrochlorothiazide 1 tablet PO DAILY 09/14/19 06/28/21 History albuterol sulfate 2.5 mg INHALATION Q6H PRN #180 ml 07/24/20 06/28/21 Rx gabapentin 300 mg capsule 600 mg PO TID 08/27/20 06/28/21 History inhalational spacing device #1 ea 09/06/20 06/28/21 Rx duloxetine [Cymbalta] 60 mg PO BID 11/08/20 06/28/21 History Basaglar KwikPen U-100 Insulin 90 unit SUBCUT HS 02/09/21 06/28/21 History budesonide-formoterol [Symbicort] 1 inh INHALATION BID 02/09/21 06/28/21 History topiramate 25 mg PO HS 02/09/21 06/28/21 History albuterol sulfate 90 mcg/actuation 1 - 2 inh INHALATION Q4-6H PRN 03/20/21 06/28/21 Rx aerosol inhaler #8.5 g ibuprofen 800 mg PO Q8H 06/04/21 06/28/21 History tramadol 50 mg PO Q8H PRN 06/04/21 06/28/21 History tiotropium bromide 18 mcg capsule See Rx Instructions .ROUTE 06/17/21 06/28/21 Rx with inhalation device .COMPLEX #30 capsule insulin aspart U-100 [Novolog 20 unit SUBCUT TID 06/28/21 06/28/21 History U-100 Insulin aspart] pantoprazole 40 mg PO BID 06/29/21 06/29/21 History Allergies Allergy/AdvReac Type Severity Reaction Status Date / Time bee venom protein (honey bee) Allergy Severe Anaphylactic Verified
[2021-07-09 12:37] LABS: Glucose Point of Care 182 mg/dl (65-105)
--- NOTE | 2021-07-09 13:22 | WPDGICN ---
Assessment and Plan Assessment and plan (1) Acute respiratory failure with hypoxia: Code(s): J96.01 - Acute respiratory failure with hypoxia Status: Acute Assessment and Plan: failed weaning trials and will need terminal computer operator feeding (now tolerating at 50 ml/h by OGT) also will get tracheostomy probably will do egd with g-tube placement on Wednesday can not stop AC because recent cardiac stents (2) Severe sepsis: Code(s): A41.9 - Sepsis, unspecified organism; R65.20 - Severe sepsis without septic shock Status: Acute Assessment and Plan: treated (3) ST elevation (STEMI) myocardial infarction: Code(s): I21.3 - ST elevation (STEMI) myocardial infarction of unspecified site Status: Acute Assessment and Plan: s/p stents, cardiology on board (4) Lung cancer: Code(s): C34.90 - Malignant neoplasm of unspecified part of unspecified bronchus or lung Status: Acute Assessment and Plan: found by CT scan, eventually will need biopsies when more stable (5) Current every day vaping: Code(s): Z72.89 - Other problems related to lifestyle Status: Acute Assessment and Plan: probably affected respiratory symptom (6) Interstitial lung disease: Code(s): J84.9 - Interstitial pulmonary disease, unspecified Status: Acute (7) Insulin dependent type 2 diabetes mellitus: Code(s): E11.9 - Type 2 diabetes mellitus without complications; Z79.4 - terminal carman (current) use of insulin Status: Acute GI Consult Note Consult date/time: 07/09/21 13:22 Reason for consult: respiratory failure unable to extubate HPI: Nena Fuentes is a 56 year old female who had STEMI 06/27 s/p cardiac cath with stents then had acute respiratory failure likely related to pneumonia, EVALI (pt vapes) also could be related to interstitial lung and pneumococcal pneumonia. She was was on high-flow therapy, using accessory muscles of respiration, was finally intubated on 06/29/2021 unfortunately unable to extubate. She also had abrnomal CT chest showed right lung mass, right hilar and mediastinal lymphadenopathy, and lytic lesions of bone, consistent with primary bronchogenic carcinoma and metastatic disease (reviewed). She had covid vaccines and PCR negative. Now I am called for G-tube placement. Review of Systems Review of Systems: ROS unobtainable: Yes unobtainable due to endotracheal tube and unobtainable due to mental status PMFSH Past Medical History Medical History Anxiety Arthritis Asthma Chronic headaches Chronic obstructive pulmonary disease Depression Fibromyalgia Gastroesophageal reflux disease Hypercholesteremia Hypertension Insulin dependent type 2 diabetes mellitus Obstructive sleep apnea on CPAP Stress incontinence Tobacco abuse Surgical History Surgical History History of cholecystectomy History of hysterectomy History of tonsillectomy Status post excision of Chen's neuroma Family History Family History Sibling Hypertension Grandparent Hypertension Diabetes mellitus Malignant neoplasm of prostate Skin cancer Other Arthritis Depression Heart disease Neuropathy Social History Social History Smoking packs per day: 2.5 Smoking cigarettes per day: 50.0 Years smoked: 20 Smoking pack-years: 50.00 Smoking status: Former smoker Tobacco type: cigarettes Smoking end date: 09/03/20 Alcohol intake: current Drinks per week: 1 Substance use: never Substance use type: does not use Additional living arrangements comments: Resides in [place]. Additional occupation/education comments: Unemployed. Gender identity (if verbalized by the patient): Female Spiritual care concerns
--- NOTE | 2021-07-09 13:32 | WPDINTPN ---
Progress Note: A&P Assessment and Plan (1) Acute respiratory failure with hypoxia: Code(s): J96.01 - Acute respiratory failure with hypoxia Status: Acute Assessment and Plan: Patient with acute respiratory failure likely related to pneumonia, possible COVID-19, EVALI (pt vapes) also could be related to interstitial lung and pneumococcal pneumonia -patient was on high-flow therapy, using accessory muscles of respiration, was finally intubated on 06/29/2021 -06/28 & 06/29 SARS-CoV-2 PCR negative -urine pneumococcal antigen was positive -patient was initially started on vancomycin and Levaquin on 06/28/2021. Later Flagyl was added by Pulmonary -currently off vancomycin and Flagyl and will continue Levaquin for pneumococcal coverage as patient is allergic to cephalosporins for a total of 14 days -patient was given a dose of Solu-Medrol 125 mg IV x1 on 06/29 and 06/30. Continue Solu-Medrol per pulmonary recommendations for possible EVALI or ILD exacerbation. 05/27: CTA chest PE protocol did not show any large central pulmonary embolism evaluation of peripheral pulmonary arteries is limited due to extensive airspace disease and motion artifact. Extensive bilateral airspace disease consistent with pneumonia. 3.4 cm right lower lobe pleural-based mass with air bronchograms. This may represent focal masslike airspace consolidation secondary to underlying pneumonia, although malignancy is not excluded. Prominent mediastinal and right hilar lymphadenopathy which may be reactive, although metastatic disease and lymphoma are not excluded 07/[address] due to fever 1. Diffuse lung disease, consistent with pulmonary edema versus pneumonia superimposed on emphysema and chronic interstitial lung disease. 2. Right lung mass, right hilar and mediastinal lymphadenopathy, and lytic lesions of bone, consistent with primary bronchogenic carcinoma and metastatic disease. -currently on CMV mode of ventilation, peep of 5, 35% FiO2. - failed a weaning trial this morning due to high RSBI -chest x-ray reviewed -stable diffuse lung disease consistent with pulmonary edema versus pneumonia versus ARDS. Right hilar lymphadenopathy consistent with metastatic disease - - continue sedation with propofol and Precedex -triglycerides trending down will continue to monitor this patient is on propofol -discussed with sister Germaine, updated with patient's condition and plan of care. I did discuss regarding tracheostomy and PEG tube placement to which she is agreeable (2) Fever: Code(s): R50.9 - Fever, unspecified Status: Acute Assessment and Plan: Patient continues to have fever although they a low-grade. repeat Cultures have been sent on 07/03 and 07/05 and have been negative till now WBC also has decrease in normalized CT chest abdomen pelvis reviewed Negative lower extremity Dopplers for DVT Continue Levaquin to cover for pneumococcus pneumonia for a total of 14 days (3) Lung cancer: Code(s): C34.90 - Malignant neoplasm of unspecified part of unspecified bronchus or lung Status: Acute Assessment and Plan: CT chest shows Right lung mass, right hilar and mediastinal lymphadenopathy, and lytic lesions of bone, consistent with primary bronchogenic carcinoma and metastatic disease Patient currently on dual antiplatelet therapy which was started after STEMI which precludes lung biopsy at this time. Dr. Sinclair discussed with Radiology and they can do a bone biopsy once patient is extubated -oncology has been consulted (4) Pneumonia: Qualifiers: Laterality: bilateral Lung location: unspecified part of lung Pneumonia type: due to unspecified organism Qualified Code(s): J18.9 - Pneumonia, unspecified organism Code(s): J18.9 - Pneumonia, unspecified organism Status: Acute Assessment and Plan: Patient had a bronchoscopy earlier today which showed essentially normal bronchial tree with no
[2021-07-09 16:23] LABS: Glucose Point of Care 255 mg/dl (65-105)
[2021-07-09] MEDS: INSULIN ASPART (*BKC) 100 UNITS/ML SUB-Q ×2 (18:01→20:33)
[2021-07-09] MEDS: PROPOFOL IV EMULSION 100 ML 28.01 MG IV CONT ×2 (19:12→22:26)
[2021-07-09] MEDS: dexmedeTOMIDine 400 MCG/100 ML 400 MCG/100 ML BAG 23.26 MCG IV CONT ×2 (20:16→23:54)
[2021-07-09 20:31] LABS: Glucose Point of Care 215 mg/dl (65-105)
[2021-07-09] MEDS: INSULIN GLARGINE (*BKC) 100 UNITS/ML 40 UNITS SUB-Q (20:34)
[2021-07-09] MEDS: TOPIRAMATE 25 MG TABLET PO (20:38)
[2021-07-09 23:53] LABS: Glucose Point of Care 106 mg/dl (65-105)
[2021-07-10] VITALS (41 sets, daily range): BP systolic 85–133; BP diastolic 50–84; PULSE 52–97; RESP 17–97; TEMP 36.7–38.4; O2SAT 28–99
[2021-07-10] MEDS: PROPOFOL IV EMULSION 100 ML 28.01 MG IV CONT ×5 (01:53→21:41)
[2021-07-10] MEDS: LEVALBUTEROL NEB 1.25 MG/3 ML 0.63 MG INHALATION ×4 (02:50→20:30)
[2021-07-10] MEDS: IPRATROPIUM BR 0.02% INH SOLN 0.5 MG/2.5 ML VIAL INHALATION ×4 (02:50→20:30)
[2021-07-10 03:43] LABS: Glucose Point of Care 116 mg/dl (65-105)
[2021-07-10] MEDS: dexmedeTOMIDine 400 MCG/100 ML 400 MCG/100 ML BAG 11.63 MCG IV CONT (04:21)
[2021-07-10] MEDS: METOCLOPRAMIDE HCL 10 MG/10 ML SOLN UDC PO ×2 (04:49→13:19)
[2021-07-10] MEDS: CENTRAL LINE FLUSH 10 ML IV PUSH ×3 (04:50→21:12)
[2021-07-10 05:30] LABS: Arterial Blood Gas PEEP 5 cmH2O; Arterial Blood Gas Tidal Volume 380 ml; Arterial Blood Gas Vent Mode CMV; Arterial Blood Gas Ventilator rate 28 /MIN; Base Excess ABG 3.7 mEq/l (+/-2.0); Carboxyhemoglobin 0.3 % THb (0-2.0); Device VENTILATOR; Fractional Inspired Oxygen 35 %; HCO3 ABG 27.7 mEq/l (22.0-26.0); Methemoglobin ABG 0.2 %THb (0-1.5); Modified Allen's Test Pass; Oxygen Content ABG 14.2 %vol (16.0-22.0); Oxyhemoglobin 92.1 % THb (90.0-100.0); PCO2 ABG 39.8 mmHg (35.0-45.0); PO2 ABG 70.3 mmHg (80.0-100.0); PO2 FiO2 Ratio Arterial Blood 2.01 %; Reduced Hemoglobin 7.4 %THb (0-5.0); Site Drawn LEFT RADIAL; Total Hemoglobin 10.9 g/dL (12.0-18.0); pH ABG 7.461 (7.350-7.450)
[2021-07-10 06:00] LABS: Basophils Percent Auto 0.3 % (0.2-1.2); Eosinophils Absolute Auto 0.2 K/mm3 (0-0.3); Eosinophils Percent Auto 1.9 % (0-4.4); Hematocrit 31.9 % (37.0-47.0); Hemoglobin 9.9 g/dL (12.0-15.0); Immature Granulocyte Absolute 0.15 K/mm3 (0.00-0.031); Immature Granulocyte Percent A 1.3 % (0-0.5); Lymphocytes Absolute Auto 2.08 K/mm3 (0.9-3.2); Lymphocytes Percent Auto 18.4 % (18.3-44.2); Mean Corpuscular Hemoglobin 33.9 pg (26-34); Mean Corpuscular Volume 109.2 fl (80-100); Mean Platelet Volume 10.7 fl (7.4-10.4); Monocytes Absolute Auto 0.7 K/mm3 (0.1-0.6); Monocytes Percent Auto 5.9 % (2.6-8.5); Neutrophils Absolute Auto 8.2 K/mm3 (1.3-6.7); Neutrophils Percent Auto 72.2 % (45.5-73.1); Nucleated Red Blood Cells Perc 0.2 % (0.0-0.2); Platelet Count Result 175 k/mm3 (150-375); Red Blood Count 2.92 M/mm3 (4.2-5.4); White Blood Count 11.3 K/mm3 (4.5-10.0)
[2021-07-10] MEDS: PROPOFOL IV EMULSION 100 ML 21.01 MG IV CONT (06:08)
[2021-07-10 06:20] LABS: Alanine Aminotransferase 25 U/L (4-35); Albumin Level 3.2 g/dL (3.5-5.1); Alkaline Phosphatase 95 U/L (38-126); Anion Gap 9 mmol/L (8-16); Aspartate Amino Transferase 57 U/L (14-36); Bilirubin,Total 0.6 mg/dL (0.2-1.3); Blood Urea Nitrogen 21 mg/dL (7-17); Calcium 9.7 mg/dL (8.4-10.2); Carbon Dioxide 30 mmol/L (22-30); Chloride 106 mmol/L (98-107); Estimated CRCL calculation 96 ml/min; Estimated Glomerular Filt Rate > 60; Glucose 150 mg/dL (65-110); Magnesium 2.4 mg/dL (1.6-2.3); Phosphorus 3.6 mg/dL (2.5-4.5); Potassium 3.3 mmol/L (3.4-5.0); Sodium 145 mmol/L (137-145)
--- NOTE | 2021-07-10 06:22 | WPDHPUPDATE1 ---
History and Physical Update Update Date/Time: 07/10/21 06:22 History and Physical has been reviewed, including an updated exam of the patient. There are NO changes in the patient's condition. Risks, benefits, and alternatives have been discussed and questions answered. Patient agrees to proceed with procedure.
[2021-07-10] MEDS: KCL 40 MEQ/WATER 100 ML 100 ML 25 ML IVPB (08:48)
[2021-07-10] MEDS: TICAGRELOR 90 MG TABLET PO (08:55)
[2021-07-10] MEDS: ASPIRIN 81 MG ENTERIC TABLET PO (08:55)
[2021-07-10] MEDS: ATORVASTATIN 40 MG TABLET 80 MG PO (08:55)
[2021-07-10] MEDS: MINERAL OIL/WHITE PETROLATUM OINTMENT 1 APPLIC EACH EYE ×2 (08:56→21:12)
[2021-07-10] MEDS: methylPREDNISolone SOD SUCC 40 MG VIAL 30 MG IV PUSH (08:56)
[2021-07-10] MEDS: NICOTINE (*PBKC) 14 MG PATCH 1 PATCH TRANSDERM (08:56)
[2021-07-10 09:02] LABS: Glucose Point of Care 92 mg/dl (65-105)
--- NOTE | 2021-07-10 09:43 | WPDINTPN ---
Progress Note: A&P Assessment and Plan (1) Acute respiratory failure with hypoxia: Code(s): J96.01 - Acute respiratory failure with hypoxia Status: Acute Assessment and Plan: Patient with acute respiratory failure likely related to pneumonia, possible COVID-19, EVALI (pt vapes) also could be related to interstitial lung and pneumococcal pneumonia -patient was on high-flow therapy, using accessory muscles of respiration, was finally intubated on 06/29/2021 -06/28 & 06/29 SARS-CoV-2 PCR negative -urine pneumococcal antigen was positive -patient was initially started on vancomycin and Levaquin on 06/28/2021. Later Flagyl was added by Pulmonary -currently off vancomycin and Flagyl and will continue Levaquin for pneumococcal coverage as patient is allergic to cephalosporins for a total of 14 days -patient was given a dose of Solu-Medrol 125 mg IV x1 on 06/29 and 06/30. -currently on Solu-Medrol 30 mg IV q.day possible EVALI or ILD exacerbation per pulmonology 05/27: CTA chest PE protocol did not show any large central pulmonary embolism evaluation of peripheral pulmonary arteries is limited due to extensive airspace disease and motion artifact. Extensive bilateral airspace disease consistent with pneumonia. 3.4 cm right lower lobe pleural-based mass with air bronchograms. This may represent focal masslike airspace consolidation secondary to underlying pneumonia, although malignancy is not excluded. Prominent mediastinal and right hilar lymphadenopathy which may be reactive, although metastatic disease and lymphoma are not excluded 07/[address] due to fever 1. Diffuse lung disease, consistent with pulmonary edema versus pneumonia superimposed on emphysema and chronic interstitial lung disease. 2. Right lung mass, right hilar and mediastinal lymphadenopathy, and lytic lesions of bone, consistent with primary bronchogenic carcinoma and metastatic disease. -currently on CMV mode of ventilation, peep of 5, 35% FiO2. -patient has failed multiple attempts on weaning trial from the ventilator -family was agreeable with tracheostomy and PEG tube placement. Patient will be getting a tracheostomy today on 07/10/2021 and a PEG tube 05/13/2021 - continue sedation with propofol and Precedex -triglycerides trending down will continue to monitor this patient is on propofol (2) Fever: Code(s): R50.9 - Fever, unspecified Status: Acute Assessment and Plan: Patient continues to have fever although they a low-grade. repeat Cultures have been sent on 07/03 and 07/05 and have been negative till now WBC also has decrease in normalized CT chest abdomen pelvis reviewed Negative lower extremity Dopplers for DVT Continue Levaquin to cover for pneumococcus pneumonia for a total of 14 days (3) Lung cancer: Code(s): C34.90 - Malignant neoplasm of unspecified part of unspecified bronchus or lung Status: Acute Assessment and Plan: CT chest shows Right lung mass, right hilar and mediastinal lymphadenopathy, and lytic lesions of bone, consistent with primary bronchogenic carcinoma and metastatic disease Patient currently on dual antiplatelet therapy which was started after STEMI which precludes lung biopsy at this time. Dr. Sinclair discussed with Radiology and they can do a bone biopsy once patient is extubated -oncology has been consulted (4) Pneumonia: Qualifiers: Laterality: bilateral Lung location: unspecified part of lung Pneumonia type: due to unspecified organism Qualified Code(s): J18.9 - Pneumonia, unspecified organism Code(s): J18.9 - Pneumonia, unspecified organism Status: Acute Assessment and Plan: Patient had a bronchoscopy earlier today which showed essentially normal bronchial tree with no evidence of erythematous changes, diffuse mucosal edema, or increased amount of bronchial secretions. A small submucosal nodular lesion was found right at the RML orifice, c
--- NOTE | 2021-07-10 10:01 | PM.PNCARD ---
Progress Note: A&P Assessment and Plan (1) ST elevation (STEMI) myocardial infarction: Code(s): I21.3 - ST elevation (STEMI) myocardial infarction of unspecified site Status: Acute Assessment and Plan: Acute inferior STEMI on June 27 treated with 2 RCA stents, good LV function. Hemodynamically stable. Continue guideline directed therapy with aspirin, Brilinta, atorvastatin. BP relatively stable. Hold off on JHON-inhibitor No new cardiovascular issues at this time. Continue aspirin, Brilinta, atorvastatin. Will add some low-dose beta-loyd metoprolol 12.5 mg p.o. b.i.d. Patient remains critically ill. Prognosis guarded. (2) Acute respiratory failure with hypoxia: Code(s): J96.01 - Acute respiratory failure with hypoxia Status: Acute Assessment and Plan: Acute respiratory failure, chronic lung disease, managed by clerical office worker. Greatly appreciate critical care and pulmonology involvement and recommendations as well. CT scan today. Patient remains critically ill predominantly due to respiratory failure requiring mechanical ventilatory support. Continue to attempt to wean ventilatory support as tolerated. On levofloxacin. Solu-Medrol. Possible ILD. Negative for PE on CT angiogram although limited due to motion artifact bilateral airspace disease pneumonia pleural-based mass 3.4 cm can not exclude malignancy with prominent mediastinal and right hilar lymphadenopathy possible metastatic disease. I did discuss with Dr. Sinclair the complexities of biopsy and stopping her dual anti-platelet therapy. She does have a lytic bone lesion and this could be biopsied without stopping her dual anti-platelet therapy. This would seem to be a more reasonable and appropriate option rather than stopping her DAPT for 5-7 days for lung biopsy. (3) Fever: Code(s): R50.9 - Fever, unspecified Status: Acute Assessment and Plan: She continues with low-grade fevers, blood cultures Negative to date. (4) Anemia: Code(s): D64.9 - Anemia, unspecified Status: Acute Assessment and Plan: She remains anemic, Hemoglobin relatively stable. No evidence of active bleed. Continue to follow H& H. Continue dual antiplatelet therapy. Platelet count declining continue to monitor closely. (5) Interstitial lung disease: Code(s): J84.9 - Interstitial pulmonary disease, unspecified Status: Acute Assessment and Plan: As above. Appreciate Critical Care and pulmonology recommendations. (6) Diabetes: Code(s): E11.9 - Type 2 diabetes mellitus without complications Status: Acute Assessment and Plan: Continue present management. Initial triglycerides draw lab error 2436 repeat 332. Subjective Date/time seen: 07/10/21 10:01 Interval history: Acute inferior ST segment elevation [place] 06/27/2021 status post successful but difficult and challenging PCI of the right coronary artery because of diffuse disease, calcification and tortuosity in the target vessel. Ultimately good angiographic results with 2 drug-eluting stents. Postprocedure troponin levels only showed a modest troponin rise and echocardiogram demonstrates good left ventricular systolic function. Unfortunately she also appears to have likely vaping related lung injury and is now intubated on mechanical ventilator support. Appears to be COVID negative. 07/01/2021: Bronchoscopy was fairly unremarkable today. Appears to have some underlying interstitial lung disease as well as COPD. Still on 50% FiO2 and intubated. Telemetry shows NSR, occasional APC. 07/02/2021: Clinically unchanged still intubated on mechanical ventilation. O2 requirements slightly lower. 07/03/2021: No significant clinical changes. Ventilator requirements essentially the same, still on 50% FiO2. Unable to tolerate sedation holiday due to ta
[2021-07-10] MEDS: LIDO 1%/EPINEPHRINE/PF 1:200,000 30 ML VIAL XX (10:47)
--- NOTE | 2021-07-10 11:15 | W.PM.PROC2 ---
Procedure Note - Detailed Date of Procedure 07/10/21 Pre-op Diagnosis STEMI Post-op Diagnosis same Procedure Performed Tracheotomy Surgeon Giovanni Pereira MD Description of Procedure Patient was prepped and draped fashion after induction of general anesthesia a vertical incision was made dissection carried down to the adipose tissue the significant pulsations all around the area of the incision dissection was very carefully done trachea was identified apparent other large vessels and thyroid going down over the trachea trachea was lifted up hemostasis was obtained and incision made in the tracheal wall and a 8. Shiley tube placed in sutured in place and this tracheal string used to hold in place Urine Output 1,400
--- NOTE | 2021-07-10 11:34 | PCFNICU ---
ICU Rounding Note: Pt current nutrition is Glucerna 1.2 at 50 ml/hr over 22 hours. Last recorded weight is 117.1 kg, up from 116.7 kg on admit. Bowel Motility: +BM reported 07/10 Labs Reviewed:Glu 150, K 3.3, BUN 21, Hct 31.9, Hgb 9.9 Meds Noted:Propofol 28.01 ml/cv=492 kcals, Precedex, Lipitor, Brilinta, Levaquin, Atrovent Skin: WNL Additional Notes: Patient tube feedings on hold at this time for Trach today. PEG planned for tomorrow 07/11. Recommend restarting tube feedings of Glucerna 1.2 at 50 ml/hr over 22 hours. Will continue to monitor Propofol for rate changes of tube feedings. Following daily in ICU rounds. Will monitor every Wednesday and Wednesday.
[2021-07-10] MEDS: dexmedeTOMIDine 400 MCG/100 ML 400 MCG/100 ML BAG 14.54 MCG IV CONT (13:21)
[2021-07-10 13:26] LABS: Glucose Point of Care 190 mg/dl (65-105)
--- NOTE | 2021-07-10 15:19 | WPDGIPROGNO ---
Progress Note: A&P Assessment and Plan (1) Acute respiratory failure with hypoxia: Code(s): J96.01 - Acute respiratory failure with hypoxia Status: Acute Assessment and Plan: will need assisted feeding s/p trach today will do egd with peg placement tomorrow (2) ST elevation (STEMI) myocardial infarction: Code(s): I21.3 - ST elevation (STEMI) myocardial infarction of unspecified site Status: Acute Assessment and Plan: s/p stents, currently on ac (3) Interstitial lung disease: Code(s): J84.9 - Interstitial pulmonary disease, unspecified Status: Acute (4) Lung cancer: Code(s): C34.90 - Malignant neoplasm of unspecified part of unspecified bronchus or lung Status: Acute Subjective Date/time seen: 07/10/21 15:19 Interval history: today underwent tracheostomy, no other changes- sedated and on respiratory support Review of Systems Review of Systems: All systems reviewed & are unremarkable except as noted in HPI and below Exam Narrative: Obese female, sedated and intubated, no distress but tachypneic, not following commands. Const: General: comfortable and no acute distress Orientation/consciousness: No patient oriented x3 (sedated) HENMT: General nose exam: Normal nares present Other: s/p trach Eyes: Sclera: sclerae normal Neck: Neck: supple Resp: Effort & Inspection: normal respiratory effort Auscultation: rhonchi and diminished lung sounds Other: Faint crackles bilaterally Cardio: Rate: regular rate Rhythm: regular rhythm Heart sounds: no gallops, no murmurs and no rubs Peripheral pulses: Peripheral pulses 2+ throughout Other: PMI not palpable no murmur no gallop GI: GI Palp: Yes Soft to palpation, No Tenderness to palpation present (GI) and No Guarding due to palpation present (GI) Auscultation: normal bowel sounds Urinary Catheter: Urinary Catheter: patent and draining and urine clear Skin: General skin exam: normal color, no rashes or lesions noted and no erythema Other: Warm Neuro: General: No patient oriented x3 (sedated) Cranial nerves: Yes Equal, round and reactive pupils present Cognition (Neuro): abnormal cognition and abnormal cognition Speech: No normal speech Other: Sedated Extrem: General: normal to inspection Other: Mild lower extremity edema Psych: Mental Status: mental status grossly abnormal Objective Data Vital Signs Vital Signs: Vital Signs - 24 hr 07/09/21 15:32 07/09/21 15:45 07/09/21 16:00 Temperature 99.8 F H Pulse Rate 81 81 90 Respiratory Rate 33 H 33 H 32 H Blood Pressure 136/62 Pulse Oximetry 93 07/09/21 16:08 07/09/21 16:09 07/09/21 17:35 Temperature Pulse Rate 81 81 68 Respiratory Rate 33 H 33 H Blood Pressure Pulse Oximetry 92 07/09/21 18:00 07/09/21 18:02 07/09/21 18:03 Temperature 99.8 F H Pulse Rate 66 67 60 Respiratory Rate 32 H 32 H 32 H Blood Pressure 113/57 L Pulse Oximetry 93 07/09/21 19:12 07/09/21 20:00 07/09/21 20:16 Temperature 99.9 F H Pulse Rate 67 62 64 Respiratory Rate 32 H 29 H 32 H Blood Pressure 109/54 L Pulse Oximetry 93 07/09/21 20:22 07/09/21 20:27 07/09/21 20:32 Temperature Pulse Rate 66 66 64 Respiratory Rate 32 H 30 H Blood Pressure Pulse Oximetry 96 07/09/21 22:00 07/09/21 22:26 07/09/21 23:30 Temperature Pulse Rate 73 70 65 Respiratory Rate 31 H 28 H Blood Pressure 121/53 L Pulse Oximetry 96 97 07/09/21 23:54 07/10/21 00:00 07/10/21 01:53 Temperature 99.5 F Pulse Rate 67 67 55 L Respiratory Rate 28 H 31 H 28 H Blood Pressure 110/53 L Pulse Oximetry 95 07/10/21 02:00 07/10/21 02:15 07/10/21 02:25 Temperature 99.5 F Pulse Rate 56 L 54 L 55 L Respiratory Rate 28 H 28 H 28 H Blood Pressure 93/50 L Pulse Oximetry 96 07/10/21 02:53 07/10/21 03:47 07/10/21 04:00 Temperature 99 F Pulse Rate 54 L 52 L 52 L Respiratory Rate 28 H 28 H Blood Pressure 90/50 L
[2021-07-10] MEDS: INSULIN ASPART (*BKC) 100 UNITS/ML SUB-Q (17:27)
[2021-07-10 17:34] LABS: Glucose Point of Care 230 mg/dl (65-105)
[2021-07-10] MEDS: dexmedeTOMIDine 400 MCG/100 ML 400 MCG/100 ML BAG 17.45 MCG IV CONT (19:23)
[2021-07-10 19:32] LABS: Glucose Point of Care 169 mg/dl (65-105)
[2021-07-11] VITALS (55 sets, daily range): BP systolic 93–125; BP diastolic 50–59; PULSE 11–122; RESP 28–40; TEMP 38.3–38.8; O2SAT 94–98
[2021-07-11] MEDS: METOPROLOL TARTRATE INJ 5 MG/5 ML VIAL 2.5 MG IV PUSH ×5 (00:10→23:02)
[2021-07-11] MEDS: PROPOFOL IV EMULSION 100 ML 28.01 MG IV CONT ×3 (00:14→07:24)
[2021-07-11] MEDS: dexmedeTOMIDine 400 MCG/100 ML 400 MCG/100 ML BAG 17.45 MCG IV CONT ×3 (00:15→23:29)
[2021-07-11 00:35] LABS: Glucose Point of Care 121 mg/dl (65-105)
[2021-07-11] MEDS: LEVALBUTEROL NEB 1.25 MG/3 ML 0.63 MG INHALATION ×4 (02:09→23:09)
[2021-07-11] MEDS: IPRATROPIUM BR 0.02% INH SOLN 0.5 MG/2.5 ML VIAL INHALATION ×4 (02:10→23:09)
[2021-07-11 04:09] LABS: Glucose Point of Care 157 mg/dl (65-105)
[2021-07-11 04:36] LABS: Basophils Percent Auto 0.2 % (0.2-1.2); Eosinophils Absolute Auto 0.1 K/mm3 (0-0.3); Eosinophils Percent Auto 1.3 % (0-4.4); Hematocrit 30.4 % (37.0-47.0); Hemoglobin 9.3 g/dL (12.0-15.0); Lymphocytes Percent Auto 21.9 % (18.3-44.2); Mean Corpuscular HGB Conc 30.6 g/dl (32-36); Mean Corpuscular Hemoglobin 33.8 pg (26-34); Mean Corpuscular Volume 110.5 fl (80-100); Mean Platelet Volume 10.1 fl (7.4-10.4); Monocytes Absolute Auto 0.8 K/mm3 (0.1-0.6); Monocytes Percent Auto 7.7 % (2.6-8.5); Neutrophils Absolute Auto 6.8 K/mm3 (1.3-6.7); Neutrophils Percent Auto 67.9 % (45.5-73.1); Platelet Count Result 191 k/mm3 (150-375); Red Blood Count 2.75 M/mm3 (4.2-5.4); Red Cell Distribution Width 16.7 % (11.5-14.5); White Blood Count 10.1 K/mm3 (4.5-10.0)
[2021-07-11 04:49] LABS: Alanine Aminotransferase 27 U/L (4-35); Alkaline Phosphatase 92 U/L (38-126); Anion Gap 8 mmol/L (8-16); Aspartate Amino Transferase 58 U/L (14-36); Bilirubin,Total 0.8 mg/dL (0.2-1.3); Blood Urea Nitrogen 23 mg/dL (7-17); Calcium 9.5 mg/dL (8.4-10.2); Carbon Dioxide 25 mmol/L (22-30); Chloride 111 mmol/L (98-107); Estimated CRCL calculation 86 ml/min; Estimated Glomerular Filt Rate > 60; Glucose 173 mg/dL (65-110); Magnesium 2.2 mg/dL (1.6-2.3); Phosphorus 3.7 mg/dL (2.5-4.5); Potassium 3.7 mmol/L (3.4-5.0); Sodium 144 mmol/L (137-145); Triglycerides 223 mg/dL (<150)
[2021-07-11 05:34] LABS: Alveolar/Arterial O2 Gradient 175.4 mmHg; Base Excess ABG -1.1 mEq/l (+/-2.0); Carboxyhemoglobin 0.3 % THb (0-2.0); Fractional Inspired Oxygen 40 %; Methemoglobin ABG 0.2 %THb (0-1.5); Oxygen Content ABG 13.6 %vol (16.0-22.0); Oxygen Saturation ABG 95.9 % (95.0-100.0); Oxyhemoglobin 93.4 % THb (90.0-100.0); PCO2 ABG 30.9 mmHg (35.0-45.0); PO2 ABG 74.3 mmHg (80.0-100.0); PO2 FiO2 Ratio Arterial Blood 1.86 %; Reduced Hemoglobin 6.1 %THb (0-5.0); Total Hemoglobin 10.3 g/dL (12.0-18.0)
[2021-07-11 05:35] LABS: Arterial Blood Gas Vent Mode CMV; Arterial Blood Gas Ventilator rate 28 /MIN; Device VENTILATOR; Modified Allen's Test Unable to perform; Site Drawn RIGHT RADIAL
[2021-07-11 05:36] LABS: Arterial Blood Gas PEEP 5 cmH2O; Arterial Blood Gas Tidal Volume 380 ml
[2021-07-11] MEDS: CENTRAL LINE FLUSH 10 ML IV PUSH ×3 (05:48→22:16)
[2021-07-11 09:32] LABS: Glucose Point of Care 192 mg/dl (65-105)
[2021-07-11] MEDS: MINERAL OIL/WHITE PETROLATUM OINTMENT 1 APPLIC EACH EYE ×2 (09:37→20:21)
[2021-07-11] MEDS: methylPREDNISolone SOD SUCC 40 MG VIAL 30 MG IV PUSH (09:37)
[2021-07-11] MEDS: NICOTINE (*PBKC) 14 MG PATCH 1 PATCH TRANSDERM (09:38)
[2021-07-11] MEDS: fentaNYL CITRATE INJ (*CRX) 100 MCG/2 ML VIAL 50 MCG IV PUSH (09:51)
[2021-07-11] MEDS: PROPOFOL IV EMULSION 100 ML 35.01 MG IV CONT ×2 (10:42→13:34)
[2021-07-11] MEDS: dexmedeTOMIDine 400 MCG/100 ML 400 MCG/100 ML BAG 23.26 MCG IV CONT ×2 (10:53→15:14)
[2021-07-11 11:47] LABS: Glucose Point of Care 325 mg/dl (65-105)
[2021-07-11] MEDS: INSULIN GLARGINE (*BKC) 100 UNITS/ML 60 UNITS SUB-Q (11:50)
[2021-07-11] MEDS: INSULIN ASPART (*BKC) 100 UNITS/ML SUB-Q ×3 (11:59→20:17)
[2021-07-11] MEDS: METOCLOPRAMIDE HCL INJ 10 MG/2 ML VIAL IV PUSH ×3 (11:59→23:02)
[2021-07-11] MEDS: levoFLOXacin 500 MG/D5W 100 ML 500 MG/100 ML BAG 100 MG IVPB (12:06)
--- NOTE | 2021-07-11 12:12 | PCNFU ---
Nutrition Follow-Up Complete: Inadequate Oral Intake as related to mechanical ventilation as evidenced by NPO. Goal: Meet estimated nutritional needs Patient progressing towards goal. We will continue current goal. Pt current nutrition is NPO. Last recorded weight is 119.4 kg, up from 116.7 kg on admit. Bowel Motility:+BM reported 07/10 Labs Reviewed:Glu 173,TG 223, Hct 30.4,Hgb 9.3,BUN 23 Meds Noted:Propofol 35.01 ml/xo=243 kcals, Cymbalta, Lipitor, Lantus, Novolog, Brilinta, Precedex, Reglan, Levaquin. Skin:Edema, skin-WNL Additional Notes: Patient remains on mechanical vent and tube feeding of Glucerna 1.2. Tube feedings are currently on hold for PEG today. Trach placed 07/10. Recommend Glucerna 1.2 at 45 ml/hr due to increase in Propofol. Free water flush 30 ml q 4 hours. Monitoring: daily in ICU rounds, reassessing every Wednesday and Wednesday.
--- NOTE | 2021-07-11 12:18 | PM.PNCARD ---
Progress Note: A&P Assessment and Plan (1) ST elevation (STEMI) myocardial infarction: Code(s): I21.3 - ST elevation (STEMI) myocardial infarction of unspecified site Status: Acute Assessment and Plan: Acute inferior STEMI on June 27 treated with 2 RCA stents, good LV function. Hemodynamically stable. Continue guideline directed therapy with aspirin, Brilinta, atorvastatin. BP relatively stable. Hold off on JHON-inhibitor No new cardiovascular issues at this time. Continue aspirin, Brilinta, atorvastatin. Tolerated low-dose metoprolol which was started yesterday. Patient remains critically ill. Prognosis guarded. (2) Acute respiratory failure with hypoxia: Code(s): J96.01 - Acute respiratory failure with hypoxia Status: Acute Assessment and Plan: Acute respiratory failure, chronic lung disease, managed by sample hand. Greatly appreciate critical care and pulmonology involvement and recommendations as well. CT scan today. Patient remains critically ill predominantly due to respiratory failure requiring mechanical ventilatory support. Continue to attempt to wean ventilatory support as tolerated. On levofloxacin. Solu-Medrol. Possible ILD. Negative for PE on CT angiogram although limited due to motion artifact bilateral airspace disease pneumonia pleural-based mass 3.4 cm can not exclude malignancy with prominent mediastinal and right hilar lymphadenopathy possible metastatic disease. I did discuss with Dr. Sinclair the complexities of biopsy and stopping her dual anti-platelet therapy. She does have a lytic bone lesion and this could be biopsied without stopping her dual anti-platelet therapy. This would seem to be a more reasonable and appropriate option rather than stopping her DAPT for 5-7 days for lung biopsy. (3) Fever: Code(s): R50.9 - Fever, unspecified Status: Acute Assessment and Plan: She continues with low-grade fevers, blood cultures Negative to date. (4) Anemia: Code(s): D64.9 - Anemia, unspecified Status: Acute Assessment and Plan: She remains anemic, Hemoglobin relatively stable. No evidence of active bleed. Continue to follow H& H. Continue dual antiplatelet therapy. Platelet count declining continue to monitor closely. (5) Interstitial lung disease: Code(s): J84.9 - Interstitial pulmonary disease, unspecified Status: Acute Assessment and Plan: As above. Appreciate Critical Care and pulmonology recommendations. (6) Diabetes: Code(s): E11.9 - Type 2 diabetes mellitus without complications Status: Acute Assessment and Plan: Continue present management. Initial triglycerides draw lab error 2436 repeat 332. Subjective Date/time seen: 07/11/21 12:18 Interval history: Acute inferior ST segment elevation [place] 06/27/2021 status post successful but difficult and challenging PCI of the right coronary artery because of diffuse disease, calcification and tortuosity in the target vessel. Ultimately good angiographic results with 2 drug-eluting stents. Postprocedure troponin levels only showed a modest troponin rise and echocardiogram demonstrates good left ventricular systolic function. Unfortunately she also appears to have likely vaping related lung injury and is now intubated on mechanical ventilator support. Appears to be COVID negative. 07/01/2021: Bronchoscopy was fairly unremarkable today. Appears to have some underlying interstitial lung disease as well as COPD. Still on 50% FiO2 and intubated. Telemetry shows NSR, occasional APC. 07/02/2021: Clinically unchanged still intubated on mechanical ventilation. O2 requirements slightly lower. 07/03/2021: No significant clinical changes. Ventilator requirements essentially the same, still on 50% FiO2. Unable to tolerate sedation holiday due to tachypnea.
--- NOTE | 2021-07-11 13:03 | WPDINTPN ---
Progress Note: A&P Assessment and Plan (1) Acute respiratory failure with hypoxia: Code(s): J96.01 - Acute respiratory failure with hypoxia Status: Acute Assessment and Plan: Patient with acute respiratory failure likely related to pneumonia, possible COVID-19, EVALI (pt vapes) also could be related to interstitial lung and pneumococcal pneumonia -patient was on high-flow therapy, using accessory muscles of respiration, was finally intubated on 06/29/2021 -06/28 & 06/29 SARS-CoV-2 PCR negative -urine pneumococcal antigen was positive -patient was initially started on vancomycin and Levaquin on 06/28/2021. Later Flagyl was added by Pulmonary -currently off vancomycin and Flagyl, Levaquin -patient was given a dose of Solu-Medrol 125 mg IV x1 on 06/29 and 06/30. -currently on Solu-Medrol 30 mg IV q.day possible EVALI or ILD exacerbation per pulmonology 05/27: CTA chest PE protocol did not show any large central pulmonary embolism evaluation of peripheral pulmonary arteries is limited due to extensive airspace disease and motion artifact. Extensive bilateral airspace disease consistent with pneumonia. 3.4 cm right lower lobe pleural-based mass with air bronchograms. This may represent focal masslike airspace consolidation secondary to underlying pneumonia, although malignancy is not excluded. Prominent mediastinal and right hilar lymphadenopathy which may be reactive, although metastatic disease and lymphoma are not excluded 07/[address] due to fever 1. Diffuse lung disease, consistent with pulmonary edema versus pneumonia superimposed on emphysema and chronic interstitial lung disease. 2. Right lung mass, right hilar and mediastinal lymphadenopathy, and lytic lesions of bone, consistent with primary bronchogenic carcinoma and metastatic disease. -currently on CMV mode of ventilation, peep of 5, 35% FiO2. -patient has failed multiple attempts on weaning trial from the ventilator -family was agreeable with tracheostomy and PEG tube placement. Patient will be getting a tracheostomy today on 07/10/2021 and a PEG tube 05/13/2021 - continue sedation with propofol and Precedex -triglycerides trending down will continue to monitor this patient is on propofol (2) Fever: Code(s): R50.9 - Fever, unspecified Status: Acute Assessment and Plan: Patient continues to have fever although they a low-grade. repeat Cultures have been sent on 07/03 and 07/05 and have been negative till now WBC also has decreased CT chest abdomen pelvis reviewed Negative lower extremity Dopplers for DVT Continue Levaquin to cover for pneumococcus pneumonia for a total of 14 days (3) Lung cancer: Code(s): C34.90 - Malignant neoplasm of unspecified part of unspecified bronchus or lung Status: Acute Assessment and Plan: CT chest shows Right lung mass, right hilar and mediastinal lymphadenopathy, and lytic lesions of bone, consistent with primary bronchogenic carcinoma and metastatic disease Patient currently on dual antiplatelet therapy which was started after STEMI which precludes lung biopsy at this time. Dr. Sinclair discussed with Radiology and they can do a bone biopsy once patient is extubated -oncology has been consulted (4) Pneumonia: Qualifiers: Laterality: bilateral Lung location: unspecified part of lung Pneumonia type: due to unspecified organism Qualified Code(s): J18.9 - Pneumonia, unspecified organism Code(s): J18.9 - Pneumonia, unspecified organism Status: Acute Assessment and Plan: Patient had a bronchoscopy earlier today which showed essentially normal bronchial tree with no evidence of erythematous changes, diffuse mucosal edema, or increased amount of bronchial secretions. A small submucosal nodular lesion was found right at the RML orifice, causing mild narrowing of the RML bronchus. The superior segment of the right lower lobe appeared edematous with thic
--- NOTE | 2021-07-11 13:19 | SUR.OPER ---
Per Dr. Cadena cancel procedure due to pt having a fever.
--- NOTE | 2021-07-11 14:26 | WPDGIPROGNO ---
Progress Note: A&P Assessment and Plan (1) Acute respiratory failure with hypoxia: Code(s): J96.01 - Acute respiratory failure with hypoxia Status: Acute Assessment and Plan: will need senior care feeding I decided to postpone PEG placement today because she has been febrile last 24 hours instead I placed NGT in right nostril- will get KUB to document right position then can start feeding PEG placement at another time (2) Fever: Code(s): R50.9 - Fever, unspecified Status: Acute Assessment and Plan: discussed with icu team, cancel procedure today (3) ST elevation (STEMI) myocardial infarction: Code(s): I21.3 - ST elevation (STEMI) myocardial infarction of unspecified site Status: Acute Assessment and Plan: s/p stents, currently on ac (4) Interstitial lung disease: Code(s): J84.9 - Interstitial pulmonary disease, unspecified Status: Acute (5) Lung cancer: Code(s): C34.90 - Malignant neoplasm of unspecified part of unspecified bronchus or lung Status: Acute Subjective Date/time seen: 07/11/21 14:26 Interval history: I was going to place PEG today but noted that she has been febrile since yesterday and also this morning ~ 101.6 F Review of Systems Review of Systems: All systems reviewed & are unremarkable except as noted in HPI and below Exam Narrative: Obese female, sedated and intubated, no distress but tachypneic, not following commands. Const: Orientation/consciousness: No patient oriented x3 (sedated) HENMT: General nose exam: Normal nares present Other: s/p trach Eyes: Sclera: sclerae normal Neck: Neck: supple Resp: Effort & Inspection: normal respiratory effort Auscultation: rhonchi and diminished lung sounds Cardio: Rate: regular rate Rhythm: regular rhythm Peripheral pulses: Peripheral pulses 2+ throughout Other: PMI not palpable no murmur no gallop GI: GI Palp: Yes Soft to palpation, No Tenderness to palpation present (GI) and No Guarding due to palpation present (GI) Auscultation: normal bowel sounds Urinary Catheter: Urinary Catheter: patent and draining and urine clear Skin: General skin exam: normal color Other: Warm Neuro: General: No patient oriented x3 (sedated) Cranial nerves: Yes Equal, round and reactive pupils present Cognition (Neuro): abnormal cognition and abnormal cognition Speech: No normal speech Other: Sedated Extrem: General: normal to inspection Other: Mild lower extremity edema Psych: Mental Status: mental status grossly abnormal Objective Data Vital Signs Vital Signs: Vital Signs - 24 hr 07/10/21 14:40 07/10/21 14:47 07/10/21 14:50 Temperature Pulse Rate 72 71 72 Respiratory Rate 30 H 30 H Blood Pressure Pulse Oximetry 99 07/10/21 14:58 07/10/21 16:00 07/10/21 17:46 Temperature 100.6 F H Pulse Rate 71 82 72 Respiratory Rate 25 H 32 H Blood Pressure 111/60 Pulse Oximetry 93 98 07/10/21 18:00 07/10/21 18:25 07/10/21 19:23 Temperature 100.9 F H Pulse Rate 68 89 69 Respiratory Rate 30 H 30 H 30 H Blood Pressure 133/66 Pulse Oximetry 98 07/10/21 20:00 07/10/21 20:30 07/10/21 20:43 Temperature 101 F H Pulse Rate 69 68 66 Respiratory Rate 97 H 30 H 27 H Blood Pressure 101/57 L Pulse Oximetry 28 L 99 07/10/21 21:05 07/10/21 21:41 07/10/21 22:00 Temperature 101.2 F H Pulse Rate 75 72 Respiratory Rate 28 H 28 H Blood Pressure 85/51 L Pulse Oximetry 98 95 07/10/21 23:58 07/11/21 00:00 07/11/21 00:10 Temperature 100.9 F H Pulse Rate 67 65 66 Respiratory Rate 28 H Blood Pressure 98/53 L Pulse Oximetry 95 95 07/11/21 00:14 07/11/21 00:15 07/11/21 02:00 Temperature 101.1 F H Pulse Rate 64 64 65 Respiratory Rate 28 H 28 H 28 H Blood Pressure 97/51 L Pulse Oximetry 97 07/11/21 02:11 07/11/21 02:22 07/11/21 03:49 Temperature Pulse Rate 65 64 69 Respiratory Rate 28 H 28 H 29 H Blood Pressur
[2021-07-11 16:17] LABS: Glucose Point of Care 330 mg/dl (65-105)
[2021-07-11] MEDS: PROPOFOL IV EMULSION 100 ML 31.51 MG IV CONT ×2 (16:17→18:39)
[2021-07-11] MEDS: dexmedeTOMIDine 400 MCG/100 ML 400 MCG/100 ML BAG 20.35 MCG IV CONT (18:38)
[2021-07-11 20:07] LABS: Glucose Point of Care 288 mg/dl (65-105)
[2021-07-11] MEDS: INSULIN GLARGINE (*BKC) 100 UNITS/ML 40 UNITS SUB-Q (20:18)
[2021-07-11] MEDS: TOPIRAMATE 25 MG TABLET PO (20:19)
[2021-07-11] MEDS: TICAGRELOR 90 MG TABLET PO (20:19)
[2021-07-11] MEDS: PROPOFOL IV EMULSION 100 ML 21.01 MG IV CONT (22:12)
[2021-07-11 23:32] LABS: Glucose Point of Care 190 mg/dl (65-105)
[2021-07-12] VITALS (36 sets, daily range): BP systolic 102–116; BP diastolic 50–64; PULSE 53–83; RESP 22–35; TEMP 37.3–38.7; O2SAT 95–99
[2021-07-12] MEDS: PROPOFOL IV EMULSION 100 ML 21.01 MG IV CONT (02:48)
[2021-07-12] MEDS: IPRATROPIUM BR 0.02% INH SOLN 0.5 MG/2.5 ML VIAL INHALATION ×4 (02:53→20:00)
[2021-07-12] MEDS: LEVALBUTEROL NEB 1.25 MG/3 ML 0.63 MG INHALATION ×4 (02:53→19:59)
[2021-07-12 03:59] LABS: Basophils Percent Auto 0.2 % (0.2-1.2); Eosinophils Absolute Auto 0.1 K/mm3 (0-0.3); Eosinophils Percent Auto 1.1 % (0-4.4); Hematocrit 28.5 % (37.0-47.0); Hemoglobin 8.6 g/dL (12.0-15.0); Immature Granulocyte Absolute 0.06 K/mm3 (0.00-0.031); Immature Granulocyte Percent A 0.6 % (0-0.5); Lymphocytes Absolute Auto 1.87 K/mm3 (0.9-3.2); Lymphocytes Percent Auto 17.5 % (18.3-44.2); Mean Corpuscular HGB Conc 30.2 g/dl (32-36); Mean Corpuscular Hemoglobin 33.2 pg (26-34); Mean Platelet Volume 10.3 fl (7.4-10.4); Monocytes Absolute Auto 0.8 K/mm3 (0.1-0.6); Monocytes Percent Auto 7.4 % (2.6-8.5); Neutrophils Absolute Auto 7.8 K/mm3 (1.3-6.7); Neutrophils Percent Auto 73.2 % (45.5-73.1); Nucleated Red Blood Cells Perc 0.2 % (0.0-0.2); Platelet Count Result 197 k/mm3 (150-375); Red Blood Count 2.59 M/mm3 (4.2-5.4); Red Cell Distribution Width 16.6 % (11.5-14.5); White Blood Count 10.7 K/mm3 (4.5-10.0)
[2021-07-12 04:10] LABS: Alanine Aminotransferase 34 U/L (4-35); Albumin Level 3.2 g/dL (3.5-5.1); Alkaline Phosphatase 77 U/L (38-126); Anion Gap 5 mmol/L (8-16); Aspartate Amino Transferase 79 U/L (14-36); Bilirubin,Total 0.7 mg/dL (0.2-1.3); Blood Urea Nitrogen 21 mg/dL (7-17); Calcium 9.5 mg/dL (8.4-10.2); Carbon Dioxide 27 mmol/L (22-30); Chloride 109 mmol/L (98-107); Estimated CRCL calculation 112 ml/min; Estimated Glomerular Filt Rate > 60; Glucose 201 mg/dL (65-110); Magnesium 2.1 mg/dL (1.6-2.3); Potassium 3.6 mmol/L (3.4-5.0); Sodium 141 mmol/L (137-145)
[2021-07-12 04:30] LABS: Glucose Point of Care 194 mg/dl (65-105)
[2021-07-12] MEDS: dexmedeTOMIDine 400 MCG/100 ML 400 MCG/100 ML BAG 17.45 MCG IV CONT ×4 (05:15→22:23)
[2021-07-12] MEDS: METOPROLOL TARTRATE INJ 5 MG/5 ML VIAL 2.5 MG IV PUSH ×3 (05:23→18:00)
[2021-07-12] MEDS: METOCLOPRAMIDE HCL INJ 10 MG/2 ML VIAL IV PUSH ×3 (05:23→18:00)
[2021-07-12] MEDS: CENTRAL LINE FLUSH 10 ML IV PUSH ×3 (05:24→20:43)
[2021-07-12 06:40] LABS: Alveolar/Arterial O2 Gradient 156.5 mmHg; Base Excess ABG -0.4 mEq/l (+/-2.0); Carboxyhemoglobin 0.2 % THb (0-2.0); Fractional Inspired Oxygen 40 %; HCO3 ABG 23.2 mEq/l (22.0-26.0); Methemoglobin ABG 0.4 %THb (0-1.5); Oxygen Content ABG 15.1 %vol (16.0-22.0); Oxygen Saturation ABG 97.1 % (95.0-100.0); Oxyhemoglobin 94.9 % THb (90.0-100.0); PCO2 ABG 35.1 mmHg (35.0-45.0); PO2 ABG 88.3 mmHg (80.0-100.0); PO2 FiO2 Ratio Arterial Blood 2.21 %; Reduced Hemoglobin 4.5 %THb (0-5.0); Total Hemoglobin 11.2 g/dL (12.0-18.0); pH ABG 7.438 (7.350-7.450)
[2021-07-12 06:44] LABS: Modified Allen's Test Pass; Site Drawn RIGHT RADIAL
[2021-07-12 06:45] LABS: Arterial Blood Gas PEEP 5 cmH2O; Arterial Blood Gas Tidal Volume 380 ml; Arterial Blood Gas Vent Mode CMV; Arterial Blood Gas Ventilator rate 28 /MIN; Device VENTILATOR
[2021-07-12] MEDS: PROPOFOL IV EMULSION 100 ML 17.51 MG IV CONT (07:50)
[2021-07-12 08:14] LABS: Glucose Point of Care 224 mg/dl (65-105)
--- NOTE | 2021-07-12 08:34 | PM.PNCARD ---
Progress Note: A&P Additional Plan 56-year-old patient with acute inferior wall myocardial infarction at the time of presentation now over 2 weeks ago. She underwent difficult but successful emergency PCI of the right coronary artery. She requires dual anti-platelet therapy at this time without interruption. Unfortunately does been found to have what appears to be metastatic bronchogenic carcinoma. Biopsy to prove this diagnosis of course has not been done. No new or active cardiac issues will continue to follow Adam Weiss MD [facility] Subjective Date/time seen: Date of service: 07/12/21 08:34 Interval history: Acute inferior ST segment elevation AL 06/27/2021 status post successful but difficult and challenging PCI of the right coronary artery because of diffuse disease, calcification and tortuosity in the target vessel. Ultimately good angiographic results with 2 drug-eluting stents. Postprocedure troponin levels only showed a modest troponin rise and echocardiogram demonstrates good left ventricular systolic function. Unfortunately she also appears to have likely vaping related lung injury and is now intubated on mechanical ventilator support. Appears to be COVID negative. 07/01/2021: Bronchoscopy was fairly unremarkable today. Appears to have some underlying interstitial lung disease as well as COPD. Still on 50% FiO2 and intubated. Telemetry shows NSR, occasional APC. 07/02/2021: Clinically unchanged still intubated on mechanical ventilation. O2 requirements slightly lower. 07/03/2021: No significant clinical changes. Ventilator requirements essentially the same, still on 50% FiO2. Unable to tolerate sedation holiday due to tachypnea. 07/04/2021: No new cardiovascular issues in the last several days. Patient remains sedated on mechanical ventilator support. Oxygenation requirements are slightly better but still requiring ventilator support. 07/05/2021: Remains intubated. Low-grade fever this morning. CT scan scheduled. Remains intubated, sedated. Unable provide history. Sinus rhythm/bradycardia on telemetry. Hemodynamically stable. Date of service 07/06/2021: Patient continues to have low-grade fevers. Blood cultures negative. Given IV Lasix with good response although relatively hypotensive this morning. She remains on Precedex and propofol. Patient remains tachypneic but not following commands on ventilatory support FiO2 40%. Patient not able to provide any history due to sedation and mechanical ventilatory support. Date of service 07/07/2021: Remains in sinus rhythm. Still intubated. No significant changes. Date of service 07/08/2021: Still sinus rhythm. No significant change. Date of service 07/09/2021: Clinically unchanged patient is still intubated on mechanical ventilator support. Unfortunately diagnosis now is suspected lung cancer. There apparently is a endobronchial mass and evidence of metastatic disease on imaging. No tissue diagnosis yet apparently some discussion of a lytic bone lesion biopsy. Obviously the patient's prognosis will change significantly once she has biopsy-proven metastatic disease. For now no cardiac changes continue dual anti-platelet therapy Date of service 07/10/2021: With lightening the sedation, patient is responding and does squeeze hands to command. No chest pain Date of service 07/11/2021: Status post tracheostomy yesterday. No significant arrhythmia. Sedated at this point Date of service 07/12/2021: Clinically unchanged although the patient is now awake and responsive on Precedex and does follow commands. Apparently plans are to proceed with a biopsy once the patient is more stable and off ventilator support. We would recommend as detailed above biopsy of 1 of her lytic bone lesions over the endobronchial mass which would necessitate interrupting anti-platelet therapy. Objective Data Vital Signs Vital Signs: Vital Signs - 24 hr 07/11/21 09:39 07/11/21 09:55 1
[2021-07-12] MEDS: ATORVASTATIN 40 MG TABLET 80 MG PO (08:35)
[2021-07-12] MEDS: FUROSEMIDE INJ 40 MG/4 ML VIAL 20 MG IV PUSH (08:35)
[2021-07-12] MEDS: NICOTINE (*PBKC) 14 MG PATCH 1 PATCH TRANSDERM (08:36)
[2021-07-12] MEDS: methylPREDNISolone SOD SUCC 40 MG VIAL 30 MG IV PUSH (08:36)
[2021-07-12] MEDS: ENOXAPARIN 40 MG/0.4 ML SYRINGE SUB-Q (08:36)
[2021-07-12] MEDS: MINERAL OIL/WHITE PETROLATUM OINTMENT 1 APPLIC EACH EYE ×2 (08:36→20:35)
[2021-07-12] MEDS: ASPIRIN 81 MG ENTERIC TABLET PO (08:36)
[2021-07-12] MEDS: TICAGRELOR 90 MG TABLET PO ×2 (08:37→20:35)
[2021-07-12] MEDS: INSULIN GLARGINE (*BKC) 100 UNITS/ML 60 UNITS SUB-Q (09:39)
[2021-07-12] MEDS: INSULIN ASPART (*BKC) 100 UNITS/ML SUB-Q ×4 (09:39→20:40)
--- NOTE | 2021-07-12 10:43 | WPDGIPROGNO ---
Progress Note: A&P Assessment and Plan (1) Acute respiratory failure with hypoxia: Code(s): J96.01 - Acute respiratory failure with hypoxia Status: Acute Assessment and Plan: will need penitentiary feeding but yesterday decided to postpone PEG placement because she was febrile, today only low grade fever tentatively will do it early this coming week if no fever yesterday I placed NGT in right nostril and already back on tube feeding, tolerating (2) Fever: Code(s): R50.9 - Fever, unspecified Status: Acute Assessment and Plan: low grade fever now by icu team (3) ST elevation (STEMI) myocardial infarction: Code(s): I21.3 - ST elevation (STEMI) myocardial infarction of unspecified site Status: Acute Assessment and Plan: s/p stents, currently on ac (4) Interstitial lung disease: Code(s): J84.9 - Interstitial pulmonary disease, unspecified Status: Acute (5) Lung cancer: Code(s): C34.90 - Malignant neoplasm of unspecified part of unspecified bronchus or lung Status: Acute Assessment and Plan: no biopsies yet since she is on blood thinners given recent stents placement Subjective Date/time seen: 07/12/21 10:43 Interval history: less febrile only 100.2F, NGT placed yesterday and confirmed is in stomach, now tolerating tube feeding. Review of Systems Review of Systems: All systems reviewed & are unremarkable except as noted in HPI and below Exam Narrative: Obese female, sedated and intubated Const: Orientation/consciousness: No patient oriented x3 (sedated) HENMT: General nose exam: Normal nares present Other: s/p trach. NGT in right nostril Eyes: Sclera: sclerae normal Neck: Neck: supple Resp: Effort & Inspection: normal respiratory effort Auscultation: rhonchi and diminished lung sounds Cardio: Rate: regular rate Rhythm: regular rhythm GI: GI Palp: Yes Soft to palpation, No Tenderness to palpation present (GI) and No Guarding due to palpation present (GI) Auscultation: normal bowel sounds Urinary Catheter: Urinary Catheter: patent and draining Skin: General skin exam: normal color Other: Warm Neuro: General: No patient oriented x3 (sedated) Cranial nerves: Yes Equal, round and reactive pupils present Cognition (Neuro): abnormal cognition Other: Sedated Extrem: General: normal to inspection Other: Mild lower extremity edema Psych: Mental Status: mental status grossly abnormal Objective Data Vital Signs Vital Signs: Vital Signs - 24 hr 07/11/21 10:53 07/11/21 11:42 07/11/21 12:00 Temperature 101.6 F H Pulse Rate 113 H 102 H 108 H Respiratory Rate 34 H 36 H Blood Pressure 93/50 L Pulse Oximetry 96 97 07/11/21 12:06 07/11/21 13:34 07/11/21 14:00 Temperature 101.9 F H Pulse Rate 107 H 113 H 11 L Respiratory Rate 34 H 38 H Blood Pressure 107/54 L Pulse Oximetry 98 07/11/21 14:18 07/11/21 14:28 07/11/21 15:11 Temperature Pulse Rate 112 H 113 H 113 H Respiratory Rate 40 H 37 H 31 H Blood Pressure Pulse Oximetry 98 07/11/21 15:14 07/11/21 15:24 07/11/21 15:54 Temperature Pulse Rate 113 H 112 H 110 H Respiratory Rate 31 H 38 H 36 H Blood Pressure Pulse Oximetry 98 07/11/21 15:55 07/11/21 16:00 07/11/21 16:17 Temperature 101.6 F H Pulse Rate 110 H 109 H 109 H Respiratory Rate 36 H 36 H 38 H Blood Pressure 105/58 L Pulse Oximetry 98 07/11/21 16:21 07/11/21 16:40 07/11/21 16:51 Temperature 102 F H 101.9 F H Pulse Rate 104 H Respiratory Rate Blood Pressure Pulse Oximetry 97 07/11/21 17:01 07/11/21 17:06 07/11/21 18:00 Temperature 101.9 F H Pulse Rate 104 H 104 H 100 Respiratory Rate 33 H 33 H Blood Pressure 106/53 L Pulse Oximetry 97 07/11/21 18:38 07/11/21 18:39 07/11/21 20:00 Temperature 101.9 F H Pulse Rate 99 99 95 Respiratory Rate 32 H 32 H 32 H Blood Pressure 105/53 L Pulse Oximetry 97 07/11/21
--- NOTE | 2021-07-12 11:44 | WPDINTPN ---
Progress Note: A&P Assessment and Plan (1) Acute respiratory failure with hypoxia: Code(s): J96.01 - Acute respiratory failure with hypoxia Status: Acute Assessment and Plan: Patient with acute respiratory failure likely related to pneumonia, possible COVID-19, EVALI (pt vapes) also could be related to interstitial lung and pneumococcal pneumonia -patient was on high-flow therapy, using accessory muscles of respiration, was finally intubated on 06/29/2021 -06/28 & 06/29 SARS-CoV-2 PCR negative -urine pneumococcal antigen was positive status post full course with vancomycin and Levaquin. -full EVALI and ILD exacerbation: Patient has been Solu-Medrol since 06/29. Currently on 30 mg IV daily -currently on CMV mode of ventilation, peep of 5, 40% FiO2. -tracheostomy done on 07/10/2021 -peg tube was canceled due to patient being febrile, scheduled for 07/14/2021 - continue sedation with propofol and Precedex -triglycerides trending down will continue to monitor this patient is on propofol 07/[address] due to fever 1. Diffuse lung disease, consistent with pulmonary edema versus pneumonia superimposed on emphysema and chronic interstitial lung disease. 2. Right lung mass, right hilar and mediastinal lymphadenopathy, and lytic lesions of bone, consistent with primary bronchogenic carcinoma and metastatic disease. (2) Fever: Code(s): R50.9 - Fever, unspecified Status: Acute Assessment and Plan: Continues to be febrile with a T-max of 102 F on 07/12/2021. Discussed with Dr. Yadav, recommended panculture which have already obtained on 07/11/2021 which are pending. He recommended holding off antibiotics for now and call him in 48 hours if patient continues to be febrile -white count 10.7 -patient status post antibiotics - Lower extremity Venous Dopplers 07/05/2021 was negative for for DVT (3) Lung cancer: Code(s): C34.90 - Malignant neoplasm of unspecified part of unspecified bronchus or lung Status: Acute Assessment and Plan: CT chest shows Right lung mass, right hilar and mediastinal lymphadenopathy, and lytic lesions of bone, consistent with primary bronchogenic carcinoma and metastatic disease Patient currently on dual antiplatelet therapy which was started after STEMI which precludes lung biopsy at this time. Dr. Sinclair discussed with Radiology and they can do a bone biopsy once patient is extubated -have asked the oncologist to call the family -will discuss again with Interventional Radiology to obtain bone biopsy (4) Pneumonia: Qualifiers: Laterality: bilateral Lung location: unspecified part of lung Pneumonia type: due to unspecified organism Qualified Code(s): J18.9 - Pneumonia, unspecified organism Code(s): J18.9 - Pneumonia, unspecified organism Status: Acute Assessment and Plan: Patient had a bronchoscopy earlier today which showed essentially normal bronchial tree with no evidence of erythematous changes, diffuse mucosal edema, or increased amount of bronchial secretions. A small submucosal nodular lesion was found right at the RML orifice, causing mild narrowing of the RML bronchus. The superior segment of the right lower lobe appeared edematous with thickened bronchial mucosa also causing narrowing of the segment. -urine pneumococcal antigen was positive -pulmonary is following -off antibiotics (5) COPD (chronic obstructive pulmonary disease): Code(s): J44.9 - Chronic obstructive pulmonary disease, unspecified Status: Acute Assessment and Plan: Continue bronchodilators (6) ST elevation (STEMI) myocardial infarction: Code(s): I21.3 - ST elevation (STEMI) myocardial infarction of unspecified site Status: Acute Assessment and Plan: Patient presented the ED with shortness of breath along with chest pain, EKG showed acute inferior ST-elevation AL status post PTCA/PCI with DESIRE x1 to pr
[2021-07-12 12:46] LABS: Glucose Point of Care 274 mg/dl (65-105)
[2021-07-12] MEDS: PROPOFOL IV EMULSION 100 ML 14 MG IV CONT ×2 (12:59→20:41)
[2021-07-12 18:07] LABS: Glucose Point of Care 312 mg/dl (65-105)
[2021-07-12 19:29] LABS: Glucose Point of Care 321 mg/dl (65-105)
[2021-07-12] MEDS: TOPIRAMATE 25 MG TABLET PO (20:35)
[2021-07-12] MEDS: INSULIN GLARGINE (*BKC) 100 UNITS/ML 40 UNITS SUB-Q (20:40)
[2021-07-12 23:24] LABS: Glucose Point of Care 199 mg/dl (65-105)
[2021-07-13] VITALS (46 sets, daily range): BP systolic 93–117; BP diastolic 2–53; PULSE 54–72; RESP 19–37; TEMP 37.3–37.9; O2SAT 92–99
[2021-07-13] MEDS: METOPROLOL TARTRATE INJ 5 MG/5 ML VIAL 2.5 MG IV PUSH ×3 (00:38→12:10)
[2021-07-13] MEDS: METOCLOPRAMIDE HCL INJ 10 MG/2 ML VIAL IV PUSH ×4 (00:38→17:23)
[2021-07-13] MEDS: LEVALBUTEROL NEB 1.25 MG/3 ML 0.63 MG INHALATION ×4 (01:46→19:44)
[2021-07-13] MEDS: IPRATROPIUM BR 0.02% INH SOLN 0.5 MG/2.5 ML VIAL INHALATION ×4 (01:46→19:44)
[2021-07-13] MEDS: PROPOFOL IV EMULSION 100 ML 14 MG IV CONT ×2 (02:17→22:43)
[2021-07-13] MEDS: dexmedeTOMIDine 400 MCG/100 ML 400 MCG/100 ML BAG 17.45 MCG IV CONT ×4 (03:27→20:18)
[2021-07-13 03:30] LABS: Glucose Point of Care 143 mg/dl (65-105)
[2021-07-13 04:50] LABS: Basophils Percent Auto 0.2 % (0.2-1.2); Eosinophils Absolute Auto 0.3 K/mm3 (0-0.3); Eosinophils Percent Auto 2.7 % (0-4.4); Hematocrit 29.1 % (37.0-47.0); Immature Granulocyte Absolute 0.07 K/mm3 (0.00-0.031); Immature Granulocyte Percent A 0.7 % (0-0.5); Lymphocytes Absolute Auto 1.64 K/mm3 (0.9-3.2); Lymphocytes Percent Auto 15.3 % (18.3-44.2); Mean Corpuscular HGB Conc 30.9 g/dl (32-36); Mean Corpuscular Hemoglobin 33.3 pg (26-34); Mean Corpuscular Volume 107.8 fl (80-100); Mean Platelet Volume 10.2 fl (7.4-10.4); Monocytes Absolute Auto 0.5 K/mm3 (0.1-0.6); Monocytes Percent Auto 4.8 % (2.6-8.5); Neutrophils Absolute Auto 8.2 K/mm3 (1.3-6.7); Neutrophils Percent Auto 76.3 % (45.5-73.1); Nucleated Red Blood Cells Perc 0.2 % (0.0-0.2); Platelet Count Result 167 k/mm3 (150-375); White Blood Count 10.7 K/mm3 (4.5-10.0)
[2021-07-13 05:08] LABS: Alanine Aminotransferase 41 U/L (4-35); Albumin Level 3.1 g/dL (3.5-5.1); Alkaline Phosphatase 89 U/L (38-126); Anion Gap 9 mmol/L (8-16); Aspartate Amino Transferase 66 U/L (14-36); Bilirubin,Total 0.6 mg/dL (0.2-1.3); Blood Urea Nitrogen 21 mg/dL (7-17); Calcium 9.3 mg/dL (8.4-10.2); Carbon Dioxide 25 mmol/L (22-30); Chloride 110 mmol/L (98-107); Estimated CRCL calculation 109 ml/min; Estimated Glomerular Filt Rate > 60; Glucose 181 mg/dL (65-110); Magnesium 2.1 mg/dL (1.6-2.3); Phosphorus 2.6 mg/dL (2.5-4.5); Potassium 3.3 mmol/L (3.4-5.0); Sodium 144 mmol/L (137-145)
[2021-07-13] MEDS: CENTRAL LINE FLUSH 10 ML IV PUSH ×3 (05:30→20:32)
[2021-07-13 06:09] LABS: Alveolar/Arterial O2 Gradient 51.7 mmHg; Carboxyhemoglobin 0.3 % THb (0-2.0); Fractional Inspired Oxygen 35 %; HCO3 ABG 22.7 mEq/l (22.0-26.0); Methemoglobin ABG 0.1 %THb (0-1.5); Oxygen Content ABG 13.3 %vol (16.0-22.0); Oxygen Saturation ABG 99.2 % (95.0-100.0); Oxyhemoglobin 98.1 % THb (90.0-100.0); PCO2 ABG 29.9 mmHg (35.0-45.0); PO2 ABG 163.1 mmHg (80.0-100.0); PO2 FiO2 Ratio Arterial Blood 4.66 %; Reduced Hemoglobin 1.5 %THb (0-5.0); Total Hemoglobin 9.4 g/dL (12.0-18.0); pH ABG 7.498 (7.350-7.450)
[2021-07-13 06:10] LABS: Device VENTILATOR; Site Drawn LEFT RADIAL
[2021-07-13 06:11] LABS: Arterial Blood Gas Vent Mode CMV; Arterial Blood Gas Ventilator rate 28 /MIN
[2021-07-13 06:12] LABS: Arterial Blood Gas PEEP 5 cmH2O; Arterial Blood Gas Tidal Volume 380 ml
[2021-07-13] MEDS: NICOTINE (*PBKC) 14 MG PATCH 1 PATCH TRANSDERM (08:12)
[2021-07-13] MEDS: ASPIRIN 81 MG ENTERIC TABLET PO (08:12)
[2021-07-13] MEDS: ENOXAPARIN 40 MG/0.4 ML SYRINGE SUB-Q (08:12)
[2021-07-13] MEDS: TICAGRELOR 90 MG TABLET PO ×2 (08:12→20:26)
[2021-07-13] MEDS: methylPREDNISolone SOD SUCC 40 MG VIAL 30 MG IV PUSH (08:12)
[2021-07-13] MEDS: INSULIN GLARGINE (*BKC) 100 UNITS/ML 60 UNITS SUB-Q (08:13)
[2021-07-13] MEDS: polyethylene glycoL 3350 17 GM POWD.PACK PO (08:13)
[2021-07-13] MEDS: ATORVASTATIN 40 MG TABLET 80 MG PO (08:13)
[2021-07-13] MEDS: MINERAL OIL/WHITE PETROLATUM OINTMENT 1 APPLIC EACH EYE ×2 (08:14→20:32)
[2021-07-13] MEDS: PROPOFOL IV EMULSION 100 ML 10.5 MG IV CONT (08:38)
[2021-07-13] MEDS: FUROSEMIDE INJ 40 MG/4 ML VIAL 20 MG IV PUSH ×2 (08:43→20:25)
--- NOTE | 2021-07-13 09:33 | PM.PNCARD ---
Progress Note: A&P Additional Plan Unfortunate 56-year-old lady who originally presented with acute inferior ST-elevation AL which was treated effectively with emergency PCI. She remains ventilator dependent since then. There have been suspicions regarding vaping relating lot injury either also now appears to be compelling evidence of a carcinoma with metastatic involvement. At this point there are no additional cardiac recommendations to make. Dual anti-platelet therapy and statin are being continued Adam Weiss MD [facility] Subjective Date/time seen: 07/13/21 09:33 Interval history: Acute inferior ST segment elevation AL 06/27/2021 status post successful but difficult and challenging PCI of the right coronary artery because of diffuse disease, calcification and tortuosity in the target vessel. Ultimately good angiographic results with 2 drug-eluting stents. Postprocedure troponin levels only showed a modest troponin rise and echocardiogram demonstrates good left ventricular systolic function. Unfortunately she also appears to have likely vaping related lung injury and is now intubated on mechanical ventilator support. Appears to be COVID negative. 07/01/2021: Bronchoscopy was fairly unremarkable today. Appears to have some underlying interstitial lung disease as well as COPD. Still on 50% FiO2 and intubated. Telemetry shows NSR, occasional APC. 07/02/2021: Clinically unchanged still intubated on mechanical ventilation. O2 requirements slightly lower. 07/03/2021: No significant clinical changes. Ventilator requirements essentially the same, still on 50% FiO2. Unable to tolerate sedation holiday due to tachypnea. 07/04/2021: No new cardiovascular issues in the last several days. Patient remains sedated on mechanical ventilator support. Oxygenation requirements are slightly better but still requiring ventilator support. 07/05/2021: Remains intubated. Low-grade fever this morning. CT scan scheduled. Remains intubated, sedated. Unable provide history. Sinus rhythm/bradycardia on telemetry. Hemodynamically stable. Date of service 07/06/2021: Patient continues to have low-grade fevers. Blood cultures negative. Given IV Lasix with good response although relatively hypotensive this morning. She remains on Precedex and propofol. Patient remains tachypneic but not following commands on ventilatory support FiO2 40%. Patient not able to provide any history due to sedation and mechanical ventilatory support. Date of service 07/07/2021: Remains in sinus rhythm. Still intubated. No significant changes. Date of service 07/08/2021: Still sinus rhythm. No significant change. Date of service 07/09/2021: Clinically unchanged patient is still intubated on mechanical ventilator support. Unfortunately diagnosis now is suspected lung cancer. There apparently is a endobronchial mass and evidence of metastatic disease on imaging. No tissue diagnosis yet apparently some discussion of a lytic bone lesion biopsy. Obviously the patient's prognosis will change significantly once she has biopsy-proven metastatic disease. For now no cardiac changes continue dual anti-platelet therapy Date of service 07/10/2021: With lightening the sedation, patient is responding and does squeeze hands to command. No chest pain Date of service 07/11/2021: Status post tracheostomy yesterday. No significant arrhythmia. Sedated at this point Date of service 07/12/2021: Clinically unchanged although the patient is now awake and responsive on Precedex and does follow commands. Apparently plans are to proceed with a biopsy once the patient is more stable and off ventilator support. We would recommend as detailed above biopsy of 1 of her lytic bone lesions over the endobronchial mass which would necessitate interrupting anti-platelet therapy. Date of service 07/13/2021: Clinically unchanged. Patient awake and alert on the ventilator appears to be comfortable denies a
[2021-07-13 09:34] LABS: Glucose Point of Care 157 mg/dl (65-105)
[2021-07-13] MEDS: POTASSIUM CHLORIDE 20 MEQ PACKET (FOR LIQUID) 40 MEQ FEED TUBE (10:40)
--- NOTE | 2021-07-13 10:41 | WPDGIPROGNO ---
Progress Note: A&P Assessment and Plan (1) Acute respiratory failure with hypoxia: Code(s): J96.01 - Acute respiratory failure with hypoxia Status: Acute Assessment and Plan: will need jail feeding, no more fever and will place G-tube tomorrow in the meantime she had NGT and is tolerating feeding (2) Fever: Code(s): R50.9 - Fever, unspecified Status: Acute Assessment and Plan: resolved by icu team (3) ST elevation (STEMI) myocardial infarction: Code(s): I21.3 - ST elevation (STEMI) myocardial infarction of unspecified site Status: Acute Assessment and Plan: s/p stents, currently on ac (4) Interstitial lung disease: Code(s): J84.9 - Interstitial pulmonary disease, unspecified Status: Acute (5) Lung cancer: Code(s): C34.90 - Malignant neoplasm of unspecified part of unspecified bronchus or lung Status: Acute Assessment and Plan: no biopsies yet since she is on blood thinners given recent stents placement Subjective Date/time seen: 07/13/21 10:41 Interval history: no changes, no more fever and tolerating tube feeding by NGT Review of Systems Review of Systems: All systems reviewed & are unremarkable except as noted in HPI and below Exam Narrative: Obese female, sedated and intubated Const: Orientation/consciousness: No patient oriented x3 (sedated) Other: sedated HENMT: Other: s/p trach. NGT in right nostril Eyes: Sclera: sclerae normal Neck: Neck: supple Resp: Effort & Inspection: normal respiratory effort Auscultation: rhonchi and diminished lung sounds Cardio: Rate: regular rate Rhythm: regular rhythm GI: GI Palp: Yes Soft to palpation, No Tenderness to palpation present (GI) and No Guarding due to palpation present (GI) Auscultation: normal bowel sounds Urinary Catheter: Urinary Catheter: patent and draining Skin: General skin exam: normal color Other: Warm Neuro: General: No patient oriented x3 (sedated) Cranial nerves: Yes Equal, round and reactive pupils present Cognition (Neuro): abnormal cognition Other: Sedated Extrem: General: normal to inspection Other: Mild lower extremity edema Psych: Mental Status: mental status grossly abnormal Objective Data Vital Signs Vital Signs: Vital Signs - 24 hr 07/12/21 11:49 07/12/21 12:00 07/12/21 12:19 Temperature 99.8 F H Pulse Rate 65 64 66 Respiratory Rate 28 H Blood Pressure 116/53 L Pulse Oximetry 97 97 07/12/21 14:00 07/12/21 14:20 07/12/21 14:24 Temperature Pulse Rate 60 58 L 59 L Respiratory Rate 32 H 31 H Blood Pressure 111/50 L Pulse Oximetry 97 98 07/12/21 15:19 07/12/21 16:00 07/12/21 18:00 Temperature 99.7 F H Pulse Rate 63 59 L Respiratory Rate 28 H 28 H Blood Pressure 108/52 L 109/56 L Pulse Oximetry 96 96 98 07/12/21 18:07 07/12/21 19:55 07/12/21 20:00 Temperature 99.3 F Pulse Rate 58 L 53 L 53 L Respiratory Rate 28 H 24 H Blood Pressure 102/53 L Pulse Oximetry 98 98 97 07/12/21 20:08 07/12/21 20:09 07/12/21 20:20 Temperature Pulse Rate 63 58 L 61 Respiratory Rate 30 H 28 H 23 H Blood Pressure Pulse Oximetry 97 07/12/21 20:41 07/12/21 22:00 07/12/21 22:23 Temperature 99.1 F Pulse Rate 63 56 L 56 L Respiratory Rate 30 H 24 H 28 H Blood Pressure 111/53 L Pulse Oximetry 99 07/12/21 23:00 07/13/21 00:00 07/13/21 00:38 Temperature 99.1 F Pulse Rate 57 L 59 L 61 Respiratory Rate 24 H 34 H Blood Pressure 108/50 L Pulse Oximetry 98 97 07/13/21 00:39 07/13/21 00:40 07/13/21 01:47 Temperature Pulse Rate 61 59 L 57 L Respiratory Rate 34 H 30 H 34 H Blood Pressure Pulse Oximetry 96 92 07/13/21 01:52 07/13/21 02:00 07/13/21 02:17 Temperature 99.3 F Pulse Rate 58 L 57 L 58 L Respiratory Rate 34 H 26 H 30 H Blood Pressure 107/51 L Pulse Oximetry 95 07/13/21 03:27 07/13/21 04:00 07/13/21 04:15 Temperature 99.5 F Pul
--- NOTE | 2021-07-13 12:12 | WPDINTPN ---
Progress Note: A&P Assessment and Plan (1) Acute respiratory failure with hypoxia: Code(s): J96.01 - Acute respiratory failure with hypoxia Status: Acute Assessment and Plan: Patient with acute respiratory failure likely related to pneumonia, possible COVID-19, EVALI (pt vapes) also could be related to interstitial lung and pneumococcal pneumonia -patient was on high-flow therapy, using accessory muscles of respiration, was finally intubated on 06/29/2021 -06/28 & 06/29 SARS-CoV-2 PCR negative -urine pneumococcal antigen was positive status post full course with vancomycin and Levaquin. - EVALI and ILD exacerbation: Patient has been Solu-Medrol since 06/29.Decrease solumedrol to 20 mg daily for 2 days and then taper gradually to off -currently on CMV mode of ventilation, peep of 5, 40% FiO2. -tracheostomy done on 07/10/2021 -peg tube was canceled due to patient being febrile, scheduled for 07/14/2021 - continue sedation with propofol and Precedex -triglycerides trending down will continue to monitor this patient is on propofol 07/[address] due to fever 1. Diffuse lung disease, consistent with pulmonary edema versus pneumonia superimposed on emphysema and chronic interstitial lung disease. 2. Right lung mass, right hilar and mediastinal lymphadenopathy, and lytic lesions of bone, consistent with primary bronchogenic carcinoma and metastatic disease. (2) Fever: Code(s): R50.9 - Fever, unspecified Status: Acute Assessment and Plan: Continues to be febrile with a T-max of 102 F on 07/12/2021. Discussed with Dr. Yadav on 07/12, recommended panculture which have already obtained on 07/11/2021 which are pending. He recommended holding off antibiotics for now and call him in 48 hours if patient continues to be febrile -white count 10.7 -patient status post antibiotics -FEVERS HAVE IMPROVED Lower extremity Venous Dopplers 07/05/2021 was negative for for DVT (3) Lung cancer: Code(s): C34.90 - Malignant neoplasm of unspecified part of unspecified bronchus or lung Status: Acute Assessment and Plan: CT chest shows Right lung mass, right hilar and mediastinal lymphadenopathy, and lytic lesions of bone, consistent with primary bronchogenic carcinoma and metastatic disease Patient currently on dual antiplatelet therapy which was started after STEMI which precludes lung biopsy at this time. Dr. Sinclair discussed with Radiology and they can do a bone biopsy once patient is extubated -have asked the oncologist to call the family -will discuss with Interventional Radiology on 07/14 to obtain bone biopsy so we can obtain a diagnosis (4) Pneumonia: Qualifiers: Laterality: bilateral Lung location: unspecified part of lung Pneumonia type: due to unspecified organism Qualified Code(s): J18.9 - Pneumonia, unspecified organism Code(s): J18.9 - Pneumonia, unspecified organism Status: Acute Assessment and Plan: Patient had a bronchoscopy earlier today which showed essentially normal bronchial tree with no evidence of erythematous changes, diffuse mucosal edema, or increased amount of bronchial secretions. A small submucosal nodular lesion was found right at the RML orifice, causing mild narrowing of the RML bronchus. The superior segment of the right lower lobe appeared edematous with thickened bronchial mucosa also causing narrowing of the segment. -urine pneumococcal antigen was positive -pulmonary is following -off antibiotics (5) COPD (chronic obstructive pulmonary disease): Code(s): J44.9 - Chronic obstructive pulmonary disease, unspecified Status: Acute Assessment and Plan: Continue bronchodilators (6) ST elevation (STEMI) myocardial infarction: Code(s): I21.3 - ST elevation (STEMI) myocardial infarction of unspecified site Status: Acute Assessment and Plan: Patient presented the ED with shortness of james
[2021-07-13 12:16] LABS: Glucose Point of Care 198 mg/dl (65-105)
--- NOTE | 2021-07-13 13:23 | PM.PNPUL ---
Progress Note: A&P Assessment and Plan (1) Acute respiratory failure with hypoxia: Code(s): J96.01 - Acute respiratory failure with hypoxia Status: Acute Assessment and Plan: 07/06/21 Respiratory status stable over the last 24 hours. Patient now on FiO2 of 40%. A chest x-ray done earlier today showed definite partial clearing of infiltrates compared to the x-ray taken on June 27, but no appreciable change since yesterday.. There is persistent right hilar lymphadenopathy which could be due to metastatic disease related to the bronchial lesions seen on bronchoscopy. Pneumococcal antigen detected in urine. Clinical significance of positive pneumococcal antigen unclear at this point. She has been on antibiotics for possible lower respiratory tract infection covering Strep pneumonia. Serology testing negative for underlying autoimmune disease. Negative Pneumocystis and influenza tests. Negative Mycoplasma serology for recent infection. Will continue with levofloxacin, Solu-Medrol 60 mg IV daily. Sputum culture pending. Flaccid extremities, and tachypnea may be due to critical illness polyneuropathy. Nicotine patch added to her regimen. 07/07 the etiology of her hypoxic respiratory failure includes E- cigarette or vaping product use associated acute lung injury (EVALI), COPD seen on CT scan, interstitial lung disease, lung cancer, and pneumonia. Currently her oxygenation has improved with levofloxacin and Solu-Medrol 40 mg IV a day and I will continue these. She failed her breathing trial today. Vent management per the ICU team. 07/08 vent management per ICU team. Patient with a PaO2 of 84 and will consider decreasing FiO2 to 35%. Daily weaning trials in an attempt for extubation. Patient is on day 10 of Solu-Medrol and if her oxygenation remains stable will begin 30 mg IV q.day on 07/09. 07/09 07/08 vent management per ICU team. Patient on 35%. Daily weaning trials in an attempt for extubation. Patient is on total day 11 of Solu-Medrol. agree with continued slow taper Solu-Medrol 30 mg IV q.day x3 days, then Solu-Medrol 20 mg IV q.day x3 days, then Solu-Medrol 10 mg IV q.day x3 days then off. If her oxygenation worsens during this taper please re-consult us. Patient could also be converted to p.o. prednisone at equivalent doses as above. 07/13 patient is now status post tracheostomy with improved oxygenation and will decrease FiO2 to 30%. patient is day 15 IV steroids. Will decrease Solu-Medrol to 20 mg IV today and taper off over the next 3-4 days. (2) Chronic obstructive pulmonary disease: Qualifiers: COPD type: unspecified COPD Qualified Code(s): J44.9 - Chronic obstructive pulmonary disease, unspecified Code(s): J44.9 - Chronic obstructive pulmonary disease, unspecified Status: Acute Assessment and Plan: 07/06 Patient carries a diagnosis of COPD. She will need follow-up on outpatient basis with pulmonary function testing. 07/07 continue lev albuterol 0.63 mg nebs q.6 hours, ipratropium 0.5 mg nebs q.6 hours and Advair HFA 115-212 puffs q.12 hours. She is also on Solu-Medrol 40 mg IV q.day for her lung injury. There is no wheezing today. 07/08 continue lev albuterol 0.63 mg nebs q.6 hours, ipratropium 0.5 mg nebs q.6 hours and DC Advair HFA today She is also on Solu-Medrol 40 mg IV q.day for her lung injury. There is no wheezing today. 07/09 continue lev albuterol 0.63 mg nebs q.6 hours, ipratropium 0.5 mg nebs q.6 hours. She is also on Solu-Medrol as above for her lung injury. There is no wheezing today. 07/13 07/09 continue lev albuterol 0.63 mg nebs q.6 hours, ipratropium 0.5 mg nebs q.6 hours. She is also on Solu-Medrol as above for her lung injury. There is no wheezing today. (3) Lung nodule: Code(s): R91.1 - Solitary pulmonary nodule Status: Acute Assessment and Plan: 07/07 Patient with a 3.2 x 1.8 cm mass in the superior segment of the right lo
[2021-07-13] MEDS: ACETAMINOPHEN ELIXIR 325 MG/10.15 ML UDC 650 MG FEED TUBE (14:31)
[2021-07-13] MEDS: PROPOFOL IV EMULSION 100 ML 17.51 MG IV CONT (14:32)
[2021-07-13 16:08] LABS: Glucose Point of Care 275 mg/dl (65-105)
[2021-07-13] MEDS: INSULIN ASPART (*BKC) 100 UNITS/ML SUB-Q ×2 (17:22→20:34)
[2021-07-13] MEDS: TOPIRAMATE 25 MG TABLET PO (20:26)
[2021-07-13] MEDS: INSULIN GLARGINE (*BKC) 100 UNITS/ML 40 UNITS SUB-Q (20:43)
[2021-07-13 21:33] LABS: Glucose Point of Care 216 mg/dl (65-105)
[2021-07-14] VITALS (60 sets, daily range): BP systolic 85–127; BP diastolic 46–68; PULSE 28–84; RESP 14–36; TEMP 37.6–38.3; O2SAT 95–100
[2021-07-14] MEDS: ACETAMINOPHEN ELIXIR 325 MG/10.15 ML UDC 650 MG FEED TUBE ×3 (00:27→21:04)
[2021-07-14 00:37] LABS: Glucose Point of Care 164 mg/dl (65-105)
[2021-07-14] MEDS: METOPROLOL TARTRATE INJ 5 MG/5 ML VIAL 2.5 MG IV PUSH ×4 (00:37→16:56)
[2021-07-14] MEDS: METOCLOPRAMIDE HCL INJ 10 MG/2 ML VIAL IV PUSH ×2 (00:38→05:02)
[2021-07-14] MEDS: dexmedeTOMIDine 400 MCG/100 ML 400 MCG/100 ML BAG 17.45 MCG IV CONT ×3 (00:50→20:39)
[2021-07-14] MEDS: IPRATROPIUM BR 0.02% INH SOLN 0.5 MG/2.5 ML VIAL INHALATION ×4 (02:03→20:00)
[2021-07-14] MEDS: LEVALBUTEROL NEB 1.25 MG/3 ML 0.63 MG INHALATION ×4 (02:03→20:00)
[2021-07-14] MEDS: PROPOFOL IV EMULSION 100 ML 17.51 MG IV CONT (04:00)
[2021-07-14 04:44] LABS: Basophils Percent Auto 0.1 % (0.2-1.2); Eosinophils Absolute Auto 0.2 K/mm3 (0-0.3); Hematocrit 29.6 % (37.0-47.0); Hemoglobin 9.1 g/dL (12.0-15.0); Immature Granulocyte Absolute 0.09 K/mm3 (0.00-0.031); Immature Granulocyte Percent A 0.9 % (0-0.5); Lymphocytes Absolute Auto 1.46 K/mm3 (0.9-3.2); Lymphocytes Percent Auto 15.1 % (18.3-44.2); Mean Corpuscular HGB Conc 30.7 g/dl (32-36); Mean Corpuscular Hemoglobin 33.7 pg (26-34); Mean Corpuscular Volume 109.6 fl (80-100); Mean Platelet Volume 10.3 fl (7.4-10.4); Monocytes Absolute Auto 0.5 K/mm3 (0.1-0.6); Monocytes Percent Auto 5.1 % (2.6-8.5); Neutrophils Absolute Auto 7.4 K/mm3 (1.3-6.7); Neutrophils Percent Auto 76.8 % (45.5-73.1); Platelet Count Result 160 k/mm3 (150-375); Red Cell Distribution Width 16.1 % (11.5-14.5); White Blood Count 9.7 K/mm3 (4.5-10.0)
[2021-07-14] MEDS: CENTRAL LINE FLUSH 10 ML IV PUSH ×3 (05:02→21:11)
[2021-07-14 05:03] LABS: Alanine Aminotransferase 47 U/L (4-35); Albumin Level 3.3 g/dL (3.5-5.1); Alkaline Phosphatase 93 U/L (38-126); Anion Gap 6 mmol/L (8-16); Aspartate Amino Transferase 65 U/L (14-36); Bilirubin,Total 0.6 mg/dL (0.2-1.3); Blood Urea Nitrogen 22 mg/dL (7-17); Calcium 9.3 mg/dL (8.4-10.2); Carbon Dioxide 28 mmol/L (22-30); Chloride 105 mmol/L (98-107); Estimated CRCL calculation 129 ml/min; Estimated Glomerular Filt Rate > 60; Glucose 182 mg/dL (65-110); Potassium 3.6 mmol/L (3.4-5.0); Sodium 139 mmol/L (137-145); Triglycerides 271 mg/dL (<150)
[2021-07-14 06:15] LABS: Alveolar/Arterial O2 Gradient 67.5 mmHg; Base Excess ABG -1.1 mEq/l (+/-2.0); Carboxyhemoglobin 0.3 % THb (0-2.0); Fractional Inspired Oxygen 35 %; HCO3 ABG 22.1 mEq/l (22.0-26.0); Methemoglobin ABG 0.2 %THb (0-1.5); Oxygen Content ABG 3.7 %vol (16.0-22.0); Oxygen Saturation ABG 99.2 % (95.0-100.0); PCO2 ABG 26.2 mmHg (35.0-45.0); PO2 ABG 151.6 mmHg (80.0-100.0); PO2 FiO2 Ratio Arterial Blood 4.33 %; Reduced Hemoglobin 1.5 %THb (0-5.0)
[2021-07-14 06:18] LABS: Total Hemoglobin 2.4 g/dL (12.0-18.0); pH ABG 7.543 (7.350-7.450)
[2021-07-14 06:20] LABS: Device VENTILATOR; Site Drawn LEFT RADIAL
[2021-07-14 07:30] LABS: Glucose Point of Care 175 mg/dl (65-105)
[2021-07-14 07:30] LABS: Glucose Point of Care 155 mg/dl (65-105)
[2021-07-14] MEDS: ASPIRIN 81 MG ENTERIC TABLET PO (08:27)
[2021-07-14] MEDS: ATORVASTATIN 40 MG TABLET 80 MG PO (08:28)
[2021-07-14] MEDS: DULoxetine HCL 60 MG CAPSULE.DR PO (08:28)
[2021-07-14] MEDS: ENOXAPARIN 40 MG/0.4 ML SYRINGE SUB-Q (08:28)
[2021-07-14] MEDS: TICAGRELOR 90 MG TABLET PO ×2 (08:29→21:04)
[2021-07-14] MEDS: NICOTINE (*PBKC) 14 MG PATCH 1 PATCH TRANSDERM (08:29)
[2021-07-14] MEDS: MINERAL OIL/WHITE PETROLATUM OINTMENT 1 APPLIC EACH EYE ×2 (08:29→21:03)
[2021-07-14] MEDS: methylPREDNISolone SOD SUCC 40 MG VIAL 20 MG IV PUSH (08:30)
[2021-07-14] MEDS: PROPOFOL IV EMULSION 100 ML 14 MG IV CONT ×2 (11:26→16:49)
[2021-07-14 11:40] LABS: Glucose Point of Care 209 mg/dl (65-105)
[2021-07-14] MEDS: INSULIN ASPART (*BKC) 100 UNITS/ML SUB-Q (11:41)
--- NOTE | 2021-07-14 11:54 | WPDINTPN ---
Progress Note: A&P Assessment and Plan (1) Acute respiratory failure with hypoxia: Code(s): J96.01 - Acute respiratory failure with hypoxia Status: Acute Assessment and Plan: Patient with acute respiratory failure likely related to pneumonia, possible COVID-19, EVALI (pt vapes) also could be related to interstitial lung and pneumococcal pneumonia -patient was on high-flow therapy, using accessory muscles of respiration, was finally intubated on 06/29/2021 -06/28 & 06/29 SARS-CoV-2 PCR negative -urine pneumococcal antigen was positive status post full course with vancomycin and Levaquin. - EVALI and ILD exacerbation: Patient has been Solu-Medrol since 06/29.Decrease solumedrol to 20 mg daily for 2 days and then taper gradually to off -currently on CMV mode of ventilation, peep of 5, 40% FiO2. -tracheostomy done on 07/10/2021 -peg tube was canceled due to patient being febrile, scheduled for 07/14/2021 - continue sedation with propofol and Precedex -triglycerides trending down will continue to monitor this patient is on propofol 07/[address] due to fever 1. Diffuse lung disease, consistent with pulmonary edema versus pneumonia superimposed on emphysema and chronic interstitial lung disease. 2. Right lung mass, right hilar and mediastinal lymphadenopathy, and lytic lesions of bone, consistent with primary bronchogenic carcinoma and metastatic disease. (2) Fever: Code(s): R50.9 - Fever, unspecified Status: Acute Assessment and Plan: Continues to be febrile with a T-max of 102 F on 07/12/2021. Discussed with Dr. Yadav on 07/12, recommended panculture which have already obtained on 07/11/2021 which are pending. He recommended holding off antibiotics for now and call him in 48 hours if patient continues to be febrile -07/14: Febrile to T-max of 101?, white count 9.7 -patient status post antibiotics -07/14: CT scan of the chest abdomen and pelvis: Showed right lower lobe masslike density, emphysema, diffuse ground-glass opacities with interlobular septal thickening, cirrhosis, colonic fluid, no abdominal abscess, scattered osteolytic disease. 07/14: Lower extremity Dopplers negative for DVT Lower extremity Venous Dopplers 07/05/2021 was negative for for DVT (3) Lung cancer: Code(s): C34.90 - Malignant neoplasm of unspecified part of unspecified bronchus or lung Status: Acute Assessment and Plan: CT chest shows Right lung mass, right hilar and mediastinal lymphadenopathy, and lytic lesions of bone, consistent with primary bronchogenic carcinoma and metastatic disease Patient currently on dual antiplatelet therapy which was started after STEMI which precludes lung biopsy at this time. Dr. Sinclair discussed with Radiology and they can do a bone biopsy once patient is extubated -have asked the oncologist to call the family -discussed with Interventional Radiology Dr Mchugh on 07/14, he stated to put in order for CT-guided bone biopsy. (4) Pneumonia: Qualifiers: Laterality: bilateral Lung location: unspecified part of lung Pneumonia type: due to unspecified organism Qualified Code(s): J18.9 - Pneumonia, unspecified organism Code(s): J18.9 - Pneumonia, unspecified organism Status: Acute Assessment and Plan: Patient had a bronchoscopy earlier today which showed essentially normal bronchial tree with no evidence of erythematous changes, diffuse mucosal edema, or increased amount of bronchial secretions. A small submucosal nodular lesion was found right at the RML orifice, causing mild narrowing of the RML bronchus. The superior segment of the right lower lobe appeared edematous with thickened bronchial mucosa also causing narrowing of the segment. -urine pneumococcal antigen was positive -pulmonary is following -off antibiotics (5) COPD (chronic obstructive pulmonary disease): Code(s): J44.9 - Chronic obstructive pulmonary disease,
--- NOTE | 2021-07-14 12:23 | PCFNICU ---
ICU Rounding Note: Pt current nutrition is NPO. Last recorded weight is 109.6 kg, down from 116.7 kg on admit. Bowel Motility:+BM reported 07/13 Labs Reviewed:Glu 182,BUN 22, TG 271, HCt 29.6,Hgb 9.1,Alb 3.3 Meds Noted:Precedex, Propofol 14 ml/eq=705 kcals, Lipitor, Brilinta, Lopressor,Cymbalta Skin:Edema, weeping-right arm, coccyx-maceration Additional Notes: Patient current with Trach. Patient is NPO today for possible PEG/bone biopsy. Fevers improving. Following daily in ICU rounds. Will monitor every Wednesday and Wednesday..
[2021-07-14] MEDS: dexmedeTOMIDine 400 MCG/100 ML 400 MCG/100 ML BAG 11.63 MCG IV CONT (12:41)
--- NOTE | 2021-07-14 13:42 | PM.PNCARD ---
Progress Note: A&P Additional Plan 56-year-old lady presented a long time ago with acute inferior ST-elevation GA underwent emergency revascularization is detailed in previous notes and from that respect has been doing very well. Unfortunately she remains ventilator dependent and has combination of possible Richard related lung injury and evidence of chest malignancy now with endobronchial mass and evidence of metastatic disease. Prognosis is obviously poor in this setting. Continue to follow. Adam Weiss MD [facility] Subjective Date/time seen: Date of service: 07/14/21 13:43 Interval history: Acute inferior ST segment elevation GA 06/27/2021 status post successful but difficult and challenging PCI of the right coronary artery because of diffuse disease, calcification and tortuosity in the target vessel. Ultimately good angiographic results with 2 drug-eluting stents. Postprocedure troponin levels only showed a modest troponin rise and echocardiogram demonstrates good left ventricular systolic function. Unfortunately she also appears to have likely vaping related lung injury and is now intubated on mechanical ventilator support. Appears to be COVID negative. 07/01/2021: Bronchoscopy was fairly unremarkable today. Appears to have some underlying interstitial lung disease as well as COPD. Still on 50% FiO2 and intubated. Telemetry shows NSR, occasional APC. 07/02/2021: Clinically unchanged still intubated on mechanical ventilation. O2 requirements slightly lower. 07/03/2021: No significant clinical changes. Ventilator requirements essentially the same, still on 50% FiO2. Unable to tolerate sedation holiday due to tachypnea. 07/04/2021: No new cardiovascular issues in the last several days. Patient remains sedated on mechanical ventilator support. Oxygenation requirements are slightly better but still requiring ventilator support. 07/05/2021: Remains intubated. Low-grade fever this morning. CT scan scheduled. Remains intubated, sedated. Unable provide history. Sinus rhythm/bradycardia on telemetry. Hemodynamically stable. Date of service 07/06/2021: Patient continues to have low-grade fevers. Blood cultures negative. Given IV Lasix with good response although relatively hypotensive this morning. She remains on Precedex and propofol. Patient remains tachypneic but not following commands on ventilatory support FiO2 40%. Patient not able to provide any history due to sedation and mechanical ventilatory support. Date of service 07/07/2021: Remains in sinus rhythm. Still intubated. No significant changes. Date of service 07/08/2021: Still sinus rhythm. No significant change. Date of service 07/09/2021: Clinically unchanged patient is still intubated on mechanical ventilator support. Unfortunately diagnosis now is suspected lung cancer. There apparently is a endobronchial mass and evidence of metastatic disease on imaging. No tissue diagnosis yet apparently some discussion of a lytic bone lesion biopsy. Obviously the patient's prognosis will change significantly once she has biopsy-proven metastatic disease. For now no cardiac changes continue dual anti-platelet therapy Date of service 07/10/2021: With lightening the sedation, patient is responding and does squeeze hands to command. No chest pain Date of service 07/11/2021: Status post tracheostomy yesterday. No significant arrhythmia. Sedated at this point Date of service 07/12/2021: Clinically unchanged although the patient is now awake and responsive on Precedex and does follow commands. Apparently plans are to proceed with a biopsy once the patient is more stable and off ventilator support. We would recommend as detailed above biopsy of 1 of her lytic bone lesions over the endobronchial mass which would necessitate interrupting anti-platelet therapy. Date of service 07/13/2021: Clinically unchanged. Patient awake and alert on the ventilator appears to be comfortable
[2021-07-14] MEDS: levoFLOXacin 500 MG/D5W 100 ML 500 MG/100 ML BAG 100 MG IVPB (14:06)
[2021-07-14] MEDS: fentaNYL CITRATE INJ (*CRX) 100 MCG/2 ML VIAL 50 MCG IV PUSH (14:23)
--- NOTE | 2021-07-14 15:10 | PC.NURSE ---
20 fr G Tube placed to LUQ per Dr. Cadena. Verified per Endoscopy. Patient tolerated well.
[2021-07-14 16:13] LABS: Glucose Point of Care 168 mg/dl (65-105)
[2021-07-14] MEDS: VENLAFAXINE HCL 75 MG TABLET FEED TUBE (16:43)
[2021-07-14 20:45] LABS: Glucose Point of Care 116 mg/dl (65-105)
[2021-07-14] MEDS: TOPIRAMATE 25 MG TABLET PO (21:04)
[2021-07-15] VITALS (43 sets, daily range): BP systolic 93–133; BP diastolic 40–70; PULSE 53–72; RESP 18–34; TEMP 37.5–38; O2SAT 94–97
[2021-07-15] MEDS: PROPOFOL IV EMULSION 100 ML 14 MG IV CONT ×4 (01:20→19:52)
[2021-07-15] MEDS: METOPROLOL TARTRATE INJ 5 MG/5 ML VIAL 2.5 MG IV PUSH ×4 (01:25→17:12)
[2021-07-15 01:38] LABS: Glucose Point of Care 146 mg/dl (65-105)
[2021-07-15] MEDS: IPRATROPIUM BR 0.02% INH SOLN 0.5 MG/2.5 ML VIAL INHALATION ×4 (02:00→20:45)
[2021-07-15] MEDS: LEVALBUTEROL NEB 1.25 MG/3 ML 0.63 MG INHALATION ×4 (02:00→20:45)
[2021-07-15] MEDS: dexmedeTOMIDine 400 MCG/100 ML 400 MCG/100 ML BAG 17.45 MCG IV CONT ×4 (02:49→19:50)
[2021-07-15] MEDS: CENTRAL LINE FLUSH 10 ML IV PUSH ×3 (05:02→20:01)
[2021-07-15 05:18] LABS: Basophils Percent Auto 0.2 % (0.2-1.2); Eosinophils Absolute Auto 0.2 K/mm3 (0-0.3); Eosinophils Percent Auto 2.8 % (0-4.4); Hematocrit 29.7 % (37.0-47.0); Immature Granulocyte Absolute 0.04 K/mm3 (0.00-0.031); Immature Granulocyte Percent A 0.5 % (0-0.5); Lymphocytes Absolute Auto 1.23 K/mm3 (0.9-3.2); Mean Corpuscular HGB Conc 30.3 g/dl (32-36); Mean Corpuscular Hemoglobin 32.5 pg (26-34); Mean Corpuscular Volume 107.2 fl (80-100); Mean Platelet Volume 10.4 fl (7.4-10.4); Monocytes Absolute Auto 0.4 K/mm3 (0.1-0.6); Monocytes Percent Auto 5.1 % (2.6-8.5); Neutrophils Absolute Auto 6.3 K/mm3 (1.3-6.7); Neutrophils Percent Auto 76.4 % (45.5-73.1); Platelet Count Result 151 k/mm3 (150-375); Red Blood Count 2.77 M/mm3 (4.2-5.4); Red Cell Distribution Width 16.2 % (11.5-14.5); White Blood Count 8.2 K/mm3 (4.5-10.0)
[2021-07-15 05:30] LABS: Alanine Aminotransferase 44 U/L (4-35); Albumin Level 3.2 g/dL (3.5-5.1); Alkaline Phosphatase 92 U/L (38-126); Anion Gap 7 mmol/L (8-16); Aspartate Amino Transferase 64 U/L (14-36); Bilirubin,Total 0.9 mg/dL (0.2-1.3); Blood Urea Nitrogen 21 mg/dL (7-17); Calcium 9.5 mg/dL (8.4-10.2); Carbon Dioxide 26 mmol/L (22-30); Chloride 106 mmol/L (98-107); Estimated CRCL calculation 125 ml/min; Estimated Glomerular Filt Rate > 60; Glucose 175 mg/dL (65-110); Magnesium 2.1 mg/dL (1.6-2.3); Phosphorus 3.6 mg/dL (2.5-4.5); Potassium 3.5 mmol/L (3.4-5.0); Sodium 139 mmol/L (137-145); Triglycerides 263 mg/dL (<150)
[2021-07-15 06:03] LABS: Carboxyhemoglobin 0.3 % THb (0-2.0); Fractional Inspired Oxygen 30 %; HCO3 ABG 22.7 mEq/l (22.0-26.0); Oxygen Content ABG 13.5 %vol (16.0-22.0); Oxyhemoglobin 91.9 % THb (90.0-100.0); PCO2 ABG 30.2 mmHg (35.0-45.0); PO2 ABG 67.4 mmHg (80.0-100.0); PO2 FiO2 Ratio Arterial Blood 2.25 %; Reduced Hemoglobin 7.8 %THb (0-5.0); Total Hemoglobin 10.4 g/dL (12.0-18.0); pH ABG 7.494 (7.350-7.450)
[2021-07-15 06:08] LABS: Arterial Blood Gas PEEP 5 cmH2O; Arterial Blood Gas Tidal Volume 450 ml; Arterial Blood Gas Vent Mode CMV; Arterial Blood Gas Ventilator rate 24 /MIN; Device VENTILATOR; Modified Allen's Test Pass; Site Drawn LEFT RADIAL
[2021-07-15] MEDS: ATORVASTATIN 40 MG TABLET 80 MG PO (08:00)
[2021-07-15] MEDS: ENOXAPARIN 40 MG/0.4 ML SYRINGE SUB-Q (08:00)
[2021-07-15] MEDS: VENLAFAXINE HCL 75 MG TABLET FEED TUBE ×2 (08:00→17:12)
[2021-07-15] MEDS: ASPIRIN 81 MG ENTERIC TABLET PO (08:00)
[2021-07-15] MEDS: TICAGRELOR 90 MG TABLET PO ×2 (08:00→20:01)
[2021-07-15] MEDS: NICOTINE (*PBKC) 14 MG PATCH 1 PATCH TRANSDERM (08:01)
[2021-07-15] MEDS: methylPREDNISolone SOD SUCC 40 MG VIAL 10 MG IV PUSH ×2 (08:01→14:52)
[2021-07-15] MEDS: MINERAL OIL/WHITE PETROLATUM OINTMENT 1 APPLIC EACH EYE ×2 (08:01→20:01)
[2021-07-15 08:07] LABS: Glucose Point of Care 185 mg/dl (65-105)
[2021-07-15] MEDS: PANTOPRAZOLE SODIUM IV 40 MG VIAL IV PUSH ×2 (08:14→20:01)
--- NOTE | 2021-07-15 09:21 | PM.PNPUL ---
Progress Note: A&P Assessment and Plan (1) Acute respiratory failure with hypoxia: Code(s): J96.01 - Acute respiratory failure with hypoxia Status: Acute Assessment and Plan: 07/06/21 Respiratory status stable over the last 24 hours. Patient now on FiO2 of 40%. A chest x-ray done earlier today showed definite partial clearing of infiltrates compared to the x-ray taken on June 27, but no appreciable change since yesterday.. There is persistent right hilar lymphadenopathy which could be due to metastatic disease related to the bronchial lesions seen on bronchoscopy. Pneumococcal antigen detected in urine. Clinical significance of positive pneumococcal antigen unclear at this point. She has been on antibiotics for possible lower respiratory tract infection covering Strep pneumonia. Serology testing negative for underlying autoimmune disease. Negative Pneumocystis and influenza tests. Negative Mycoplasma serology for recent infection. Will continue with levofloxacin, Solu-Medrol 60 mg IV daily. Sputum culture pending. Flaccid extremities, and tachypnea may be due to critical illness polyneuropathy. Nicotine patch added to her regimen. 07/07 the etiology of her hypoxic respiratory failure includes E- cigarette or vaping product use associated acute lung injury (EVALI), COPD seen on CT scan, interstitial lung disease, lung cancer, and pneumonia. Currently her oxygenation has improved with levofloxacin and Solu-Medrol 40 mg IV a day and I will continue these. She failed her breathing trial today. Vent management per the ICU team. 07/08 vent management per ICU team. Patient with a PaO2 of 84 and will consider decreasing FiO2 to 35%. Daily weaning trials in an attempt for extubation. Patient is on day 10 of Solu-Medrol and if her oxygenation remains stable will begin 30 mg IV q.day on 07/09. 07/09 07/08 vent management per ICU team. Patient on 35%. Daily weaning trials in an attempt for extubation. Patient is on total day 11 of Solu-Medrol. agree with continued slow taper Solu-Medrol 30 mg IV q.day x3 days, then Solu-Medrol 20 mg IV q.day x3 days, then Solu-Medrol 10 mg IV q.day x3 days then off. If her oxygenation worsens during this taper please re-consult us. Patient could also be converted to p.o. prednisone at equivalent doses as above. 07/13 patient is now status post tracheostomy with improved oxygenation and will decrease FiO2 to 30%. patient is day 15 IV steroids. Will decrease Solu-Medrol to 20 mg IV today and taper off over the next 3-4 days. 07/15 Patient remains Ventilated via tracheostomy. Currently on 30% with peep of 5 and a blood gas of 7.4 05/01/2067. She had a CT chest abdomen and pelvis on 07/14 for persistent fevers and the ground-glass infiltrates are minimally improved and the interstitial and septal thickening are unchanged. No evidence of focal consolidation. her sputum culture showed few white blood cells, no organisms seen and culture grew normal titi. At this time I do not recommend antibiotics from a pulmonary perspective.. Remains on Solu-Medrol 20 mg IV a day and I would discontinue at this time and follow her oxygenation. Vent management and weaning per ICU team. (2) Chronic obstructive pulmonary disease: Qualifiers: COPD type: unspecified COPD Qualified Code(s): J44.9 - Chronic obstructive pulmonary disease, unspecified Code(s): J44.9 - Chronic obstructive pulmonary disease, unspecified Status: Acute Assessment and Plan: 07/06 Patient carries a diagnosis of COPD. She will need follow-up on outpatient basis with pulmonary function testing. 07/07 continue lev albuterol 0.63 mg nebs q.6 hours, ipratropium 0.5 mg nebs q.6 hours and Advair HFA 115-212 puffs q.12 hours. She is also on Solu-Medrol 40 mg IV q.day for her lung injury. There is no wheezing today. 07/08 continue lev albuterol 0.63 mg nebs q.6 hours, ipratropium 0.5 mg nebs q.6 hours an
--- NOTE | 2021-07-15 09:32 | WPDGIPROGNO ---
Progress Note: A&P Assessment and Plan (1) Acute respiratory failure with hypoxia: Code(s): J96.01 - Acute respiratory failure with hypoxia Status: Acute Assessment and Plan: G-tube placed yesterday and tolerated feeding call if questions (2) Duodenitis: Code(s): K29.80 - Duodenitis without bleeding Status: Acute Assessment and Plan: found moderate duodenitis yesterday will start iv protonix twice daily (3) ST elevation (STEMI) myocardial infarction: Code(s): I21.3 - ST elevation (STEMI) myocardial infarction of unspecified site Status: Acute Assessment and Plan: s/p stents, currently on ac (4) Interstitial lung disease: Code(s): J84.9 - Interstitial pulmonary disease, unspecified Status: Acute Assessment and Plan: trach on vent support (5) Lung cancer: Code(s): C34.90 - Malignant neoplasm of unspecified part of unspecified bronchus or lung Status: Acute Assessment and Plan: will get biopsy today by IR Subjective Date/time seen: 07/15/21 09:32 Interval history: EGD with peg placement yesterday, tolerated feeding last night. Now turned off because will get biopsy by interventional radiology. Review of Systems Review of Systems: All systems reviewed & are unremarkable except as noted in HPI and below Exam Narrative: Obese female, sedated and intubated Const: Other: sedated, obese HENMT: Other: s/p trach. Eyes: Sclera: sclerae normal Neck: Neck: supple Resp: Effort & Inspection: normal respiratory effort Auscultation: rhonchi and diminished lung sounds Cardio: Rate: regular rate Rhythm: regular rhythm GI: GI Palp: Yes Soft to palpation, No Tenderness to palpation present (GI) and No Guarding due to palpation present (GI) Auscultation: normal bowel sounds Other: G-tube in place, site looks ok Urinary Catheter: Urinary Catheter: patent and draining Skin: General skin exam: normal color Other: Warm Neuro: General: No patient oriented x3 (sedated) Cranial nerves: Yes Equal, round and reactive pupils present Other: eyes open Extrem: General: normal to inspection Other: Mild lower extremity edema Psych: Mental Status: mental status grossly abnormal Objective Data Vital Signs Vital Signs: Vital Signs - 24 hr 07/14/21 09:57 07/14/21 10:00 07/14/21 10:02 Temperature 100.5 F H Pulse Rate 70 70 69 Respiratory Rate 30 H 29 H Blood Pressure 112/52 L Pulse Oximetry 98 98 07/14/21 10:53 07/14/21 11:25 07/14/21 11:26 Temperature Pulse Rate 61 61 60 Respiratory Rate 24 H 24 H Blood Pressure Pulse Oximetry 96 07/14/21 11:28 07/14/21 12:00 07/14/21 12:41 Temperature 100.6 F H Pulse Rate 61 63 62 Respiratory Rate 24 H 26 H 25 H Blood Pressure 127/47 L Pulse Oximetry 96 07/14/21 14:00 07/14/21 14:10 07/14/21 14:40 Temperature 100.8 F H Pulse Rate 62 60 68 Respiratory Rate 25 H 24 H 29 H Blood Pressure 106/58 L 106/58 L Pulse Oximetry 96 98 07/14/21 14:50 07/14/21 15:00 07/14/21 15:05 Temperature 100.7 F H Pulse Rate 62 58 L 65 Respiratory Rate 28 H 24 H 24 H Blood Pressure 87/68 L 90/53 L Pulse Oximetry 98 100 07/14/21 15:10 07/14/21 15:15 07/14/21 15:21 Temperature 100.5 F H 100.4 F H Pulse Rate 58 L 58 L 57 L Respiratory Rate 25 H 24 H 24 H Blood Pressure 100/54 L 100/54 L 90/49 L Pulse Oximetry 98 100 99 07/14/21 15:30 07/14/21 15:41 07/14/21 15:42 Temperature 100.4 F H Pulse Rate 56 L 55 L 56 L Respiratory Rate 24 H 24 H Blood Pressure 85/46 L Pulse Oximetry 98 99 07/14/21 15:45 07/14/21 16:00 07/14/21 16:29 Temperature 100.3 F H 100.1 F H Pulse Rate 55 L 58 L 62 Respiratory Rate 24 H 24 H 24 H Blood Pressure 88/46 L 104/55 L Pulse Oximetry 99 98 07/14/21 16:49 07/14/21 16:51 07/14/21 16:56 Temperature Pulse Rate 62 61 62 Respiratory Rate 24 H 24 H Blood Pressure Pulse Oximetry
[2021-07-15 11:06] LABS: Arterial Blood Gas PEEP 5 cmH2O; Arterial Blood Gas Tidal Volume 380 ml; Arterial Blood Gas Vent Mode CMV; Arterial Blood Gas Ventilator rate 28 /MIN
[2021-07-15 11:07] LABS: Glucose Point of Care 226 mg/dl (65-105)
--- NOTE | 2021-07-15 11:07 | PM.PNCARD ---
Progress Note: A&P Assessment and Plan (1) ST elevation (STEMI) myocardial infarction: Code(s): I21.3 - ST elevation (STEMI) myocardial infarction of unspecified site <KYLEIGH Vargas - Last Filed: 07/15/21 12:12> Status: Acute <KYLEIGH Vargas - Last Filed: 07/15/21 12:12> Assessment and Plan: Acute inferior STEMI on June 27 treated with 2 RCA stents, good LV function. Hemodynamically stable. Continue guideline directed therapy with aspirin, Brilinta, atorvastatin. BP relatively stable. Hold off on JHON-inhibitor No new cardiovascular issues at this time. Continue aspirin, Brilinta, atorvastatin. Tolerated low-dose metoprolol which was started yesterday. Patient remains critically ill. Prognosis guarded. <KYLEIGH Vargas - Last Filed: 07/15/21 12:12> (2) Acute respiratory failure with hypoxia: Code(s): J96.01 - Acute respiratory failure with hypoxia <KYLEIGH Vargas - Last Filed: 07/15/21 12:12> Status: Acute <KYLEIGH Vargas - Last Filed: 07/15/21 12:12> Assessment and Plan: Acute respiratory failure, chronic lung disease, managed by furnace erector. Greatly appreciate critical care and pulmonology involvement and recommendations as well. CT scan today. Patient remains critically ill predominantly due to respiratory failure requiring mechanical ventilatory support. Continue to attempt to wean ventilatory support as tolerated. On levofloxacin. Solu-Medrol. Possible ILD. Negative for PE on CT angiogram although limited due to motion artifact bilateral airspace disease pneumonia pleural-based mass 3.4 cm can not exclude malignancy with prominent mediastinal and right hilar lymphadenopathy possible metastatic disease. <KYLEIGH Vargas - Last Filed: 07/15/21 12:12> (3) Fever: Code(s): R50.9 - Fever, unspecified <Mai Carlos McleodMARIO galvan-C - Last Filed: 07/15/21 12:12> Status: Acute <Mai McleodGRUPO galvanC - Last Filed: 07/15/21 12:12> Assessment and Plan: She continues with low-grade fevers, blood cultures Negative to date. <Mai Villarreal APN-C - Last Filed: 07/15/21 12:12> (4) Anemia: Code(s): D64.9 - Anemia, unspecified <Mai PowersChelsea MARIO Villarreal-C - Last Filed: 07/15/21 12:12> Status: Acute <Mai Carlos McleodMARIO galvan-C - Last Filed: 07/15/21 12:12> Assessment and Plan: She remains anemic, Hemoglobin relatively stable. No evidence of active bleed. Continue to follow H& H. Continue dual antiplatelet therapy. Platelet count declining continue to monitor closely. <Mai Villarreal APN-C - Last Filed: 07/15/21 12:12> (5) Interstitial lung disease: Code(s): J84.9 - Interstitial pulmonary disease, unspecified <GRUPO VargasC - Last Filed: 07/15/21 12:12> Status: Acute <GRUPO VargasC - Last Filed: 07/15/21 12:12> Assessment and Plan: As above. Appreciate Critical Care and pulmonology recommendations. <Mai Vilalrreal APN-C - Last Filed: 07/15/21 12:12> (6) Diabetes: Code(s): E11.9 - Type 2 diabetes mellitus without complications <KYLEIGH Vargas - Last Filed: 07/15/21 12:12> Status: Acute <Mai Villarreal APN-C - Last Filed: 07/15/21 12:12> Assessment and Plan: Continue present management. Initial triglycerides draw lab error 2436 repeat 332. <KYLEIGH Vargas - Last Filed: 07/15/21 12:12> (7) Lung cancer: Code(s): C34.90 - Malignant neoplasm of unspecified part of unspecified bronchus or lung <KYLEIGH Vargas - Last Filed: 07/15/21 12:12> Status: Acute <KYLEIGH Vargas - Last Filed: 07/15/21 12:12> Assessment and Plan: Endobronchial mass with evidence of metastatic disease. Undergoing bone marrow biopsy today. <Chri
[2021-07-15] MEDS: POTASSIUM CHLORIDE 20 MEQ PACKET (FOR LIQUID) 40 MEQ FEED TUBE (11:09)
[2021-07-15] MEDS: INSULIN ASPART (*BKC) 100 UNITS/ML SUB-Q (11:10)
--- NOTE | 2021-07-15 11:55 | PCNFU ---
Nutrition Follow-Up Complete: Inadequate Oral Intake as related to mechanical ventilation as evidenced by NPO. goal: Meet estimated nutritional needs Progressing towards goal. We will continue current goal. Pt current nutrition is Glucerna 1.2 at 60 ml/hr over 22 hours-on hold. Last recorded weight is 113.9 kg, down from 116.7 kg on admit. Bowel Motility:+BM reported 07/13 Labs Reviewed:Glu 175, TG 263,BUN 21, Cr 0.5, Alb 3.2 Meds Noted:Effexor, Brilinta, Precedex, Lopressor, Atrovent, Solu Medrol, Lovenox, Lipitor, Propofol 14 ml/et=290 kcals Skin:WNL Additional Notes: Patient current with PEG/Trach. Patient tube feedings are currently on hold for bone marrow biopsy today. Recommend tube feedings remain of Glucerna 1.2 at 60 ml/hr over 22 hours. Total caloric intake: 1954 kcals/79 gms protein/1063 ml water. Free water flush 30 ml q 4 hours. Monitoring daily in ICU rounds and reassessing every Wednesday and Wednesday.
--- NOTE | 2021-07-15 12:21 | WPDINTPN ---
Progress Note: A&P Assessment and Plan (1) Acute respiratory failure with hypoxia: Code(s): J96.01 - Acute respiratory failure with hypoxia Status: Acute Assessment and Plan: Patient with acute respiratory failure likely related to pneumonia, possible COVID-19, EVALI (pt vapes) also could be related to interstitial lung and pneumococcal pneumonia -patient was on high-flow therapy, using accessory muscles of respiration, was finally intubated on 06/29/2021 -06/28 & 06/29 SARS-CoV-2 PCR negative -urine pneumococcal antigen was positive status post full course with vancomycin and Levaquin. - EVALI and ILD exacerbation: Patient has been Solu-Medrol since 06/29. She will complete the taper of today 07/15 -currently on CMV mode of ventilation, peep of 5, 40% FiO2. -tracheostomy done on 07/10/2021 -peg tube was canceled due to patient being febrile, scheduled for 07/14/2021 - continue sedation with propofol and Precedex -triglycerides trending down will continue to monitor this patient is on propofol (2) Fever: Code(s): R50.9 - Fever, unspecified Status: Acute Assessment and Plan: Continues to be febrile with low-grade fevers.Dr. De La Torre discussed with Dr. Yadav on 07/12, recommended panculture which have already obtained on 07/11/2021 which are pending. He recommended holding off antibiotics for now -cultures have been negative, wbc's normal, lipase normal -07/14: CT scan of the chest abdomen and pelvis: Showed right lower lobe masslike density, emphysema, diffuse ground-glass opacities with interlobular septal thickening, cirrhosis, colonic fluid, no abdominal abscess, scattered osteolytic disease. 07/14: Lower extremity Dopplers negative for DVT -ID is following - ? Secondary to malignancy -she is status post course of antibiotics. Will hold further antibiotics at this time (3) Lung cancer: Code(s): C34.90 - Malignant neoplasm of unspecified part of unspecified bronchus or lung Status: Acute Assessment and Plan: CT chest shows Right lung mass, right hilar and mediastinal lymphadenopathy, and lytic lesions of bone, consistent with primary bronchogenic carcinoma and metastatic disease Patient currently on dual antiplatelet therapy which was started after STEMI which precludes lung biopsy at this time. Dr. Sinclair discussed with Radiology and they can do a bone biopsy once patient is extubated Oncology following -Dr. De La Torre discussed with Interventional Radiology Dr Mchugh on 07/14 patient is scheduled for CT-guided bone biopsy today. (4) Pneumonia: Qualifiers: Laterality: bilateral Lung location: unspecified part of lung Pneumonia type: due to unspecified organism Qualified Code(s): J18.9 - Pneumonia, unspecified organism Code(s): J18.9 - Pneumonia, unspecified organism Status: Acute Assessment and Plan: Patient had a bronchoscopy earlier today which showed essentially normal bronchial tree with no evidence of erythematous changes, diffuse mucosal edema, or increased amount of bronchial secretions. A small submucosal nodular lesion was found right at the RML orifice, causing mild narrowing of the RML bronchus. The superior segment of the right lower lobe appeared edematous with thickened bronchial mucosa also causing narrowing of the segment. -urine pneumococcal antigen was positive -pulmonary is following -off antibiotics (5) COPD (chronic obstructive pulmonary disease): Code(s): J44.9 - Chronic obstructive pulmonary disease, unspecified Status: Acute Assessment and Plan: Continue bronchodilators (6) ST elevation (STEMI) myocardial infarction: Code(s): I21.3 - ST elevation (STEMI) myocardial infarction of unspecified site Status: Acute Assessment and Plan: Patient presented to the ED with shortness of breath along with chest pain, EKG showed acute inferior ST-elevation [place] status post PTCA/PCI with DESIRE x1 to p
--- NOTE | 2021-07-15 14:16 | WPDINFPN2 ---
Progress Note: A&P Assessment and Plan (1) Fever: Code(s): R50.9 - Fever, unspecified Status: Acute Assessment and Plan: Fever, probably due to tumor REC C diff assay to exclude that as a cause, and if+ give 10 days enteral vancomycin 125 q6. Biopsy just done today. No empiric antibiotics. Call if Qs Subjective Date/time seen: 07/15/21 14:16 Objective Data Vital Signs Vital Signs: Vital Signs - 24 hr 07/14/21 14:40 07/14/21 14:50 07/14/21 15:00 Temperature 38.2 C H Pulse Rate 68 62 58 L Respiratory Rate 29 H 28 H 24 H Blood Pressure 87/68 L Pulse Oximetry 98 07/14/21 15:05 07/14/21 15:10 07/14/21 15:15 Temperature 38.1 C H Pulse Rate 65 58 L 58 L Respiratory Rate 24 H 25 H 24 H Blood Pressure 90/53 L 100/54 L 100/54 L Pulse Oximetry 100 98 100 07/14/21 15:21 07/14/21 15:30 07/14/21 15:41 Temperature 38.0 C H 38.0 C H Pulse Rate 57 L 56 L 55 L Respiratory Rate 24 H 24 H 24 H Blood Pressure 90/49 L 85/46 L Pulse Oximetry 99 98 07/14/21 15:42 07/14/21 15:45 07/14/21 16:00 Temperature 37.9 C H 37.8 C H Pulse Rate 56 L 55 L 58 L Respiratory Rate 24 H 24 H Blood Pressure 88/46 L 104/55 L Pulse Oximetry 99 99 98 07/14/21 16:29 07/14/21 16:49 07/14/21 16:51 Temperature Pulse Rate 62 62 61 Respiratory Rate 24 H 24 H 24 H Blood Pressure Pulse Oximetry 07/14/21 16:56 07/14/21 17:50 07/14/21 18:00 Temperature 37.6 C H Pulse Rate 62 53 L 53 L Respiratory Rate 24 H Blood Pressure 105/52 L Pulse Oximetry 99 97 07/14/21 20:00 07/14/21 20:10 07/14/21 20:30 Temperature 37.8 C H Pulse Rate 58 L 54 L 52 L Respiratory Rate 24 H 24 H 24 H Blood Pressure 98/54 L Pulse Oximetry 95 98 07/14/21 20:39 07/14/21 21:04 07/14/21 22:30 Temperature 37.8 C H 37.7 C H Pulse Rate 56 L 59 L Respiratory Rate 24 H 24 H Blood Pressure 103/53 L Pulse Oximetry 96 07/14/21 23:00 07/14/21 23:05 07/14/21 23:58 Temperature 37.8 C H Pulse Rate 59 L 54 L Respiratory Rate 24 H Blood Pressure Pulse Oximetry 96 07/15/21 00:00 07/15/21 00:45 07/15/21 01:20 Temperature 37.5 C Pulse Rate 53 L 54 L 54 L Respiratory Rate 24 H 24 H Blood Pressure 103/57 L Pulse Oximetry 95 07/15/21 01:25 07/15/21 02:00 07/15/21 02:02 Temperature 37.6 C Pulse Rate 60 58 L 57 L Respiratory Rate 24 H 26 H Blood Pressure 101/56 L Pulse Oximetry 95 07/15/21 02:03 07/15/21 02:09 07/15/21 02:23 Temperature Pulse Rate 55 L 55 L 54 L Respiratory Rate 25 H 24 H Blood Pressure Pulse Oximetry 97 07/15/21 02:49 07/15/21 04:00 07/15/21 05:00 Temperature 37.9 C H Pulse Rate 54 L 70 67 Respiratory Rate 24 H 18 Blood Pressure 129/57 L Pulse Oximetry 94 07/15/21 05:01 07/15/21 05:50 07/15/21 06:00 Temperature 37.8 C H Pulse Rate 67 67 65 Respiratory Rate 27 H Blood Pressure 111/56 L Pulse Oximetry 94 94 07/15/21 06:11 07/15/21 08:00 07/15/21 08:14 Temperature 37.8 C H Pulse Rate 67 65 64 Respiratory Rate 27 H 25 H 24 H Blood Pressure 122/61 Pulse Oximetry 96 07/15/21 08:50 07/15/21 09:01 07/15/21 10:46 Temperature Pulse Rate 62 63 62 Respiratory Rate 26 H 25 H Blood Pressure Pulse Oximetry 97 95 07/15/21 11:08 Temperature Pulse Rate 69 Respiratory Rate Blood Pressure Pulse Oximetry Intake/Output Intake/Output: Intake & Output 07/12/21 07/13/21 07/14/21 07/15/21 23:59 23:59 23:59 23:59 Intake Total 2465 2455 1340.0 626 Output Total 1860 1850 860 450 Balance 605 605 480.0 176 Meds/Results Medications: Active Medications Generic Name Dose Route Start Last Admin Trade Name Freq PRN Reason Stop Dose Admin Acetaminophen 650 mg 07/13/21 13:55 07/14/21 21:04 Acetaminophen Elixir 325 Mg/10.15 Ml Udc FEED TUBE 650 mg Q6H PRN Administration Mild Pain (1-3) or Fever Aspirin 81 mg 06/28/21 09:00 07/15/21 08:00 Aspirin 81 Mg Ent
[2021-07-15 16:41] LABS: Glucose Point of Care 190 mg/dl (65-105)
--- NOTE | 2021-07-15 18:06 | CONS_ITS ---
DATE OF CONSULTATION: 07/15/2021 REASON FOR CONSULTATION: Fever. HISTORY OF PRESENT ILLNESS: 56-year-old female who was admitted here on June 27 with shortness of breath. She was given antibiotics earlier in the hospital admission for community-acquired pneumonia. A pneumococcal urine antigen more recently has been positive, but she has been treated appropriately for that pathogen. Microbiology has not been revealing. She required intubation shortly after arrival and has been so since. Her hospital course has been notable for discovery of a right lung mass, which was previously not known. Also fever, respiratory failure with tracheostomy, 07/10/2021, COPD, ST-elevation [place], possible vape injury to the lungs. She had a biopsy of a bone lesion earlier today by Interventional Radiology. ALLERGIES: CEPHALEXIN WHICH CAUSED NAUSEA. OTHERS NOT PERTINENT. HABITS: Quit cigarette earlier this year. Nicotine as above. No alcohol. No illicit drugs. PRESENT MEDICATIONS: List reviewed. No immunosuppressants. FAMILY HISTORY: Arthritis, depression, heart disease, peripheral neuropathy, diabetes, prostate cancer. PAST MEDICAL HISTORY: Chen neuroma, tonsillectomy, hysterectomy, cholecystectomy, stress incontinence, YULISSA, type 2 diabetes mellitus, hypertension, hyperlipidemia, GERD, fibromyalgia, asthma, arthritis, anxiety. REVIEW OF SYSTEMS: 14-point review otherwise negative though not obtainable from the patient due to intubated status. She is lightly sedated. SOCIAL HISTORY: She has family locally. Does not work outside the home. No family at the bedside presently. PHYSICAL EXAMINATION: GENERAL: Middle-aged female, who appears older than her actual age, lightly sedated. She follows simple requests. SKIN: No rashes. Warm and dry. EENT: The conjunctivae are normal. Oropharynx, oral mucosa normal, although she will not cooperate for full exam. Teeth in fair repair. NECK: No masses, thyromegaly, or tenderness. LUNGS: Clear to auscultation and percussion. Diminished breath sounds. No wheezing. No rhonchi. CARDIAC: Regular rate and rhythm. No murmur, gallop, or rub. 62, 25, 95% on 30% FiO2. In the last 48 hours, T-max has been 38.3 core temperatures. I reviewed her past temperature readings as well. ABDOMEN: Morbidly obese. No tenderness is apparent. No masses. No organomegaly. EXTREMITIES: 1+ edema. : Shows a [place] catheter draining dark yellow urine. No sediment. LABORATORY DATA: Sputum culture, normal titi. Multiple blood cultures, all no growth final. Urine culture from 06/04/2021, prior to her admission with E coli. Urine culture most recently 07/11/2021, no growth. Other laboratory; white count is 8.2, hemoglobin 9.0, platelets are 131, earlier white count was in the 10.7 range. Differential normal. Blood gases are reviewed. Urinalysis reviewed and chemistries are reviewed as well. Her coronavirus assay from admission was nonreactive as well as one the prior day. Accu-Cheks generally in the 100s. Liver function tests minimally elevated. RADIOLOGY: Chest x-ray, diffuse interstitial infiltrates, right hilar mass as observed previously. CT of the chest, abdomen, pelvis showed similar findings with adenopathy, emphysema findings, cirrhosis, periportal lymphadenopathy, colon fluid. ASSESSMENT: 1. Fever, unimpressive magnitude as all of her temperatures are core readings. Nonetheless, her core temperatures are slightly higher than they have been in recent days. I do not think that her fever is arising from an acute infectious process. More likely, I think this is due to tumor, either from inflammatory release or from necrotic tissue. Clostridium difficile infection is possible nonetheless. 2. Positive urin
[2021-07-15] MEDS: TOPIRAMATE 25 MG TABLET PO (20:01)
[2021-07-15] MEDS: INSULIN GLARGINE (*BKC) 100 UNITS/ML 40 UNITS SUB-Q (20:28)
[2021-07-15 21:33] LABS: Glucose Point of Care 190 mg/dl (65-105)
[2021-07-16] VITALS (45 sets, daily range): BP systolic 90–118; BP diastolic 35–57; PULSE 63–117; RESP 23–113; TEMP 37.5–38.5; O2SAT 35–98; BMI 42.2
[2021-07-16] MEDS: METOPROLOL TARTRATE INJ 5 MG/5 ML VIAL 2.5 MG IV PUSH ×4 (00:07→16:59)
[2021-07-16] MEDS: INSULIN ASPART (*BKC) 100 UNITS/ML SUB-Q ×4 (00:21→21:30)
[2021-07-16 00:51] LABS: Glucose Point of Care 212 mg/dl (65-105)
[2021-07-16] MEDS: PROPOFOL IV EMULSION 100 ML 14 MG IV CONT ×3 (01:58→14:51)
[2021-07-16] MEDS: dexmedeTOMIDine 400 MCG/100 ML 400 MCG/100 ML BAG 20.35 MCG IV CONT ×3 (02:00→21:59)
[2021-07-16] MEDS: IPRATROPIUM BR 0.02% INH SOLN 0.5 MG/2.5 ML VIAL INHALATION ×4 (02:05→21:01)
[2021-07-16] MEDS: LEVALBUTEROL NEB 1.25 MG/3 ML 0.63 MG INHALATION ×4 (02:05→21:01)
[2021-07-16 05:12] LABS: Base Excess ABG -3.5 mEq/l (+/-2.0); Carboxyhemoglobin 0.3 % THb (0-2.0); Fractional Inspired Oxygen 30 %; HCO3 ABG 19.3 mEq/l (22.0-26.0); Methemoglobin ABG 0.2 %THb (0-1.5); Oxyhemoglobin 89.3 % THb (90.0-100.0); PCO2 ABG 27.5 mmHg (35.0-45.0); PO2 ABG 60.6 mmHg (80.0-100.0); PO2 FiO2 Ratio Arterial Blood 2.02 %; Reduced Hemoglobin 10.2 %THb (0-5.0); Site Drawn RIGHT RADIAL; Total Hemoglobin 10.3 g/dL (12.0-18.0); pH ABG 7.463 (7.350-7.450)
[2021-07-16 05:13] LABS: Device VENTILATOR; Modified Allen's Test Unable to perform
[2021-07-16 05:14] LABS: Arterial Blood Gas PEEP 5 cmH2O; Arterial Blood Gas Tidal Volume 450 ml; Arterial Blood Gas Vent Mode CMV; Arterial Blood Gas Ventilator rate 24 /MIN
[2021-07-16 05:14] LABS: Basophils Percent Auto 0.1 % (0.2-1.2); Eosinophils Absolute Auto 0.1 K/mm3 (0-0.3); Eosinophils Percent Auto 0.9 % (0-4.4); Hematocrit 29.3 % (37.0-47.0); Immature Granulocyte Absolute 0.09 K/mm3 (0.00-0.031); Immature Granulocyte Percent A 0.9 % (0-0.5); Lymphocytes Absolute Auto 1.17 K/mm3 (0.9-3.2); Lymphocytes Percent Auto 11.2 % (18.3-44.2); Mean Corpuscular HGB Conc 30.7 g/dl (32-36); Mean Corpuscular Hemoglobin 32.8 pg (26-34); Mean Corpuscular Volume 106.9 fl (80-100); Mean Platelet Volume 10.8 fl (7.4-10.4); Monocytes Absolute Auto 0.5 K/mm3 (0.1-0.6); Monocytes Percent Auto 4.9 % (2.6-8.5); Neutrophils Absolute Auto 8.6 K/mm3 (1.3-6.7); Nucleated Red Blood Cells Perc 0.2 % (0.0-0.2); Platelet Count Result 138 k/mm3 (150-375); Red Blood Count 2.74 M/mm3 (4.2-5.4); Red Cell Distribution Width 16.3 % (11.5-14.5); White Blood Count 10.5 K/mm3 (4.5-10.0)
[2021-07-16 05:27] LABS: Alanine Aminotransferase 37 U/L (4-35); Albumin Level 3.1 g/dL (3.5-5.1); Alkaline Phosphatase 103 U/L (38-126); Anion Gap 12 mmol/L (8-16); Aspartate Amino Transferase 55 U/L (14-36); Bilirubin,Total 0.9 mg/dL (0.2-1.3); Blood Urea Nitrogen 19 mg/dL (7-17); Calcium 9.2 mg/dL (8.4-10.2); Carbon Dioxide 20 mmol/L (22-30); Chloride 109 mmol/L (98-107); Estimated CRCL calculation 127 ml/min; Estimated Glomerular Filt Rate > 60; Glucose 262 mg/dL (65-110); Phosphorus 3.1 mg/dL (2.5-4.5); Potassium 3.7 mmol/L (3.4-5.0); Sodium 141 mmol/L (137-145)
[2021-07-16] MEDS: CENTRAL LINE FLUSH 10 ML IV PUSH ×2 (05:29→14:55)
[2021-07-16 05:45] LABS: Glucose Point of Care 237 mg/dl (65-105)
[2021-07-16 07:26] LABS: Glucose Point of Care 269 mg/dl (65-105)
[2021-07-16] MEDS: INSULIN GLARGINE (*BKC) 100 UNITS/ML 60 UNITS SUB-Q (08:12)
[2021-07-16] MEDS: MINERAL OIL/WHITE PETROLATUM OINTMENT 1 APPLIC EACH EYE ×2 (08:19→21:31)
[2021-07-16] MEDS: ENOXAPARIN 40 MG/0.4 ML SYRINGE SUB-Q (08:19)
[2021-07-16] MEDS: TICAGRELOR 90 MG TABLET PO ×2 (08:19→21:31)
[2021-07-16] MEDS: NICOTINE (*PBKC) 14 MG PATCH 1 PATCH TRANSDERM (08:19)
[2021-07-16] MEDS: ATORVASTATIN 40 MG TABLET 80 MG PO (08:19)
[2021-07-16] MEDS: VENLAFAXINE HCL 75 MG TABLET FEED TUBE ×2 (08:20→16:58)
[2021-07-16] MEDS: PANTOPRAZOLE SODIUM IV 40 MG VIAL IV PUSH ×2 (08:20→21:31)
[2021-07-16] MEDS: ASPIRIN 81 MG CHEWABLE TABLET FEED TUBE (08:39)
--- NOTE | 2021-07-16 08:41 | PC.NURSE ---
[facility] called to check patient readiness for transfer. Will call back with bed availability.
--- NOTE | 2021-07-16 09:54 | PM.PNCARD ---
Progress Note: A&P Additional Plan 56-year-old lady who presented initially with acute ST-elevation inferior which was treated effectively with emergency revascularization. Unfortunately has remained intubated since admission for the reasons that are well detailed in previous notes. She obviously has significant chronic lung disease and now is also suspected of having disseminated malignancy. Yesterday's bone lesion biopsy will potentially yield a tissue diagnosis. Adam Weiss MD [facility] Subjective Date/time seen: 07/16/21 09:54 Interval history: Acute inferior ST segment elevation DC 06/27/2021 status post successful but difficult and challenging PCI of the right coronary artery because of diffuse disease, calcification and tortuosity in the target vessel. Ultimately good angiographic results with 2 drug-eluting stents. Postprocedure troponin levels only showed a modest troponin rise and echocardiogram demonstrates good left ventricular systolic function. Unfortunately she also appears to have likely vaping related lung injury and is now intubated on mechanical ventilator support. Appears to be COVID negative. 07/01/2021: Bronchoscopy was fairly unremarkable today. Appears to have some underlying interstitial lung disease as well as COPD. Still on 50% FiO2 and intubated. Telemetry shows NSR, occasional APC. 07/02/2021: Clinically unchanged still intubated on mechanical ventilation. O2 requirements slightly lower. 07/03/2021: No significant clinical changes. Ventilator requirements essentially the same, still on 50% FiO2. Unable to tolerate sedation holiday due to tachypnea. 07/04/2021: No new cardiovascular issues in the last several days. Patient remains sedated on mechanical ventilator support. Oxygenation requirements are slightly better but still requiring ventilator support. 07/05/2021: Remains intubated. Low-grade fever this morning. CT scan scheduled. Remains intubated, sedated. Unable provide history. Sinus rhythm/bradycardia on telemetry. Hemodynamically stable. Date of service 07/06/2021: Patient continues to have low-grade fevers. Blood cultures negative. Given IV Lasix with good response although relatively hypotensive this morning. She remains on Precedex and propofol. Patient remains tachypneic but not following commands on ventilatory support FiO2 40%. Patient not able to provide any history due to sedation and mechanical ventilatory support. Date of service 07/07/2021: Remains in sinus rhythm. Still intubated. No significant changes. Date of service 07/08/2021: Still sinus rhythm. No significant change. Date of service 07/09/2021: Clinically unchanged patient is still intubated on mechanical ventilator support. Unfortunately diagnosis now is suspected lung cancer. There apparently is a endobronchial mass and evidence of metastatic disease on imaging. No tissue diagnosis yet apparently some discussion of a lytic bone lesion biopsy. Obviously the patient's prognosis will change significantly once she has biopsy-proven metastatic disease. For now no cardiac changes continue dual anti-platelet therapy Date of service 07/10/2021: With lightening the sedation, patient is responding and does squeeze hands to command. No chest pain Date of service 07/11/2021: Status post tracheostomy yesterday. No significant arrhythmia. Sedated at this point Date of service 07/12/2021: Clinically unchanged although the patient is now awake and responsive on Precedex and does follow commands. Apparently plans are to proceed with a biopsy once the patient is more stable and off ventilator support. We would recommend as detailed above biopsy of 1 of her lytic bone lesions over the endobronchial mass which would necessitate interrupting anti-platelet therapy. Date of service 07/13/2021: Clinically unchanged. Patient awake and alert on the ventilator appears to be comfortable denies any cardiovascular complaints. Date
[2021-07-16] MEDS: dexmedeTOMIDine 400 MCG/100 ML 400 MCG/100 ML BAG 17.45 MCG IV CONT ×2 (11:25→16:49)
--- NOTE | 2021-07-16 11:35 | PCFNICU ---
ICU Rounding Note: Pt current nutrition is Glucerna 1.2 at 60 ml/hr over 22 hours. Last recorded weight is 111.5 kg, down from 116.7 kg on admit. Bowel Motility:+BM reported 07/15 Labs Reviewed:Glu 262, Cr 0.5,BUN 19,Alb 3.1,Hct 29.3,Hgb 9.0 Meds Noted:Lopressor, Brilinta, Effexor, Lipitor, Precedex, Novolog, Propofol 21.0 ml/yg=912 kcals. Skin: Buttock-maceration Additional Notes: Patient with Trach/PEG. Bone Marrow Biopsy 07/15. Tolerating tube feedings of Glucerna 1.2 at 60 ml/hr over 22 hours. Will continue to monitor tube feedings rate with propofol adjustments. Following daily in ICU rounds. Will monitor every Wednesday and Wednesday.
[2021-07-16 11:55] LABS: Glucose Point of Care 158 mg/dl (65-105)
--- NOTE | 2021-07-16 13:07 | WPDINTPN ---
Progress Note: A&P Assessment and Plan (1) Acute respiratory failure with hypoxia: Code(s): J96.01 - Acute respiratory failure with hypoxia Status: Acute Assessment and Plan: Patient with acute respiratory failure likely related to pneumonia, possible COVID-19, EVALI (pt vapes) also could be related to interstitial lung and pneumococcal pneumonia -patient was on high-flow therapy, using accessory muscles of respiration, was finally intubated on 06/29/2021 -06/28 & 06/29 SARS-CoV-2 PCR negative -urine pneumococcal antigen was positive status post full course with vancomycin and Levaquin. - EVALI and ILD exacerbation: Patient has been Solu-Medrol since 06/29. She will complete the taper of today 07/15 -currently on CMV mode of ventilation, peep of 5, 40% FiO2. -tracheostomy done on 07/10/2021 -currently on sedation with propofol and Precedex. On decreasing sedation patient respiratory rate increased to close to 40 hence patient is not a candidate for weaning trial -triglycerides trending down will continue to monitor this patient is on propofol (2) Fever: Code(s): R50.9 - Fever, unspecified Status: Acute Assessment and Plan: Continues to be febrile with low-grade fevers. Patient in initially completed a course for pneumococcal pneumonia -cultures have been negative, wbc's normal, lipase normal, C diff negative -07/14: CT scan of the chest abdomen and pelvis: Showed right lower lobe masslike density, emphysema, diffuse ground-glass opacities with interlobular septal thickening, cirrhosis, colonic fluid, no abdominal abscess, scattered osteolytic disease. 07/14: Lower extremity Dopplers negative for DVT -ID is following. Continue to hold antibiotics at this time - ? Secondary to malignancy (3) Lung cancer: Code(s): C34.90 - Malignant neoplasm of unspecified part of unspecified bronchus or lung Status: Acute Assessment and Plan: CT chest shows Right lung mass, right hilar and mediastinal lymphadenopathy, and lytic lesions of bone, consistent with primary bronchogenic carcinoma and metastatic disease Patient currently on dual antiplatelet therapy which was started after STEMI which precludes lung biopsy at this time. Dr. Sinclair discussed with Radiology and they can do a bone biopsy once patient is extubated Oncology following 07/15 CT-guided bone biopsy done and result pending (4) Pneumonia: Qualifiers: Laterality: bilateral Lung location: unspecified part of lung Pneumonia type: due to unspecified organism Qualified Code(s): J18.9 - Pneumonia, unspecified organism Code(s): J18.9 - Pneumonia, unspecified organism Status: Acute Assessment and Plan: Patient had a bronchoscopy earlier today which showed essentially normal bronchial tree with no evidence of erythematous changes, diffuse mucosal edema, or increased amount of bronchial secretions. A small submucosal nodular lesion was found right at the RML orifice, causing mild narrowing of the RML bronchus. The superior segment of the right lower lobe appeared edematous with thickened bronchial mucosa also causing narrowing of the segment. -urine pneumococcal antigen was positive -pulmonary is following -off antibiotics (5) COPD (chronic obstructive pulmonary disease): Code(s): J44.9 - Chronic obstructive pulmonary disease, unspecified Status: Acute Assessment and Plan: Continue bronchodilators (6) ST elevation (STEMI) myocardial infarction: Code(s): I21.3 - ST elevation (STEMI) myocardial infarction of unspecified site Status: Acute Assessment and Plan: Patient presented to the ED with shortness of breath along with chest pain, EKG showed acute inferior ST-elevation [place] status post PTCA/PCI with DESIRE x1 to proximal RCA and DESIRE x1 to mid RCA (likely culprit lesion of STEMI) -cardiology following the patient closely, continue aspirin, Brilinta, atorvastatin, (7) Insu
[2021-07-16 16:50] LABS: Glucose Point of Care 180 mg/dl (65-105)
[2021-07-16] MEDS: ACETAMINOPHEN ELIXIR 325 MG/10.15 ML UDC 650 MG FEED TUBE (16:50)
[2021-07-16 21:23] LABS: Glucose Point of Care 226 mg/dl (65-105)
[2021-07-16] MEDS: INSULIN GLARGINE (*BKC) 100 UNITS/ML 50 UNITS SUB-Q (21:31)
[2021-07-16] MEDS: TOPIRAMATE 25 MG TABLET PO (21:31)
[2021-07-16] MEDS: PROPOFOL IV EMULSION 100 ML 12.6 MG IV CONT (22:04)
[2021-07-17] VITALS (44 sets, daily range): BP systolic 88–146; BP diastolic 44–116; PULSE 57–112; RESP 20–33; TEMP 37.7–38.7; O2SAT 92–98
[2021-07-17] MEDS: METOPROLOL TARTRATE INJ 5 MG/5 ML VIAL 2.5 MG IV PUSH ×3 (01:02→17:24)
[2021-07-17] MEDS: CENTRAL LINE FLUSH 10 ML IV PUSH ×3 (01:02→12:41)
[2021-07-17] MEDS: fentaNYL CITRATE INJ (*CRX) 100 MCG/2 ML VIAL 50 MCG IV PUSH ×3 (02:08→12:34)
[2021-07-17] MEDS: INSULIN ASPART (*BKC) 100 UNITS/ML SUB-Q ×3 (02:13→08:09)
[2021-07-17] MEDS: dexmedeTOMIDine 400 MCG/100 ML 400 MCG/100 ML BAG 29.08 MCG IV CONT ×3 (02:15→08:23)
[2021-07-17 03:56] LABS: Glucose Point of Care 267 mg/dl (65-105)
[2021-07-17 05:25] LABS: Basophils Percent Auto 0.3 % (0.2-1.2); Eosinophils Absolute Auto 0.3 K/mm3 (0-0.3); Eosinophils Percent Auto 3.7 % (0-4.4); Hematocrit 26.7 % (37.0-47.0); Hemoglobin 8.2 g/dL (12.0-15.0); Immature Granulocyte Absolute 0.06 K/mm3 (0.00-0.031); Immature Granulocyte Percent A 0.8 % (0-0.5); Lymphocytes Absolute Auto 1.14 K/mm3 (0.9-3.2); Lymphocytes Percent Auto 14.4 % (18.3-44.2); Mean Corpuscular HGB Conc 30.7 g/dl (32-36); Mean Corpuscular Volume 110.8 fl (80-100); Mean Platelet Volume 10.9 fl (7.4-10.4); Monocytes Absolute Auto 0.4 K/mm3 (0.1-0.6); Monocytes Percent Auto 4.5 % (2.6-8.5); Neutrophils Absolute Auto 6.1 K/mm3 (1.3-6.7); Neutrophils Percent Auto 76.3 % (45.5-73.1); Nucleated Red Blood Cells Perc 0.4 % (0.0-0.2); Platelet Count Result 118 k/mm3 (150-375); Red Blood Count 2.41 M/mm3 (4.2-5.4); Red Cell Distribution Width 16.9 % (11.5-14.5); White Blood Count 7.9 K/mm3 (4.5-10.0)
[2021-07-17 05:38] LABS: Alanine Aminotransferase 33 U/L (4-35); Albumin Level 2.8 g/dL (3.5-5.1); Alkaline Phosphatase 87 U/L (38-126); Anion Gap 8 mmol/L (8-16); Aspartate Amino Transferase 55 U/L (14-36); Bilirubin,Total 0.7 mg/dL (0.2-1.3); Blood Urea Nitrogen 16 mg/dL (7-17); Calcium 8.6 mg/dL (8.4-10.2); Carbon Dioxide 22 mmol/L (22-30); Chloride 103 mmol/L (98-107); Estimated CRCL calculation 128 ml/min; Estimated Glomerular Filt Rate > 60; Glucose 382 mg/dL (65-110); Magnesium 2.1 mg/dL (1.6-2.3); Phosphorus 2.7 mg/dL (2.5-4.5); Potassium 3.7 mmol/L (3.4-5.0); Sodium 133 mmol/L (137-145); Triglycerides 501 mg/dL (<150)
[2021-07-17 06:08] LABS: Alveolar/Arterial O2 Gradient 110.4 mmHg; Base Excess ABG -4.7 mEq/l (+/-2.0); Carboxyhemoglobin 0.1 % THb (0-2.0); Device VENTILATOR; Fractional Inspired Oxygen 30 %; HCO3 ABG 18.5 mEq/l (22.0-26.0); Methemoglobin ABG 0.2 %THb (0-1.5); Modified Allen's Test Unable to perform; Oxygen Content ABG 12.8 %vol (16.0-22.0); Oxygen Saturation ABG 95.1 % (95.0-100.0); Oxyhemoglobin 91.7 % THb (90.0-100.0); PCO2 ABG 27.8 mmHg (35.0-45.0); PO2 ABG 70.8 mmHg (80.0-100.0); PO2 FiO2 Ratio Arterial Blood 2.36 %; Site Drawn RIGHT RADIAL; Total Hemoglobin 9.9 g/dL (12.0-18.0); pH ABG 7.441 (7.350-7.450)
[2021-07-17 06:09] LABS: Arterial Blood Gas PEEP 5 cmH2O; Arterial Blood Gas Tidal Volume 450 ml; Arterial Blood Gas Vent Mode CMV; Arterial Blood Gas Ventilator rate 24 /MIN
[2021-07-17] MEDS: IPRATROPIUM BR 0.02% INH SOLN 0.5 MG/2.5 ML VIAL INHALATION ×2 (07:58→20:34)
[2021-07-17] MEDS: LEVALBUTEROL NEB 1.25 MG/3 ML 0.63 MG INHALATION ×2 (07:59→20:34)
[2021-07-17] MEDS: INSULIN GLARGINE (*BKC) 100 UNITS/ML 10 UNITS SUB-Q (08:07)
[2021-07-17] MEDS: INSULIN GLARGINE (*BKC) 100 UNITS/ML 65 UNITS SUB-Q (08:08)
[2021-07-17] MEDS: ATORVASTATIN 40 MG TABLET 80 MG PO (08:10)
[2021-07-17] MEDS: TICAGRELOR 90 MG TABLET PO ×2 (08:10→22:47)
[2021-07-17] MEDS: NICOTINE (*PBKC) 14 MG PATCH 1 PATCH TRANSDERM (08:10)
[2021-07-17] MEDS: ENOXAPARIN 40 MG/0.4 ML SYRINGE SUB-Q (08:10)
[2021-07-17] MEDS: VENLAFAXINE HCL 75 MG TABLET FEED TUBE ×2 (08:11→17:23)
[2021-07-17] MEDS: PANTOPRAZOLE SODIUM IV 40 MG VIAL IV PUSH ×2 (08:11→22:52)
[2021-07-17] MEDS: ASPIRIN 81 MG CHEWABLE TABLET FEED TUBE (08:11)
[2021-07-17] MEDS: MINERAL OIL/WHITE PETROLATUM OINTMENT 1 APPLIC EACH EYE ×2 (08:11→22:47)
[2021-07-17 09:23] LABS: Glucose Point of Care 218 mg/dl (65-105)
--- NOTE | 2021-07-17 11:42 | PCFNICU ---
ICU Rounding Note: Pt current nutrition is Glucerna 1.2 at 60 ml/hr over 22 hours. Nutrition recommendation: 70 ml/hr as goal rate. Last recorded weight is 114 kg, down from 116.7 kg on admit. Bowel Motility:+BM reported 07/17 Labs Reviewed:Glu 382,TG 501, Cr 0.5,Alb 2.8,Hct 26.7,Hgb 8.2 Meds Noted:Brilinta, Effexor, Lipitor, Lovenox,Precedex, Lopressor, Lantus, Miralax, NovoLog, Protonix. Skin:Perirectal-maceration. Additional Notes: Patient with Trach/PEG. Propofol has been discontinued. Recommend: rate increase to 70ml/hr of Glucerna 1.2. Goal rate of tube feeding providing 1848 kcals/92 gms protein/1240 ml water. 30 ml free water flush q 4 hours. Following daily in ICU rounds. Reassessing every Wednesday and Wednesday.
[2021-07-17] MEDS: ACETAMINOPHEN ELIXIR 325 MG/10.15 ML UDC 650 MG FEED TUBE ×2 (12:34→17:24)
--- NOTE | 2021-07-17 12:37 | PM.PNPUL ---
Progress Note: A&P Assessment and Plan (1) Acute respiratory failure with hypoxia: Code(s): J96.01 - Acute respiratory failure with hypoxia Status: Acute Assessment and Plan: Patient now on FiO2 of 40%. A chest x-ray done earlier today showed possible worsening of right lower lobe infiltrate. Most recent chest imaging studies have shown partial clearing of bilateral infiltrates which coincided with improvement of gas exchange. Patient has failed weaning attempts. She still has a high minute ventilation over 12 liters/minute. It is unclear what the worsening of a right lower lobe infiltrates is. Could be nosocomial pneumonia versus worsening of her interstitial lung disease. She has no evidence of leukocytosis on today's laboratory testing and there is no significant worsening of gas exchange over the last 24 hours. Will proceed with sputum culture, monitor chest x-ray. Bone biopsy pending. (2) Interstitial lung disease: Code(s): J84.9 - Interstitial pulmonary disease, unspecified Status: Acute Assessment and Plan: (3) Chronic obstructive pulmonary disease: Qualifiers: COPD type: unspecified COPD Qualified Code(s): J44.9 - Chronic obstructive pulmonary disease, unspecified Code(s): J44.9 - Chronic obstructive pulmonary disease, unspecified Status: Acute Assessment and Plan: Patient carries a diagnosis of COPD. She will need follow-up on outpatient basis with pulmonary function testing. (4) History of tobacco abuse: Code(s): Z87.891 - Personal history of nicotine dependence Status: Acute (5) Lung nodule: Code(s): R91.1 - Solitary pulmonary nodule Status: Acute Assessment and Plan: (6) Hilar lymphadenopathy: Code(s): R59.0 - Localized enlarged lymph nodes Status: Acute Assessment and Plan: Most likely related to lung malignancy. await bone biopsy. (7) Current every day vaping: Code(s): Z72.89 - Other problems related to lifestyle Status: Acute Assessment and Plan: Per patient's sister the patient has been vaping at least once per hour over the last few weeks. substances used for vaping not known. Subjective Date/time seen: 07/17/21 12:37 patient remaining on the ventilator while receiving mild sedation. She has failed weaning trial as. She has undergone a bone biopsy. She has been off steroids, not receive antibiotics. FiO2 in the range of 35-40%. Exam Narrative: GENERAL APPEARANCE: Well developed, well nourished, answering questions while on mechanical ventilation and lightly sedated SKIN: Inspection of the skin reveals no rashes, ulcerations or petechiae. HEENT: Sclerae anicteric and conjunctivae pink and moist. Extraocular movements were intact and pupils were equal, round. NECK: Supple. There was no thyroid enlargement, and no tenderness, or masses were felt. CHEST: Normal AP diameter and normal contour without any kyphoscoliosis. LUNGS: Auscultation of the lungs revealed crackles at bases posteriorly. CARDIAC: There was a regular rate and rhythm without any murmurs, gallops, rubs. ABDOMEN: Soft and nontender with normal bowel sounds. There was no organomegaly. LYMPH NODES: No lymphadenopathy was appreciated in the neck. EXTREMITIES: No cyanosis, clubbing or edema. NEUROLOGIC: Cooperative, answering questions. Objective Data Vital Signs Vital Signs: Vital Signs - 24 hr 07/16/21 14:00 07/16/21 14:07 07/16/21 14:09 Temperature 38.2 C H Pulse Rate 77 78 83 Respiratory Rate 28 H 29 H 30 H Blood Pressure 104/57 L Pulse Oximetry 97 07/16/21 14:43 07/16/21 14:44 07/16/21 14:47 Temperature Pulse Rate 83 75 111 H Respiratory Rate 29 H 29 H Blood Pressure Pulse Oximetry 35 L 07/16/21 14:51 07/16/21 16:00 07/16/21 16:49 Temperature 38.5 C H Pulse Rate 83 78 75 Respiratory Rate 29 H 31 H 30 H Blood Pressure 112/52 L Pulse
--- NOTE | 2021-07-17 13:11 | WPDINTPN ---
Progress Note: A&P Assessment and Plan (1) Acute respiratory failure with hypoxia: Code(s): J96.01 - Acute respiratory failure with hypoxia Status: Acute Assessment and Plan: Patient with acute respiratory failure likely related to pneumonia, possible COVID-19, EVALI (pt vapes) also could be related to interstitial lung and pneumococcal pneumonia -patient was on high-flow therapy, using accessory muscles of respiration, was finally intubated on 06/29/2021 -06/28 & 06/29 SARS-CoV-2 PCR negative -urine pneumococcal antigen was positive status post full course with vancomycin and Levaquin. - EVALI and ILD exacerbation: Patient has been Solu-Medrol since 06/29. She will complete the taper of today 07/15 -currently on CMV mode of ventilation, peep of 5, 40% FiO2. -tracheostomy done on 07/10/2021 -currently on sedation with propofol and Precedex. I did a weaning trial off sedation which patient quickly failed due to high RSBI -patient placed back on Precedex but propofol has been off. Will try to wean off Precedex as possible On decreasing sedation patient respiratory rate increased to close to 40 hence patient is not a candidate for weaning trial -triglycerides elevated blood propofol has been discontinued now (2) Fever: Code(s): R50.9 - Fever, unspecified Status: Acute Assessment and Plan: Continues to be febrile with low-grade fevers. Patient in initially completed a course for pneumococcal pneumonia -cultures have been negative, wbc's normal, lipase normal, C diff negative -07/14: CT scan of the chest abdomen and pelvis: Showed right lower lobe masslike density, emphysema, diffuse ground-glass opacities with interlobular septal thickening, cirrhosis, colonic fluid, no abdominal abscess, scattered osteolytic disease. 07/14: Lower extremity Dopplers negative for DVT -ID is following. Continue to hold antibiotics at this time - ? Secondary to malignancy (3) Lung cancer: Code(s): C34.90 - Malignant neoplasm of unspecified part of unspecified bronchus or lung Status: Acute Assessment and Plan: CT chest shows Right lung mass, right hilar and mediastinal lymphadenopathy, and lytic lesions of bone, consistent with primary bronchogenic carcinoma and metastatic disease Patient currently on dual antiplatelet therapy which was started after STEMI which precludes lung biopsy at this time. Dr. Sinclair discussed with Radiology and they can do a bone biopsy once patient is extubated Oncology following 07/15 CT-guided bone biopsy of right ilium lytic lesion was done and result is pending (4) Pneumonia: Qualifiers: Laterality: bilateral Lung location: unspecified part of lung Pneumonia type: due to unspecified organism Qualified Code(s): J18.9 - Pneumonia, unspecified organism Code(s): J18.9 - Pneumonia, unspecified organism Status: Acute Assessment and Plan: Patient had a bronchoscopy earlier today which showed essentially normal bronchial tree with no evidence of erythematous changes, diffuse mucosal edema, or increased amount of bronchial secretions. A small submucosal nodular lesion was found right at the RML orifice, causing mild narrowing of the RML bronchus. The superior segment of the right lower lobe appeared edematous with thickened bronchial mucosa also causing narrowing of the segment. -urine pneumococcal antigen was positive -pulmonary is following -off antibiotics (5) COPD (chronic obstructive pulmonary disease): Code(s): J44.9 - Chronic obstructive pulmonary disease, unspecified Status: Acute Assessment and Plan: Continue bronchodilators (6) ST elevation (STEMI) myocardial infarction: Code(s): I21.3 - ST elevation (STEMI) myocardial infarction of unspecified site Status: Acute Assessment and Plan: Patient presented to the ED with shortness of breath along with chest pain, EKG showed acute inferior ST-elevation CT
[2021-07-17] MEDS: dexmedeTOMIDine 400 MCG/100 ML 400 MCG/100 ML BAG 14.54 MCG IV CONT ×2 (13:20→22:44)
[2021-07-17] MEDS: ONDANSETRON INJ 4 MG/2 ML VIAL IV PUSH (13:34)
--- NOTE | 2021-07-17 14:49 | PM.PNCARD ---
Progress Note: A&P Assessment and Plan (1) ST elevation (STEMI) myocardial infarction: Code(s): I21.3 - ST elevation (STEMI) myocardial infarction of unspecified site Status: Acute Assessment and Plan: Acute inferior STEMI on June 27 treated with 2 RCA stents, good LV function. Hemodynamically stable. Continue guideline directed therapy with aspirin, Brilinta, atorvastatin. BP relatively stable. Hold off on JHON-inhibitor No new cardiovascular issues at this time. Continue aspirin, Brilinta, atorvastatin. Tolerating low-dose metoprolol. Patient remains critically ill. Prognosis guarded. (2) Acute respiratory failure with hypoxia: Code(s): J96.01 - Acute respiratory failure with hypoxia Status: Acute Assessment and Plan: Acute respiratory failure, chronic lung disease, managed by watch repairer apprentice. Greatly appreciate critical care and pulmonology involvement and recommendations as well. status post trach Possible ILD. Negative for PE on CT angiogram although limited due to motion artifact bilateral airspace disease pneumonia pleural-based mass 3.4 cm can not exclude malignancy with prominent mediastinal and right hilar lymphadenopathy possible metastatic disease. (3) Fever: Code(s): R50.9 - Fever, unspecified Status: Acute Assessment and Plan: She continues with low-grade fevers, blood cultures Negative to date. appreciate Infectious Disease involvement and recommendations. C diff preliminary positive CT abdomen ordered. Recommendations after review per Critical Care. Very complicated clinical scenario. (4) Anemia: Code(s): D64.9 - Anemia, unspecified Status: Acute Assessment and Plan: She remains anemic, Hemoglobin relatively stable. No evidence of active bleed. Continue to follow H& H. Continue dual antiplatelet therapy. Platelet count declining continue to monitor closely. (5) Interstitial lung disease: Code(s): J84.9 - Interstitial pulmonary disease, unspecified Status: Acute Assessment and Plan: As above. Appreciate Critical Care and pulmonology recommendations. (6) Diabetes: Code(s): E11.9 - Type 2 diabetes mellitus without complications Status: Acute Assessment and Plan: Continue present management. Initial triglycerides draw lab error 2436 repeat 332. (7) Lung cancer: Code(s): C34.90 - Malignant neoplasm of unspecified part of unspecified bronchus or lung Status: Acute Assessment and Plan: Endobronchial mass with evidence of metastatic disease. Subjective Date/time seen: date of service:07/17/21 14:49 Interval history: Acute inferior ST segment elevation [place] 06/27/2021 status post successful but difficult and challenging PCI of the right coronary artery because of diffuse disease, calcification and tortuosity in the target vessel. Ultimately good angiographic results with 2 drug-eluting stents. Postprocedure troponin levels only showed a modest troponin rise and echocardiogram demonstrates good left ventricular systolic function. Unfortunately she also appears to have likely vaping related lung injury and is now intubated on mechanical ventilator support. Appears to be COVID negative. 07/01/2021: Bronchoscopy was fairly unremarkable today. Appears to have some underlying interstitial lung disease as well as COPD. Still on 50% FiO2 and intubated. Telemetry shows NSR, occasional APC. 07/02/2021: Clinically unchanged still intubated on mechanical ventilation. O2 requirements slightly lower. 07/03/2021: No significant clinical changes. Ventilator requirements essentially the same, still on 50% FiO2. Unable to tolerate sedation holiday due to tachypnea. 07/04/2021: No new cardiovascular issues in the last several days. Patient remains sedated on mechanical ventilator sup
[2021-07-17 15:00] LABS: Glucose Point of Care 110 mg/dl (65-105)
[2021-07-17] MEDS: DEXTROSE 50% 25 GM/50 ML SYRINGE IV PUSH (16:55)
[2021-07-17] MEDS: VANCOMYCIN ORAL 125 MG/2.5 ML SYRUP PO (17:24)
[2021-07-17 17:36] LABS: Glucose Point of Care 53 mg/dl (65-105)
[2021-07-17 17:36] LABS: Glucose Point of Care 112 mg/dl (65-105)
[2021-07-17] MEDS: LORazepam INJ (*CRX) 2 MG/ML VIAL IV PUSH (20:28)
[2021-07-17] MEDS: METOPROLOL TARTRATE 12.5 MG TABLET PO (22:46)
[2021-07-17] MEDS: TOPIRAMATE 25 MG TABLET PO (22:47)
[2021-07-17 22:56] LABS: Glucose Point of Care 120 mg/dl (65-105)
[2021-07-18] VITALS (28 sets, daily range): BP systolic 98–146; BP diastolic 52–83; PULSE 68–113; RESP 20–28; TEMP 37.6–38.8; O2SAT 92–98
[2021-07-18] MEDS: dexmedeTOMIDine 400 MCG/100 ML 400 MCG/100 ML BAG 14.54 MCG IV CONT ×2 (00:05→04:52)
[2021-07-18] MEDS: fentaNYL CITRATE INJ (*CRX) 100 MCG/2 ML VIAL 50 MCG IV PUSH ×4 (00:05→18:25)
[2021-07-18] MEDS: METOPROLOL TARTRATE INJ 5 MG/5 ML VIAL 2.5 MG IV PUSH ×4 (01:43→18:06)
[2021-07-18] MEDS: CENTRAL LINE FLUSH 10 ML IV PUSH ×4 (01:43→21:00)
[2021-07-18] MEDS: LORazepam INJ (*CRX) 2 MG/ML VIAL IV PUSH ×5 (01:44→21:00)
[2021-07-18] MEDS: VANCOMYCIN ORAL 125 MG/2.5 ML SYRUP PO ×4 (01:48→18:06)
[2021-07-18] MEDS: LEVALBUTEROL NEB 1.25 MG/3 ML 0.63 MG INHALATION ×3 (02:42→19:18)
[2021-07-18] MEDS: IPRATROPIUM BR 0.02% INH SOLN 0.5 MG/2.5 ML VIAL INHALATION ×3 (02:42→19:18)
[2021-07-18 05:00] LABS: Basophils Percent Auto 0.2 % (0.2-1.2); Eosinophils Absolute Auto 0.3 K/mm3 (0-0.3); Eosinophils Percent Auto 2.9 % (0-4.4); Hematocrit 28.8 % (37.0-47.0); Hemoglobin 8.8 g/dL (12.0-15.0); Immature Granulocyte Absolute 0.06 K/mm3 (0.00-0.031); Immature Granulocyte Percent A 0.7 % (0-0.5); Lymphocytes Absolute Auto 0.72 K/mm3 (0.9-3.2); Lymphocytes Percent Auto 8.2 % (18.3-44.2); Mean Corpuscular HGB Conc 30.6 g/dl (32-36); Mean Corpuscular Hemoglobin 33.6 pg (26-34); Mean Corpuscular Volume 109.9 fl (80-100); Monocytes Absolute Auto 0.4 K/mm3 (0.1-0.6); Monocytes Percent Auto 4.9 % (2.6-8.5); Neutrophils Absolute Auto 7.3 K/mm3 (1.3-6.7); Neutrophils Percent Auto 83.1 % (45.5-73.1); Nucleated Red Blood Cells Perc 0.3 % (0.0-0.2); Platelet Count Result 124 k/mm3 (150-375); Red Blood Count 2.62 M/mm3 (4.2-5.4); Red Cell Distribution Width 16.7 % (11.5-14.5); White Blood Count 8.7 K/mm3 (4.5-10.0)
[2021-07-18 05:16] LABS: Alanine Aminotransferase 43 U/L (4-35); Albumin Level 3.1 g/dL (3.5-5.1); Alkaline Phosphatase 107 U/L (38-126); Anion Gap 7 mmol/L (8-16); Aspartate Amino Transferase 80 U/L (14-36); Bilirubin,Total 0.9 mg/dL (0.2-1.3); Blood Urea Nitrogen 17 mg/dL (7-17); Carbon Dioxide 23 mmol/L (22-30); Chloride 105 mmol/L (98-107); Estimated CRCL calculation 128 ml/min; Estimated Glomerular Filt Rate > 60; Glucose 306 mg/dL (65-110); Magnesium 2.1 mg/dL (1.6-2.3); Phosphorus 3.2 mg/dL (2.5-4.5); Sodium 135 mmol/L (137-145)
[2021-07-18 05:47] LABS: Alveolar/Arterial O2 Gradient 172.5 mmHg; Base Excess ABG -1.9 mEq/l (+/-2.0); Carboxyhemoglobin 0.4 % THb (0-2.0); Fractional Inspired Oxygen 40 %; HCO3 ABG 21.5 mEq/l (22.0-26.0); Methemoglobin ABG 0.2 %THb (0-1.5); Oxygen Content ABG 13.3 %vol (16.0-22.0); Oxygen Saturation ABG 95.9 % (95.0-100.0); Oxyhemoglobin 93.8 % THb (90.0-100.0); PCO2 ABG 31.9 mmHg (35.0-45.0); Reduced Hemoglobin 5.6 %THb (0-5.0); pH ABG 7.447 (7.350-7.450)
[2021-07-18 05:48] LABS: Arterial Blood Gas PEEP 5 cmH2O; Arterial Blood Gas Tidal Volume 450 ml; Arterial Blood Gas Vent Mode CMV; Arterial Blood Gas Ventilator rate 20 /MIN; Device VENTILATOR; Modified Allen's Test Pass; Site Drawn LEFT RADIAL
[2021-07-18] MEDS: INSULIN ASPART (*BKC) 100 UNITS/ML SUB-Q ×4 (06:14→18:05)
[2021-07-18] MEDS: ASPIRIN 81 MG CHEWABLE TABLET FEED TUBE (09:47)
[2021-07-18] MEDS: FUROSEMIDE INJ 40 MG/4 ML VIAL IV PUSH (09:47)
[2021-07-18] MEDS: ATORVASTATIN 40 MG TABLET 80 MG PO (09:47)
[2021-07-18] MEDS: NICOTINE (*PBKC) 14 MG PATCH 1 PATCH TRANSDERM (09:48)
[2021-07-18] MEDS: METOPROLOL TARTRATE 12.5 MG TABLET PO (09:48)
[2021-07-18] MEDS: PANTOPRAZOLE SODIUM IV 40 MG VIAL IV PUSH ×2 (09:48→20:58)
[2021-07-18] MEDS: ENOXAPARIN 40 MG/0.4 ML SYRINGE SUB-Q (09:48)
[2021-07-18] MEDS: VENLAFAXINE HCL 75 MG TABLET FEED TUBE ×2 (09:49→18:06)
[2021-07-18] MEDS: TICAGRELOR 90 MG TABLET PO ×2 (09:49→20:59)
[2021-07-18 10:07] LABS: Glucose Point of Care 249 mg/dl (65-105)
[2021-07-18] MEDS: INSULIN GLARGINE (*BKC) 100 UNITS/ML 65 UNITS SUB-Q ×2 (10:12→21:20)
--- NOTE | 2021-07-18 11:07 | PCRCNOTE ---
Window of time for administration has passed. See next scheduled administration.
--- NOTE | 2021-07-18 11:12 | PCNFU ---
Nutrition Follow-Up Complete: Inadequate Oral Intake as related to mechanical ventilation as evidenced by NPO. goal: Meet estimated nutritional needs Patient is progressing towards goal. We will continue current goal Pt current nutrition is Glucerna 1.2 at 70 ml/hr over 22 hours. Last recorded weight is 114 kg, down from 116.7 ml/hr Bowel Motility:+BM reported 07/18 Labs Reviewed:Glu 306, Na 135, ALb 3.1,Hct 28.8,Hgb 8.8 Meds Noted:Lopressor, Brilinta, Effexor, Novolog, Lantus, Lipitor, Atrovent, Protonix, Lasix. Skin:WNL Additional Notes: Patient has Trach/PEG. Tube feedings of Glucerna 1.2 at goal rate of 70 ml/hr providing 1848 kcals/92 gms protein/1240 ml water. tolerating tube feedings. 30 ml free water flush q 4 hours. Agree with diet orders. Awaiting Bone Marrow Biopsy. Monitoring daily in ICU rounds. Reassessing every Wednesday and Wednesday.
--- NOTE | 2021-07-18 11:28 | PM.PNPUL ---
Progress Note: A&P Assessment and Plan (1) Acute respiratory failure with hypoxia: Code(s): J96.01 - Acute respiratory failure with hypoxia Status: Acute Assessment and Plan: Patient now on FiO2 of 40%. A chest x-ray done earlier today also showed worsening of bilateral infiltrate. Most recent chest imaging studies have shown partial clearing of bilateral infiltrates which coincided with improvement of gas exchange. Patient has failed weaning attempts. She still has a high minute ventilation over 12 liters/minute. Her FiO2 has increased to 40% from 30% last week. In view of these changes will resume steroid treatment. Worsening of infiltrates is probably related to worsening of underlying interstitial lung disease following discontinuation of steroids. She has no leukocytosis no change in amount of bronchial secretions with sputum culture pending. Patient is not on any antibiotics for respiratory infection. She is on oral vancomycin for C difficile infection. (2) Interstitial lung disease: Code(s): J84.9 - Interstitial pulmonary disease, unspecified Status: Acute Assessment and Plan: (3) Chronic obstructive pulmonary disease: Qualifiers: COPD type: unspecified COPD Qualified Code(s): J44.9 - Chronic obstructive pulmonary disease, unspecified Code(s): J44.9 - Chronic obstructive pulmonary disease, unspecified Status: Acute Assessment and Plan: Patient carries a diagnosis of COPD. She will need follow-up on outpatient basis with pulmonary function testing. (4) History of tobacco abuse: Code(s): Z87.891 - Personal history of nicotine dependence Status: Acute (5) Lung nodule: Code(s): R91.1 - Solitary pulmonary nodule Status: Acute Assessment and Plan: (6) Hilar lymphadenopathy: Code(s): R59.0 - Localized enlarged lymph nodes Status: Acute Assessment and Plan: Most likely related to lung malignancy. await bone biopsy. (7) Current every day vaping: Code(s): Z72.89 - Other problems related to lifestyle Status: Acute Assessment and Plan: Per patient's sister the patient has been vaping at least once per hour over the last few weeks. substances used for vaping not known. Subjective Date/time seen: 07/18/21 11:28 Patient remaining on mechanical ventilation. Appears awake answering questions. She has no pain. Also no shortness of breath. Current FiO2 40%. Bone biopsy pending. Review of Systems Review of Systems: All systems reviewed & are unremarkable except as noted in HPI and below (H and P and below) Exam Narrative: GENERAL APPEARANCE: Well developed, well nourished, answering questions while on mechanical ventilation and lightly sedated SKIN: Inspection of the skin reveals no rashes, ulcerations or petechiae. HEENT: Sclerae anicteric and conjunctivae pink and moist. Extraocular movements were intact and pupils were equal, round. NECK: Supple. There was no thyroid enlargement, and no tenderness, or masses were felt. CHEST: Normal AP diameter and normal contour without any kyphoscoliosis. LUNGS: Auscultation of the lungs revealed crackles at bases posteriorly. CARDIAC: There was a regular rate and rhythm without any murmurs, gallops, rubs. ABDOMEN: Soft and nontender with normal bowel sounds. There was no organomegaly. LYMPH NODES: No lymphadenopathy was appreciated in the neck. EXTREMITIES: No cyanosis, clubbing or edema. NEUROLOGIC: Cooperative, answering questions. Objective Data Vital Signs Vital Signs: Vital Signs - 24 hr 07/17/21 12:00 07/17/21 12:16 07/17/21 12:34 Temperature 38.7 C H 38.7 C H Pulse Rate 112 H 105 H Respiratory Rate 25 H Blood Pressure 124/74 Pulse Oximetry 98 98 07/17/21 12:35 07/17/21 13:20 07/17/21 13:34 Temperature 37.8 C H Pulse Rate 112 H 97 Respiratory Rate 23 H Blood Pressure Pulse Oximetr
[2021-07-18] MEDS: methylPREDNISolone SOD SUCC 40 MG VIAL IV PUSH (11:50)
--- NOTE | 2021-07-18 11:56 | WPDINTPN ---
Progress Note: A&P Assessment and Plan (1) Acute respiratory failure with hypoxia: Code(s): J96.01 - Acute respiratory failure with hypoxia Status: Acute Assessment and Plan: Patient with acute respiratory failure likely related to pneumonia, possible COVID-19, EVALI (pt vapes) also could be related to interstitial lung and pneumococcal pneumonia -patient was on high-flow therapy, using accessory muscles of respiration, was finally intubated on 06/29/2021 -06/28 & 06/29 SARS-CoV-2 PCR negative -urine pneumococcal antigen was positive status post full course with vancomycin and Levaquin. - EVALI and ILD exacerbation: Patient has been Solu-Medrol since 06/29 and completed a taper on 07/15. -currently on CMV mode of ventilation, peep of 5, 40% FiO2. -tracheostomy done on 07/10/2021 -patient was on low-dose Precedex. I discontinued Precedex and performed a weeaning trial off sedation which patient quickly failed due to high RSBI -will discontinue Precedex and use p.r.n. anxiolytics as needed -triglycerides elevated blood propofol has been discontinued now CT 07/17 Severe diffuse lung disease with worsening from 07/14/2021, consistent with pneumonia versus pulmonary edema superimposed on emphysema and chronic interstitial lung disease. - Steroids resumed by Pulmonary 07/18 -start Lasix IV (2) Fever: Code(s): R50.9 - Fever, unspecified Status: Acute Assessment and Plan: Continues to be febrile with low-grade fevers. Patient in initially completed a course for pneumococcal pneumonia -cultures have been negative, wbc's normal, lipase normal, -07/14: CT scan of the chest abdomen and pelvis: Showed right lower lobe masslike density, emphysema, diffuse ground-glass opacities with interlobular septal thickening, cirrhosis, colonic fluid, no abdominal abscess, scattered osteolytic disease. 07/14: Lower extremity Dopplers negative for DVT -ID is following. Continue to hold antibiotics at this time - ? Secondary to malignancy -stool came back positive C diff patient has been started on vancomycin per tube (3) Lung cancer: Code(s): C34.90 - Malignant neoplasm of unspecified part of unspecified bronchus or lung Status: Acute Assessment and Plan: CT chest shows Right lung mass, right hilar and mediastinal lymphadenopathy, and lytic lesions of bone, consistent with primary bronchogenic carcinoma and metastatic disease Patient currently on dual antiplatelet therapy which was started after STEMI which precludes lung biopsy at this time. Dr. Sinclair discussed with Radiology and they can do a bone biopsy once patient is extubated Oncology following 07/15 CT-guided bone biopsy of right ilium lytic lesion was done and result is pending (4) Pneumonia: Qualifiers: Laterality: bilateral Lung location: unspecified part of lung Pneumonia type: due to unspecified organism Qualified Code(s): J18.9 - Pneumonia, unspecified organism Code(s): J18.9 - Pneumonia, unspecified organism Status: Acute Assessment and Plan: Patient had a bronchoscopy earlier today which showed essentially normal bronchial tree with no evidence of erythematous changes, diffuse mucosal edema, or increased amount of bronchial secretions. A small submucosal nodular lesion was found right at the RML orifice, causing mild narrowing of the RML bronchus. The superior segment of the right lower lobe appeared edematous with thickened bronchial mucosa also causing narrowing of the segment. -urine pneumococcal antigen was positive and patient received antibiotics for 14 days -pulmonary is following -off antibiotics at this time (5) COPD (chronic obstructive pulmonary disease): Code(s): J44.9 - Chronic obstructive pulmonary disease, unspecified Status: Acute Assessment and Plan: Continue bronchodilators (6) ST elevation (STEMI) myocardial infarction: Code(s): I21.3 - ST elevation (STEMI) myoca
[2021-07-18 13:04] LABS: Glucose Point of Care 241 mg/dl (65-105)
--- NOTE | 2021-07-18 15:10 | PM.PNCARD ---
Progress Note: A&P Assessment and Plan (1) ST elevation (STEMI) myocardial infarction: Code(s): I21.3 - ST elevation (STEMI) myocardial infarction of unspecified site <KYLEIGH Vargas - Last Filed: 07/18/21 17:55> Status: Acute <KYLEIGH Vargas - Last Filed: 07/18/21 17:55> Assessment and Plan: Acute inferior STEMI on June 27 treated with 2 RCA stents, good LV function. Hemodynamically stable. Continue guideline directed therapy with aspirin, Brilinta, atorvastatin. BP relatively stable. Hold off on JHON-inhibitor No new cardiovascular issues at this time. Continue aspirin, Brilinta, atorvastatin. Tolerating low-dose metoprolol. <KYLEIGH Vargas - Last Filed: 07/18/21 17:55> (2) Acute respiratory failure with hypoxia: Code(s): J96.01 - Acute respiratory failure with hypoxia <KYLEIGH Vargas - Last Filed: 07/18/21 17:55> Status: Acute <YKLEIGH Vargas - Last Filed: 07/18/21 17:55> Assessment and Plan: Acute respiratory failure, chronic lung disease, managed by planning rn. Greatly appreciate critical care and pulmonology involvement and recommendations as well. status post trach Possible ILD. Negative for PE on CT angiogram although limited due to motion artifact bilateral airspace disease pneumonia pleural-based mass 3.4 cm can not exclude malignancy with prominent mediastinal and right hilar lymphadenopathy possible metastatic disease. <KYLEIGH Vargas - Last Filed: 07/18/21 17:55> (3) Fever: Code(s): R50.9 - Fever, unspecified <KYLEIGH Vargas - Last Filed: 07/18/21 17:55> Status: Acute <KYLEIGH Vargas - Last Filed: 07/18/21 17:55> Assessment and Plan: She continues with low-grade fevers, blood cultures Negative to date. appreciate Infectious Disease involvement and recommendations. C diff preliminary positive CT abdomen ordered. Recommendations after review per Critical Care. Very complicated clinical scenario. <KYLEIGH Vargas - Last Filed: 07/18/21 17:55> (4) Anemia: Code(s): D64.9 - Anemia, unspecified <KYLEIGH Vargas - Last Filed: 07/18/21 17:55> Status: Acute <KYLEIGH Vargas - Last Filed: 07/18/21 17:55> Assessment and Plan: She remains anemic, Hemoglobin relatively stable. No evidence of active bleed. Continue to follow H& H. Continue dual antiplatelet therapy. Platelet count declining continue to monitor closely. <KYLEIGH Vargas - Last Filed: 07/18/21 17:55> (5) Interstitial lung disease: Code(s): J84.9 - Interstitial pulmonary disease, unspecified <KYLEIGH Vargas - Last Filed: 07/18/21 17:55> Status: Acute <KYLEIGH Vargas - Last Filed: 07/18/21 17:55> Assessment and Plan: As above. Appreciate Critical Care and pulmonology recommendations. <KYLEIGH Vargas - Last Filed: 07/18/21 17:55> (6) Diabetes: Code(s): E11.9 - Type 2 diabetes mellitus without complications <KYLEIGH Vargas - Last Filed: 07/18/21 17:55> Status: Acute <KYLEIGH Vargas - Last Filed: 07/18/21 17:55> Assessment and Plan: Continue present management. Initial triglycerides draw lab error 2436 repeat 332. <KYLEIGH Vargas - Last Filed: 07/18/21 17:55> (7) Lung cancer: Code(s): C34.90 - Malignant neoplasm of unspecified part of unspecified bronchus or lung <KYLEIGH Vargas - Last Filed: 07/18/21 17:55> Status: Acute <KYLEIGH Vargas - Last Filed: 07/18/21 17:55> Assessment and Plan: Endobronchial mass with evidence of metastatic disease. <KYLEIGH Vargas - Last Filed: 07/18/21 17:55> Additional Plan Patient requires ongoing hospitalization due t
[2021-07-18 17:50] LABS: Glucose Point of Care 249 mg/dl (65-105)
[2021-07-18] MEDS: TOPIRAMATE 25 MG TABLET PO (20:59)
[2021-07-18] MEDS: WATER, STERILE FOR INJECTION 10 ML VIAL XX (21:10)
[2021-07-18 21:46] LABS: Glucose Point of Care 187 mg/dl (65-105)
[2021-07-19] VITALS (31 sets, daily range): BP systolic 110–160; BP diastolic 40–73; PULSE 78–105; RESP 20–35; TEMP 37.7–38.2; O2SAT 92–100
[2021-07-19] MEDS: METOPROLOL TARTRATE INJ 5 MG/5 ML VIAL 2.5 MG IV PUSH ×2 (00:07→05:35)
[2021-07-19] MEDS: VANCOMYCIN ORAL 125 MG/2.5 ML SYRUP PO ×4 (00:14→17:51)
[2021-07-19 01:17] LABS: Glucose Point of Care 101 mg/dl (65-105)
[2021-07-19] MEDS: LEVALBUTEROL NEB 1.25 MG/3 ML 0.63 MG INHALATION ×4 (01:45→20:48)
[2021-07-19] MEDS: IPRATROPIUM BR 0.02% INH SOLN 0.5 MG/2.5 ML VIAL INHALATION ×4 (01:45→20:48)
[2021-07-19 05:22] LABS: Base Excess ABG 2.9 mEq/l (+/-2.0); Carboxyhemoglobin 0.6 % THb (0-2.0); Fractional Inspired Oxygen 40 %; HCO3 ABG 25.4 mEq/l (22.0-26.0); Methemoglobin ABG 0.2 %THb (0-1.5); Oxygen Content ABG 18.4 %vol (16.0-22.0); Oxyhemoglobin 93.9 % THb (90.0-100.0); PO2 ABG 73.3 mmHg (80.0-100.0); PO2 FiO2 Ratio Arterial Blood 1.83 %; Reduced Hemoglobin 5.3 %THb (0-5.0); Total Hemoglobin 13.9 g/dL (12.0-18.0)
[2021-07-19 05:24] LABS: Device VENTILATOR; Modified Allen's Test Pass; Site Drawn LEFT RADIAL; pH ABG 7.505 (7.350-7.450)
[2021-07-19 05:25] LABS: Arterial Blood Gas PEEP 5 cmH2O; Arterial Blood Gas Tidal Volume 450 ml; Arterial Blood Gas Vent Mode CMV; Arterial Blood Gas Ventilator rate 20 /MIN
[2021-07-19 05:34] LABS: Glucose Point of Care 90 mg/dl (65-105)
[2021-07-19] MEDS: CENTRAL LINE FLUSH 10 ML IV PUSH ×3 (05:36→21:17)
[2021-07-19] MEDS: LORazepam INJ (*CRX) 2 MG/ML VIAL IV PUSH ×5 (09:15→22:55)
--- NOTE | 2021-07-19 10:12 | WPDINTPN ---
Progress Note: A&P Assessment and Plan (1) Acute respiratory failure with hypoxia: Code(s): J96.01 - Acute respiratory failure with hypoxia Status: Acute Assessment and Plan: Patient with acute respiratory failure likely related to pneumonia, possible COVID-19, EVALI (pt vapes) also could be related to interstitial lung and pneumococcal pneumonia -patient was on high-flow therapy, using accessory muscles of respiration, was finally intubated on 06/29/2021 -06/28 & 06/29 SARS-CoV-2 PCR negative -urine pneumococcal antigen was positive status post full course with vancomycin and Levaquin. - EVALI and ILD exacerbation: Patient has been Solu-Medrol since 06/29 and completed a taper on 07/15. -currently on CMV mode of ventilation, peep of 5, 40% FiO2. tidal volume decreased further - high minute ventilation and respiratory rate precludes weaning trial. Patient has failed weaning trial in the past -tracheostomy done on 07/10/2021 - patient off of all sedation. -triglycerides elevated blood propofol has been discontinued now CT 07/17 Severe diffuse lung disease with worsening from 07/14/2021, consistent with pneumonia versus pulmonary edema superimposed on emphysema and chronic interstitial lung disease. - Steroids resumed by Pulmonary 07/18 - continue Lasix IV (2) Fever: Code(s): R50.9 - Fever, unspecified Status: Acute Assessment and Plan: Continues to be febrile with low-grade fevers. Patient in initially completed a course for pneumococcal pneumonia -cultures have been negative, wbc's normal, lipase normal, -07/14: CT scan of the chest abdomen and pelvis: Showed right lower lobe masslike density, emphysema, diffuse ground-glass opacities with interlobular septal thickening, cirrhosis, colonic fluid, no abdominal abscess, scattered osteolytic disease. 07/14: Lower extremity Dopplers negative for DVT -ID is following. Continue to hold antibiotics at this time - ? Secondary to malignancy -stool came back positive C diff patient has been started on vancomycin per tube (3) Lung cancer: Code(s): C34.90 - Malignant neoplasm of unspecified part of unspecified bronchus or lung Status: Acute Assessment and Plan: CT chest shows Right lung mass, right hilar and mediastinal lymphadenopathy, and lytic lesions of bone, consistent with primary bronchogenic carcinoma and metastatic disease Patient currently on dual antiplatelet therapy which was started after STEMI which precludes lung biopsy at this time. Dr. Sinclair discussed with Radiology and they can do a bone biopsy once patient is extubated Oncology following 07/15 CT-guided bone biopsy of right ilium lytic lesion was done and showed MASS OF RIGHT ILIUM, CT-GUIDED CORE BIOPSY: METASTATIC POORLY DIFFERENTIATED CARCINOMA (SEE COMMENT). Comment: The patient has a mass in the right lower lung lobe and evidence of metastatic disease, including multiple lytic bone lesions. 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 A diagnosis of poorly differentiated non-small cell carcinoma cannot be excluded. Therefore, the tissue remaining in the block will be sent for the predictive panel for non-small cell carcinoma (addendum report to follow). One more immunohistochemical stain is still pending (a Napsin). The results are called to Lily in Dr. Vila's office on 07/18/2021. (4) Pneumonia: Qualifiers: Laterality: bilateral Lung location: unspecified part of lung Pneumonia type: due to unspecified organism Qualified Code(s): J18.9 - Pneumonia, unspecified organism Code(s): J18.9 - Pneumonia, unspecified organism Status: Acute Assessment and Plan: Patient had a bronchoscopy earlier today which showed essentially normal bronchial tree with no evidence of erythematous changes, diffuse mucosal e
[2021-07-19 10:37] LABS: Glucose Point of Care 90 mg/dl (65-105)
[2021-07-19] MEDS: ENOXAPARIN 40 MG/0.4 ML SYRINGE SUB-Q (10:38)
[2021-07-19] MEDS: NICOTINE (*PBKC) 14 MG PATCH 1 PATCH TRANSDERM (10:38)
[2021-07-19] MEDS: FUROSEMIDE INJ 40 MG/4 ML VIAL IV PUSH (10:38)
[2021-07-19] MEDS: ASPIRIN 81 MG CHEWABLE TABLET FEED TUBE (10:38)
[2021-07-19] MEDS: ATORVASTATIN 40 MG TABLET 80 MG PO (10:38)
[2021-07-19] MEDS: METOPROLOL TARTRATE 12.5 MG TABLET PO ×2 (10:39→21:12)
[2021-07-19] MEDS: methylPREDNISolone SOD SUCC 40 MG VIAL IV PUSH (10:39)
[2021-07-19] MEDS: TICAGRELOR 90 MG TABLET PO ×2 (10:40→21:12)
[2021-07-19] MEDS: PANTOPRAZOLE SODIUM IV 40 MG VIAL IV PUSH ×2 (10:40→21:12)
[2021-07-19] MEDS: VENLAFAXINE HCL 75 MG TABLET FEED TUBE ×2 (10:40→16:28)
[2021-07-19] MEDS: INSULIN GLARGINE (*BKC) 100 UNITS/ML 65 UNITS SUB-Q ×2 (10:44→21:16)
[2021-07-19 10:50] LABS: Anion Gap 7 mmol/L (8-16); Blood Urea Nitrogen 19 mg/dL (7-17); Calcium 9.3 mg/dL (8.4-10.2); Carbon Dioxide 27 mmol/L (22-30); Chloride 107 mmol/L (98-107); Estimated CRCL calculation 128 ml/min; Estimated Glomerular Filt Rate > 60; Glucose 104 mg/dL (65-110); Potassium 3.6 mmol/L (3.4-5.0); Sodium 141 mmol/L (137-145)
[2021-07-19 11:02] LABS: Lipase 127 U/L (23-300)
[2021-07-19] MEDS: fentaNYL CITRATE INJ (*CRX) 100 MCG/2 ML VIAL 50 MCG IV PUSH ×4 (11:55→21:07)
[2021-07-19 15:01] LABS: Glucose Point of Care 146 mg/dl (65-105)
[2021-07-19 17:57] LABS: Glucose Point of Care 193 mg/dl (65-105)
--- NOTE | 2021-07-19 20:35 | PM.PNCARD ---
Progress Note: A&P Assessment and Plan (1) ST elevation (STEMI) myocardial infarction: Code(s): I21.3 - ST elevation (STEMI) myocardial infarction of unspecified site Status: Acute Assessment and Plan: Acute inferior STEMI on June 27 treated with 2 RCA stents, good LV function. Hemodynamically stable. Continue guideline directed therapy with aspirin, Brilinta, atorvastatin, low-dose metoprolol. BP relatively stable. Hold off on JHON-inhibitor No new cardiovascular issues at this time. (2) Acute respiratory failure with hypoxia: Code(s): J96.01 - Acute respiratory failure with hypoxia Status: Acute Assessment and Plan: Acute respiratory failure, chronic lung disease, managed by pie dough roller. Greatly appreciate critical care and pulmonology involvement and recommendations as well. status post trach Possible ILD as well as vaping long injury and lung cancer. Chest x-ray looks worse. Started on furosemide 40 mg IV push daily yesterday and steroids as well. (3) Fever: Code(s): R50.9 - Fever, unspecified Status: Acute Assessment and Plan: She continues with low-grade fevers, blood cultures Negative to date. appreciate Infectious Disease involvement and recommendations. C diff preliminary positive. CT abdomen showed cirrhosis but no abscess. Very complicated clinical scenario. Evaluation treatment per pie dough roller. (4) Anemia: Code(s): D64.9 - Anemia, unspecified Status: Acute Assessment and Plan: She remains anemic, Hemoglobin relatively stable. No evidence of active bleed. Continue to follow H& H. Continue dual antiplatelet therapy. Platelet count mildly low but stable. (5) Interstitial lung disease: Code(s): J84.9 - Interstitial pulmonary disease, unspecified Status: Acute Assessment and Plan: As above. Appreciate Critical Care and pulmonology recommendations. (6) Diabetes: Code(s): E11.9 - Type 2 diabetes mellitus without complications Status: Acute Assessment and Plan: Continue present management. Initial triglycerides draw lab error 2436 repeat 332. (7) Lung cancer: Code(s): C34.90 - Malignant neoplasm of unspecified part of unspecified bronchus or lung Status: Acute Assessment and Plan: Endobronchial mass with evidence of metastatic disease. Additional Plan Patient requires ongoing hospitalization due to multiple medical conditions requiring ICU level of care including recent STEMI, ventilator dependency. Subjective Date/time seen: 12/18/21 20:35 Interval history: Acute inferior ST segment elevation [place] 06/27/2021 status post successful but difficult and challenging PCI of the right coronary artery because of diffuse disease, calcification and tortuosity in the target vessel. Ultimately good angiographic results with 2 drug-eluting stents. Postprocedure troponin levels only showed a modest troponin rise and echocardiogram demonstrates good left ventricular systolic function. Unfortunately she also appears to have likely vaping related lung injury and is now intubated on mechanical ventilator support. Appears to be COVID negative. Found to have metastatic lung cancer. 07/01/2021: Bronchoscopy was fairly unremarkable today. Appears to have some underlying interstitial lung disease as well as COPD. Still on 50% FiO2 and intubated. Telemetry shows NSR, occasional APC. 07/02/2021: Clinically unchanged still intubated on mechanical ventilation. O2 requirements slightly lower. 07/03/2021: No significant clinical changes. Ventilator requirements essentially the same, still on 50% FiO2. Unable to tolerate sedation holiday due to tachypnea. 07/04/2021: No new cardiovascular issues in the last several days. Patient remains sedated on mechanical ventilator support. Oxygenation requirements are slightly better but still requiring ventilator support. 07/05/2021: Remains intubat
[2021-07-19] MEDS: TOPIRAMATE 25 MG TABLET PO (21:12)
[2021-07-19 21:35] LABS: Glucose Point of Care 147 mg/dl (65-105)
[2021-07-20] VITALS (29 sets, daily range): BP systolic 112–154; BP diastolic 58–74; PULSE 70–99; RESP 20–262; TEMP 37.1–37.9; O2SAT 90–100
[2021-07-20 00:17] LABS: Glucose Point of Care 116 mg/dl (65-105)
[2021-07-20] MEDS: VANCOMYCIN ORAL 125 MG/2.5 ML SYRUP PO ×5 (00:51→23:46)
[2021-07-20] MEDS: fentaNYL CITRATE INJ (*CRX) 100 MCG/2 ML VIAL 50 MCG IV PUSH ×8 (01:54→23:17)
[2021-07-20] MEDS: IPRATROPIUM BR 0.02% INH SOLN 0.5 MG/2.5 ML VIAL INHALATION ×4 (02:39→19:53)
[2021-07-20] MEDS: LEVALBUTEROL NEB 1.25 MG/3 ML 0.63 MG INHALATION ×4 (02:39→19:53)
[2021-07-20 04:56] LABS: Basophils Percent Auto 0.2 % (0.2-1.2); Eosinophils Absolute Auto 0.3 K/mm3 (0-0.3); Eosinophils Percent Auto 3.5 % (0-4.4); Hemoglobin 9.3 g/dL (12.0-15.0); Immature Granulocyte Percent A 1.1 % (0-0.5); Lymphocytes Absolute Auto 1.12 K/mm3 (0.9-3.2); Lymphocytes Percent Auto 12.2 % (18.3-44.2); Mean Corpuscular Hemoglobin 33.1 pg (26-34); Mean Corpuscular Volume 106.8 fl (80-100); Mean Platelet Volume 10.4 fl (7.4-10.4); Monocytes Absolute Auto 0.6 K/mm3 (0.1-0.6); Neutrophils Absolute Auto 7.1 K/mm3 (1.3-6.7); Nucleated Red Blood Cells Absolute Auto 0.1 K/mm3 (0.0-0.012); Nucleated Red Blood Cells Perc 0.9 % (0.0-0.2); Platelet Count Result 157 k/mm3 (150-375); Red Blood Count 2.81 M/mm3 (4.2-5.4); Red Cell Distribution Width 16.5 % (11.5-14.5); White Blood Count 9.2 K/mm3 (4.5-10.0)
[2021-07-20 05:07] LABS: Alanine Aminotransferase 70 U/L (4-35); Albumin Level 3.3 g/dL (3.5-5.1); Alkaline Phosphatase 115 U/L (38-126); Anion Gap 8 mmol/L (8-16); Aspartate Amino Transferase 132 U/L (14-36); Blood Urea Nitrogen 23 mg/dL (7-17); Calcium 9.4 mg/dL (8.4-10.2); Carbon Dioxide 28 mmol/L (22-30); Chloride 104 mmol/L (98-107); Estimated CRCL calculation 109 ml/min; Estimated Glomerular Filt Rate > 60; Glucose 118 mg/dL (65-110); Magnesium 2.3 mg/dL (1.6-2.3); Potassium 3.9 mmol/L (3.4-5.0); Sodium 140 mmol/L (137-145)
[2021-07-20 05:14] LABS: NT Pro B Type Natriuretic Pept 641 pg/mL (5-100)
[2021-07-20 05:42] LABS: Alveolar/Arterial O2 Gradient 170.4 mmHg; Base Excess ABG 1.6 mEq/l (+/-2.0); Carboxyhemoglobin 0.3 % THb (0-2.0); Fractional Inspired Oxygen 40 %; Methemoglobin ABG 0.2 %THb (0-1.5); Oxygen Content ABG 10.9 %vol (16.0-22.0); Oxygen Saturation ABG 97.1 % (95.0-100.0); Oxyhemoglobin 94.7 % THb (90.0-100.0); PCO2 ABG 29.3 mmHg (35.0-45.0); PO2 ABG 81.1 mmHg (80.0-100.0); PO2 FiO2 Ratio Arterial Blood 2.03 %; Reduced Hemoglobin 4.8 %THb (0-5.0); Total Hemoglobin 8.1 g/dL (12.0-18.0)
[2021-07-20 05:44] LABS: Device VENTILATOR; Modified Allen's Test Pass; Site Drawn LEFT RADIAL; pH ABG 7.532 (7.350-7.450)
[2021-07-20 05:45] LABS: Arterial Blood Gas Ventilator rate 20 /MIN
[2021-07-20 05:46] LABS: Arterial Blood Gas PEEP 5 cmH2O; Arterial Blood Gas Tidal Volume 380 ml; Arterial Blood Gas Vent Mode CMV
[2021-07-20] MEDS: CENTRAL LINE FLUSH 10 ML IV PUSH ×3 (05:53→19:59)
[2021-07-20] MEDS: LORazepam INJ (*CRX) 2 MG/ML VIAL IV PUSH ×6 (08:05→23:17)
[2021-07-20 08:07] LABS: Glucose Point of Care 113 mg/dl (65-105)
[2021-07-20] MEDS: ENOXAPARIN 40 MG/0.4 ML SYRINGE SUB-Q (08:09)
[2021-07-20] MEDS: ASPIRIN 81 MG CHEWABLE TABLET FEED TUBE (08:09)
[2021-07-20] MEDS: ATORVASTATIN 40 MG TABLET 80 MG PO (08:09)
[2021-07-20] MEDS: FUROSEMIDE INJ 40 MG/4 ML VIAL IV PUSH (08:09)
[2021-07-20] MEDS: methylPREDNISolone SOD SUCC 40 MG VIAL IV PUSH (08:10)
[2021-07-20] MEDS: METOPROLOL TARTRATE 12.5 MG TABLET PO ×2 (08:12→19:59)
[2021-07-20] MEDS: NICOTINE (*PBKC) 14 MG PATCH 1 PATCH TRANSDERM (08:13)
[2021-07-20] MEDS: TICAGRELOR 90 MG TABLET PO ×2 (08:13→19:59)
[2021-07-20] MEDS: VENLAFAXINE HCL 75 MG TABLET FEED TUBE ×2 (08:13→16:25)
[2021-07-20] MEDS: PANTOPRAZOLE SODIUM IV 40 MG VIAL IV PUSH (08:13)
--- NOTE | 2021-07-20 09:56 | WPDINTPN ---
Progress Note: A&P Assessment and Plan (1) Acute respiratory failure with hypoxia: Code(s): J96.01 - Acute respiratory failure with hypoxia Status: Acute Assessment and Plan: Patient with acute respiratory failure likely related to pneumonia, possible COVID-19, EVALI (pt vapes) also could be related to interstitial lung and pneumococcal pneumonia -patient was on high-flow therapy, using accessory muscles of respiration, was finally intubated on 06/29/2021 -06/28 & 06/29 SARS-CoV-2 PCR negative -urine pneumococcal antigen was positive status post full course with vancomycin and Levaquin. - EVALI and ILD exacerbation: Patient has been Solu-Medrol since 06/29 and completed a taper on 07/15. -currently on CMV mode of ventilation, peep of 5, 40% FiO2. - high minute ventilation and respiratory rate precludes weaning trial. Patient has failed weaning trial in the past - decrease tidal volume to 320 as patient is over breathing the set rate -tracheostomy done on 07/10/2021 - patient off of all sedation. -triglycerides elevated blood propofol has been discontinued now CT 07/17 Severe diffuse lung disease with worsening from 07/14/2021, consistent with pneumonia versus pulmonary edema superimposed on emphysema and chronic interstitial lung disease. - Steroids resumed by Pulmonary 07/18 -Continue Lasix IV (2) Fever: Code(s): R50.9 - Fever, unspecified Status: Acute Assessment and Plan: Continues to be febrile with low-grade fevers. Patient in initially completed a course for pneumococcal pneumonia -cultures have been negative, wbc's normal, lipase normal, -07/14: CT scan of the chest abdomen and pelvis: Showed right lower lobe masslike density, emphysema, diffuse ground-glass opacities with interlobular septal thickening, cirrhosis, colonic fluid, no abdominal abscess, scattered osteolytic disease. 07/14: Lower extremity Dopplers negative for DVT -ID is following. Continue to hold antibiotics at this time - ? Secondary to malignancy -stool came back positive C diff patient has been started on vancomycin per tube (3) Lung cancer: Code(s): C34.90 - Malignant neoplasm of unspecified part of unspecified bronchus or lung Status: Acute Assessment and Plan: CT chest shows Right lung mass, right hilar and mediastinal lymphadenopathy, and lytic lesions of bone, consistent with primary bronchogenic carcinoma and metastatic disease Patient currently on dual antiplatelet therapy which was started after STEMI which precludes lung biopsy at this time. Dr. Sinclair discussed with Radiology and they can do a bone biopsy once patient is extubated Oncology following 07/15 CT-guided bone biopsy of right ilium lytic lesion was done and showed MASS OF RIGHT ILIUM, CT-GUIDED CORE BIOPSY: METASTATIC POORLY DIFFERENTIATED CARCINOMA (SEE COMMENT). Comment: The patient has a mass in the right lower lung lobe and evidence of metastatic disease, including multiple lytic bone lesions. 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 A diagnosis of poorly differentiated non-small cell carcinoma cannot be excluded. Therefore, the tissue remaining in the block will be sent for the predictive panel for non-small cell carcinoma (addendum report to follow). One more immunohistochemical stain is still pending (brandi Melvin). The results are called to Lily in Dr. Vila's office on 07/18/2021. (4) Pneumonia: Qualifiers: Laterality: bilateral Lung location: unspecified part of lung Pneumonia type: due to unspecified organism Qualified Code(s): J18.9 - Pneumonia, unspecified organism Code(s): J18.9 - Pneumonia, unspecified organism Status: Acute Assessment and Plan: Patient had a bronchoscopy earlier today which showed essentially normal bronchial tree with no evidence
[2021-07-20] MEDS: INSULIN GLARGINE (*BKC) 100 UNITS/ML 65 UNITS SUB-Q ×2 (10:00→20:18)
--- NOTE | 2021-07-20 12:50 | PM.PNPUL ---
Progress Note: A&P Assessment and Plan (1) Acute respiratory failure with hypoxia: Code(s): J96.01 - Acute respiratory failure with hypoxia Status: Acute Assessment and Plan: Patient now on FiO2 of 40%. A chest x-ray done earlier today stable interstitial lung disease changes bilaterally. Patient has failed weaning attempts. She still has a high minute ventilation of over 11 liters/minute. Her FiO2 has increased to 40% from 30% last week. Worsening of infiltrates is probably related to worsening of underlying interstitial lung disease following discontinuation of steroids. Will continue with current Solu-Medrol dose. Recent sputum culture normal oropharyngeal titi. (2) Interstitial lung disease: Code(s): J84.9 - Interstitial pulmonary disease, unspecified Status: Acute Assessment and Plan: (3) Chronic obstructive pulmonary disease: Qualifiers: COPD type: unspecified COPD Qualified Code(s): J44.9 - Chronic obstructive pulmonary disease, unspecified Code(s): J44.9 - Chronic obstructive pulmonary disease, unspecified Status: Acute Assessment and Plan: Patient carries a diagnosis of COPD. She will need follow-up on outpatient basis with pulmonary function testing. (4) History of tobacco abuse: Code(s): Z87.891 - Personal history of nicotine dependence Status: Acute (5) Lung nodule: Code(s): R91.1 - Solitary pulmonary nodule Status: Acute Assessment and Plan: (6) Hilar lymphadenopathy: Code(s): R59.0 - Localized enlarged lymph nodes Status: Acute Assessment and Plan: Most likely related to lung malignancy. on biopsy showed undifferentiated metastatic carcinoma. (7) Current every day vaping: Code(s): Z72.89 - Other problems related to lifestyle Status: Acute Assessment and Plan: Per patient's sister the patient has been vaping at least once per hour over the last few weeks. substances used for vaping not known. Subjective Date/time seen: 07/20/21 12:50 no change in respiratory status. The patient remaining intubated via tracheostomy. She has no fever or change in bronchial secretions. Bone biopsy consistent with metastatic undifferentiated carcinoma. she is back on IV Solu-Medrol for persistent interstitial lung disease. Review of Systems Review of Systems: All systems reviewed & are unremarkable except as noted in HPI and below (H and P and below) Exam Narrative: GENERAL APPEARANCE: Well developed, well nourished, answering questions while on mechanical ventilation SKIN: Inspection of the skin reveals no rashes, ulcerations or petechiae. HEENT: Sclerae anicteric and conjunctivae pink and moist. Extraocular movements were intact and pupils were equal, round. NECK: Supple. There was no thyroid enlargement, and no tenderness, or masses were felt. CHEST: Normal AP diameter and normal contour without any kyphoscoliosis. LUNGS: Auscultation of the lungs revealed crackles at bases posteriorly. CARDIAC: There was a regular rate and rhythm without any murmurs, gallops, rubs. ABDOMEN: Soft and nontender with normal bowel sounds. There was no organomegaly. LYMPH NODES: No lymphadenopathy was appreciated in the neck. EXTREMITIES: No cyanosis, clubbing or edema. NEUROLOGIC: Cooperative, answering questions. Objective Data Vital Signs Vital Signs: Vital Signs - 24 hr 07/19/21 14:00 07/19/21 15:45 07/19/21 15:47 Temperature 38.1 C H Pulse Rate 95 92 89 Respiratory Rate 30 H 35 H Blood Pressure 129/60 Pulse Oximetry 92 92 07/19/21 15:50 07/19/21 16:00 07/19/21 17:22 Temperature 37.9 C H Pulse Rate 91 100 89 Respiratory Rate 22 H 30 H Blood Pressure 141/67 H Pulse Oximetry 92 92 07/19/21 18:00 07/19/21 20:00 07/19/21 20:49 Temperature 37.8 C H 37.7 C H Pulse Rate 95 92 93 Respiratory Rate 30 H 33 H Blood Pressure 146/73 H 160/6
[2021-07-20] MEDS: ACETAMINOPHEN ELIXIR 325 MG/10.15 ML UDC 650 MG FEED TUBE (12:57)
[2021-07-20] MEDS: INSULIN ASPART (*BKC) 100 UNITS/ML SUB-Q ×3 (12:57→20:21)
[2021-07-20 14:28] LABS: Glucose Point of Care 219 mg/dl (65-105)
[2021-07-20] MEDS: QUEtiapine FUMARATE 25 MG TABLET 50 MG FEED TUBE ×2 (14:33→19:59)
[2021-07-20] MEDS: diazePAM (*CRX) 5 MG TABLET FEED TUBE (16:27)
[2021-07-20 18:33] LABS: Glucose Point of Care 290 mg/dl (65-105)
[2021-07-20] MEDS: TOPIRAMATE 25 MG TABLET PO (19:59)
[2021-07-20] MEDS: MINERAL OIL/WHITE PETROLATUM OINTMENT 1 APPLIC EACH EYE (19:59)
--- NOTE | 2021-07-20 20:44 | PM.PNCARD ---
Progress Note: A&P Assessment and Plan (1) ST elevation (STEMI) myocardial infarction: Code(s): I21.3 - ST elevation (STEMI) myocardial infarction of unspecified site Status: Acute Assessment and Plan: Acute inferior STEMI on June 27 treated with 2 RCA stents, good LV function. Hemodynamically stable. Continue guideline directed therapy with aspirin, Brilinta, atorvastatin, low-dose metoprolol. BP relatively stable. Hold off on JHON-inhibitor No new cardiovascular issues at this time. (2) Acute respiratory failure with hypoxia: Code(s): J96.01 - Acute respiratory failure with hypoxia Status: Acute Assessment and Plan: Acute respiratory failure, chronic lung disease, managed by head start teacher. Greatly appreciate critical care and pulmonology involvement and recommendations as well. status post trach Possible ILD as well as vaping long injury and lung cancer. Chest x-ray looks worse recently poss 2nd ILD and steroids resumed. Started on furosemide 40 mg IV push daily 07/18/2021. (3) Fever: Code(s): R50.9 - Fever, unspecified Status: Acute Assessment and Plan: She continues with low-grade fevers, blood cultures Negative to date. appreciate Infectious Disease involvement and recommendations. C diff positive. CT abdomen showed cirrhosis but no abscess. Very complicated clinical scenario. Evaluation treatment per head start teacher. (4) Anemia: Code(s): D64.9 - Anemia, unspecified Status: Acute Assessment and Plan: She remains anemic, Hemoglobin relatively stable. No evidence of active bleed. Continue to follow H& H. Continue dual antiplatelet therapy. Platelet count mildly low but stable. (5) Interstitial lung disease: Code(s): J84.9 - Interstitial pulmonary disease, unspecified Status: Acute Assessment and Plan: As above. Appreciate Critical Care and pulmonology recommendations. (6) Diabetes: Code(s): E11.9 - Type 2 diabetes mellitus without complications Status: Acute Assessment and Plan: Continue present management. Initial triglycerides draw lab error 2436 repeat 332. (7) Lung cancer: Code(s): C34.90 - Malignant neoplasm of unspecified part of unspecified bronchus or lung Status: Acute Assessment and Plan: Endobronchial mass with evidence of metastatic disease. Additional Plan Patient requires ongoing hospitalization due to multiple medical conditions requiring ICU level of care including recent STEMI, ventilator dependency. Subjective Date/time seen: 07/20/21 20:44 Interval history: Acute inferior ST segment elevation [place] 06/27/2021 status post successful but difficult and challenging PCI of the right coronary artery because of diffuse disease, calcification and tortuosity in the target vessel. Ultimately good angiographic results with 2 drug-eluting stents. Postprocedure troponin levels only showed a modest troponin rise and echocardiogram demonstrates good left ventricular systolic function. Unfortunately she also appears to have likely vaping related lung injury and is now intubated on mechanical ventilator support. Appears to be COVID negative. Found to have metastatic lung cancer. 07/01/2021: Bronchoscopy was fairly unremarkable today. Appears to have some underlying interstitial lung disease as well as COPD. Still on 50% FiO2 and intubated. Telemetry shows NSR, occasional APC. 07/02/2021: Clinically unchanged still intubated on mechanical ventilation. O2 requirements slightly lower. 07/03/2021: No significant clinical changes. Ventilator requirements essentially the same, still on 50% FiO2. Unable to tolerate sedation holiday due to tachypnea. 07/04/2021: No new cardiovascular issues in the last several days. Patient remains sedated on mechanical ventilator support. Oxygenation requirements are slightly better but still requiring ventilator support. 07/05/2021: Rem
[2021-07-20 20:46] LABS: Glucose Point of Care 266 mg/dl (65-105)
[2021-07-20 23:53] LABS: Glucose Point of Care 156 mg/dl (65-105)
[2021-07-21] VITALS (29 sets, daily range): BP systolic 109–152; BP diastolic 58–83; PULSE 78–108; RESP 20–36; TEMP 37–37.7; O2SAT 87–97
[2021-07-21] MEDS: LORazepam INJ (*CRX) 2 MG/ML VIAL IV PUSH ×5 (02:07→23:37)
[2021-07-21] MEDS: fentaNYL CITRATE INJ (*CRX) 100 MCG/2 ML VIAL 50 MCG IV PUSH ×4 (02:07→21:10)
[2021-07-21 04:29] LABS: Basophils Percent Auto 0.2 % (0.2-1.2); Eosinophils Absolute Auto 0.4 K/mm3 (0-0.3); Eosinophils Percent Auto 4.3 % (0-4.4); Hematocrit 28.8 % (37.0-47.0); Immature Granulocyte Absolute 0.16 K/mm3 (0.00-0.031); Immature Granulocyte Percent A 1.8 % (0-0.5); Lymphocytes Absolute Auto 1.53 K/mm3 (0.9-3.2); Lymphocytes Percent Auto 16.8 % (18.3-44.2); Mean Corpuscular HGB Conc 31.3 g/dl (32-36); Mean Corpuscular Hemoglobin 33.2 pg (26-34); Mean Corpuscular Volume 106.3 fl (80-100); Mean Platelet Volume 10.4 fl (7.4-10.4); Monocytes Absolute Auto 0.5 K/mm3 (0.1-0.6); Monocytes Percent Auto 5.4 % (2.6-8.5); Neutrophils Absolute Auto 6.5 K/mm3 (1.3-6.7); Neutrophils Percent Auto 71.5 % (45.5-73.1); Nucleated Red Blood Cells Absolute Auto 0.1 K/mm3 (0.0-0.012); Nucleated Red Blood Cells Perc 1.3 % (0.0-0.2); Platelet Count Result 156 k/mm3 (150-375); Red Blood Count 2.71 M/mm3 (4.2-5.4); Red Cell Distribution Width 16.3 % (11.5-14.5); White Blood Count 9.1 K/mm3 (4.5-10.0)
[2021-07-21 04:40] LABS: Alanine Aminotransferase 79 U/L (4-35); Albumin Level 3.2 g/dL (3.5-5.1); Alkaline Phosphatase 117 U/L (38-126); Anion Gap 7 mmol/L (8-16); Aspartate Amino Transferase 118 U/L (14-36); Bilirubin,Total 0.9 mg/dL (0.2-1.3); Blood Urea Nitrogen 25 mg/dL (7-17); Calcium 9.3 mg/dL (8.4-10.2); Carbon Dioxide 29 mmol/L (22-30); Chloride 102 mmol/L (98-107); Estimated CRCL calculation 128 ml/min; Estimated Glomerular Filt Rate > 60; Glucose 133 mg/dL (65-110); Magnesium 2.4 mg/dL (1.6-2.3); Potassium 3.9 mmol/L (3.4-5.0); Sodium 138 mmol/L (137-145)
[2021-07-21 05:33] LABS: Alveolar/Arterial O2 Gradient 141.5 mmHg; Base Excess ABG 3.7 mEq/l (+/-2.0); Carboxyhemoglobin 0.3 % THb (0-2.0); Fractional Inspired Oxygen 50 %; Methemoglobin ABG 0.2 %THb (0-1.5); Oxygen Content ABG 14.3 %vol (16.0-22.0); Oxygen Saturation ABG 99.2 % (95.0-100.0); Oxyhemoglobin 97.8 % THb (90.0-100.0); PO2 ABG 168.9 mmHg (80.0-100.0); PO2 FiO2 Ratio Arterial Blood 3.38 %; Reduced Hemoglobin 1.7 %THb (0-5.0); Total Hemoglobin 10.1 g/dL (12.0-18.0); pH ABG 7.452 (7.350-7.450)
[2021-07-21 05:34] LABS: Device VENTILATOR; Modified Allen's Test Unable to perform; Site Drawn RIGHT RADIAL
[2021-07-21 05:35] LABS: Arterial Blood Gas PEEP 5 cmH2O; Arterial Blood Gas Tidal Volume 380 ml; Arterial Blood Gas Vent Mode CMV; Arterial Blood Gas Ventilator rate 20 /MIN
[2021-07-21] MEDS: CENTRAL LINE FLUSH 10 ML IV PUSH ×3 (05:54→22:15)
[2021-07-21] MEDS: LANSOPRAZOLE ORAL SUSP 30 MG/10 ML ORAL.SUSP FEED TUBE (05:55)
[2021-07-21] MEDS: VANCOMYCIN ORAL 125 MG/2.5 ML SYRUP PO ×3 (05:55→17:17)
[2021-07-21 08:33] LABS: Glucose Point of Care 127 mg/dl (65-105)
[2021-07-21] MEDS: LEVALBUTEROL NEB 1.25 MG/3 ML 0.63 MG INHALATION ×3 (08:37→19:57)
[2021-07-21] MEDS: IPRATROPIUM BR 0.02% INH SOLN 0.5 MG/2.5 ML VIAL INHALATION ×3 (08:37→19:57)
[2021-07-21] MEDS: ASPIRIN 81 MG CHEWABLE TABLET FEED TUBE (08:49)
[2021-07-21] MEDS: METOPROLOL TARTRATE 12.5 MG TABLET PO ×2 (08:50→20:57)
[2021-07-21] MEDS: methylPREDNISolone SOD SUCC 40 MG VIAL IV PUSH (08:50)
[2021-07-21] MEDS: FUROSEMIDE INJ 40 MG/4 ML VIAL IV PUSH (08:50)
[2021-07-21] MEDS: ENOXAPARIN 40 MG/0.4 ML SYRINGE SUB-Q (08:50)
[2021-07-21] MEDS: NICOTINE (*PBKC) 14 MG PATCH 1 PATCH TRANSDERM (08:50)
[2021-07-21] MEDS: ATORVASTATIN 40 MG TABLET 80 MG PO (08:50)
[2021-07-21] MEDS: diazePAM (*CRX) 5 MG TABLET FEED TUBE ×2 (08:51→16:14)
[2021-07-21] MEDS: INSULIN GLARGINE (*BKC) 100 UNITS/ML 65 UNITS SUB-Q ×2 (08:51→20:54)
[2021-07-21] MEDS: TICAGRELOR 90 MG TABLET PO ×2 (08:51→20:58)
[2021-07-21] MEDS: QUEtiapine FUMARATE 25 MG TABLET 50 MG FEED TUBE ×2 (08:51→20:58)
[2021-07-21] MEDS: VENLAFAXINE HCL 75 MG TABLET FEED TUBE ×2 (08:51→16:14)
--- NOTE | 2021-07-21 11:19 | PCFNICU ---
ICU Rounding Note: Pt current nutrition is Glucerna 1.2 at 60 ml/hr over 22 hours. Last recorded weight is 113 kg, down from 116.7 kg. Bowel Motility:+BM reported-CDiff + Labs Reviewed:Glu 133, Cr 0.5,BUN 25,Alb 3.2,HCt 28.8,Hgb 9.0 Meds Noted:Brilinta, Effexor, Lovenox, Lantus, NovoLog, Lipitor, Lopressor, Solu Medrol, Atrovent, Precedex, Vancomycin. Skin: coccyx-maceration Additional Notes: Patient with Trach/PEG. Tube feedings of Glucerna 1.2 at 70 ml/hr and tolerating. CDiff positive. Agree with diet orders. Bone biopsy showing cancer. Following daily in ICU rounds. Will monitor every Wednesday and Wednesday.
[2021-07-21 12:33] LABS: Glucose Point of Care 205 mg/dl (65-105)
--- NOTE | 2021-07-21 12:38 | WPDINTPN ---
Progress Note: A&P Assessment and Plan (1) Acute respiratory failure with hypoxia: Code(s): J96.01 - Acute respiratory failure with hypoxia Status: Acute Assessment and Plan: Patient with acute respiratory failure likely related to pneumonia, possible COVID-19, EVALI (pt vapes) also could be related to interstitial lung and pneumococcal pneumonia -patient was on high-flow therapy, using accessory muscles of respiration, was finally intubated on 06/29/2021 -06/28 & 06/29 SARS-CoV-2 PCR negative -urine pneumococcal antigen was positive status post full course with vancomycin and Levaquin. - EVALI and ILD exacerbation: Patient has been Solu-Medrol since 06/29 and completed a taper on 07/15. Steroids resumed by Pulmonary 07/18 -currently on CMV mode of ventilation, peep of 5, 40% FiO2. high respiratory rate and minute ventilation and I tried both pressure support and ASV mode with worsening of respiratory rate and tidal volumes - chest x-ray and ABG reviewed -tracheostomy done on 07/10/2021 - patient off of all sedation. -triglycerides elevated blood propofol has been discontinued now CT 07/17 Severe diffuse lung disease with worsening from 07/14/2021, consistent with pneumonia versus pulmonary edema superimposed on emphysema and chronic interstitial lung disease. -Continue Lasix IV (2) Fever: Code(s): R50.9 - Fever, unspecified Status: Acute Assessment and Plan: Continues to be febrile with low-grade fevers. Patient in initially completed a course for pneumococcal pneumonia -cultures have been negative, wbc's normal, lipase normal, -07/14: CT scan of the chest abdomen and pelvis: Showed right lower lobe masslike density, emphysema, diffuse ground-glass opacities with interlobular septal thickening, cirrhosis, colonic fluid, no abdominal abscess, scattered osteolytic disease. 07/14: Lower extremity Dopplers negative for DVT -ID is following. Continue to hold antibiotics at this time - ? Secondary to malignancy -stool came back positive C diff patient has been started on vancomycin per tube - fevers have improved (3) Lung cancer: Code(s): C34.90 - Malignant neoplasm of unspecified part of unspecified bronchus or lung Status: Acute Assessment and Plan: CT chest shows Right lung mass, right hilar and mediastinal lymphadenopathy, and lytic lesions of bone, consistent with primary bronchogenic carcinoma and metastatic disease Patient currently on dual antiplatelet therapy which was started after STEMI which precludes lung biopsy at this time. Dr. Sinclair discussed with Radiology and they can do a bone biopsy once patient is extubated Oncology following 07/15 CT-guided bone biopsy of right ilium lytic lesion was done and showed MASS OF RIGHT ILIUM, CT-GUIDED CORE BIOPSY: METASTATIC POORLY DIFFERENTIATED CARCINOMA (SEE COMMENT). Comment: The patient has a mass in the right lower lung lobe and evidence of metastatic disease, including multiple lytic bone lesions. 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 A diagnosis of poorly differentiated non-small cell carcinoma cannot be excluded. Therefore, the tissue remaining in the block will be sent for the predictive panel for non-small cell carcinoma (addendum report to follow). One more immunohistochemical stain is still pending (brandi Melvin). The results are called to Lily in Dr. Vila's office on 07/18/2021. (4) Pneumonia: Qualifiers: Laterality: bilateral Lung location: unspecified part of lung Pneumonia type: due to unspecified organism Qualified Code(s): J18.9 - Pneumonia, unspecified organism Code(s): J18.9 - Pneumonia, unspecified organism Status: Acute Assessment and Plan: Patient had a bronchoscopy earlier today which showed essentially normal bronchial tree with no evid
[2021-07-21] MEDS: INSULIN ASPART (*BKC) 100 UNITS/ML SUB-Q ×2 (12:48→16:17)
--- NOTE | 2021-07-21 14:10 | PC.NURSE ---
Hallie Kim picked up patient's belongings
--- NOTE | 2021-07-21 15:29 | PM.PNCARD ---
Progress Note: A&P Assessment and Plan (1) ST elevation (STEMI) myocardial infarction: Code(s): I21.3 - ST elevation (STEMI) myocardial infarction of unspecified site Status: Acute Assessment and Plan: Acute inferior STEMI on June 27 treated with 2 RCA stents, good LV function. Hemodynamically stable. Continue guideline directed therapy with aspirin, Brilinta, atorvastatin, low-dose metoprolol. BP relatively stable. Hold off on JHON-inhibitor No new cardiovascular issues at this time. (2) Acute respiratory failure with hypoxia: Code(s): J96.01 - Acute respiratory failure with hypoxia Status: Acute Assessment and Plan: Acute respiratory failure, chronic lung disease, managed by fruit pitter. Greatly appreciate critical care and pulmonology involvement and recommendations as well. status post trach Possible ILD as well as vaping long injury and lung cancer. Chest x-ray looks worse recently poss 2nd ILD and steroids resumed. Started on furosemide 40 mg IV push daily 07/18/2021. (3) Fever: Code(s): R50.9 - Fever, unspecified Status: Acute Assessment and Plan: She continues with low-grade fevers, blood cultures Negative to date. appreciate Infectious Disease involvement and recommendations. C diff positive. CT abdomen showed cirrhosis but no abscess. Very complicated clinical scenario. Evaluation treatment per fruit pitter. (4) Anemia: Code(s): D64.9 - Anemia, unspecified Status: Acute Assessment and Plan: She remains anemic, Hemoglobin relatively stable. No evidence of active bleed. Continue to follow H& H. Continue dual antiplatelet therapy. Platelet count mildly low but stable. (5) Interstitial lung disease: Code(s): J84.9 - Interstitial pulmonary disease, unspecified Status: Acute Assessment and Plan: As above. Appreciate Critical Care and pulmonology recommendations. (6) Diabetes: Code(s): E11.9 - Type 2 diabetes mellitus without complications Status: Acute Assessment and Plan: Continue present management. Initial triglycerides draw lab error 3726 repeat 332. (7) Lung cancer: Code(s): C34.90 - Malignant neoplasm of unspecified part of unspecified bronchus or lung Status: Acute Assessment and Plan: Endobronchial mass with evidence of metastatic disease. Additional Plan Subjective Date/time seen: 07/21/21 15:29 Interval history: Acute inferior ST segment elevation [place] 06/27/2021 status post successful but difficult and challenging PCI of the right coronary artery because of diffuse disease, calcification and tortuosity in the target vessel. Ultimately good angiographic results with 2 drug-eluting stents. Postprocedure troponin levels only showed a modest troponin rise and echocardiogram demonstrates good left ventricular systolic function. Unfortunately she also appears to have likely vaping related lung injury and is now intubated on mechanical ventilator support. Appears to be COVID negative. Found to have metastatic lung cancer. 07/01/2021: Bronchoscopy was fairly unremarkable today. Appears to have some underlying interstitial lung disease as well as COPD. Still on 50% FiO2 and intubated. Telemetry shows NSR, occasional APC. 07/02/2021: Clinically unchanged still intubated on mechanical ventilation. O2 requirements slightly lower. 07/03/2021: No significant clinical changes. Ventilator requirements essentially the same, still on 50% FiO2. Unable to tolerate sedation holiday due to tachypnea. 07/04/2021: No new cardiovascular issues in the last several days. Patient remains sedated on mechanical ventilator support. Oxygenation requirements are slightly better but still requiring ventilator support. 07/05/2021: Remains intubated. Low-grade fever this morning. CT scan scheduled. Remains intubated, sedated. Unable provide history. Sinus rhythm/bradycardia on t
[2021-07-21] MEDS: ALTEPLASE 2 MG VIAL (CATHFLO) IV PUSH (16:21)
[2021-07-21 16:52] LABS: Glucose Point of Care 216 mg/dl (65-105)
[2021-07-21 19:55] LABS: Glucose Point of Care 141 mg/dl (65-105)
[2021-07-21] MEDS: TOPIRAMATE 25 MG TABLET PO (20:57)
[2021-07-21 23:44] LABS: Glucose Point of Care 106 mg/dl (65-105)
[2021-07-22] VITALS (27 sets, daily range): BP systolic 117–151; BP diastolic 56–78; PULSE 87–110; RESP 20–34; TEMP 37.3–37.8; O2SAT 91–100
[2021-07-22] MEDS: VANCOMYCIN ORAL 125 MG/2.5 ML SYRUP PO ×5 (00:18→23:39)
[2021-07-22] MEDS: fentaNYL CITRATE INJ (*CRX) 100 MCG/2 ML VIAL 50 MCG IV PUSH ×11 (00:30→22:12)
[2021-07-22] MEDS: LEVALBUTEROL NEB 1.25 MG/3 ML 0.63 MG INHALATION ×4 (01:57→20:18)
[2021-07-22] MEDS: IPRATROPIUM BR 0.02% INH SOLN 0.5 MG/2.5 ML VIAL INHALATION ×4 (01:57→20:18)
[2021-07-22] MEDS: diazePAM (*CRX) 5 MG TABLET FEED TUBE ×3 (02:57→13:22)
[2021-07-22 04:32] LABS: Glucose Point of Care 70 mg/dl (65-105)
[2021-07-22 04:35] LABS: Basophils Absolute Auto 0.1 K/mm3 (0.0-0.1); Basophils Percent Auto 0.4 % (0.2-1.2); Eosinophils Absolute Auto 0.5 K/mm3 (0-0.3); Eosinophils Percent Auto 3.3 % (0-4.4); Hemoglobin 10.2 g/dL (12.0-15.0); Immature Granulocyte Absolute 0.21 K/mm3 (0.00-0.031); Immature Granulocyte Percent A 1.5 % (0-0.5); Lymphocytes Absolute Auto 1.84 K/mm3 (0.9-3.2); Lymphocytes Percent Auto 13.4 % (18.3-44.2); Mean Corpuscular HGB Conc 31.9 g/dl (32-36); Mean Corpuscular Hemoglobin 32.5 pg (26-34); Mean Corpuscular Volume 101.9 fl (80-100); Mean Platelet Volume 10.5 fl (7.4-10.4); Monocytes Absolute Auto 0.7 K/mm3 (0.1-0.6); Monocytes Percent Auto 5.4 % (2.6-8.5); Neutrophils Absolute Auto 10.4 K/mm3 (1.3-6.7); Nucleated Red Blood Cells Absolute Auto 0.2 K/mm3 (0.0-0.012); Nucleated Red Blood Cells Perc 1.1 % (0.0-0.2); Platelet Count Result 204 k/mm3 (150-375); Red Blood Count 3.14 M/mm3 (4.2-5.4); Red Cell Distribution Width 16.5 % (11.5-14.5); White Blood Count 13.7 K/mm3 (4.5-10.0)
[2021-07-22 04:45] LABS: Alanine Aminotransferase 93 U/L (4-35); Albumin Level 3.4 g/dL (3.5-5.1); Alkaline Phosphatase 138 U/L (38-126); Anion Gap 8 mmol/L (8-16); Aspartate Amino Transferase 151 U/L (14-36); Bilirubin,Total 1.2 mg/dL (0.2-1.3); Blood Urea Nitrogen 26 mg/dL (7-17); Calcium 9.8 mg/dL (8.4-10.2); Carbon Dioxide 29 mmol/L (22-30); Chloride 102 mmol/L (98-107); Estimated CRCL calculation 128 ml/min; Estimated Glomerular Filt Rate > 60; Glucose 86 mg/dL (65-110); Magnesium 2.4 mg/dL (1.6-2.3); Potassium 3.6 mmol/L (3.4-5.0); Sodium 139 mmol/L (137-145)
[2021-07-22 04:47] LABS: Alveolar/Arterial O2 Gradient 228.2 mmHg; Base Excess ABG 5.3 mEq/l (+/-2.0); Carboxyhemoglobin 0.3 % THb (0-2.0); Fractional Inspired Oxygen 50 %; HCO3 ABG 29.5 mEq/l (22.0-26.0); Methemoglobin ABG 0.1 %THb (0-1.5); Oxygen Content ABG 15.1 %vol (16.0-22.0); Oxygen Saturation ABG 96.5 % (95.0-100.0); Oxyhemoglobin 95.1 % THb (90.0-100.0); PCO2 ABG 41.8 mmHg (35.0-45.0); PO2 ABG 81.3 mmHg (80.0-100.0); PO2 FiO2 Ratio Arterial Blood 1.63 %; Reduced Hemoglobin 4.5 %THb (0-5.0); Total Hemoglobin 11.2 g/dL (12.0-18.0); pH ABG 7.466 (7.350-7.450)
[2021-07-22 04:49] LABS: Device VENTILATOR; Modified Allen's Test Pass; Site Drawn RIGHT RADIAL
[2021-07-22 04:50] LABS: Arterial Blood Gas Ventilator rate 20 /MIN
[2021-07-22 04:52] LABS: Arterial Blood Gas PEEP 5 cmH2O; Arterial Blood Gas Tidal Volume 380 ml; Arterial Blood Gas Vent Mode CMV
[2021-07-22] MEDS: CENTRAL LINE FLUSH 10 ML IV PUSH ×2 (05:43→14:36)
[2021-07-22] MEDS: LANSOPRAZOLE ORAL SUSP 30 MG/10 ML ORAL.SUSP FEED TUBE (05:46)
[2021-07-22] MEDS: NICOTINE (*PBKC) 14 MG PATCH 1 PATCH TRANSDERM (07:48)
[2021-07-22] MEDS: ATORVASTATIN 40 MG TABLET 80 MG PO (07:49)
[2021-07-22] MEDS: METOPROLOL TARTRATE 12.5 MG TABLET PO ×2 (07:49→20:44)
[2021-07-22] MEDS: ASPIRIN 81 MG CHEWABLE TABLET FEED TUBE (07:49)
[2021-07-22] MEDS: methylPREDNISolone SOD SUCC 40 MG VIAL IV PUSH (07:49)
[2021-07-22] MEDS: FUROSEMIDE INJ 40 MG/4 ML VIAL IV PUSH (07:49)
[2021-07-22] MEDS: TICAGRELOR 90 MG TABLET PO ×2 (07:49→20:44)
[2021-07-22] MEDS: ENOXAPARIN 40 MG/0.4 ML SYRINGE SUB-Q (07:49)
[2021-07-22] MEDS: QUEtiapine FUMARATE 25 MG TABLET 50 MG FEED TUBE ×2 (07:50→20:44)
[2021-07-22] MEDS: VENLAFAXINE HCL 75 MG TABLET FEED TUBE ×2 (07:50→16:51)
[2021-07-22] MEDS: INSULIN GLARGINE (*BKC) 100 UNITS/ML 55 UNITS SUB-Q ×2 (08:03→20:44)
[2021-07-22] MEDS: POTASSIUM CHLORIDE 20 MEQ PACKET (FOR LIQUID) 40 MEQ FEED TUBE (08:03)
[2021-07-22] MEDS: MINERAL OIL/WHITE PETROLATUM OINTMENT 1 APPLIC EACH EYE ×2 (08:22→20:46)
[2021-07-22 09:13] LABS: Glucose Point of Care 89 mg/dl (65-105)
[2021-07-22] MEDS: LORazepam INJ (*CRX) 2 MG/ML VIAL IV PUSH ×5 (11:22→22:12)
--- NOTE | 2021-07-22 11:28 | WPDONCPN ---
Progress Note: A/P (1) Lung cancer Code(s): C34.90 - Malignant neoplasm of unspecified part of unspecified bronchus or lung Status: Acute - Time Spent With Patient Total time spent is greater than 50% in coordination of care (as documented) at patient's floor/unit and/or counseling patient: 15 - 25 minutes Subjective Interval history: spoke with sister Germaine Garcia-advised her that pathology likely Small Cell Lung Ca- Extensive disease - Her current clinical condition would make systemic chemotherapy infeasible and that her prognosis is grave She expressed understanding Review of Systems - Neurologic Reports behavioral changes, Reports confusion (Sedated) Exam Vital signs: Temp Pulse Resp BP Pulse Ox 37.7 C H 94 20 117/56 L 93 07/22/21 08:00 07/22/21 10:55 07/22/21 10:00 07/22/21 10:00 07/22/21 10:55 PN: Objective Data - Labs CBC & Chem 7: 07/24/21 04:09 07/24/21 04:09 Labs: Laboratory Results - last 24 hr 07/21/21 07/21/21 07/21/21 12:26 16:13 19:48 WBC RBC Hgb Hct MCV MCH MCHC RDW Plt Count MPV Immature Gran % (Auto) Neut % (Auto) Lymph % (Auto) [place] % (Auto) Eos % (Auto) Baso % (Auto) Lymph # (Auto) [place] # (Auto) Eos # (Auto) Baso # (Auto) Abs Immat Gran (auto) Absolute Neuts (auto) Absolute Nucleated RBC Nucleated RBC % Puncture Site ABG pH ABG pCO2 ABG pO2 ABG PO2/FiO2 Ratio ABG HCO3 ABG O2 Saturation ABG O2 Content ABG Base Excess A-a Gradient Oxyhemoglobin Carboxyhemoglobin Methemoglobin Reduced Hemoglobin Total Hemoglobin O2 Delivery Device O2 Liters/Min Minute Volume Vent Rate Vent Mode FiO2 Tidal Volume PEEP Peak Inspir Pressure Pressure Support Sodium Potassium Chloride Carbon Dioxide Anion Gap BUN Creatinine Estim Creat Clear Calc Estimated GFR Glucose POC Capillary Glucose 205 H 216 H 141 H Calcium Magnesium Total Bilirubin AST ALT Alkaline Phosphatase Total Protein Albumin 07/21/21 07/22/21 07/22/21 23:33 04:24 04:29 WBC RBC Hgb Hct MCV MCH MCHC RDW Plt Count MPV Immature Gran % (Auto) Neut % (Auto) Lymph % (Auto) [place] % (Auto) Eos % (Auto) Baso % (Auto) Lymph # (Auto) [place] # (Auto) Eos # (Auto) Baso # (Auto) Abs Immat Gran (auto) Absolute Neuts (auto) Absolute Nucleated RBC Nucleated RBC % Puncture Site Right radial ABG pH 7.466 H ABG pCO2 41.8 ABG pO2 81.3 ABG PO2/FiO2 Ratio 1.63 ABG HCO3 29.5 H ABG O2 Saturation 96.5 ABG O2 Content 15.1 L ABG Base Excess 5.3 A-a Gradient 228.2 Oxyhemoglobin 95.1 Carboxyhemoglobin 0.3 Methemoglobin 0.1 Reduced Hemoglobin 4.5 Total Hemoglobin 11.2 L O2 Delivery Device Ventilator O2 Liters/Min Not Reportable Minute Volume Not Reportable Vent Rate 20 Vent Mode Cmv FiO2 50 Tidal Volume 380 PEEP 5 Peak Inspir Pressure Not Reportable Pressure Support Not Reportable Sodium Potassium Chloride Carbon Dioxide Anion Gap BUN Creatinine Estim Creat Clear Calc Estimated GFR Glucose POC Capillary Glucose 106 H 70 Calcium Magnesium Total Bilirubin AST ALT Alkaline Phosphatase Total Protein Albumin 07/22/21 07/22/21 07/22/21 04:30 04:30 07:47 WBC 13.7 H RBC 3.14 L Hgb 10.2 L Hct 32.0 L MCV 101.9 H MCH 32.5 MCHC 31.9 L RDW 16.5 H Plt Count 204 MPV 10.5 H Immature Gran % (Auto) 1.5 H Neut % (Auto) 76.0 H Lymph % (Auto) 13.4 L [place] % (Auto) 5.4 Eos % (Auto) 3.3 Baso % (Auto) 0.4 Lymph # (Auto) 1.84 [place] # (Auto) 0.7 H Eos # (Auto) 0.5 H Baso # (Auto) 0.1 Abs Immat Gran (auto) 0.21 H
[2021-07-22 11:43] LABS: Glucose Point of Care 188 mg/dl (65-105)
--- NOTE | 2021-07-22 11:58 | PCNFU ---
Nutrition Follow-Up Complete: Inadequate Oral Intake as related to mechanical ventilation as evidenced by NPO. Goal: Meet estimated nutritional needs Patient continues current goal. We will continue goal. Pt current nutrition is Glucerna 1.2 at 70 ml/hr over 22 hours. Last recorded weight is 112.5 kg, down from 116.7 kg. Bowel Motility:fecal containment catheter,CDiff positive. Labs Reviewed:Alb 3.4,BUN 26, Cr 0.5,Hct 32.0,Hgb 10.2 Meds Noted:Lovenox,Brilinta, Effexor, Miralax, Lopressor, Protonix, Solu Medrol, Seroquel, Lantus, NovoLog Skin: Bilateral Medial coccyx-maceration Additional Notes: Patient current with Trach/PEG. Tube feedings tolerating of Glucerna 1.2 at 70 ml/hr providing 1848 kcals/92 gms protein/1240 ml water. Free water flush 30 ml q 4 hours. Agree with diet orders. Monitoring: Will monitor in ICU rounds and reassessing every Wednesday and Wednesday.
--- NOTE | 2021-07-22 13:36 | PC.NURSE ---
1330-Went to give an IV medication and noticed the picc line was lying in the bed. Dressing applied. Will continue to monitor site.
--- NOTE | 2021-07-22 14:57 | PM.PNPUL ---
Progress Note: A&P Assessment and Plan (1) Acute respiratory failure with hypoxia: Code(s): J96.01 - Acute respiratory failure with hypoxia Status: Acute Assessment and Plan: Patient now on FiO2 of 50%. A chest x-ray done earlier today showed stable interstitial lung disease changes bilaterally. Patient has failed weaning attempts. She still has a high minute ventilation of over 12 liters/minute. Will continue with current Solu-Medrol dose. Recent sputum culture grew normal oropharyngeal titi. lung cancer is probably small cell with metastasis to bones. Patient is not a candidate for chemo radiation per oncology. (2) Interstitial lung disease: Code(s): J84.9 - Interstitial pulmonary disease, unspecified Status: Acute Assessment and Plan: Patient has been on steroids for interstitial lung disease probably due to vaping induced lung injury. Following initial treatment with steroids there was evidence of infiltrate clearing on chest x-rays and also on chest CT. Worsening of interstitial lung disease changes noted when the patient was taken off IV steroids. She was restarted on IV Solu-Medrol 40 mg daily. Will monitor respiratory status. (3) Chronic obstructive pulmonary disease: Qualifiers: COPD type: unspecified COPD Qualified Code(s): J44.9 - Chronic obstructive pulmonary disease, unspecified Code(s): J44.9 - Chronic obstructive pulmonary disease, unspecified Status: Acute Assessment and Plan: Patient carries a diagnosis of COPD. She will need follow-up on outpatient basis with pulmonary function testing. (4) History of tobacco abuse: Code(s): Z87.891 - Personal history of nicotine dependence Status: Acute (5) Lung nodule: Code(s): R91.1 - Solitary pulmonary nodule Status: Acute Assessment and Plan: (6) Hilar lymphadenopathy: Code(s): R59.0 - Localized enlarged lymph nodes Status: Acute Assessment and Plan: Most likely related to lung malignancy. on biopsy showed undifferentiated metastatic carcinoma. (7) Current every day vaping: Code(s): Z72.89 - Other problems related to lifestyle Status: Acute Assessment and Plan: Per patient's sister the patient has been vaping at least once per hour over the last few weeks. substances used for vaping not known. Subjective Date/time seen: 07/22/21 14:57 no significant change in respiratory status. Remains on a ventilator. FiO2 increased to 50% today. she still has high minute ventilation over 12 L per minute. Review of Systems Review of Systems: ROS unobtainable: Yes unobtainable due to endotracheal tube, unobtainable due to medical condition and unobtainable due to mental status Exam Narrative: GENERAL APPEARANCE: Well developed, well nourished, appears agitated while on mechanical ventilation SKIN: Inspection of the skin reveals no rashes, ulcerations or petechiae. HEENT: Sclerae anicteric and conjunctivae pink and moist. Extraocular movements were intact and pupils were equal, round. NECK: Supple. There was no thyroid enlargement, and no tenderness, or masses were felt. CHEST: Normal AP diameter and normal contour without any kyphoscoliosis. LUNGS: Auscultation of the lungs revealed crackles at bases posteriorly. CARDIAC: There was a regular rate and rhythm without any murmurs, gallops, rubs. ABDOMEN: Soft and nontender with normal bowel sounds. There was no organomegaly. LYMPH NODES: No lymphadenopathy was appreciated in the neck. EXTREMITIES: No cyanosis, clubbing or edema. NEUROLOGIC: restless, moving all extremities. Objective Data Vital Signs Vital Signs: Vital Signs - 24 hr 07/21/21 16:00 07/21/21 17:12 07/21/21 18:00 Temperature 37.6 C H 37.6 C H Pulse Rate 104 H 102 H 103 H Respiratory Rate 23 H 26 H Blood Pressure 122/79 147/71 H Pulse Oximetry 96 94 94 07/21/21 19:58 07/21/21 19:59
--- NOTE | 2021-07-22 15:58 | PM.PNCARD ---
Progress Note: A&P Assessment and Plan (1) ST elevation (STEMI) myocardial infarction: Code(s): I21.3 - ST elevation (STEMI) myocardial infarction of unspecified site Status: Acute Assessment and Plan: Acute inferior STEMI on June 27 treated with 2 RCA stents, good LV function. Hemodynamically stable. Continue guideline directed therapy with aspirin, Brilinta, atorvastatin, low-dose metoprolol. BP relatively stable. Hold off on JHON-inhibitor No new cardiovascular issues at this time. (2) Acute respiratory failure with hypoxia: Code(s): J96.01 - Acute respiratory failure with hypoxia Status: Acute Assessment and Plan: Acute respiratory failure, chronic lung disease, managed by banquet server on call. Greatly appreciate critical care and pulmonology involvement and recommendations as well. status post trach Possible ILD as well as vaping long injury and lung cancer. Chest x-ray looks worse recently poss 2nd ILD and steroids resumed. Started on furosemide 40 mg IV push daily 07/18/2021. (3) Fever: Code(s): R50.9 - Fever, unspecified Status: Acute Assessment and Plan: She continues with low-grade fevers, blood cultures Negative to date. appreciate Infectious Disease involvement and recommendations. C diff positive. CT abdomen showed cirrhosis but no abscess. Very complicated clinical scenario. Evaluation treatment per banquet server on call. (4) Anemia: Code(s): D64.9 - Anemia, unspecified Status: Acute Assessment and Plan: H&H somewhat improved. Continue to monitor H&H daily. (5) Interstitial lung disease: Code(s): J84.9 - Interstitial pulmonary disease, unspecified Status: Acute Assessment and Plan: As above. Appreciate Critical Care and pulmonology recommendations. (6) Diabetes: Code(s): E11.9 - Type 2 diabetes mellitus without complications Status: Acute Assessment and Plan: Continue present management. (7) Lung cancer: Code(s): C34.90 - Malignant neoplasm of unspecified part of unspecified bronchus or lung Status: Acute Assessment and Plan: Endobronchial mass with evidence of metastatic disease. Additional Plan Subjective Date/time seen: 07/22/21 15:58 Interval history: Acute inferior ST segment elevation [place] 06/27/2021 status post successful but difficult and challenging PCI of the right coronary artery because of diffuse disease, calcification and tortuosity in the target vessel. Ultimately good angiographic results with 2 drug-eluting stents. Postprocedure troponin levels only showed a modest troponin rise and echocardiogram demonstrates good left ventricular systolic function. Unfortunately she also appears to have likely vaping related lung injury and is now intubated on mechanical ventilator support. Appears to be COVID negative. Found to have metastatic lung cancer. 07/01/2021: Bronchoscopy was fairly unremarkable today. Appears to have some underlying interstitial lung disease as well as COPD. Still on 50% FiO2 and intubated. Telemetry shows NSR, occasional APC. 07/02/2021: Clinically unchanged still intubated on mechanical ventilation. O2 requirements slightly lower. 07/03/2021: No significant clinical changes. Ventilator requirements essentially the same, still on 50% FiO2. Unable to tolerate sedation holiday due to tachypnea. 07/04/2021: No new cardiovascular issues in the last several days. Patient remains sedated on mechanical ventilator support. Oxygenation requirements are slightly better but still requiring ventilator support. 07/05/2021: Remains intubated. Low-grade fever this morning. CT scan scheduled. Remains intubated, sedated. Unable provide history. Sinus rhythm/bradycardia on telemetry. Hemodynamically stable. 07/06/2021: Patient continues to have low-grade fevers. Blood cultures negative. Given IV Lasix with good response although relatively hypo
[2021-07-22] MEDS: diazePAM (*CRX) 5 MG TABLET PO (16:51)
[2021-07-22] MEDS: INSULIN ASPART (*BKC) 100 UNITS/ML SUB-Q (17:03)
[2021-07-22 17:09] LABS: Glucose Point of Care 347 mg/dl (65-105)
[2021-07-22] MEDS: diazePAM (*CRX) 5 MG TABLET 10 MG FEED TUBE (18:53)
[2021-07-22 20:35] LABS: Glucose Point of Care 165 mg/dl (65-105)
[2021-07-22] MEDS: TOPIRAMATE 25 MG TABLET PO (20:44)
[2021-07-22 23:45] LABS: Glucose Point of Care 162 mg/dl (65-105)
[2021-07-23] VITALS (29 sets, daily range): BP systolic 113–157; BP diastolic 63–119; PULSE 86–128; RESP 20–35; TEMP 37.4–38.8; O2SAT 90–97
[2021-07-23] MEDS: fentaNYL CITRATE INJ (*CRX) 100 MCG/2 ML VIAL 50 MCG IV PUSH ×6 (01:14→21:05)
[2021-07-23] MEDS: diazePAM (*CRX) 5 MG TABLET 10 MG FEED TUBE ×2 (01:14→08:09)
[2021-07-23] MEDS: LORazepam INJ (*CRX) 2 MG/ML VIAL IV PUSH ×5 (01:14→21:07)
[2021-07-23] MEDS: LEVALBUTEROL NEB 1.25 MG/3 ML 0.63 MG INHALATION ×4 (02:11→20:29)
[2021-07-23] MEDS: IPRATROPIUM BR 0.02% INH SOLN 0.5 MG/2.5 ML VIAL INHALATION ×4 (02:11→20:29)
[2021-07-23 04:39] LABS: Basophils Percent Auto 0.4 % (0.2-1.2); Eosinophils Absolute Auto 0.4 K/mm3 (0-0.3); Eosinophils Percent Auto 3.4 % (0-4.4); Hematocrit 32.1 % (37.0-47.0); Hemoglobin 9.9 g/dL (12.0-15.0); Immature Granulocyte Absolute 0.18 K/mm3 (0.00-0.031); Immature Granulocyte Percent A 1.6 % (0-0.5); Lymphocytes Absolute Auto 1.97 K/mm3 (0.9-3.2); Lymphocytes Percent Auto 17.4 % (18.3-44.2); Mean Corpuscular HGB Conc 30.8 g/dl (32-36); Mean Corpuscular Hemoglobin 32.8 pg (26-34); Mean Corpuscular Volume 106.3 fl (80-100); Mean Platelet Volume 10.8 fl (7.4-10.4); Monocytes Absolute Auto 0.6 K/mm3 (0.1-0.6); Monocytes Percent Auto 4.9 % (2.6-8.5); Neutrophils Absolute Auto 8.2 K/mm3 (1.3-6.7); Neutrophils Percent Auto 72.3 % (45.5-73.1); Nucleated Red Blood Cells Absolute Auto 0.1 K/mm3 (0.0-0.012); Nucleated Red Blood Cells Perc 1.1 % (0.0-0.2); Platelet Count Result 193 k/mm3 (150-375); Red Blood Count 3.02 M/mm3 (4.2-5.4); Red Cell Distribution Width 16.6 % (11.5-14.5); White Blood Count 11.3 K/mm3 (4.5-10.0)
[2021-07-23] MEDS: LANSOPRAZOLE ORAL SUSP 30 MG/10 ML ORAL.SUSP FEED TUBE (04:56)
[2021-07-23] MEDS: VANCOMYCIN ORAL 125 MG/2.5 ML SYRUP PO ×3 (04:56→17:40)
[2021-07-23 05:02] LABS: Alanine Aminotransferase 91 U/L (4-35); Albumin Level 3.5 g/dL (3.5-5.1); Alkaline Phosphatase 137 U/L (38-126); Anion Gap 5 mmol/L (8-16); Aspartate Amino Transferase 121 U/L (14-36); Bilirubin,Total 1.1 mg/dL (0.2-1.3); Blood Urea Nitrogen 26 mg/dL (7-17); Carbon Dioxide 32 mmol/L (22-30); Chloride 100 mmol/L (98-107); Estimated CRCL calculation 127 ml/min; Estimated Glomerular Filt Rate > 60; Glucose 154 mg/dL (65-110); Magnesium 2.6 mg/dL (1.6-2.3); Potassium 4.2 mmol/L (3.4-5.0); Sodium 137 mmol/L (137-145)
[2021-07-23 06:07] LABS: Base Excess ABG 6.7 mEq/l (+/-2.0); Carboxyhemoglobin 0.3 % THb (0-2.0); Device VENTILATOR; Fractional Inspired Oxygen 40 %; HCO3 ABG 30.8 mEq/l (22.0-26.0); Methemoglobin ABG 0.3 %THb (0-1.5); Modified Allen's Test Pass; Oxygen Content ABG 16.9 %vol (16.0-22.0); Oxygen Saturation ABG 96.7 % (95.0-100.0); Oxyhemoglobin 94.8 % THb (90.0-100.0); PCO2 ABG 41.8 mmHg (35.0-45.0); PO2 ABG 82.1 mmHg (80.0-100.0); PO2 FiO2 Ratio Arterial Blood 2.05 %; Reduced Hemoglobin 4.6 %THb (0-5.0); Site Drawn LEFT RADIAL; Total Hemoglobin 12.6 g/dL (12.0-18.0); pH ABG 7.485 (7.350-7.450)
[2021-07-23 06:08] LABS: Arterial Blood Gas PEEP 5 cmH2O; Arterial Blood Gas Tidal Volume 350 ml; Arterial Blood Gas Vent Mode CMV; Arterial Blood Gas Ventilator rate 20 /MIN
[2021-07-23 07:53] LABS: Glucose Point of Care 128 mg/dl (65-105)
[2021-07-23] MEDS: INSULIN GLARGINE (*BKC) 100 UNITS/ML 55 UNITS SUB-Q (08:12)
[2021-07-23] MEDS: VENLAFAXINE HCL 75 MG TABLET FEED TUBE ×2 (08:15→17:39)
[2021-07-23] MEDS: ASPIRIN 81 MG CHEWABLE TABLET FEED TUBE (08:15)
[2021-07-23] MEDS: QUEtiapine FUMARATE 25 MG TABLET 50 MG FEED TUBE (08:15)
[2021-07-23] MEDS: NICOTINE (*PBKC) 14 MG PATCH 1 PATCH TRANSDERM (08:16)
[2021-07-23] MEDS: METOPROLOL TARTRATE 12.5 MG TABLET PO (08:16)
[2021-07-23] MEDS: methylPREDNISolone SOD SUCC 40 MG VIAL IV PUSH (08:17)
[2021-07-23] MEDS: ENOXAPARIN 40 MG/0.4 ML SYRINGE SUB-Q (08:18)
[2021-07-23] MEDS: ATORVASTATIN 40 MG TABLET 80 MG PO (08:19)
[2021-07-23] MEDS: FUROSEMIDE INJ 40 MG/4 ML VIAL IV PUSH (08:19)
[2021-07-23] MEDS: MINERAL OIL/WHITE PETROLATUM OINTMENT 1 APPLIC EACH EYE (08:21)
[2021-07-23] MEDS: TICAGRELOR 90 MG TABLET PO ×2 (08:21→21:13)
--- NOTE | 2021-07-23 11:01 | PM.PNCARD ---
Progress Note: A&P Additional Plan 56-year-old lady with: Initial presentation long time ago was with acute inferior ST-elevation [place]. The been stated above the patient underwent emergency successful but difficult revascularization of the RCA and has done well from that perspective. Unfortunately she has severe respiratory insufficiency and now has also been found to have widely metastatic poorly differentiated carcinoma. Since she is not a candidate for any sort of treatment for this prognosis is obviously terminal. At this time there are no additional cardiac recommendations to make. End of life care will be discussed with the patient's family. Adam Weiss MD [facility] Subjective Date/time seen: 07/23/21 11:01 Interval history: Acute inferior ST segment elevation [place] 06/27/2021 status post successful but difficult and challenging PCI of the right coronary artery because of diffuse disease, calcification and tortuosity in the target vessel. Ultimately good angiographic results with 2 drug-eluting stents. Postprocedure troponin levels only showed a modest troponin rise and echocardiogram demonstrates good left ventricular systolic function. Unfortunately she also appears to have likely vaping related lung injury and is now intubated on mechanical ventilator support. Appears to be COVID negative. Found to have metastatic lung cancer. 07/01/2021: Bronchoscopy was fairly unremarkable today. Appears to have some underlying interstitial lung disease as well as COPD. Still on 50% FiO2 and intubated. Telemetry shows NSR, occasional APC. 07/02/2021: Clinically unchanged still intubated on mechanical ventilation. O2 requirements slightly lower. 07/03/2021: No significant clinical changes. Ventilator requirements essentially the same, still on 50% FiO2. Unable to tolerate sedation holiday due to tachypnea. 07/04/2021: No new cardiovascular issues in the last several days. Patient remains sedated on mechanical ventilator support. Oxygenation requirements are slightly better but still requiring ventilator support. 07/05/2021: Remains intubated. Low-grade fever this morning. CT scan scheduled. Remains intubated, sedated. Unable provide history. Sinus rhythm/bradycardia on telemetry. Hemodynamically stable. 07/06/2021: Patient continues to have low-grade fevers. Blood cultures negative. Given IV Lasix with good response although relatively hypotensive this morning. She remains on Precedex and propofol. Patient remains tachypneic but not following commands on ventilatory support FiO2 40%. Patient not able to provide any history due to sedation and mechanical ventilatory support. 07/07/2021: Remains in sinus rhythm. Still intubated. No significant changes. 07/08/2021: Still sinus rhythm. No significant change. 07/09/2021: Clinically unchanged patient is still intubated on mechanical ventilator support. Unfortunately diagnosis now is suspected lung cancer. For now no cardiac changes continue dual anti-platelet therapy 07/10/2021: With lightening the sedation, patient is responding and does squeeze hands to command. No chest pain 07/11/2021: Status post tracheostomy yesterday. No significant arrhythmia. Sedated at this point 07/12/2021: Clinically unchanged although the patient is now awake and responsive on Precedex and does follow commands. Apparently plans are to proceed with a biopsy once the patient is more stable and off ventilator support. We would recommend as detailed above biopsy of 1 of her lytic bone lesions over the endobronchial mass which would necessitate interrupting anti-platelet therapy. 07/13/2021: Clinically unchanged. Patient awake and alert on the ventilator appears to be comfortable denies any cardiovascular complaints. 07/14/2021: No clinical changes. Patient is still intubated requiring mechanical ventilator support. No acute cardiac issues. 07/15/21: No acute changes overnight. Remains intubated, has had trach
[2021-07-23 12:07] LABS: Glucose Point of Care 243 mg/dl (65-105)
--- NOTE | 2021-07-23 12:07 | PCFNICU ---
ICU Rounding Note: Pt current nutrition is Glucerna 1.2 at 70 ml/hr over 22 hours. Last recorded weight is 112.5 kg, down from 116.7 kg on admit Bowel Motility: Fecal Containment Catheter. Labs Reviewed:Hgb 9.9,Hct 32.1,BUN 26, Cr 0.5,Glu 154 Meds Noted:Brilinta, Effexor, Lantus, Lovenox, Lantus, Novolog, Lopressor, Valium, Sublimaze, Lipitor, Ativan, Lasix, Vancomycin. Skin: buttock-maceration Additional Notes: Patient Trach/PEG. Tolerating tube feedings of Glucerna 1.2 at 70 ml/hr goal rate. Free water flush 30 ml q 4hours. Cdiff positive. Following daily in ICU rounds. Will reassess every Wednesday and Wednesday..
[2021-07-23] MEDS: QUEtiapine FUMARATE 25 MG TABLET PO (13:01)
[2021-07-23] MEDS: ALPRAZolam (*CRX) 0.5 MG TABLET PO ×2 (13:02→18:10)
[2021-07-23] MEDS: INSULIN ASPART (*BKC) 100 UNITS/ML SUB-Q ×3 (13:05→21:45)
[2021-07-23] MEDS: CENTRAL LINE FLUSH 10 ML IV PUSH (13:06)
[2021-07-23 16:17] LABS: Glucose Point of Care 268 mg/dl (65-105)
[2021-07-23] MEDS: ACETAMINOPHEN ELIXIR 325 MG/10.15 ML UDC 650 MG FEED TUBE (21:04)
[2021-07-23] MEDS: METOPROLOL TARTRATE 25 MG TABLET PO (21:11)
[2021-07-23] MEDS: QUEtiapine FUMARATE 25 MG TABLET 75 MG FEED TUBE (21:13)
[2021-07-23] MEDS: TOPIRAMATE 25 MG TABLET PO (21:14)
[2021-07-23 21:52] LABS: Glucose Point of Care 225 mg/dl (65-105)
[2021-07-24] VITALS (41 sets, daily range): BP systolic 97–167; BP diastolic 35–87; PULSE 93–143; RESP 25–43; TEMP 37.8–40.2; O2SAT 88–99
[2021-07-24] MEDS: INSULIN GLARGINE (*BKC) 100 UNITS/ML 55 UNITS SUB-Q ×3 (00:19→20:26)
[2021-07-24] MEDS: VANCOMYCIN ORAL 125 MG/2.5 ML SYRUP PO ×4 (00:20→17:58)
[2021-07-24] MEDS: CENTRAL LINE FLUSH 10 ML IV PUSH ×4 (00:21→22:00)
[2021-07-24 00:33] LABS: Glucose Point of Care 170 mg/dl (65-105)
[2021-07-24] MEDS: fentaNYL CITRATE INJ (*CRX) 100 MCG/2 ML VIAL 50 MCG IV PUSH ×7 (01:25→22:34)
[2021-07-24] MEDS: LORazepam INJ (*CRX) 2 MG/ML VIAL IV PUSH ×4 (01:27→20:27)
[2021-07-24] MEDS: IPRATROPIUM BR 0.02% INH SOLN 0.5 MG/2.5 ML VIAL INHALATION ×3 (02:54→20:23)
[2021-07-24] MEDS: LEVALBUTEROL NEB 1.25 MG/3 ML 0.63 MG INHALATION ×3 (02:54→20:23)
[2021-07-24 04:44] LABS: Glucose Point of Care 184 mg/dl (65-105)
[2021-07-24 04:47] LABS: Basophils Percent Auto 0.3 % (0.2-1.2); Eosinophils Absolute Auto 0.2 K/mm3 (0-0.3); Eosinophils Percent Auto 1.7 % (0-4.4); Hematocrit 34.5 % (37.0-47.0); Hemoglobin 10.5 g/dL (12.0-15.0); Immature Granulocyte Percent A 1.5 % (0-0.5); Lymphocytes Absolute Auto 2.23 K/mm3 (0.9-3.2); Lymphocytes Percent Auto 16.5 % (18.3-44.2); Mean Corpuscular HGB Conc 30.4 g/dl (32-36); Mean Corpuscular Hemoglobin 32.1 pg (26-34); Mean Corpuscular Volume 105.5 fl (80-100); Mean Platelet Volume 10.9 fl (7.4-10.4); Monocytes Absolute Auto 0.7 K/mm3 (0.1-0.6); Monocytes Percent Auto 5.2 % (2.6-8.5); Neutrophils Absolute Auto 10.1 K/mm3 (1.3-6.7); Neutrophils Percent Auto 74.8 % (45.5-73.1); Nucleated Red Blood Cells Absolute Auto 0.1 K/mm3 (0.0-0.012); Nucleated Red Blood Cells Perc 0.8 % (0.0-0.2); Platelet Count Result 238 k/mm3 (150-375); Red Blood Count 3.27 M/mm3 (4.2-5.4); Red Cell Distribution Width 16.6 % (11.5-14.5); White Blood Count 13.5 K/mm3 (4.5-10.0)
[2021-07-24 05:05] LABS: Alanine Aminotransferase 98 U/L (4-35); Albumin Level 3.6 g/dL (3.5-5.1); Alkaline Phosphatase 154 U/L (38-126); Anion Gap 9 mmol/L (8-16); Aspartate Amino Transferase 129 U/L (14-36); Bilirubin,Total 1.2 mg/dL (0.2-1.3); Blood Urea Nitrogen 31 mg/dL (7-17); Calcium 10.3 mg/dL (8.4-10.2); Carbon Dioxide 29 mmol/L (22-30); Chloride 104 mmol/L (98-107); Estimated CRCL calculation 108 ml/min; Estimated Glomerular Filt Rate > 60; Glucose 192 mg/dL (65-110); Magnesium 2.7 mg/dL (1.6-2.3); Potassium 3.9 mmol/L (3.4-5.0); Sodium 142 mmol/L (137-145)
[2021-07-24] MEDS: ACETAMINOPHEN ELIXIR 325 MG/10.15 ML UDC 650 MG FEED TUBE ×2 (05:32→13:00)
[2021-07-24] MEDS: LANSOPRAZOLE ORAL SUSP 30 MG/10 ML ORAL.SUSP FEED TUBE (05:34)
[2021-07-24 07:08] LABS: Alveolar/Arterial O2 Gradient 134.8 mmHg; Base Excess ABG 4.2 mEq/l (+/-2.0); Carboxyhemoglobin 0.4 % THb (0-2.0); Fractional Inspired Oxygen 35 %; HCO3 ABG 27.8 mEq/l (22.0-26.0); Methemoglobin ABG 0.1 %THb (0-1.5); Oxygen Content ABG 15.8 %vol (16.0-22.0); Oxygen Saturation ABG 95.4 % (95.0-100.0); Oxyhemoglobin 93.1 % THb (90.0-100.0); PCO2 ABG 37.6 mmHg (35.0-45.0); PO2 FiO2 Ratio Arterial Blood 2.03 %; Reduced Hemoglobin 6.4 %THb (0-5.0); pH ABG 7.486 (7.350-7.450)
[2021-07-24 07:09] LABS: Device VENTILATOR; Modified Allen's Test Unable to perform; Site Drawn RIGHT RADIAL
[2021-07-24 07:10] LABS: Arterial Blood Gas PEEP 5 cmH2O; Arterial Blood Gas Tidal Volume 350 ml; Arterial Blood Gas Vent Mode CMV; Arterial Blood Gas Ventilator rate 20 /MIN
[2021-07-24 07:32] LABS: Glucose Point of Care 237 mg/dl (65-105)
[2021-07-24] MEDS: ALPRAZolam (*CRX) 0.5 MG TABLET PO ×3 (08:42→17:46)
[2021-07-24] MEDS: NICOTINE (*PBKC) 14 MG PATCH 1 PATCH TRANSDERM (08:42)
[2021-07-24] MEDS: ATORVASTATIN 40 MG TABLET 80 MG PO (08:43)
[2021-07-24] MEDS: TICAGRELOR 90 MG TABLET PO ×2 (08:43→20:11)
[2021-07-24] MEDS: ASPIRIN 81 MG CHEWABLE TABLET FEED TUBE (08:44)
[2021-07-24] MEDS: ENOXAPARIN 40 MG/0.4 ML SYRINGE SUB-Q (08:44)
[2021-07-24] MEDS: FUROSEMIDE INJ 40 MG/4 ML VIAL IV PUSH (08:44)
[2021-07-24] MEDS: METOPROLOL TARTRATE 25 MG TABLET PO ×2 (08:45→20:10)
[2021-07-24] MEDS: QUEtiapine FUMARATE 25 MG TABLET 75 MG FEED TUBE ×3 (08:58→21:37)
[2021-07-24] MEDS: methylPREDNISolone SOD SUCC 40 MG VIAL IV PUSH (08:59)
[2021-07-24] MEDS: INSULIN ASPART (*BKC) 100 UNITS/ML SUB-Q ×3 (08:59→17:46)
[2021-07-24] MEDS: MINERAL OIL/WHITE PETROLATUM OINTMENT 1 APPLIC EACH EYE (09:30)
[2021-07-24] MEDS: VENLAFAXINE HCL 75 MG TABLET FEED TUBE ×2 (11:04→17:46)
--- NOTE | 2021-07-24 11:44 | WPDINTPN ---
Progress Note: A&P Assessment and Plan (1) Acute respiratory failure with hypoxia: Code(s): J96.01 - Acute respiratory failure with hypoxia Status: Acute Assessment and Plan: Patient with acute respiratory failure likely related to pneumonia, possible COVID-19, EVALI (pt vapes) also could be related to interstitial lung and pneumococcal pneumonia -patient was on high-flow therapy, using accessory muscles of respiration, was finally intubated on 06/29/2021 -06/28 & 06/29 SARS-CoV-2 PCR negative -urine pneumococcal antigen was positive status post full course with vancomycin and Levaquin. - EVALI and ILD exacerbation: Patient has been Solu-Medrol since 06/29 and completed a taper on 07/15. Steroids resumed by Pulmonary 07/18 -currently on CMV mode of ventilation, peep of 5, 35% FiO2. high respiratory rate and minute ventilation and I tried both pressure support and ASV mode with worsening of respiratory rate and tidal volumes - chest x-ray and ABG reviewed -tracheostomy done on 07/10/2021 - patient off of all sedation. CT 07/17 Severe diffuse lung disease with worsening from 07/14/2021, consistent with pneumonia versus pulmonary edema superimposed on emphysema and chronic interstitial lung disease. -Continue Lasix IV (2) Fever: Code(s): R50.9 - Fever, unspecified Status: Acute Assessment and Plan: Continues to be febrile with low-grade fevers. Patient in initially completed a course for pneumococcal pneumonia -cultures have been negative, wbc's normal, lipase normal, -07/14: CT scan of the chest abdomen and pelvis: Showed right lower lobe masslike density, emphysema, diffuse ground-glass opacities with interlobular septal thickening, cirrhosis, colonic fluid, no abdominal abscess, scattered osteolytic disease. 07/14: Lower extremity Dopplers negative for DVT -ID is following. Continue to hold antibiotics at this time - ? Secondary to malignancy -stool came back positive C diff patient has been started on vancomycin per tube - Continues to be febrile. (3) Lung cancer: Code(s): C34.90 - Malignant neoplasm of unspecified part of unspecified bronchus or lung Status: Acute Assessment and Plan: CT chest shows Right lung mass, right hilar and mediastinal lymphadenopathy, and lytic lesions of bone, consistent with primary bronchogenic carcinoma and metastatic disease Patient currently on dual antiplatelet therapy which was started after STEMI which precludes lung biopsy at this time. Dr. Sinclair discussed with Radiology and they can do a bone biopsy once patient is extubated Oncology following 07/15 CT-guided bone biopsy of right ilium lytic lesion was done and showed MASS OF RIGHT ILIUM, CT-GUIDED CORE BIOPSY: METASTATIC POORLY DIFFERENTIATED CARCINOMA (SEE COMMENT). Comment: The patient has a mass in the right lower lung lobe and evidence of metastatic disease, including multiple lytic bone lesions. 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 A diagnosis of poorly differentiated non-small cell carcinoma cannot be excluded. Therefore, the tissue remaining in the block will be sent for the predictive panel for non-small cell carcinoma (addendum report to follow). One more immunohistochemical stain is still pending (brandi Melvin). The results are called to Lily in Dr. Vila's office on 07/18/2021. (4) Pneumonia: Qualifiers: Laterality: bilateral Lung location: unspecified part of lung Pneumonia type: due to unspecified organism Qualified Code(s): J18.9 - Pneumonia, unspecified organism Code(s): J18.9 - Pneumonia, unspecified organism Status: Acute Assessment and Plan: Patient had a bronchoscopy earlier today which showed essentially normal bronchial tree with no evidence of erythematous changes, diffuse mucosal edema, or incre
[2021-07-24 13:13] LABS: Glucose Point of Care 244 mg/dl (65-105)
--- NOTE | 2021-07-24 13:26 | PCFNICU ---
ICU Rounding Note: Pt current nutrition is Glucerna 1.2 at 70 ml/hr over 22 hours. Last recorded weight is 108.3 kg, down from 116.7 kg on admit. Bowel Motility:Fecal containment catheter Labs Reviewed:Mg 2.7,BUN 31, Cr 0.6,Glu 192, Hct 34.5, Hgb 10.5 Meds Noted:Brilinta, Effexor, Lantus, Lovenox, Novolog,Solu Medrol, Lopressor,Lasix,Ativan,Lipitor,Vancomycin Skin: coccyx-maceration Additional Notes:Patient has Trach/PEG. Tube feedings of Glucerna 1.2 at 70 ml/hr over 22 hours-tolerating. Free water flush 30 ml q 4 hours. Discussions starting today regarding hospice. Monitoring: Following daily in ICU rounds and reassessing every Wednesday and Wednesday.
--- NOTE | 2021-07-24 13:46 | PM.PNCARD ---
Progress Note: A&P Assessment and Plan (1) ST elevation (STEMI) myocardial infarction: Code(s): I21.3 - ST elevation (STEMI) myocardial infarction of unspecified site Status: Acute Assessment and Plan: Acute inferior STEMI on June 27 treated with 2 RCA stents, good LV function. Hemodynamically stable. Continue guideline directed therapy with aspirin, Brilinta, atorvastatin, low-dose metoprolol. BP relatively stable. Hold off on JHON-inhibitor No new cardiovascular issues at this time. (2) Acute respiratory failure with hypoxia: Code(s): J96.01 - Acute respiratory failure with hypoxia Status: Acute Assessment and Plan: Acute respiratory failure, chronic lung disease, managed by industrial green systems designer. Greatly appreciate critical care and pulmonology involvement and recommendations as well. status post trach Possible ILD as well as vaping long injury and lung cancer. Chest x-ray looks worse recently poss 2nd ILD and steroids resumed. Started on furosemide 40 mg IV push daily 07/18/2021. (3) Fever: Code(s): R50.9 - Fever, unspecified Status: Acute Assessment and Plan: She continues with low-grade fevers, blood cultures Negative to date. appreciate Infectious Disease involvement and recommendations. C diff positive. CT abdomen showed cirrhosis but no abscess. Very complicated clinical scenario. Evaluation treatment per industrial green systems designer. (4) Anemia: Code(s): D64.9 - Anemia, unspecified Status: Acute Assessment and Plan: H&H somewhat improved. Continue to monitor H&H daily. (5) Interstitial lung disease: Code(s): J84.9 - Interstitial pulmonary disease, unspecified Status: Acute Assessment and Plan: As above. Appreciate Critical Care and pulmonology recommendations. (6) Diabetes: Code(s): E11.9 - Type 2 diabetes mellitus without complications Status: Acute Assessment and Plan: Continue present management. (7) Lung cancer: Code(s): C34.90 - Malignant neoplasm of unspecified part of unspecified bronchus or lung Status: Acute Assessment and Plan: Endobronchial mass with evidence of metastatic disease. No changes from a cardiac perspective Subjective Date/time seen: 07/24/21 13:46 Interval history: Acute inferior ST segment elevation [place] 06/27/2021 status post successful but difficult and challenging PCI of the right coronary artery because of diffuse disease, calcification and tortuosity in the target vessel. Ultimately good angiographic results with 2 drug-eluting stents. Postprocedure troponin levels only showed a modest troponin rise and echocardiogram demonstrates good left ventricular systolic function. Unfortunately she also appears to have likely vaping related lung injury and is now intubated on mechanical ventilator support. Appears to be COVID negative. Found to have metastatic lung cancer. 07/01/2021: Bronchoscopy was fairly unremarkable today. Appears to have some underlying interstitial lung disease as well as COPD. Still on 50% FiO2 and intubated. Telemetry shows NSR, occasional APC. 07/02/2021: Clinically unchanged still intubated on mechanical ventilation. O2 requirements slightly lower. 07/03/2021: No significant clinical changes. Ventilator requirements essentially the same, still on 50% FiO2. Unable to tolerate sedation holiday due to tachypnea. 07/04/2021: No new cardiovascular issues in the last several days. Patient remains sedated on mechanical ventilator support. Oxygenation requirements are slightly better but still requiring ventilator support. 07/05/2021: Remains intubated. Low-grade fever this morning. CT scan scheduled. Remains intubated, sedated. Unable provide history. Sinus rhythm/bradycardia on telemetry. Hemodynamically stable. 07/06/2021: Patient continues to have low-grade fevers. Blood cultures negative. Given IV Lasix with good response a
[2021-07-24] MEDS: MIDAZOLAM HCL (*CRX) 2 MG/2 ML VIAL IV PUSH ×2 (15:33→22:35)
[2021-07-24 16:11] LABS: Glucose Point of Care 220 mg/dl (65-105)
[2021-07-24] MEDS: METOPROLOL TARTRATE INJ 5 MG/5 ML VIAL 2.5 MG IV PUSH ×2 (18:06→22:34)
[2021-07-24] MEDS: FIDAXOMICIN 200 MG TABLET PO (20:10)
[2021-07-24] MEDS: TOPIRAMATE 25 MG TABLET PO (20:11)
[2021-07-24 20:46] LABS: Glucose Point of Care 127 mg/dl (65-105)
[2021-07-24] MEDS: AZTREONAM 2 GM in SODIUM CHLORIDE 0.9% IV 100 ML 200 ML IVPB (21:36)
[2021-07-25] VITALS: BP 98/67; PULSE 139; RESP 30; TEMP 40; O2SAT 93
[2021-07-25 00:07] VITALS: PULSE 132; O2SAT 92
[2021-07-25] MEDS: LORazepam INJ (*CRX) 2 MG/ML VIAL IV PUSH ×2 (00:19→01:50)
[2021-07-25] MEDS: fentaNYL CITRATE INJ (*CRX) 100 MCG/2 ML VIAL 50 MCG IV PUSH (00:19)
[2021-07-25] MEDS: VANCOMYCIN ORAL 125 MG/2.5 ML SYRUP PO (00:19)
[2021-07-25 01:50] VITALS: TEMP 40.4
[2021-07-25] MEDS: MORPHINE SULFATE INJ (*CRX) 10 MG/ML AMP 5 MG IV PUSH (01:50)
[2021-07-25 04:24] VITALS: BP 96/56; PULSE 137; RESP 35; TEMP 40.7; O2SAT 79
--- NOTE | 2021-07-25 04:30 | PC.NURSE ---
Patient has continued to deteriorate so I called sister at 2330 on 07/24/21. I informed her that her sisters temperature was 104.5 and it is continuing to go up. I educated her on the cooling blanket and all the medication that had been given to control her temperature and comfort. I called the patients sister, Germaine Thompson, again because her temperature had reached 105.2 and I felt that she could possibly pass and got a DNR order, with Sofia Montalvo as my witness. We allowed her to come in and see her and She immediately said she wanted to place her on comfort care and discontinue therapy after another family member arrives. Her brother came and we took the patient off the vent at 0155. Her time of is 217. The sister was very thankful for the opportunity to see her sister before her passing and left soon after. No belongings were int he room and her sister stated that she had them.
[2021-07-25 05:18] LABS: Glucose Point of Care 97 mg/dl (65-105)
--- NOTE | 2021-07-29 17:14 | P.DN_ITS ---
Discharge Summary Date and Time Date of : 07/25/21 Time of : 02:18 Provider Pronounced By: Kenya Avalos Probable Cause of Probable Cause of : Acute respiratory failure Summary Hospital Course: Presented on 06/28/21 with acute inferior STEMI. This is treated with 2 RCA stents. She was initiated on DD MT with aspirin, Brilinta, atorvastatin, low-dose metoprolol. She did not have any cardiovascular issues following her PCI. She did have acute respiratory failure requiring intubation and was subsequently found to have lung cancer and possible ILD. She also developed C. diff during her stay. Received tissue diagnosis of poorly differentiated metastatic carcinoma. She was not a candidate for treatment of this per oncology. Therefore, this was a terminal diagnosis. She continued on ventilator support with a tracheostomy and ultimately it was decided to degroot sition her to comfort care. Additional Data Confirmation of as documented by pronouncing clinician: Pupillary Reflex, Palpable Pulses, Response to Stimuli, Heart Tones and Breath Sounds Name of Provider Notified: Dr. Yang Time Provider Notified: 02:41 Provider Requests Autopsy: No Family Requests Autopsy: No Landscape Architecture Teacher Notified: Yes Date [facility] Notified of : 07/25/21 Time [facility] Notified of : 02:33
== END 2021-07-25 02:18 | disposition expired | DRG 3 ==
LOC: ANHED 21:52 → ANHICU 06-28 00:17
PROVIDERS: Internal Medicine; Internal Medicine Gastroenterology; Internal Medicine Pulmonary Disease; Otolaryngology; Admitting Provider Internal Medicine Interventional Cardiology; Emergency Provider General Practice; PCP Family Medicine; Visit Provider Internal Medicine Interventional Cardiology
PROC: 4A023N7 Measurement of Cardiac Sampling and Pressure, Left Heart, Percutaneous Approach (ICD-10-PCS; CPT 93452; principal; 2021-06-27 21:30)
PROC: 027035Z Dilation of Coronary Artery, One Artery with Two Drug-eluting Intraluminal Devices, Percutaneous Approach (ICD-10-PCS; 2021-06-27 21:30)
PROC: 027035Z Dilation of Coronary Artery, One Artery with Two Drug-eluting Intraluminal Devices, Percutaneous Approach (ICD-10-PCS; 2021-06-27 21:30)
PROC: 0BJ08ZZ Inspection of Tracheobronchial Tree, Via Natural or Artificial Opening Endoscopic (ICD-10-PCS; CPT 31622; principal; 2021-06-30 12:30)
PROC: 0B110F4 Bypass Trachea to Cutaneous with Tracheostomy Device, Open Approach (ICD-10-PCS; principal; 2021-07-10 11:00)
PROC: 0DJ08ZZ Inspection of Upper Intestinal Tract, Via Natural or Artificial Opening Endoscopic (ICD-10-PCS; CPT 43235; principal; 2021-07-14 15:00)
PROC: 0DH63UZ Insertion of Feeding Device into Stomach, Percutaneous Approach (ICD-10-PCS; CPT 43246; 2021-07-14 15:00)
DX: I21.19 ST elevation (STEMI) myocardial infarction involving other coronary artery of inferior wall (principal); J96.01 Acute respiratory failure with hypoxia; J13 Pneumonia due to Streptococcus pneumoniae; A41.9 Sepsis, unspecified organism; R65.20 Severe sepsis without septic shock; N39.0 Urinary tract infection, site not specified; R57.9 Shock, unspecified; J84.9 Interstitial pulmonary disease, unspecified; C34.11 Malignant neoplasm of upper lobe, right bronchus or lung; C79.51 Secondary malignant neoplasm of bone; A04.72 Enterocolitis due to Clostridium difficile, not specified as recurrent; M84.58XA Pathological fracture in neoplastic disease, other specified site, initial encounter for fracture; Z68.41 Body mass index [BMI] 40.0-44.9, adult; Z51.5 Encounter for palliative care; M79.7 Fibromyalgia; I10 Essential (primary) hypertension; G89.29 Other chronic pain; F41.9 Anxiety disorder, unspecified; M19.90 Unspecified osteoarthritis, unspecified site; F32.A Depression, unspecified; E78.00 Pure hypercholesterolemia, unspecified; E11.9 Type 2 diabetes mellitus without complications; Z79.4 Long term (current) use of insulin; G47.33 Obstructive sleep apnea (adult) (pediatric); N39.3 Stress incontinence (female) (male); Z87.891 Personal history of nicotine dependence; Z20.822 Contact with and (suspected) exposure to COVID-19; B96.20 Unspecified Escherichia coli [E. coli] as the cause of diseases classified elsewhere; K74.60 Unspecified cirrhosis of liver; J43.9 Emphysema, unspecified; Z53.09 Procedure and treatment not carried out because of other contraindication; R41.0 Disorientation, unspecified; S30.1XXA Contusion of abdominal wall, initial encounter; Y84.8 Other medical procedures as the cause of abnormal reaction of the patient, or of later complication, without mention of misadventure at the time of the procedure; Y92.230 Patient room in hospital as the place of occurrence of the external cause; U07.0 Vaping-related disorder; D64.9 Anemia, unspecified; K29.80 Duodenitis without bleeding; E66.01 Morbid (severe) obesity due to excess calories; M54.50 Low back pain, unspecified
CPT/HCPCS: 20220; 36415; 36569; 36600; 43246; 70450; 71045; 71250; 71275; 74176; 77012; 80048; 80053; 80202; 81001; 81210; 81235; 81275; 81276; 82375; 82728; 82805; 82948; 83036; 83050; 83615; 83690; 83735; 83880; 84100; 84478; 84484; 85025; 85027; 85380; 85610; 85730; 85999; 86021; 86038; 86140; 86200; 86738; 87015; 87040; 87070; 87086; 87088; 87116; 87205; 87206; 87254; 87281; 87324; 87385; 87426; 87449; 87486; 87493; 87502; 87804; 87899; 88104; 88108; 88184; 88271; 88274; 88305; 88307; 88311; 88342; 88360; 88381; 92978; 93005; 93458; 93970; 94002; 94003; 94640; 99291; A9270; C1725; C1751; C1753; C1768; C1769; C1874; C1887; C1894; C8929; C9113; C9606; C9803; J0131; J0461; J1200; J1644; J1650; J1815; J1940; J1956; J2060; J2250; J2270; J2405; J2704; J2765; J2920; J2930; J2997; J3010; J3370; J3475; J3480; J7030; J7040; J7060; P9047; Q9957; Q9967; U0003; U0005